=== PATIENT | female | born 1935 | race Two or more races ===

== ENCOUNTER 2017-01-11 21:59 | Inpatient (IN) | payer MEDICARE, OTHER ==
[~2017-01-11] VITALS: Ht 149.9 cm; Wt 81.6 kg
[2017-01-11 22:03] VITALS: BP 102/69
[2017-01-11] MEDS ORDERED: LOSARTAN POTASS25 MG ORAL (22:20)
[2017-01-11] MEDS ORDERED: LASIX20 M1 ORAL (22:20)
[2017-01-11] MEDS ORDERED: IBUPROFEN600 MG ORAL (22:20)
[2017-01-11] MEDS ORDERED: LEVAQUIN500 MG ORAL (22:20)
[2017-01-11] MEDS ORDERED: METOPROLOL TART25 MG ORAL (22:20)
[2017-01-11] MEDS ORDERED: CYMBALTA60 MG ORAL (22:20)
[2017-01-11] MEDS ORDERED: LYRICA75 M1 ORAL (22:20)
[2017-01-11] MEDS ORDERED: LEVOTHYROXINE125 MCG ORAL (22:20)
[2017-01-11] MEDS ORDERED: AZATHIOPRINE50 MG PO (22:20)
[2017-01-11] MEDS ORDERED: GERI-LANTA LIQ355 ML PO (22:20)
[2017-01-11] MEDS ORDERED: SPIRONOLACTONE25 MG ORAL (22:20)
[2017-01-11] MEDS ORDERED: CELLCEPT500 MG ORAL (22:20)
[2017-01-11] MEDS ORDERED: DUONEB 0.5-3(2.53 ML HHN (22:20)
[2017-01-11] MEDS ORDERED: DIGOXIN125 MCG ORAL (22:20)
[2017-01-11] MEDS ORDERED: PRILOSEC OTC20 MG ORAL (22:23)
[2017-01-11] MEDS ORDERED: PROMETHAZINE-D118 ML ORAL (22:23)
[2017-01-11] MEDS ORDERED: TADALAFIL5 MG PO (22:23)
[2017-01-11] MEDS ORDERED: PREDNISONE10 MG ORAL (22:23)
[2017-01-11 22:36] LABS: ABG PCO2 48.5 mmHg (35.0-45.0)
[2017-01-11 22:37] LABS: ABG ALLEN TEST POSITIVE; ABG BASE EXCESS 7.2
[2017-01-11] MEDS ORDERED: Nitroglycerin Subl 0.4mg tab (Bottle Of 25) SL PRN (22:45)
[2017-01-11] MEDS ORDERED: Promethazine/Codeine 5ml UD ORAL PRN (22:45)
[2017-01-11] MEDS ORDERED: LORazepam Inj 2mg/ml 1ml IV PRN (22:45)
[2017-01-11] MEDS ORDERED: Ketorolac 30mg Inj IV PRN (22:45)
[2017-01-11] MEDS ORDERED: Morphine Sulfate 2mg/ml Inj IVP PRN (22:45)
[2017-01-11] MEDS ORDERED: Solu-MEDROL 125mg Inj IVP ONE (22:45)
[2017-01-11] MEDS ORDERED: DuoNeb 0.5-3(2.5)mg/3ml neb HHN PRN (22:45)
--- NOTE | 2017-01-11 22:58 | Emergency Room Report ---
History of Present Illness General Chief Complaint: Abnormal Labs Source: Patient, Medical Record Present Illness HPI [id number] From [facility] with PaO2 31 from 521pm today Patient with known pulm fibrosis, severe, pulm HTN On O2 2L chronically Endorses cough Denies fever/chills, chest pain, abd pain, urinary complaints HPI from last admissions also states known hypoxia and known hypercarbia Allergies: Coded Allergies: No Known Allergies (Unverified , 01/11/17) Patient History Past Medical History: other - HTN, DM, pulm fibrosis, HTN Past Surgical History: none Pertinent Family History: none Social History: Denies: alcohol use, drug use, smoking Now: No Immunizations: UTD Reviewed Nursing Documentation: PMH: Agreed, PSxH: Agreed Nursing Documentation-PMH Hx Hypertension: Yes - Osteoarthritis, hypothyroid Hx COPD: Yes - RF Hx Diabetes: Yes Hx Gastrointestinal Problems: Yes - GERD History Of Psychiatric Problem: Yes - Depression Review of Systems All Other Systems: negative except mentioned in HPI Physical Exam Vital Signs Date Time Temp Pulse Resp B/P Pulse Ox O2 Delivery O2 Flow Rate FiO2 01/11/17 21:56 98.1 102 14 102/69 97 Nasal Cannula 4.0 Sp02 EP Interpretation: reviewed, normal General Appearance: normal inspection, well appearing, no apparent distress, alert, GCS 15, non-toxic, other - Elderly female, sitting upright in stretcher, smiling, interacting Head: normocephalic, atraumatic Eyes: bilateral eye EOMI, bilateral eye PERRL ENT: normal ENT inspection, hearing grossly normal, normal voice Neck: normal inspection, full range of motion, supple, no bony tend Respiratory: normal inspection, no respiratory distress, no retraction, no accessory muscle use, no wheezing, decreased breath sounds, crackles Cardiovascular #1: regular rate, rhythm, no edema Gastrointestinal: normal inspection, normal bowel sounds, non tender, soft, no guarding, no hernia Genitourinary: no CVA tenderness Musculoskeletal: normal inspection, back normal, normal range of motion, Chin' s Sign negative Neurologic: normal inspection, alert, oriented x3, responsive, behavioral health professional III-XII nml as tested, motor strength/tone normal, speech normal Psychiatric: normal inspection, judgement/insight normal, mood/affect normal Skin: normal inspection, normal color, no rash Medical Decision Making Diagnostic Impression: Primary Impression: Abnormal laboratory test result Additional Impression: Pulmonary fibrosis ER Course Sent for low PaO2 - PaO2 is 76 here. Not acidotic - CXR shows chronic respiratory acidosis - On 2L, O2 sat below 90%. - Gave empiric steroids, Abx - Blood Cx pending - TYRONE vs CKD on labs - No other acute metabolic abnormality Endorsed to Dr Bourne for tele admit at 1145pm EKG Diagnostic Results Rate: normal Rhythm: NSR ST Segments: no acute changes ASA given to the pt in ED: No Rhythm Strip Diag. Results EP Interpretation: yes Rate: 75 Rhythm: NSR, no PVC's, no ectopy Chest X-Ray Diagnostic Results Chest X-Ray Diagnostic Results : Chest X-Ray Ordered: Yes # of Views/Limited/Complete: 1 View Indication: Shortness of Breath EP Interpretation: Yes Interpretation: no pneumothorax, other - Chronic bilateral fibrosis. ?Left lower lung consolidation Interpreting ER Provider: Electronically signed by Dr Guerra Last Vital Signs Date Time Temp Pulse Resp B/P Pulse Ox O2 Delivery O2 Flow Rate FiO2 01/11/17 21:56 98.1 102 14 102/69 97 Nasal Cannula 4.0 Status: improved Disposition: ADMITTED INPATIENT Condition: Serious MARIA FERNANDA GUERRA M.D. Jan 11, 2017 22:58
[2017-01-11 23:00] LABS: MEAN CORPUSCULAR HGB CONC 32.4 G/DL (32.0-36.0); MEAN CORPUSCULAR VOLUME 99 FL (80-99); MEAN PLATELET VOLUME 7.6 FL (6.5-10.1); PLATELET COUNT 220 K/UL (150-450); RED BLOOD COUNT 2.62 M/UL (4.20-5.40); RED CELL DISTRIBUTION WIDTH 13.4 % (11.6-14.8); WHITE BLOOD COUNT 5.8 K/UL (4.8-10.8)
[2017-01-11 23:02] LABS: BASOPHILS % (AUTO) 0.2 % (0.0-2.0); EOSINOPHILS % (AUTO) 0.7 % (0.0-3.0); LYMPHOCYTES % (AUTO) 5.3 % (20.0-45.0); NEUTROPHILS % (AUTO) 89.8 % (45.0-75.0)
[2017-01-11 23:07] LABS: TROPONIN I < 0.30 ng/mL (<=0.30)
[2017-01-11 23:10] LABS: ALANINE AMINOTRANSFERASE 5 U/L (3-33); ALBUMIN/GLOBULIN RATIO 0.8 (1.0-2.7); ANION GAP 9 (5-15); ASPARTATE AMINO TRANSFERASE 5 U/L (5-40); CARBON DIOXIDE 34 mEQ/L (20-30); CHLORIDE 96 mEQ/L (98-107); CREATININE 1.1 mg/dL (0.5-0.9); HEMOLYSIS 0; POTASSIUM 4.3 mEQ/L (3.4-4.9); SODIUM 139 mEQ/L (135-145); TOTAL PROTEIN 7.1 g/dL (6.6-8.7)
[2017-01-11] MEDS ORDERED: Piperacillin/Tazobactam 3.375 GM in NS 110 ML IVPB ONE (23:15)
[2017-01-11] MEDS ORDERED: Vancomycin 1 GM in NS 275 ML IVPB ONE (23:15)
[2017-01-11 23:21] LABS: CKMB < 1.5 ng/mL (< 3.8)
[2017-01-11] MEDS ORDERED: Vancomycin 1gm inj IVPB ONE (23:53)
[2017-01-11] MEDS ORDERED: Zosyn 3.375gm inj ONE (23:54)
[2017-01-12] VITALS (8 sets, daily range): BP systolic 116–154; BP diastolic 47–78
[2017-01-12] MEDS ORDERED: Zosyn 3.375gm inj ONE (05:08)
[2017-01-12] MEDS: Zosyn 3.375gm q8h **Extended infusion IVPB SCH ×6 (05:33→22:25)
[2017-01-12] MEDS: Solu-MEDROL 125mg Inj IV SCH ×4 (05:35→18:02)
[2017-01-12] MEDS: Levothyroxine 125mcg tab ORAL SCH (05:36)
[2017-01-12] MEDS ORDERED: Piperacillin/Tazobactam 2.25 GM in D5W 55 ML IV SCH (06:00)
[2017-01-12] MEDS: Lyrica 50mg cap ORAL SCH ×2 (10:47→18:03)
[2017-01-12] MEDS: azaTHIOprine 50 MG TAB ORAL SCH (10:47)
[2017-01-12] MEDS: Digoxin 0.125mg tab ORAL SCH (10:47)
[2017-01-12] MEDS: DULoxetine 30mg cap ORAL SCH (10:47)
[2017-01-12] MEDS: Heparin 5000 units/ml inj SUBQ SCH ×2 (10:52→20:13)
[2017-01-12] MEDS: Theophylline ER 100mg ORAL SCH ×2 (10:52→20:13)
--- NOTE | 2017-01-12 11:07 | Diagnostic Imaging Report ---
Indication: Dyspnea Comparison: None A single view chest radiograph was obtained. Findings: Fairly extensive interstitial opacities are present throughout the lungs bilaterally. The heart is enlarged. There is a hiatal hernia. Pulmonary vascularity does appear prominent. The bones are osteopenic. Impression: Interstitial disease likely due to pulmonary edema. Please correlate clinically. Hiatal hernia Osteoporosis
--- NOTE | 2017-01-12 12:12 | Consultation ---
History of Present Illness General Date patient seen: Jan 12, 2017 Chief Complaint: Abnormal Labs Referring physician: Dr. Bourne Reason for Consultation: dyspnea Present Illness HPI 81 year old female with hx of pulmonary fibrosis, severe, pulmonary HTN, mixed connective disease, on O2 2L chronically brought in from residential with CC of desaturation and increasing shortness of breath, cough. Denies fever /chills, chest pain, abd pain, urinary complaints. Pt looks chronically ill. Slightly short of breath with episodes of cough. Allergies: Coded Allergies: No Known Allergies (Unverified , 01/11/17) Medication History Scheduled Azathioprine* (Imuran*), 50 MG PO DAILY, (Reported) Digoxin* (Digoxin*), 125 MCG ORAL DAILY, (Reported) Duloxetine Hcl* (Cymbalta*), 60 MG ORAL DAILY, (Reported) Furosemide* (Lasix*), 20 MG ORAL TWICE A DAY, (Reported) Ibuprofen* (Motrin*), 600 MG ORAL TWICE A DAY, (Reported) Levofloxacin* (Levaquin*), 500 MG ORAL DAILY, (Reported) Levothyroxine Sodium* (Levothyroxine Sodium*), 125 MCG ORAL DAILY, (Reported) Losartan Potassium* (Losartan Potassium*), 25 MG ORAL DAILY, (Reported) Mag Hydrox/Al Hydrox/Simeth (Heather-Lanta Liquid), 30 ML PO Q6HR, (Reported) Metoprolol Tartrate* (Metoprolol Tartrate*), 25 MG ORAL EVERY 12 HOURS, ( Reported) Mycophenolate Mofetil (Cellcept), 1,000 MG ORAL BEDTIME, (Reported) Omeprazole Magnesium (Prilosec Otc), 20 MG ORAL DAILY, (Reported) Prednisone* (Prednisone*), 10 MG ORAL DAILY, (Reported) Pregabalin* (Lyrica*), 100 MG ORAL TWICE A DAY, (Reported) Spironolactone* (Aldactone*), 25 MG ORAL DAILY, (Reported) Tadalafil (Tadalafil), 5 MG PO TWICE A DAY, (Reported) Scheduled PRN D-Methorphan Hb/Prometh Hcl* (Promethazine-Dm Syrup*), 5 ML ORAL Q4H PRN for For Cough, (Reported) Ipratropium/Albuterol Sulfate (DuoNeb 0.5-3(2.5)mg/3ml), 3 ML HHN Q4HR PRN for Shortness of Breath, (Reported) Patient History Healthcare decision maker Resuscitation status Full Code Advanced Directive on File Past Medical/Surgical History Past Medical/Surgical History: (1) Mixed connective tissue disease (2) Pulmonary fibrosis Review of Systems All Other Systems: negative except mentioned in HPI Physical Exam General Appearance: WD/WN, obese Lines, tubes and drains: peripheral HEENT: normocephalic, atraumatic Neck: non-tender, normal alignment Respiratory/Chest: rhonchi - left, rhonchi - right Breasts: no masses Cardiovascular/Chest: normal peripheral pulses, normal rate, regular rhythm Abdomen: normal bowel sounds, non tender Extremities: normal range of motion Skin Exam: normal pigmentation Neurologic: auto 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 grossly normal Last 24 Hour Vital Signs Date Time Temp Pulse Resp B/P Pulse Ox O2 Delivery O2 Flow Rate FiO2 01/12/17 10:47 101 01/12/17 08:32 82 22 Simple Mask 5.0 01/12/17 08:00 98.2 101 20 154/78 99 Simple Mask 5.0 01/12/17 04:00 88 01/12/17 04:00 97.0 84 20 117/66 98 Nasal Cannula 4.0 01/12/17 02:30 98.4 95 20 132/68 99 Nasal Cannula 4.0 01/12/17 02:30 100 01/12/17 02:23 98.1 96 22 123/58 98 Nasal Cannula 4.0 01/12/17 02:20 98.1 96 22 123/58 98 Nasal Cannula 4.0 01/12/17 00:05 98.1 100 19 116/53 97 Nasal Cannula 4.0 01/11/17 22:03 98.1 14 102/69 97 Nasal Cannula 4.0 01/11/17 21:56 98.1 102 14 102/69 97 Nasal Cannula 4.0 Intake and Output 01/11/17 01/12/17 19:00 07:00 Intake Total 0 ml Balance 0 ml Intake Oral 0 ml Laboratory Tests Test 01/11/17 22:10 01/11/17 22:17 White Blood Count 5.8 K/UL (4.8-10.8) Red Blood Count 2.62 M/UL (4.20-5.40) L Hemoglobin 8.4 G/DL (12.0-16.0) L Hematocrit 25.9 % (37.0-47.0) L Mean Corpuscular Volume 99 FL (80-99) Mean Corpuscular Hemoglobin 32.0 PG (27.0-31.0) H Mean Corpuscular Hemoglobin Concent 32.4 G/DL (32.0-36.0) Red Cell Distribution Width 13.4 % (11.6-14.8) Platelet Count 220 K/UL (150-450) Mean Platelet Volume 7.6 FL (6.5-10.1) Neutrophils (%) (Auto) 89.8 % (45.0-75.0) H Lymphocytes (%) (Auto) 5.3 % (20.0-45.0) L Monocytes (%) (Auto) 4.0 % (1.0-10.0) Eosinophils (%) (Auto) 0.7 % (0.0-3.0) Basophils (%) (Auto) 0.2 % (0.0-2.0) Sodium Level 139 mEQ/L (135-145) Potassium Level 4.3 mEQ/L (3.4-4.9) Chloride Level 96 mEQ/L (98-107) L Carbon Dioxide Level 34 mEQ/L (20-30) H Anion Gap 9 (5-15) Blood Urea Nitrogen 15 mg/dL (7-23) Creatinine 1.1 mg/dL (0.5-0.9) H Estimat Glomerular Filtration Rate mL/min (>60) Glucose Level 128 mg/dL (74-106) H Calcium Level 9.0 mg/dL (8.6-10.2) Total Bilirubin < 0.2 mg/dL (0.0-1.2) Aspartate Amino Transf (AST/SGOT) 5 U/L (5-40) Alanine Aminotransferase (ALT/SGPT) 5 U/L (3-33) Alkaline Phosphatase 66 U/L (35-104) Total Creatine Kinase 13 U/L (26-140) L Creatine Kinase MB < 1.5 ng/mL (< 3.8) Creatine Kinase MB Relative Index Troponin I < 0.30 ng/mL (<=0.30) Pro-B-Type Natriuretic Peptide 567 pg/mL (0-450) H Total Protein 7.1 g/dL (6.6-8.7) Albumin 3.2 g/dL (3.5-5.2) L Globulin 3.9 g/dL Albumin/Globulin Ratio 0.8 (1.0-2.7) L Arterial Blood pH 7.440 (7.350-7.450) Arterial Blood Partial Pressure CO2 48.5 mmHg (35.0-45.0) H Arterial Blood Partial Pressure O2 76.3 mmHg (75.0-100.0) Arterial Blood HCO3 32.2 mmol/L (22.0-26.0) H Arterial Blood Oxygen Saturation 94.8 % (92.0-98.0) Arterial Blood Base Excess 7.2 Kunal Test Positive Height (Feet): 4 Height (Inches): 11.00 Weight (Pounds): 180 Medications Current Medications Medications (Trade) Dose Ordered Sig/Taryn Route PRN Reason Start Time Stop Time Status Last Admin Dose Admin Albuterol/ Ipratropium (DuoNeb 0.5-3(2.5)mg/3ml) 3 ml Q4H PRN HHN dyspnea 01/11/17 22:45 01/16/17 22:44 Azathioprine (Imuran) 50 mg DAILY ORAL 01/12/17 09:00 02/11/17 08:59 01/12/17 10:47 Dextrose STAT PRN IV Hypoglycemia 01/11/17 22:45 02/10/17 22:44 Digoxin (Lanoxin) 0.125 mg DAILY ORAL 01/12/17 09:00 02/11/17 08:59 01/12/17 10:47 Duloxetine HCl (Cymbalta) 60 mg DAILY ORAL 01/12/17 09:00 02/11/17 08:59 01/12/17 10:47 Heparin Sodium (Porcine) (Heparin 5000 units/ml) 5,000 units EVERY 12 HOURS SUBQ 01/12/17 09:00 02/11/17 08:59 01/12/17 10:52 Ketorolac Tromethamine (Toradol 30mg) 15 mg Q6H PRN IV moderate pain 4-6 01/11/17 22:45 01/16/17 22:44 Levothyroxine Sodium (Synthroid) 125 mcg DAILY@0630 ORAL 01/12/17 06:30 02/11/17 06:29 01/12/17 05:36 Lorazepam (Ativan 2mg/ml 1ml) 0.5 mg Q4H PRN IV For Anxiety 01/11/17 22:45 01/18/17 22:44 Methylprednisolone Sodium Succinate (Solu-MEDROL) 60 mg EVERY 6 HOURS IV 01/12/17 06:00 02/11/17 05:59 01/12/17 05:35 Morphine Sulfate (Morphine Sulfate) 2 mg Q4H PRN IVP severe pain 7-10 01/11/17 22:45 01/18/17 22:44 Nitroglycerin (Ntg) 0.4 mg Q5M X 3 DOSES PRN SL Prn Chest Pain 01/11/17 22:45 02/10/17 22:44 Ondansetron HCl (Zofran) 4 mg Q6H PRN IVP Nausea & Vomiting 01/11/17 22:45 02/10/17 22:44 Piperacillin Sod/ Tazobactam Sod/ Dextrose (Zosyn/D5W) 110 ml @ 27.5 mls/hr EVERY 8 HOURS IVPB 01/12/17 06:00 01/17/17 05:59 01/12/17 05:33 Pregabalin (Lyrica) 100 mg TWICE A DAY ORAL 01/12/17 09:00 02/11/17 08:59 01/12/17 10:47 Promethazine HCl/ Codeine (Phenergan with Codeine) 5 ml Q6H PRN ORAL cough 01/11/17 22:45 02/10/17 22:44 Temazepam (Restoril) 15 mg HSPRN PRN ORAL Insomnia 01/11/17 22:45 01/18/17 22:44 Theophylline (John-Dur) 100 mg EVERY 12 HOURS ORAL 01/12/17 09:00 02/11/17 08:59 01/12/17 10:52 Assessment/Plan Problem List: (1) Respiratory failure, acute ICD Codes: J96.00 - Acute respiratory failure, unspecified whether with hypoxia or hypercapnia SNOMED: 16132770 (2) Pulmonary fibrosis ICD Codes: J84.10 - Pulmonary fibrosis, unspecified SNOMED: 77293083 (3) Abnormal laboratory test result ICD Codes: R89.9 - Unspecified abnormal finding in specimens from other organs , systems and tissues SNOMED: 039531935 (4) Mixed connective tissue disease ICD Codes: M35.1 - Other overlap syndromes SNOMED: 187239146 Assessment/Plan check sputum respiratory treatment IV antibiotics and steroids echo to asses pulmonary fibrosis dvt prophylaxis streamline cardiac meds. MARIZA CHANEL Jan 12, 2017 12:12
--- NOTE | 2017-01-12 12:41 | History & Physical ---
History and Physical History & Physicial Ten Bourne MD Jan 12, 2017 12:41
--- NOTE | 2017-01-12 23:15 | History and Physical Report ---
DATE OF ADMISSION: 01/11/2017 CHIEF COMPLAINT: Transfer from alf due to severe shortness of breath. HISTORY OF PRESENT ILLNESS: This is a 81-year-old [place] female with a past medical history significant for pulmonary fibrosis with history of pulmonary hypertension, history of mixed connective tissue disorder as well as hypothyroidism and hypertension who was presented initially to [facility] on 12/22/2016 complaining about multiple falls and shortly after initial evaluation the patient was admitted to the hospital with severe pulmonary fibrosis and moderate pulmonary hypertension with a multiple falls. After her status improved was discharged to the rehabilitation to [facility] and where she was getting her care, was noted to have shortness of breath, weakness, and whitish sputum. No fall. The patient was noted to have respiratory rate of 30 and even though she is chronically on oxygen two liters but was she was not responding and she became desaturated, increased shortness of breath. No fever or chills. No chest pain and shortly after initial evaluation in the emergency the patient was admitted to the hospital with acute respiratory failure and chronic respiratory failure with hypoxemic respiratory failure. PAST MEDICAL HISTORY AND PAST SURGICAL HISTORY: As above, history of mixed connective tissue disorder, history of pulmonary fibrosis, and hypothyroidism. The patient had a history of GERD, major depression, history of chronic respiratory failure on home oxygen with hypoxemic hypercapnic respiratory failure, pulmonary fibrosis, secondary pulmonary hypertension, osteoarthritis, mild obesity, right knee surgery, and total knee replacement. MEDICATIONS: At the nursing facility significant for the Aldactone 25 mg daily, , Cymbalta 60 mg daily, digoxin 0.125 mg daily, DuoNeb nebulizer, and Lasix 20 mg daily. The patient on Maalox 30 mL every six hours p.r.n. for acid reflux, ibuprofen 600 mg twice daily p.r.n. for pain. The patient completed a course of Levaquin therapy for 10 days, levothyroxine 125 mcg daily, losartan potassium 25 mg twice daily, Lyrica 100 mg twice daily, metoprolol 25 mg b.i.d., mycophenolate 1000 mg at night and 1500 mg p.o. daily, omeprazole extended release one capsule daily, prednisone 10 mg daily, and promethazine DM q.4 h. p.r.n. The patient on tadalafil 20 milligrams one capsule twice daily. ALLERGIES: No known drug allergies. SOCIAL HISTORY: Denies any smoking, alcohol, or drugs. FAMILY HISTORY: Noncontributory. REVIEW OF SYSTEMS: Mostly as above. Denies any dysuria or frequency. Complained about whitish productive cough. Denies any hemoptysis or hematochezia. Denies any bright red blood per rectum. Denies any suicidal or homicidal ideation. The patient denies any loss of consciousness. PHYSICAL EXAMINATION: GENERAL: The patient is awake and responsive, no acute distress. VITAL SIGNS: On admission, temperature 98.1 degrees, pulse of 102, respiration 14, and blood pressure 102/69. HEENT: Pupils are equal and reactive to light. Extraocular movements are intact. NECK: Supple. No JVD. LUNGS: Clear. No wheezes or rales. The patient has crackles on the bases of both side. HEART: S1 and S2. Regular rhythm. No gallops. ABDOMEN: Soft, nondistended, and nontender. Mildly obese. EXTREMITIES: No cyanosis, clubbing, or edema. NEUROLOGIC: Cranial nerves II through XII grossly intact. Motor is 5/5 in all extremities. LABORATORY AND DIAGNOSTIC DATA: Laboratories on admission is significant for WBC of 5.8, hemoglobin 8.4, hematocrit 25, and platelet is 220,000. Sodium 139, potassium 4.3, chloride 96, bicarbonate 34, BUN 15, creatinine 1.1, and glucose is 128. Calcium is 9.0. Troponin less than 0.30. ProBNP of 567. Total protein is 7.1. Albumin is 2.2. ABG, pH of 7.44, pCO2 of 48, pO2 of 76, and saturations 94%. The patient's chest x-ray confirmed has interstitial disease likely due to the pulmonary edema versus pulmonary fibrosis, hiatal hernia, and osteoporosis ASSESSMENT: 1. Acute respiratory failure and chronic respiratory distress with hypercapnic and hypoxemic respiratory failure. 2. Hypertension. 3. Pulmonary fibrosis. 4. Pulmonary hypertension. 5. Hypothyroidism. 6. Mixed connective tissue disorder. PLAN: Admit the patient to telemetry. We will follow up with Dr. Torres, Pulmonary Critical Care, nebulizer treatment, broad-spectrum antibiotics with Zosyn, and resume alf medications. Discussed with the [id number] at the bedside. Solu-Medrol IV and DVT prophylaxis. Heparin subcutaneous. Code status is Full Code. The patient was noted to have POLST signed on 01/04/2017, confirmed that a Full Code at this time. Ten Bourne M.D. DR: MINA JOB#: [id number] CC:
[2017-01-13] VITALS: BP 116/82
[2017-01-13 04:00] VITALS: BP 133/71
[2017-01-13] MEDS: Zosyn 3.375gm q8h **Extended infusion IVPB SCH ×4 (06:03→16:52)
[2017-01-13] MEDS: Solu-MEDROL 125mg Inj IV SCH ×5 (06:04→23:46)
[2017-01-13] MEDS: Levothyroxine 125mcg tab ORAL SCH (06:04)
[2017-01-13 07:49] LABS: MEAN CORPUSCULAR HEMOGLOBIN 30.1 PG (27.0-31.0); MEAN CORPUSCULAR HGB CONC 30.1 G/DL (32.0-36.0); MEAN CORPUSCULAR VOLUME 100 FL (80-99); MEAN PLATELET VOLUME 7.1 FL (6.5-10.1); PLATELET COUNT 260 K/UL (150-450); RED CELL DISTRIBUTION WIDTH 13.9 % (11.6-14.8); WHITE BLOOD COUNT 4.9 K/UL (4.8-10.8)
[2017-01-13] MEDS: NovoLOG Insulin Flexpen SUBQ SCH ×4 (08:06→21:08)
[2017-01-13 08:07] VITALS: BP 149/79
[2017-01-13] MEDS: Heparin 5000 units/ml inj SUBQ SCH ×2 (08:19→21:09)
[2017-01-13] MEDS: azaTHIOprine 50 MG TAB ORAL SCH (08:19)
[2017-01-13] MEDS: Digoxin 0.125mg tab ORAL SCH (08:19)
[2017-01-13] MEDS: Theophylline ER 100mg ORAL SCH ×2 (08:20→21:09)
[2017-01-13] MEDS: DULoxetine 30mg cap ORAL SCH (08:21)
[2017-01-13] MEDS: Lyrica 50mg cap ORAL SCH ×2 (08:21→17:00)
[2017-01-13 09:49] LABS: ERYTHROCYTE SEDIMENTATION RATE 130 MM/HR (0-30)
[2017-01-13] MEDS ORDERED: Tubing IV Secondary IV ONE (10:49)
[2017-01-13 11:20] LABS: BAND NEUTROPHILS % (MANUAL) 2 % (0-8); BASOPHILS % (MANUAL) 0 % (0-2); EOSINOPHILS % (MANUAL) 0 % (0-3); LYMPHOCYTES % (MANUAL) 5 % (20-45); NEUTROPHILS % (MANUAL) 93 % (45-75); PLATELET ESTIMATE ADEQUATE; PLATELET MORPHOLOGY NORMAL; TOTAL CELLS COUNTED 100
--- NOTE | 2017-01-13 11:33 | Pulmonology Progress Note ---
Assessment/Plan Problems: (1) Respiratory failure, acute (2) Pulmonary fibrosis (3) Abnormal laboratory test result (4) Mixed connective tissue disease Assessment/Plan prbc one unit today ESR is 130 Rheumatology consult pending respiratory treatment titrate fio2 chest pt check cultures. Subjective Interval Events: less short of breath Allergies: Coded Allergies: No Known Allergies (Unverified , 01/11/17) Objective Last 24 Hour Vital Signs Date Time Temp Pulse Resp B/P Pulse Ox O2 Delivery O2 Flow Rate FiO2 01/13/17 09:10 Nasal Cannula 4.0 01/13/17 09:09 91 Nasal Cannula 4.0 01/13/17 09:08 118 21 Nasal Cannula 4.0 01/13/17 08:19 102 01/13/17 08:07 97.5 111 20 149/79 93 Nasal Cannula 3.0 01/13/17 08:02 116 01/13/17 04:00 91 01/13/17 04:00 98.2 85 20 133/71 95 Nasal Cannula 3.0 32 01/13/17 00:00 95 01/13/17 00:00 97.7 86 18 116/82 97 Nasal Cannula 3.0 32 01/12/17 20:00 105 01/12/17 20:00 98.1 86 20 128/66 94 Nasal Cannula 3.0 32 01/12/17 19:45 Nasal Cannula 3.0 32 01/12/17 19:45 95 Nasal Cannula 3.0 32 01/12/17 19:45 109 20 Nasal Cannula 3.0 32 01/12/17 16:00 98.4 104 18 125/50 93 Nasal Cannula 3.0 01/12/17 16:00 100 01/12/17 13:21 108 20 Nasal Cannula 3.0 32 01/12/17 12:00 97.9 93 19 120/47 97 Simple Mask 5.0 01/12/17 12:00 99 Intake and Output 01/12/17 01/13/17 19:00 07:00 Intake Total 987.5 ml 328.54 ml Balance 987.5 ml 328.54 ml Intake Oral 960 ml 120 ml IV Total 27.5 ml 208.54 ml # Voids 5 2 General Appearance: WD/WN, no acute distress HEENT: normocephalic, atraumatic Respiratory/Chest: chest wall non-tender, decreased breath sounds, crackles/ rales Breasts: no masses Cardiovascular: normal peripheral pulses, normal rate Abdomen: normal bowel sounds, soft, non tender Genitourinary: normal external genitalia Extremities: no cyanosis Skin: no rash Neurologic/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: 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 normal, no motor/sensory deficits Lymphatic: no neck adenopathy Musculoskeletal: normal muscle bulk Microbiology Date/Time Source Procedure Growth Status 01/11/17 23:30 Blood Blood Culture - Preliminary NO GROWTH AFTER 24 HOURS Resulted 01/11/17 23:15 Blood Blood Culture - Preliminary NO GROWTH AFTER 24 HOURS Resulted Laboratory Tests 01/13/17 06:30: White Blood Count 4.9, Red Blood Count 2.60L, Hemoglobin 7.8L, Hematocrit 26.0L , Mean Corpuscular Volume 100H, Mean Corpuscular Hemoglobin 30.1, Mean Corpuscular Hemoglobin Concent 30.1L, Red Cell Distribution Width 13.9, Platelet Count 260, Mean Platelet Volume 7.1, Neutrophils (%) (Auto) , Lymphocytes (%) (Auto) , Monocytes (%) (Auto) , Eosinophils (%) (Auto) , Basophils (%) (Auto) , Differential Total Cells Counted 100, Neutrophils % ( Manual) 93H, Lymphocytes % (Manual) 5L, Monocytes % (Manual) 0L, Eosinophils % ( Manual) 0, Basophils % (Manual) 0, Band Neutrophils 2, Platelet Estimate Adequate, Platelet Morphology Normal, Erythrocyte Sedimentation Rate 130H, Reticulocyte Count [Pending], Prothrombin Time 10.0, Prothromb Time International Ratio 1.0, Activated Partial Thromboplast Time 27, Hemoglobin A1c 5.5, Iron Level 130, Total Iron Binding Capacity 246L, Percent Iron Saturation 53H, Unsaturated Iron Binding 116, Lactate Dehydrogenase 128L, Carcinoembryonic Antigen 3.2H, Vitamin B12 Level 474, Folate [Pending] Current Medications Medications (Trade) Dose Ordered Sig/Taryn Route PRN Reason Start Time Stop Time Status Last Admin Dose Admin Albuterol/ Ipratropium (DuoNeb 0.5-3(2.5)mg/3ml) 3 ml Q4H PRN HHN dyspnea 01/11/17 22:45 01/16/17 22:44 Azathioprine (Imuran) 50 mg DAILY ORAL 01/12/17 09:00 9/10/17 08:59 01/13/17 08:19 Dextrose (Dextrose 50%) STAT PRN IV Hypoglycemia 01/12/17 22:15 02/11/17 22:14 Digoxin (Lanoxin) 0.125 mg DAILY ORAL 01/12/17 09:00 02/11/17 08:59 01/13/17 08:19 Duloxetine HCl (Cymbalta) 60 mg DAILY ORAL 01/12/17 09:00 02/11/17 08:59 01/13/17 08:21 Heparin Sodium (Porcine) (Heparin 5000 units/ml) 5,000 units EVERY 12 HOURS SUBQ 01/12/17 09:00 02/11/17 08:59 01/13/17 08:19 Insulin Aspart (NovoLOG) BEFORE MEALS AND HS SUBQ 01/13/17 06:30 02/12/17 06:29 01/13/17 08:06 Levothyroxine Sodium (Synthroid) 125 mcg DAILY@0630 ORAL 01/12/17 06:30 02/11/17 06:29 01/13/17 06:04 Lorazepam (Ativan 2mg/ml 1ml) 0.5 mg Q4H PRN IV For Anxiety 01/11/17 22:45 01/18/17 22:44 Methylprednisolone Sodium Succinate (Solu-MEDROL) 60 mg EVERY 6 HOURS IV 01/12/17 06:00 02/11/17 05:59 01/13/17 06:04 Morphine Sulfate (Morphine Sulfate) 2 mg Q4H PRN IVP severe pain 7-01/11/17 22:45 01/18/17 22:44 Nitroglycerin (Ntg) 0.4 mg Q5M X 3 DOSES PRN SL Prn Chest Pain 01/11/17 22:45 02/10/17 22:44 Ondansetron HCl (Zofran) 4 mg Q6H PRN IVP Nausea & Vomiting 01/11/17 22:45 02/10/17 22:44 Pantoprazole (Protonix) 40 mg DAILY ORAL 01/13/17 11:30 02/12/17 11:29 Piperacillin Sod/ Tazobactam Sod/ Dextrose (Zosyn/D5W) 110 ml @ 27.5 mls/hr EVERY 8 HOURS IVPB 01/12/17 06:00 01/17/17 05:59 01/13/17 06:03 Pregabalin (Lyrica) 100 mg TWICE A DAY ORAL 01/12/17 09:00 02/11/17 08:59 01/13/17 08:21 Promethazine HCl/ Codeine (Phenergan with Codeine) 5 ml Q6H PRN ORAL cough 01/11/17 22:45 02/10/17 22:44 Temazepam (Restoril) 15 mg HSPRN PRN ORAL Insomnia 01/11/17 22:45 01/18/17 22:44 Theophylline 100 mg 100 mg EVERY 12 HOURS ORAL 01/12/17 09:00 02/11/17 08:59 01/13/17 08:20 MARIZA CHANEL Jan 13, 2017 11:33
[2017-01-13 11:36] VITALS: BP 125/67
[2017-01-13 11:59] LABS: PATH BLOOD SMEAR/OMC SENT TO PATHOLOGIST
[2017-01-13 15:46] VITALS: BP 128/70
--- NOTE | 2017-01-13 16:54 | Internal Med Progress Note ---
Subjective Date of Service: Jan 13, 2017 Physician Name Roberta Butler Attending Physician Ten Bourne MD Current Medications Medications (Trade) Dose Ordered Sig/Taryn Route PRN Reason Start Time Stop Time Status Last Admin Dose Admin Albuterol/ Ipratropium (DuoNeb 0.5-3(2.5)mg/3ml) 3 ml Q4H PRN HHN dyspnea 01/11/17 22:45 01/16/17 22:44 Azathioprine (Imuran) 50 mg DAILY ORAL 01/12/17 09:00 02/11/17 08:59 01/13/17 08:19 Dextrose (Dextrose 50%) STAT PRN IV Hypoglycemia 01/12/17 22:15 02/11/17 22:14 Digoxin (Lanoxin) 0.125 mg DAILY ORAL 01/12/17 09:00 02/11/17 08:59 01/13/17 08:19 Duloxetine HCl (Cymbalta) 60 mg DAILY ORAL 01/12/17 09:00 02/11/17 08:59 01/13/17 08:21 Heparin Sodium (Porcine) (Heparin 5000 units/ml) 5,000 units EVERY 12 HOURS SUBQ 01/12/17 09:00 02/11/17 08:59 01/13/17 08:19 Insulin Aspart (NovoLOG) BEFORE MEALS AND HS SUBQ 01/13/17 06:30 02/12/17 06:29 01/13/17 11:44 Levothyroxine Sodium (Synthroid) 125 mcg DAILY@0630 ORAL 01/12/17 06:30 02/11/17 06:29 01/13/17 06:04 Lorazepam (Ativan 2mg/ml 1ml) 0.5 mg Q4H PRN IV For Anxiety 01/11/17 22:45 01/18/17 22:44 Methylprednisolone Sodium Succinate (Solu-MEDROL) 60 mg EVERY 6 HOURS IV 01/12/17 06:00 02/11/17 05:59 01/13/17 11:43 Morphine Sulfate (Morphine Sulfate) 2 mg Q4H PRN IVP severe pain 7-10 01/11/17 22:45 01/18/17 22:44 Nitroglycerin (Ntg) 0.4 mg Q5M X 3 DOSES PRN SL Prn Chest Pain 01/11/17 22:45 02/10/17 22:44 Ondansetron HCl (Zofran) 4 mg Q6H PRN IVP Nausea & Vomiting 01/11/17 22:45 02/10/17 22:44 Pantoprazole (Protonix) 40 mg DAILY ORAL 01/13/17 11:30 02/12/17 11:29 01/13/17 11:43 Piperacillin Sod/ Tazobactam Sod/ Dextrose (Zosyn/D5W) 110 ml @ 27.5 mls/hr EVERY 8 HOURS IVPB 01/12/17 06:00 01/17/17 05:59 01/13/17 06:03 Pregabalin (Lyrica) 100 mg TWICE A DAY ORAL 01/12/17 09:00 02/11/17 08:59 01/13/17 08:21 Promethazine HCl/ Codeine (Phenergan with Codeine) 5 ml Q6H PRN ORAL cough 01/11/17 22:45 02/10/17 22:44 Temazepam (Restoril) 15 mg HSPRN PRN ORAL Insomnia 01/11/17 22:45 01/18/17 22:44 Theophylline 100 mg 100 mg EVERY 12 HOURS ORAL 01/12/17 09:00 02/11/17 08:59 01/13/17 08:20 Allergies: Coded Allergies: No Known Allergies (Unverified , 01/11/17) ROS Limited/Unobtainable: No Constitutional: Reports: no symptoms HEENT: Reports: no symptoms Cardiovascular: Reports: no symptoms Respiratory: Reports: shortness of breath Gastrointestinal/Abdominal: Reports: no symptoms Genitourinary: Reports: no symptoms Neurologic/Psychiatric: Reports: no symptoms Subjective 81YO F admitted with shortness of breath and respiratory failure. Tolerating nasal canula. Cover for Int Kg-Dr Bourne. Objective Last Vital Signs Date Time Temp Pulse Resp B/P Pulse Ox O2 Delivery O2 Flow Rate FiO2 01/13/17 15:46 98.2 94 18 128/70 99 Nasal Cannula 4.0 01/13/17 04:00 32 Laboratory Tests Test 01/13/17 06:30 White Blood Count 4.9 K/UL (4.8-10.8) Red Blood Count 2.60 M/UL (4.20-5.40) L Hemoglobin 7.8 G/DL (12.0-16.0) L Hematocrit 26.0 % (37.0-47.0) L Mean Corpuscular Volume 100 FL (80-99) H Mean Corpuscular Hemoglobin 30.1 PG (27.0-31.0) Mean Corpuscular Hemoglobin Concent 30.1 G/DL (32.0-36.0) L Red Cell Distribution Width 13.9 % (11.6-14.8) Platelet Count 260 K/UL (150-450) Mean Platelet Volume 7.1 FL (6.5-10.1) Neutrophils (%) (Auto) % (45.0-75.0) Lymphocytes (%) (Auto) % (20.0-45.0) Monocytes (%) (Auto) % (1.0-10.0) Eosinophils (%) (Auto) % (0.0-3.0) Basophils (%) (Auto) % (0.0-2.0) Differential Total Cells Counted 100 Neutrophils % (Manual) 93 % (45-75) H Lymphocytes % (Manual) 5 % (20-45) L Monocytes % (Manual) 0 % (1-10) L Eosinophils % (Manual) 0 % (0-3) Basophils % (Manual) 0 % (0-2) Band Neutrophils 2 % (0-8) Platelet Estimate Adequate Platelet Morphology Normal Erythrocyte Sedimentation Rate 130 MM/HR (0-30) H Reticulocyte Count 1.0 % (0.0-2.0) Prothrombin Time 10.0 SEC (9.30-11.50) Prothromb Time International Ratio 1.0 (0.9-1.1) Activated Partial Thromboplast Time 27 SEC (23-33) Hemoglobin A1c 5.5 % (< 6.0) Iron Level 130 ug/dL (37-145) Total Iron Binding Capacity 246 ug/dL (250-400) L Percent Iron Saturation 53 % (15-50) H Unsaturated Iron Binding 116 ug/dL (112-346) Lactate Dehydrogenase 128 U/L (135-230) L Carcinoembryonic Antigen 3.2 ng/mL H Vitamin B12 Level 474 pg/mL (211-946) Folate Pending Microbiology Date/Time Source Procedure Growth Status 01/11/17 23:30 Blood Blood Culture - Preliminary NO GROWTH AFTER 24 HOURS Resulted 8/10/17 23:15 Blood Blood Culture - Preliminary NO GROWTH AFTER 24 HOURS Resulted 01/12/17 17:00 Sputum Gram Stain - Final Resulted 01/12/17 17:00 Sputum Sputum Culture Pending Resulted Intake and Output 01/12/17 01/13/17 19:00 07:00 Intake Total 987.5 ml 328.54 ml Balance 987.5 ml 328.54 ml Intake Oral 960 ml 120 ml IV Total 27.5 ml 208.54 ml # Voids 5 2 Objective General: alert, cooperative, no distress, appears stated age Head: normocephalic, without obvious abnormality, atraumatic Eyes: conjunctivae/corneas clear. PERRL, EOM's intact Throat: lips, mucosa, and tongue normal. MMM Neck: supple, symmetrical, trachea midline, and no JVD Lungs: Expiratory wheezing; otherwise, clear to auscultation bilaterally Heart: regular rate and rhythm, S1, S2 normal, no murmur, click, rub or gallop Abdomen: soft, non-tender, non-distended, bowel sounds normal; no masses or organomegaly Extremities: extremities normal, atraumatic, no cyanosis or edema Pulses: 2+ and symmetric Skin: skin color, texture, turgor normal; no rashes or lesions Neurologic: grossly normal, no focal deficits Assessment/Plan Problem List: (1) GERD (gastroesophageal reflux disease) Assessment & Plan: Continue protonix (2) Major depression (3) Pulmonary fibrosis (4) Mixed connective tissue disease (5) Respiratory failure, acute Assessment & Plan: See pulmonary note. Cont IV solumedrol and zosyn. (6) Hypothyroidism Assessment & Plan: Continue synthroid Status: not improved ROBERTA BUTLER Jan 13, 2017 16:54
[2017-01-13 20:00] VITALS: BP 129/67
[2017-01-14] VITALS: BP 125/79
[2017-01-14] MEDS ORDERED: Zosyn 3.375gm q8h **Extended infusion IVPB SCH ×2
[2017-01-14 04:00] VITALS: BP 138/71
[2017-01-14] MEDS ORDERED: Nitroglycerin Subl 0.4mg tab (Bottle Of 25) SL PRN (05:45)
[2017-01-14] MEDS: Levothyroxine 125mcg tab ORAL SCH (06:30)
[2017-01-14] MEDS: Solu-MEDROL 125mg Inj IV SCH ×4 (06:30→23:54)
[2017-01-14] MEDS: NovoLOG Insulin Flexpen SUBQ SCH ×4 (06:34→21:00)
[2017-01-14] MEDS ORDERED: DuoNeb 0.5-3(2.5)mg/3ml neb HHN PRN (06:45)
[2017-01-14] MEDS ORDERED: Morphine Sulfate 2mg/ml Inj IVP PRN (06:45)
[2017-01-14] MEDS ORDERED: LORazepam Inj 2mg/ml 1ml IV PRN (06:45)
--- NOTE | 2017-01-14 07:17 | Progress Note ---
DATE: 01/13/2017 SUBJECTIVE: The patient is now moderately short of breath at rest with tachycardia. PHYSICAL EXAMINATION: VITAL SIGNS: Blood pressure 129/67, pulse is 121, respirations were 22, and temperature 97.9 degrees. HEENT: Eyes were normal. ENT, mucous membranes were moist and intact. NECK: Supple with jugular venous distention at 6 cm above supraclavicular fossa at 75 degrees. LUNGS: Clear without rhonchi, rales, or wheezing. HEART: Regular. Tachycardia at rest with increase in P2 and pulmonary focus. ABDOMEN: Soft, obese, and nontender with normal bowel sounds. EXTREMITIES: Warm without cyanosis, clubbing, or edema. LABORATORY DATA: Hemoglobin is 7.8, hematocrit 26.0 with MCV of 100, WBC of 4.9, and platelets are 260,000. ESR is 130. Reticulocyte count is 1. Her iron is 130 with iron binding capacity 246 and iron saturation is 53. LDH is 128. CEA is 3.2. Vitamin B12 is 474. However, the inflammatory marker ANTWON, rheumatoid factor, CRP, and EARL are not available. IMPRESSION: 1. The patient has pulmonary hypertension type I that includes hypertension secondary to connective tissue disease that includes rheumatoid arthritis, lupus erythematosus, scleroderma, mixed connective tissue disease, poliomyelitis, and dermatomyositis. 2. The patient has functional incapacity stage V. She is bedridden and unable to do activities of daily living. classification for functional capacity and pulmonary hypertension associated with pulmonary fibrosis. PLAN: 1. Currently, the patient is on Imuran 50 mg daily. This will not be sufficient to control her pulmonary hypertension at the present time. 2. We are still waiting for the 2D echo to see whether the patient's pulmonary hypertension is high or moderate prior to deciding which medication should be provided for the patient for pulmonary fibrosis and pulmonary hypertension. Surprisingly, I do not see report on consultation I dictated yesterday in regards to this patient. Repeat laboratory tests will be done in the a.m. Terrell Mercer M.D. DR: GLENIS JOB#: [id number] CC:
[2017-01-14 07:49] VITALS: BP 137/64
[2017-01-14 08:13] LABS: MEAN CORPUSCULAR HEMOGLOBIN 30.4 PG (27.0-31.0); MEAN CORPUSCULAR HGB CONC 30.9 G/DL (32.0-36.0); MEAN CORPUSCULAR VOLUME 99 FL (80-99); MEAN PLATELET VOLUME 6.7 FL (6.5-10.1); PLATELET COUNT 255 K/UL (150-450); RED BLOOD COUNT 3.27 M/UL (4.20-5.40); RED CELL DISTRIBUTION WIDTH 13.8 % (11.6-14.8); WHITE BLOOD COUNT 5.1 K/UL (4.8-10.8)
[2017-01-14] MEDS: Piperacillin/Tazobactam 3.375 GM in D5W 110 ML IVPB SCH ×3 (08:19→23:54)
[2017-01-14] MEDS: Theophylline ER 100mg ORAL SCH ×2 (08:20→20:58)
[2017-01-14] MEDS: Lyrica 50mg cap ORAL SCH ×2 (08:20→20:58)
[2017-01-14] MEDS: Digoxin 0.125mg tab ORAL SCH (08:20)
[2017-01-14] MEDS: DULoxetine 30mg cap ORAL SCH (08:21)
[2017-01-14] MEDS: Heparin 5000 units/ml inj SUBQ SCH ×2 (08:26→20:59)
[2017-01-14] MEDS: azaTHIOprine 50 MG TAB ORAL SCH (08:33)
[2017-01-14 08:55] LABS: ALANINE AMINOTRANSFERASE < 5 U/L (3-33); ALBUMIN/GLOBULIN RATIO 1.1 (1.0-2.7); ANION GAP 9 (5-15); ASPARTATE AMINO TRANSFERASE 7 U/L (5-40); CALCIUM 8.7 mg/dL (8.6-10.2); CARBON DIOXIDE 33 mEQ/L (20-30); CHLORIDE 100 mEQ/L (98-107); CREATININE 0.7 mg/dL (0.5-0.9); HEMOLYSIS 8; POTASSIUM 4.4 mEQ/L (3.4-4.9); SODIUM 142 mEQ/L (135-145); TOTAL PROTEIN 6.1 g/dL (6.6-8.7)
[2017-01-14 09:30] LABS: BAND NEUTROPHILS % (MANUAL) 0 % (0-8); BASOPHILS % (MANUAL) 0 % (0-2); EOSINOPHILS % (MANUAL) 0 % (0-3); HYPOCHROMASIA 1+; LYMPHOCYTES % (MANUAL) 4 % (20-45); NEUTROPHILS % (MANUAL) 93 % (45-75); PLATELET ESTIMATE ADEQUATE; PLATELET MORPHOLOGY NORMAL; TOTAL CELLS COUNTED 100
[2017-01-14 09:31] LABS: MACROCYTES 1+
[2017-01-14] MEDS ORDERED: Promethazine/Codeine 5ml UD ORAL PRN (10:45)
[2017-01-14 12:15] VITALS: BP 152/74
--- NOTE | 2017-01-14 13:32 | Pulmonology Progress Note ---
Assessment/Plan Problems: (1) Respiratory failure, acute (2) Pulmonary fibrosis (3) Abnormal laboratory test result (4) Mixed connective tissue disease Assessment/Plan Rheumat consult appreciated awaiting echo reprt prbc one unit today ESR is 130 Rheumatology consult pending respiratory treatment titrate fio2 chest pt check cultures. Subjective ROS Limited/Unobtainable: No Interval Events: no new complains Allergies: Coded Allergies: No Known Allergies (Unverified , 01/11/17) Objective Last 24 Hour Vital Signs Date Time Temp Pulse Resp B/P Pulse Ox O2 Delivery O2 Flow Rate FiO2 01/14/17 12:15 97.5 106 20 152/74 90 Nasal Cannula 2.0 01/14/17 08:20 99 01/14/17 07:49 97.5 99 18 137/64 93 Nasal Cannula 01/14/17 04:00 98.1 84 22 138/71 94 Nasal Cannula 3.0 01/14/17 00:00 97.5 90 23 125/79 98 Room Air 01/13/17 20:00 97.9 89 21 129/67 90 Room Air 01/13/17 19:18 Nasal Cannula 4.0 01/13/17 19:18 91 Nasal Cannula 2.0 28 01/13/17 19:18 84 20 Nasal Cannula 2.0 28 01/13/17 15:55 98 01/13/17 15:46 98.2 94 18 128/70 99 Nasal Cannula 4.0 Intake and Output 01/13/17 01/14/17 19:00 07:00 Intake Total 1078.7 ml 383.8 ml Balance 1078.7 ml 383.8 ml Intake Oral 660 ml 250 ml IV Total 168.7 ml 133.8 ml Blood Product 250 ml # Voids 3 3 General Appearance: WD/WN HEENT: normocephalic, atraumatic Respiratory/Chest: chest wall non-tender, lungs clear Breasts: no masses Cardiovascular: normal peripheral pulses Abdomen: normal bowel sounds, soft, non tender, no scars Extremities: no cyanosis Skin: no rash Microbiology Date/Time Source Procedure Growth Status 01/11/17 23:30 Blood Blood Culture - Preliminary NO GROWTH AFTER 48 HOURS Resulted 01/11/17 23:15 Blood Blood Culture - Preliminary NO GROWTH AFTER 48 HOURS Resulted 01/12/17 17:00 Sputum Gram Stain - Final Resulted 01/12/17 17:00 Sputum Sputum Culture Pending Resulted Laboratory Tests 01/14/17 08:15: White Blood Count 5.1, Red Blood Count 3.27L, Hemoglobin 9.9L, Hematocrit 32.2L , Mean Corpuscular Volume 99, Mean Corpuscular Hemoglobin 30.4, Mean Corpuscular Hemoglobin Concent 30.9L, Red Cell Distribution Width 13.8, Platelet Count 255, Mean Platelet Volume 6.7, Neutrophils (%) (Auto) , Lymphocytes (%) (Auto) , Monocytes (%) (Auto) , Eosinophils (%) (Auto) , Basophils (%) (Auto) , Differential Total Cells Counted 100, Neutrophils % ( Manual) 93H, Lymphocytes % (Manual) 4L, Monocytes % (Manual) 3, Eosinophils % ( Manual) 0, Basophils % (Manual) 0, Band Neutrophils 0, Platelet Estimate Adequate, Platelet Morphology Normal, Hypochromasia 1+, Macrocytosis 1+, Sodium Level 142, Potassium Level 4.4, Chloride Level 100, Carbon Dioxide Level 33H, Anion Gap 9, Blood Urea Nitrogen 23, Creatinine 0.7, Estimat Glomerular Filtration Rate , Glucose Level 205H, Calcium Level 8.7, Total Bilirubin 0.4, Aspartate Amino Transf (AST/SGOT) 7, Alanine Aminotransferase (ALT/SGPT) < 5, Alkaline Phosphatase 56, Pro-B-Type Natriuretic Peptide 346, Total Protein 6.1L , Albumin 3.3L, Globulin 2.8, Albumin/Globulin Ratio 1.1, Digoxin Level [Pending ] Current Medications Medications (Trade) Dose Ordered Sig/Taryn Route PRN Reason Start Time Stop Time Status Last Admin Dose Admin Albuterol/ Ipratropium (DuoNeb 0.5-3(2.5)mg/3ml) 3 ml Q4H PRN HHN dyspnea 01/14/17 06:45 01/19/17 06:44 Azathioprine (Imuran) 50 mg DAILY ORAL 01/14/17 09:00 02/13/17 08:59 01/14/17 08:33 Dextrose (Dextrose 50%) STAT PRN IV Hypoglycemia 01/14/17 22:15 02/13/17 22:14 Digoxin (Lanoxin) 0.125 mg DAILY ORAL 01/14/17 09:00 02/13/17 08:59 01/14/17 08:20 Duloxetine HCl (Cymbalta) 60 mg DAILY ORAL 01/14/17 09:00 02/13/17 08:59 01/14/17 08:21 Heparin Sodium (Porcine) (Heparin 5000 units/ml) 5,000 units EVERY 12 HOURS SUBQ 01/14/17 09:00 02/13/17 08:59 01/14/17 08:26 Insulin Aspart (NovoLOG) BEFORE MEALS AND HS SUBQ 01/14/17 06:30 02/13/17 06:29 01/14/17 11:30 Levothyroxine Sodium (Synthroid) 125 mcg DAILY@0630 ORAL 01/14/17 06:30 02/13/17 06:29 01/14/17 06:30 Lorazepam (Ativan 2mg/ml 1ml) 0.5 mg Q4H PRN IV For Anxiety 01/14/17 06:45 01/21/17 06:44 Methylprednisolone Sodium Succinate (Solu-MEDROL) 60 mg EVERY 6 HOURS IV 01/14/17 06:00 02/13/17 05:59 01/14/17 12:01 Morphine Sulfate (Morphine Sulfate) 2 mg Q4H PRN IVP severe pain 7-10 01/14/17 06:45 01/21/17 06:44 Nitroglycerin (Ntg) 0.4 mg Q5M X 3 DOSES PRN SL Prn Chest Pain 01/14/17 05:45 02/13/17 05:44 Ondansetron HCl (Zofran) 4 mg Q6H PRN IVP Nausea & Vomiting 01/14/17 10:45 02/13/17 10:44 Pantoprazole (Protonix) 40 mg DAILY ORAL 01/14/17 09:00 02/13/17 08:59 01/14/17 08:21 Piperacillin Sod/ Tazobactam Sod/ Dextrose (Zosyn/D5W) 110 ml @ 27.5 mls/hr Q8H IVPB 01/14/17 08:00 01/21/17 07:59 01/14/17 08:19 Pregabalin (Lyrica) 100 mg BID@0900,2100 ORAL 01/14/17 09:00 02/13/17 08:59 01/14/17 08:20 Promethazine HCl/ Codeine (Phenergan with Codeine) 5 ml Q6H PRN ORAL cough 01/14/17 10:45 02/13/17 10:44 Temazepam (Restoril) 15 mg HSPRN PRN ORAL Insomnia 01/14/17 22:45 01/21/17 22:44 Theophylline (John-Dur) 100 mg EVERY 12 HOURS ORAL 01/14/17 09:00 02/13/17 08:59 01/14/17 08:20 MARIZA CHANEL Jan 14, 2017 13:32
[2017-01-14 16:00] VITALS: BP 148/73
--- NOTE | 2017-01-14 16:31 | Internal Med Progress Note ---
Subjective Date of Service: Jan 14, 2017 Physician Name Roberta Butler Attending Physician Ten Bourne MD Current Medications Medications (Trade) Dose Ordered Sig/Taryn Route PRN Reason Start Time Stop Time Status Last Admin Dose Admin Albuterol/ Ipratropium (DuoNeb 0.5-3(2.5)mg/3ml) 3 ml Q4H PRN HHN dyspnea 01/14/17 06:45 01/19/17 06:44 Azathioprine (Imuran) 50 mg DAILY ORAL 01/14/17 09:00 02/13/17 08:59 01/14/17 08:33 Dextrose (Dextrose 50%) STAT PRN IV Hypoglycemia 01/14/17 22:15 02/13/17 22:14 Digoxin (Lanoxin) 0.125 mg DAILY ORAL 01/14/17 09:00 02/13/17 08:59 01/14/17 08:20 Duloxetine HCl (Cymbalta) 60 mg DAILY ORAL 01/14/17 09:00 02/13/17 08:59 01/14/17 08:21 Heparin Sodium (Porcine) (Heparin 5000 units/ml) 5,000 units EVERY 12 HOURS SUBQ 01/14/17 09:00 02/13/17 08:59 01/14/17 08:26 Insulin Aspart (NovoLOG) BEFORE MEALS AND HS SUBQ 01/14/17 06:30 02/13/17 06:29 01/14/17 16:26 Levothyroxine Sodium (Synthroid) 125 mcg DAILY@0630 ORAL 01/14/17 06:30 02/13/17 06:29 01/14/17 06:30 Lorazepam (Ativan 2mg/ml 1ml) 0.5 mg Q4H PRN IV For Anxiety 01/14/17 06:45 01/21/17 06:44 Methylprednisolone Sodium Succinate (Solu-MEDROL) 60 mg EVERY 6 HOURS IV 01/14/17 06:00 02/13/17 05:59 01/14/17 12:01 Morphine Sulfate (Morphine Sulfate) 2 mg Q4H PRN IVP severe pain 7-10 01/14/17 06:45 01/21/17 06:44 Nitroglycerin (Ntg) 0.4 mg Q5M X 3 DOSES PRN SL Prn Chest Pain 01/14/17 05:45 02/13/17 05:44 Ondansetron HCl (Zofran) 4 mg Q6H PRN IVP Nausea & Vomiting 01/14/17 10:45 02/13/17 10:44 Pantoprazole (Protonix) 40 mg DAILY ORAL 01/14/17 09:00 02/13/17 08:59 01/14/17 08:21 Piperacillin Sod/ Tazobactam Sod/ Dextrose (Zosyn/D5W) 110 ml @ 27.5 mls/hr Q8H IVPB 01/14/17 08:00 01/21/17 07:59 01/14/17 15:51 Pregabalin (Lyrica) 100 mg BID@0900,2100 ORAL 01/14/17 09:00 02/13/17 08:59 01/14/17 08:20 Promethazine HCl/ Codeine (Phenergan with Codeine) 5 ml Q6H PRN ORAL cough 01/14/17 10:45 02/13/17 10:44 Temazepam (Restoril) 15 mg HSPRN PRN ORAL Insomnia 01/14/17 22:45 01/21/17 22:44 Theophylline (John-Dur) 100 mg EVERY 12 HOURS ORAL 01/14/17 09:00 02/13/17 08:59 01/14/17 08:20 Allergies: Coded Allergies: No Known Allergies (Unverified , 01/11/17) ROS Limited/Unobtainable: No Constitutional: Reports: no symptoms HEENT: Reports: no symptoms Cardiovascular: Reports: no symptoms Respiratory: Reports: shortness of breath Gastrointestinal/Abdominal: Reports: no symptoms Genitourinary: Reports: no symptoms Neurologic/Psychiatric: Reports: no symptoms Subjective 81YO F admitted with shortness of breath and respiratory failure. Tolerating nasal canula. Cover for Int Kg-Dr Bourne. Objective Last Vital Signs Date Time Temp Pulse Resp B/P Pulse Ox O2 Delivery O2 Flow Rate FiO2 01/14/17 16:00 98.1 87 18 148/73 95 Nasal Cannula 2.0 01/13/17 19:18 28 Laboratory Tests Test 01/14/17 08:15 White Blood Count 5.1 K/UL (4.8-10.8) Red Blood Count 3.27 M/UL (4.20-5.40) L Hemoglobin 9.9 G/DL (12.0-16.0) L Hematocrit 32.2 % (37.0-47.0) L Mean Corpuscular Volume 99 FL (80-99) Mean Corpuscular Hemoglobin 30.4 PG (27.0-31.0) Mean Corpuscular Hemoglobin Concent 30.9 G/DL (32.0-36.0) L Red Cell Distribution Width 13.8 % (11.6-14.8) Platelet Count 255 K/UL (150-450) Mean Platelet Volume 6.7 FL (6.5-10.1) Neutrophils (%) (Auto) % (45.0-75.0) Lymphocytes (%) (Auto) % (20.0-45.0) Monocytes (%) (Auto) % (1.0-10.0) Eosinophils (%) (Auto) % (0.0-3.0) Basophils (%) (Auto) % (0.0-2.0) Differential Total Cells Counted 100 Neutrophils % (Manual) 93 % (45-75) H Lymphocytes % (Manual) 4 % (20-45) L Monocytes % (Manual) 3 % (1-10) Eosinophils % (Manual) 0 % (0-3) Basophils % (Manual) 0 % (0-2) Band Neutrophils 0 % (0-8) Platelet Estimate Adequate Platelet Morphology Normal Hypochromasia 1+ Macrocytosis 1+ Sodium Level 142 mEQ/L (135-145) Potassium Level 4.4 mEQ/L (3.4-4.9) Chloride Level 100 mEQ/L (98-107) Carbon Dioxide Level 33 mEQ/L (20-30) H Anion Gap 9 (5-15) Blood Urea Nitrogen 23 mg/dL (7-23) Creatinine 0.7 mg/dL (0.5-0.9) Estimat Glomerular Filtration Rate mL/min (>60) Glucose Level 205 mg/dL (74-106) H Calcium Level 8.7 mg/dL (8.6-10.2) Total Bilirubin 0.4 mg/dL (0.0-1.2) Aspartate Amino Transf (AST/SGOT) 7 U/L (5-40) Alanine Aminotransferase (ALT/SGPT) < 5 U/L (3-33) Alkaline Phosphatase 56 U/L (35-104) Pro-B-Type Natriuretic Peptide 346 pg/mL (0-450) Total Protein 6.1 g/dL (6.6-8.7) L Albumin 3.3 g/dL (3.5-5.2) L Globulin 2.8 g/dL Albumin/Globulin Ratio 1.1 (1.0-2.7) Digoxin Level Pending Microbiology Date/Time Source Procedure Growth Status 01/11/17 23:30 Blood Blood Culture - Preliminary NO GROWTH AFTER 48 HOURS Resulted 01/11/17 23:15 Blood Blood Culture - Preliminary NO GROWTH AFTER 48 HOURS Resulted 01/12/17 17:00 Sputum Gram Stain - Final Resulted 01/12/17 17:00 Sputum Sputum Culture Pending Resulted Intake and Output 01/13/17 01/14/17 19:00 07:00 Intake Total 1078.7 ml 383.8 ml Balance 1078.7 ml 383.8 ml Intake Oral 660 ml 250 ml IV Total 168.7 ml 133.8 ml Blood Product 250 ml # Voids 3 3 Objective General: alert, cooperative, no distress, appears stated age Head: normocephalic, without obvious abnormality, atraumatic Eyes: conjunctivae/corneas clear. PERRL, EOM's intact Throat: lips, mucosa, and tongue normal. MMM Neck: supple, symmetrical, trachea midline, and no JVD Lungs: Expiratory wheezing; otherwise, clear to auscultation bilaterally Heart: regular rate and rhythm, S1, S2 normal, no murmur, click, rub or gallop Abdomen: soft, non-tender, non-distended, bowel sounds normal; no masses or organomegaly Extremities: extremities normal, atraumatic, no cyanosis or edema Pulses: 2+ and symmetric Skin: skin color, texture, turgor normal; no rashes or lesions Neurologic: grossly normal, no focal deficits Assessment/Plan Problem List: (1) GERD (gastroesophageal reflux disease) Assessment & Plan: Continue protonix (2) Major depression (3) Pulmonary fibrosis (4) Mixed connective tissue disease (5) Respiratory failure, acute Assessment & Plan: See pulmonary note. Cont IV solumedrol and zosyn. (6) Hypothyroidism Assessment & Plan: Continue synthroid Status: not improved ROBERTA BUTLER Jan 14, 2017 16:31
--- NOTE | 2017-01-14 17:24 | Cardiology Report ---
APPROVED REPORT EXAM: Two-dimensional and M-mode echocardiogram with Doppler and color Doppler. INDICATION LV function M-Mode DIMENSIONS IVSd1.1 (0.7-1.1cm)Left Atrium (MM)4.5 (1.6-4.0cm) LVDd4.5 (3.5-5.6cm)Aortic Root3.5 (2.0-3.7cm) PWd1.4 (0.7-1.1cm)Aortic Cusp Exc.1.9 (1.5-2.0cm) LVDs3.1 (2.5-4.0cm) PWs1.7 cm Other Information Technically limited study due to apical views. Normal left ventricular chamber size, systolic function and wall motion to extent visualized. Left ventricular ejection fraction estimated to be 60 %. Mild left ventricular hypertrophy by 2-D. Anterior Echo-free space, may be due to pericardial fat or effusion. Moderate left atrial enlargement. Mild right atrial enlargement. Right ventricular chamber size is within normal limits. Focal aortic valve sclerosis with adequate cusp excursion. Thickened mitral valve leaflets with normal excursion. Mitral annulus and aortic root calcification. Normal pulmonic valve structure. Normal tricuspid valve structure. IVC at normal size with physiologic collapse. A color flow and spectral Doppler study was performed and revealed: Moderate aortic regurgitation. Mild mitral regurgitation. Mitral diastolic velocities suggest reduced left ventricular relaxation c/w mild LV diastolic dysfunction (Grade I). Mild tricuspid regurgitation. Tricuspid systolic velocities suggests peak right ventricular systolic pressure of 41 mmHg, consistent with mild pulmonary hypertension.
[2017-01-14] MEDS ORDERED: Tubing Blood Filter IV ONE (19:29)
[2017-01-14 20:00] VITALS: BP 151/91
[2017-01-15] VITALS: BP 141/78
[2017-01-15 04:00] VITALS: BP 146/93
--- NOTE | 2017-01-15 05:30 | Progress Note ---
DATE: 01/14/2017 SUBJECTIVE: The patient room and she is now sitting in the chair and she looks essentially better than yesterday. She is not short of breath at rest and her tachycardia at rest resolved. PHYSICAL EXAMINATION: VITAL SIGNS: Her blood pressure is 148/73, pulse is 87, respirations were 18, and temperature of 98.1. HEENT: Eyes were normal. ENT, mucous membranes were moist and intact. NECK: Supple with no JVD without lymph nodes. LUNGS: Clear. HEART: Normal sounds with regular heart beats. There is minimal increase in P2 and pulmonary focus, but is not intermittent today. ABDOMEN: Soft, obese, and nontender with normal bowel sounds. EXTREMITIES: Warm without cyanosis, clubbing, or edema. Extremities were cold. LABORATORY DATA: Hemoglobin is 9.9, hematocrit 32.2 with MCV of 99, WBC of 5.1, and platelets 255,000. Her BUN and creatinine is 23 and 0.7 respectively. Her sodium is 142, potassium 4.4, chloride 100, and CO2 was 33. Calcium is 8.7. SGOT and SGPT are normal. Her proBNP is 346. Her albumin is 3.3 and total protein is 6.1. Blood cultures now available, which are negative. A detailed 2D echo report is included in the chart, and the most significant finding is the patient basically had a normal structural heart with minimal valvular . Peak right ventricular systolic pressure is 41 consistent with [id number] pulmonary hypertension. IMPRESSION: The patient had bilateral interstitial secondary to pulmonary edema. Clinically, the patient does not appear to be in pulmonary edema. The patient has [id number] pulmonary hypertension, to conservative treatment. She does not qualify to prostaglandin or endothelium 1 inhibitor. Today the patient is unable to speak long sentences. She is comfortable and able to sit in the chair, which she could not sit comfortably yesterday. We will laboratory test in regard to inflammatory marker. Terrell Mercer M.D. DR: MARIMAR JOB#: [id number] CC:
[2017-01-15] MEDS: Solu-MEDROL 125mg Inj IV SCH ×3 (05:57→20:49)
[2017-01-15] MEDS: NovoLOG Insulin Flexpen SUBQ SCH ×4 (05:58→20:53)
[2017-01-15] MEDS: Levothyroxine 125mcg tab ORAL SCH (05:59)
[2017-01-15 07:09] LABS: MEAN CORPUSCULAR HEMOGLOBIN 31.1 PG (27.0-31.0); MEAN CORPUSCULAR HGB CONC 31.8 G/DL (32.0-36.0); MEAN CORPUSCULAR VOLUME 98 FL (80-99); MEAN PLATELET VOLUME 7.3 FL (6.5-10.1); PLATELET COUNT 242 K/UL (150-450); RED BLOOD COUNT 3.27 M/UL (4.20-5.40); RED CELL DISTRIBUTION WIDTH 13.6 % (11.6-14.8); WHITE BLOOD COUNT 3.8 K/UL (4.8-10.8)
[2017-01-15 07:18] LABS: ANION GAP 2 (5-15); CALCIUM 8.8 mg/dL (8.6-10.2); CARBON DIOXIDE 39 mEQ/L (20-30); CHLORIDE 99 mEQ/L (98-107); CREATININE 0.6 mg/dL (0.5-0.9); HEMOLYSIS 2; POTASSIUM 4.6 mEQ/L (3.4-4.9); SODIUM 140 mEQ/L (135-145)
[2017-01-15 08:00] VITALS: BP 157/83
[2017-01-15] MEDS: Piperacillin/Tazobactam 3.375 GM in D5W 110 ML IVPB SCH (08:09)
[2017-01-15] MEDS: Theophylline ER 100mg ORAL SCH ×2 (08:10→20:49)
[2017-01-15] MEDS: DULoxetine 30mg cap ORAL SCH (08:10)
[2017-01-15] MEDS: Lyrica 50mg cap ORAL SCH ×2 (08:11→20:49)
[2017-01-15] MEDS: Digoxin 0.125mg tab ORAL SCH (08:13)
[2017-01-15] MEDS: azaTHIOprine 50 MG TAB ORAL SCH (08:13)
[2017-01-15] MEDS: Heparin 5000 units/ml inj SUBQ SCH ×2 (08:13→20:53)
--- NOTE | 2017-01-15 08:31 | Cardiology Report ---
APPROVED REPORT EKG Measurement Heart [id number] Sinus tachycardia Minimal voltage criteria for LVH, may be normal variant Borderline ECG
[2017-01-15 09:33] LABS: BAND NEUTROPHILS % (MANUAL) 1 % (0-8); LYMPHOCYTES % (MANUAL) 5 % (20-45); NEUTROPHILS % (MANUAL) 93 % (45-75); TOTAL CELLS COUNTED 100
[2017-01-15 09:34] LABS: BASOPHILS % (MANUAL) 0 % (0-2); EOSINOPHILS % (MANUAL) 0 % (0-3); HYPOCHROMASIA 1+; PLATELET ESTIMATE ADEQUATE; PLATELET MORPHOLOGY NORMAL
--- NOTE | 2017-01-15 11:15 | Consultation ---
DATE OF ADMISSION: 01/11/2017 REASON FOR CONSULTATION: I was asked by Dr. 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 History Of Present Illness: The patient is a poor historian in spite that she is alert, oriented, and able to respond to many questions, but she is unable to give any detailed information regarding the history of a connective tissue disease or pulmonary disease. She initially presented and stated that she never had any surgery and she does not have any disease. Later on, she revealed that she had right total hip replacement in 2011. She stated that pulmonary problem started only few weeks ago and she was able to ambulate until few weeks ago, but later on, it appeared that the pulmonary problem was more than 10 to 12 years and she remained in class 1 functional as well as classification with pulmonary hypertension and pulmonary fibrosis. Medically, she declined to have any medical problem, however, then 02:08 medication contradict the patient history. ALLERGIES: No known drug allergies. Medications: She is on Imuran 50 mg daily, digoxin 0.125 mg daily, duloxetine 60 mg daily and I assume for fibromyalgia, pregabalin 100 mg b.i.d. and I assume for fibromyalgia, heparin 5000 units subcutaneously q.12 h., theophylline 100 mg q.12 h., and levothyroxine 125 mcg daily. She is on Solu-Medrol 60 mg q.6 h., and piperacillin-tazobactam 2.25 g IV piggyback q.6 h. as well. She is on vancomycin 1 g that she received once. She has 03:25 albuterol sulfate and ipratropium bromide inhalation therapy every four hours and she is on ketorolac 50 mg intravenous q.6 h. FAMILY HISTORY: Both parents in their 60s, none of them had any pulmonary or connective tissue disease. She has no brother and no sister. She has three sons, all in good health. SOCIAL HISTORY: She is a . She was born in [facility]. She has been in [place] for more than 20 years. HABITS: The patient did not smoke, drink, or use illicit drugs. Review Of Systems: Cardiovascular: The patient denied any chest pain or shortness of breath. She ____04:17 or pulmonary condition. She has no palpitation and no dizziness. Pulmonary: The patient denied any cough. She has rare wheezing, but she does have shortness of breath on exertion and at rest and required O2 by nasal cannula nearly on a constant basis. Her appetite is moderate. Her weight is stable. She has no dysphagia or dyspepsia. No bowel movement disorder. Genitourinary: The patient denied any dysuria or frequency. She does have stress incontinence, but not urge incontinence. Nocturia is 2 to 3. Joints: The patient denied any swelling. She does have morning stiffness from 20 to 40 minutes. She has no cold sensitivity, photosensitivity, dry eyes, dry mouth, or alopecia. 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 She now has poor sleep and wakes up tired. PHYSICAL EXAMINATION: VITAL SIGNS: Her blood pressure is 120/47, her pulse is 93, respirations 19, and temperature 97.6 degrees. HEENT: Eyes were normal. Pupils were round, equal, and reactive to light. Sclerae were white. Conjunctiva was pink. Extraocular movements were normal. Temporal arteries were palpable bilaterally. There was no bilateral temporal wasting. Visual long to confrontation were normal and neglect sign was negative. ENT, mucous membranes were not dehydrated. Auditory canals were clear and tympanic membranes could not be visualized. Nasal cavity was not congested. Nasal septum was intact. There was no mucosal 06:16 consideration in the nasal cavity. Soft palate and uvula was midline. Pharynx was clear from exudate or tonsillar hypertrophy. Tongue was moist, midline, and normally papillated. NECK: Supple. There was no goiter. No mass. No lymphadenopathy. There was no JVD. No bruits. Carotid upstroke was 1+. LUNGS: Clear with only [id number] decrease of breath sounds. There was no dullness on percussion. Breath sounds could be heard in upper and lower lobes bilaterally. Heart: PMI was at fifth left intercostal space in midclavicular line. There was normal S1 and normal S2. The PMI was difficult to locate. There was no S3, S4, or pericardial rub. There was intermittent increase in 07:16 pulmonary bubbles 07:19 lung auscultation. ABDOMEN: Soft, obese, and nontender without organomegaly. There was no mass palpable. Normal bowel sounds without bruits. There was no guarding. No rebound tenderness. No ascites. No hernia. No CVA tenderness. Liver span was 8 cm, smooth, and nontender. EXTREMITIES: No cyanosis, no clubbing, and no edema. Extremities were warm. There was a surgical scar of total knee replacement in the right knee. NEUROLOGIC: Reflexes in biceps, triceps, and brachioradialis were present. Patellar retinaculum was present on the left only. Plantar were in flexion. Cranial nerves from II through XII were symmetric and equal. Cerebellar function, there was no tremor. No nystagmus. No extrapyramidal rigidity. Sensory exam to pinprick and cotton touch are grossly normal. Motor strength was 5/5 against resistance in upper and lower extremities in proximal and distal muscles and corresponds to age. Joint Examination: Passive range of motion of shoulder, elbow, and wrist was moderately elevated 08:37 bilaterally symmetric with no deviation of all metacarpophalangeal joints. A swan neck deformity in two digits. Passive range of motion of hips with abduction 45 and internal rotation to 20. Passive range of motion of the knee revealed loss of hyperextension in the right knee and moderate loss in the left knee. The synovial was thickened in all metacarpophalangeal joints of left knee and both ankles. Laboratory Data: Arterial blood gases 09:25 pH was 7.44, pCO2 was 45, pO2 was 76, bicarbonate was 32.2, and O2 saturation was 94.2 on room air. Hemoglobin is 8.4, hematocrit 25.9 with MCV of 99, WBC of 5.6, and platelets is 220,000. Her BUN and creatinine is 15 and 1.5 respectively. Her sodium is 139, potassium 4.3, chloride 96, and CO2 was 34. Liver function tests were normal. Troponin was undetected. Albumin was 3.2. Total protein was 7.1. Her chest x-ray showed extensive 10:35 opacity bilaterally, and cardiomegaly with hiatal hernia. Pulmonary vascularity appears prominent. However, the impression of the patient was interstitial lung disease with secondary pulmonary edema and 11:06 connective tissue disease. Impression: The patient presently had clinically rheumatoid arthritis, which is now 11:18. The synovium was not warm or tender. Diffuse articular pain was diagnosed with fibromyalgia for which she is getting duloxetine and pregabalin with moderate efficacy. The pulmonary hypertension efficacies need to be assessed by 2D echo. The presence of connective tissue disease should be confirmed by ESR, CRP, and ANTWON. the patient has pulmonary hypertension +1 in the which connective tissue disease are one of the main contributors such as scleroderma, rheumatoid arthritis, lupus erythematosus, mixed connective tissue disease. Based on the connective tissue disease, the patient 12:22 autoimmune marker . RECOMMENDATIONS: 1. For management of pulmonary hypertension, 12:48 will be given. There are several medications that can be given to the patient if pulmonary hypertension is of a severe kind. 2. The patient is currently on beta-lacy, which I suggest to remove as it is prone to be 13:21 pulmonary functioning . Thank you Dr. Torres to ask me to participate in the care of this patient. Terrell Mercer M.D. DR: GLENIS JOB#: [id number] CC:
[2017-01-15 12:00] VITALS: BP 135/70
[2017-01-15 12:27] LABS: OTHERS PATHOLOGIST COMMENT
--- NOTE | 2017-01-15 15:19 | Pulmonology Progress Note ---
Assessment/Plan Problems: (1) Respiratory failure, acute (2) Pulmonary fibrosis (3) Abnormal laboratory test result (4) Mixed connective tissue disease Assessment/Plan Rheumat consult appreciated echo report reviewed, pt has only mild pulmonary hypertension prbc one unit a few days ago ESR is 130 respiratory treatment titrate fio2 chest pt check cultures. pt/ot dc planning in progress Subjective ROS Limited/Unobtainable: No Constitutional: Reports: no symptoms HEENT: Repors: no symptoms Respiratory: Reports: no symptoms Allergies: Coded Allergies: No Known Allergies (Unverified , 01/11/17) Objective Last 24 Hour Vital Signs Date Time Temp Pulse Resp B/P Pulse Ox O2 Delivery O2 Flow Rate FiO2 01/15/17 12:00 97.5 92 20 135/70 97 Nasal Cannula 3.0 01/15/17 11:25 18 18 100 Nasal Cannula 4.0 36 01/15/17 11:20 86 20 94 Nasal Cannula 4.0 36 01/15/17 08:36 Nasal Cannula 4.0 36 01/15/17 08:36 95 Nasal Cannula 4.0 36 01/15/17 08:35 95 20 Nasal Cannula 4.0 36 01/15/17 08:13 78 01/15/17 08:00 97.9 81 18 157/83 91 Nasal Cannula 2.0 01/15/17 04:00 97.6 78 18 146/93 97 Nasal Cannula 2.0 01/15/17 00:00 97.5 74 19 141/78 94 Nasal Cannula 2.0 01/14/17 20:00 97.3 75 18 151/91 92 Nasal Cannula 2.0 01/14/17 19:38 95 Nasal Cannula 2.0 01/14/17 19:38 94 20 Nasal Cannula 2.0 01/14/17 19:38 Nasal Cannula 4.0 01/14/17 16:00 98.1 87 18 148/73 95 Nasal Cannula 2.0 Intake and Output 01/14/17 01/15/17 19:00 07:00 Intake Total 1005.0 ml 585.0 ml Balance 1005.0 ml 585.0 ml Intake Oral 840 ml 475 ml IV Total 165.0 ml 110.0 ml # Voids 2 3 # Bowel Movements 1 General Appearance: WD/WN HEENT: normocephalic, atraumatic Respiratory/Chest: chest wall non-tender, lungs clear Breasts: no masses Cardiovascular: normal peripheral pulses Abdomen: normal bowel sounds, soft, non tender Genitourinary: normal external genitalia Extremities: no cyanosis Skin: no lesions, no ulcers 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 Microbiology Date/Time Source Procedure Growth Status 01/12/17 17:00 Sputum Gram Stain - Final Complete 01/12/17 17:00 Sputum Culture - Final Tish Albicans Usual Upper Respiratory Kelsy Complete Laboratory Tests 01/15/17 04:45: White Blood Count 3.8L, Red Blood Count 3.27L, Hemoglobin 10.2L, Hematocrit 31.9L, Mean Corpuscular Volume 98, Mean Corpuscular Hemoglobin 31.1H, Mean Corpuscular Hemoglobin Concent 31.8L, Red Cell Distribution Width 13.6, Platelet Count 242, Mean Platelet Volume 7.3, Neutrophils (%) (Auto) , Lymphocytes (%) (Auto) , Monocytes (%) (Auto) , Eosinophils (%) (Auto) , Basophils (%) (Auto) , Differential Total Cells Counted 100, Neutrophils % ( Manual) 93H, Lymphocytes % (Manual) 5L, Monocytes % (Manual) 1, Eosinophils % ( Manual) 0, Basophils % (Manual) 0, Band Neutrophils 1, Platelet Estimate Adequate, Platelet Morphology Normal, Hypochromasia 1+, Sodium Level 140, Potassium Level 4.6, Chloride Level 99, Carbon Dioxide Level 39H, Anion Gap 2L, Blood Urea Nitrogen 22, Creatinine 0.6, Estimat Glomerular Filtration Rate , Glucose Level 153H, Calcium Level 8.8 Current Medications Medications (Trade) Dose Ordered Sig/Taryn Route PRN Reason Start Time Stop Time Status Last Admin Dose Admin Albuterol/ Ipratropium (DuoNeb 0.5-3(2.5)mg/3ml) 3 ml Q4H PRN HHN dyspnea 01/14/17 06:45 01/19/17 06:44 01/15/17 11:28 Azathioprine (Imuran) 50 mg DAILY ORAL 01/14/17 09:00 02/13/17 08:59 01/15/17 08:13 Dextrose (Dextrose 50%) STAT PRN IV Hypoglycemia 01/14/17 22:15 02/13/17 22:14 Digoxin (Lanoxin) 0.125 mg DAILY ORAL 01/14/17 09:00 02/13/17 08:59 01/15/17 08:13 Duloxetine HCl (Cymbalta) 60 mg DAILY ORAL 01/14/17 09:00 02/13/17 08:59 01/15/17 08:10 Heparin Sodium (Porcine) (Heparin 5000 units/ml) 5,000 units EVERY 12 HOURS SUBQ 01/14/17 09:00 02/13/17 08:59 01/15/17 08:13 Insulin Aspart (NovoLOG) BEFORE MEALS AND HS SUBQ 01/14/17 06:30 02/13/17 06:29 01/15/17 12:32 Levothyroxine Sodium (Synthroid) 125 mcg DAILY@0630 ORAL 01/14/17 06:30 02/13/17 06:29 01/15/17 05:59 Lorazepam (Ativan 2mg/ml 1ml) 0.5 mg Q4H PRN IV For Anxiety 01/14/17 06:45 01/21/17 06:44 Methylprednisolone Sodium Succinate (Solu-MEDROL) 60 mg EVERY 6 HOURS IV 01/14/17 06:00 02/13/17 05:59 01/15/17 12:35 Morphine Sulfate (Morphine Sulfate) 2 mg Q4H PRN IVP severe pain 7-10 01/14/17 06:45 01/21/17 06:44 Nitroglycerin (Ntg) 0.4 mg Q5M X 3 DOSES PRN SL Prn Chest Pain 01/14/17 05:45 02/13/17 05:44 Ondansetron HCl (Zofran) 4 mg Q6H PRN IVP Nausea & Vomiting 01/14/17 10:45 02/13/17 10:44 Pantoprazole (Protonix) 40 mg DAILY ORAL 01/14/17 09:00 02/13/17 08:59 01/15/17 08:13 Pregabalin (Lyrica) 100 mg BID@0900,2100 ORAL 01/14/17 09:00 02/13/17 08:59 01/15/17 08:11 Promethazine HCl/ Codeine (Phenergan with Codeine) 5 ml Q6H PRN ORAL cough 01/14/17 10:45 02/13/17 10:44 Temazepam (Restoril) 15 mg HSPRN PRN ORAL Insomnia 01/14/17 22:45 01/21/17 22:44 Theophylline (John-Dur) 100 mg EVERY 12 HOURS ORAL 01/14/17 09:00 02/13/17 08:59 01/15/17 08:10 MARIZA CHANEL Jan 15, 2017 15:19
[2017-01-15 16:00] VITALS: BP 151/78
--- NOTE | 2017-01-15 19:10 | Internal Med Progress Note ---
Subjective Date of Service: Jan 15, 2017 Physician Name Roberta Butler Attending Physician Ten Bourne MD Current Medications Medications (Trade) Dose Ordered Sig/Taryn Route PRN Reason Start Time Stop Time Status Last Admin Dose Admin Albuterol/ Ipratropium (DuoNeb 0.5-3(2.5)mg/3ml) 3 ml Q4H PRN HHN dyspnea 01/14/17 06:45 01/19/17 06:44 01/15/17 11:28 Azathioprine (Imuran) 50 mg DAILY ORAL 01/14/17 09:00 02/13/17 08:59 01/15/17 08:13 Dextrose (Dextrose 50%) STAT PRN IV Hypoglycemia 01/14/17 22:15 02/13/17 22:14 Digoxin (Lanoxin) 0.125 mg DAILY ORAL 01/14/17 09:00 02/13/17 08:59 01/15/17 08:13 Duloxetine HCl (Cymbalta) 60 mg DAILY ORAL 01/14/17 09:00 02/13/17 08:59 01/15/17 08:10 Heparin Sodium (Porcine) (Heparin 5000 units/ml) 5,000 units EVERY 12 HOURS SUBQ 01/14/17 09:00 02/13/17 08:59 01/15/17 08:13 Insulin Aspart (NovoLOG) BEFORE MEALS AND HS SUBQ 01/14/17 06:30 02/13/17 06:29 01/15/17 16:48 Levothyroxine Sodium (Synthroid) 125 mcg DAILY@0630 ORAL 01/14/17 06:30 02/13/17 06:29 01/15/17 05:59 Lorazepam (Ativan 2mg/ml 1ml) 0.5 mg Q4H PRN IV For Anxiety 01/14/17 06:45 01/21/17 06:44 Methylprednisolone Sodium Succinate (Solu-MEDROL) 60 mg EVERY 12 HOURS IV 01/15/17 21:00 02/14/17 20:59 Morphine Sulfate (Morphine Sulfate) 2 mg Q4H PRN IVP severe pain 7-10 01/14/17 06:45 01/21/17 06:44 Nitroglycerin (Ntg) 0.4 mg Q5M X 3 DOSES PRN SL Prn Chest Pain 01/14/17 05:45 02/13/17 05:44 Ondansetron HCl (Zofran) 4 mg Q6H PRN IVP Nausea & Vomiting 01/14/17 10:45 02/13/17 10:44 Pantoprazole (Protonix) 40 mg DAILY ORAL 01/14/17 09:00 02/13/17 08:59 01/15/17 08:13 Pregabalin (Lyrica) 100 mg BID@0900,2100 ORAL 01/14/17 09:00 02/13/17 08:59 01/15/17 08:11 Promethazine HCl/ Codeine (Phenergan with Codeine) 5 ml Q6H PRN ORAL cough 01/14/17 10:45 02/13/17 10:44 Temazepam (Restoril) 15 mg HSPRN PRN ORAL Insomnia 01/14/17 22:45 01/21/17 22:44 Theophylline (John-Dur) 100 mg EVERY 12 HOURS ORAL 01/14/17 09:00 02/13/17 08:59 01/15/17 08:10 Allergies: Coded Allergies: No Known Allergies (Unverified , 01/11/17) ROS Limited/Unobtainable: No Constitutional: Reports: no symptoms HEENT: Reports: no symptoms Cardiovascular: Reports: no symptoms Respiratory: Reports: shortness of breath Gastrointestinal/Abdominal: Reports: no symptoms Genitourinary: Reports: no symptoms Neurologic/Psychiatric: Reports: no symptoms Subjective 81YO F admitted with shortness of breath and respiratory failure. Tolerating nasal canula. Cover for Int Arnold Bourne. Objective Last Vital Signs Date Time Temp Pulse Resp B/P Pulse Ox O2 Delivery O2 Flow Rate FiO2 01/15/17 16:00 96.8 73 18 151/78 96 Nasal Cannula 2.0 01/15/17 11:25 36 Laboratory Tests Test 01/15/17 04:45 White Blood Count 3.8 K/UL (4.8-10.8) L Red Blood Count 3.27 M/UL (4.20-5.40) L Hemoglobin 10.2 G/DL (12.0-16.0) L Hematocrit 31.9 % (37.0-47.0) L Mean Corpuscular Volume 98 FL (80-99) Mean Corpuscular Hemoglobin 31.1 PG (27.0-31.0) H Mean Corpuscular Hemoglobin Concent 31.8 G/DL (32.0-36.0) L Red Cell Distribution Width 13.6 % (11.6-14.8) Platelet Count 242 K/UL (150-450) Mean Platelet Volume 7.3 FL (6.5-10.1) Neutrophils (%) (Auto) % (45.0-75.0) Lymphocytes (%) (Auto) % (20.0-45.0) Monocytes (%) (Auto) % (1.0-10.0) Eosinophils (%) (Auto) % (0.0-3.0) Basophils (%) (Auto) % (0.0-2.0) Differential Total Cells Counted 100 Neutrophils % (Manual) 93 % (45-75) H Lymphocytes % (Manual) 5 % (20-45) L Monocytes % (Manual) 1 % (1-10) Eosinophils % (Manual) 0 % (0-3) Basophils % (Manual) 0 % (0-2) Band Neutrophils 1 % (0-8) Platelet Estimate Adequate Platelet Morphology Normal Hypochromasia 1+ Sodium Level 140 mEQ/L (135-145) Potassium Level 4.6 mEQ/L (3.4-4.9) Chloride Level 99 mEQ/L (98-107) Carbon Dioxide Level 39 mEQ/L (20-30) H Anion Gap 2 (5-15) L Blood Urea Nitrogen 22 mg/dL (7-23) Creatinine 0.6 mg/dL (0.5-0.9) Estimat Glomerular Filtration Rate mL/min (>60) Glucose Level 153 mg/dL (74-106) H Calcium Level 8.8 mg/dL (8.6-10.2) Intake and Output 01/14/17 01/15/17 19:00 07:00 Intake Total 1005.0 ml 585.0 ml Balance 1005.0 ml 585.0 ml Intake Oral 840 ml 475 ml IV Total 165.0 ml 110.0 ml # Voids 2 3 # Bowel Movements 1 Objective General: alert, cooperative, no distress, appears stated age Head: normocephalic, without obvious abnormality, atraumatic Eyes: conjunctivae/corneas clear. PERRL, EOM's intact Throat: lips, mucosa, and tongue normal. MMM Neck: supple, symmetrical, trachea midline, and no JVD Lungs: Expiratory wheezing; otherwise, clear to auscultation bilaterally Heart: regular rate and rhythm, S1, S2 normal, no murmur, click, rub or gallop Abdomen: soft, non-tender, non-distended, bowel sounds normal; no masses or organomegaly Extremities: extremities normal, atraumatic, no cyanosis or edema Pulses: 2+ and symmetric Skin: skin color, texture, turgor normal; no rashes or lesions Neurologic: grossly normal, no focal deficits Assessment/Plan Problem List: (1) GERD (gastroesophageal reflux disease) Assessment & Plan: Continue protonix (2) Major depression (3) Pulmonary fibrosis (4) Mixed connective tissue disease (5) Respiratory failure, acute Assessment & Plan: See pulmonary note. Cont IV solumedrol and zosyn. (6) Hypothyroidism Assessment & Plan: Continue synthroid Status: stable Assessment/Plan Discharge planning ROBERTA BUTLER Jan 15, 2017 19:10
[2017-01-15 20:00] VITALS: BP 127/64
[2017-01-16] VITALS: BP 150/73
[2017-01-16 04:00] VITALS: BP 149/80
[2017-01-16] MEDS: Levothyroxine 125mcg tab ORAL SCH (06:13)
[2017-01-16] MEDS: NovoLOG Insulin Flexpen SUBQ SCH ×2 (06:15→11:24)
[2017-01-16 06:17] LABS: MEAN CORPUSCULAR HEMOGLOBIN 31.6 PG (27.0-31.0); MEAN CORPUSCULAR HGB CONC 32.3 G/DL (32.0-36.0); MEAN CORPUSCULAR VOLUME 98 FL (80-99); MEAN PLATELET VOLUME 6.7 FL (6.5-10.1); PLATELET COUNT 247 K/UL (150-450); RED BLOOD COUNT 3.28 M/UL (4.20-5.40); RED CELL DISTRIBUTION WIDTH 13.5 % (11.6-14.8); WHITE BLOOD COUNT 3.9 K/UL (4.8-10.8)
[2017-01-16 06:31] LABS: ALANINE AMINOTRANSFERASE 5 U/L (3-33); ALBUMIN/GLOBULIN RATIO 0.9 (1.0-2.7); ANION GAP 4 (5-15); ASPARTATE AMINO TRANSFERASE 7 U/L (5-40); CARBON DIOXIDE 37 mEQ/L (20-30); CHLORIDE 99 mEQ/L (98-107); CREATININE 0.5 mg/dL (0.5-0.9); HEMOLYSIS 4; POTASSIUM 4.9 mEQ/L (3.4-4.9); SODIUM 140 mEQ/L (135-145); TOTAL PROTEIN 6.3 g/dL (6.6-8.7)
--- NOTE | 2017-01-16 07:30 | Progress Note ---
DATE: 01/15/2017 SUBJECTIVE: The patient is awake, alert, afebrile, and hemodynamically stable. PHYSICAL EXAMINATION: VITAL SIGNS: Blood pressure 127/64, pulse was 80, respirations were 20, and temperature 97.3 degrees. HEENT: Eyes were normal. ENT, mucous membranes were moist and intact. NECK: Supple with no JVD and without lymph nodes. The patient's JVD visibly reduced as compared to yesterday. LUNGS: Clear with diffuse decreased breath sounds in both bases. HEART: Normal sounds with regular beats. There is no S3, S4, or pericardial rub. Her increase in P2 cannot be clearly heard today. ABDOMEN: Soft, obese, and nontender with normal bowel sounds. EXTREMITIES: Warm without cyanosis, clubbing, or edema. LABORATORY AND DIAGNOSTIC DATA: Hemoglobin is 10.2, hematocrit 31.9 with MCV of 98, WBC of 3.8, and platelet is 242,000. Her BUN and creatinine is 22 and 0.6 respectively. Sodium is 140, potassium 4.3, chloride 99, and CO2 is 39. Glucose is 153. Calcium is 8.8. No imaging studies available at the time of this dictation. Sputum culture grew Tish albicans. IMPRESSION: The patient has pulmonary fibrosis and moderate pulmonary hypertension at the level of 40. She has been on Solu-Medrol 60 mg intravenous push q.12 hours and that has been switched. She has been on prednisone 60 mg intravenous push every six hours and was changed today to 60 q.12 hours, however, steroid treatment generates more improved oxygenation. The patient's hemoglobin and hematocrit have improved from 7.8 to 10.2. clinical change in the patient's shortness of breath. The patient's immunosuppression currently is Imuran 50 mg daily. She does not have swollen synovitis. The patient seemed to be comfortable on this medication, however, has had testifying the immunosuppression done with the Imuran is insufficient. We will switch to methotrexate. She pulmonary fibrosis. The patient should benefit from Plaquenil 200 mg p.o. b.i.d. If no improvement with Plaquenil, the sed rate and CRP will be obtained. Leflunomide 20 mg daily can be added without increasing pulmonary risk. At the present time, the patient clinically is improved. There has been a rise in the hemoglobin and hematocrit . The patient should be to prednisone orally. Repeat laboratory tests will be done in the morning. Terrell Mercer M.D. DR: GLENIS JOB#: [id number] CC:
[2017-01-16 08:00] VITALS: BP 131/73
[2017-01-16] MEDS: Lyrica 50mg cap ORAL SCH (09:06)
[2017-01-16] MEDS: Heparin 5000 units/ml inj SUBQ SCH (09:06)
[2017-01-16] MEDS: Theophylline ER 100mg ORAL SCH (09:07)
[2017-01-16] MEDS: Digoxin 0.125mg tab ORAL SCH (09:07)
[2017-01-16] MEDS: DULoxetine 30mg cap ORAL SCH (09:07)
[2017-01-16] MEDS: azaTHIOprine 50 MG TAB ORAL SCH (09:15)
[2017-01-16] MEDS: Solu-MEDROL 125mg Inj IV SCH (10:14)
[2017-01-16 12:00] VITALS: BP 136/86
[2017-01-16] MEDS ORDERED: THEOPHYLLINE A100 MG ORAL (12:16)
[2017-01-16] MEDS ORDERED: PREDNISONE20 MG ORAL (13:36)
--- NOTE | 2017-01-16 15:53 | Diagnostic Imaging Report ---
Indication: DYSPNEA Technique: One view of the chest Comparison: 01/11/2017 Findings: Bilateral interstitial and alveolar disease, of greater right, persists but appears somewhat improved. And hernia is again demonstrated. Heart size is borderline enlarged. Impression: Improved but persistent bilateral diffuse interstitial and alveolar disease, over 5 days
--- NOTE | 2017-01-16 16:26 | Pulmonology Progress Note ---
Assessment/Plan Problems: (1) Respiratory failure, acute (2) Pulmonary fibrosis (3) Abnormal laboratory test result (4) Mixed connective tissue disease Assessment/Plan Rheuma f/u appreciated echo report reviewed, pt has only mild pulmonary hypertensio respiratory treatment titrate fio2 chest pt pt/ot dc planning to SNIF with close f/u by primary Subjective ROS Limited/Unobtainable: No Constitutional: Reports: no symptoms HEENT: Repors: no symptoms Respiratory: Reports: no symptoms Allergies: Coded Allergies: No Known Allergies (Unverified , 01/11/17) Objective Last 24 Hour Vital Signs Date Time Temp Pulse Resp B/P Pulse Ox O2 Delivery O2 Flow Rate FiO2 01/16/17 12:00 98.2 109 18 136/86 93 Nasal Cannula 2.0 01/16/17 09:07 108 01/16/17 08:00 97.5 108 18 131/73 96 Nasal Cannula 2.0 01/16/17 07:36 Nasal Cannula 4.0 01/16/17 07:36 96 Nasal Cannula 4.0 01/16/17 07:36 108 20 Nasal Cannula 4.0 01/16/17 04:00 97.5 56 20 149/80 95 Nasal Cannula 2.0 01/16/17 00:00 97.3 68 20 150/73 95 Nasal Cannula 2.0 01/15/17 20:00 97.3 80 20 127/64 99 Room Air 01/15/17 19:55 Nasal Cannula 4.0 36 01/15/17 19:55 94 Nasal Cannula 4.0 36 01/15/17 19:55 98 20 Nasal Cannula 4.0 36 Intake and Output 01/15/17 01/16/17 19:00 07:00 Intake Total 830.0 ml 120 ml Balance 830.0 ml 120 ml Intake Oral 720 ml 120 ml IV Total 110.0 ml # Voids 2 1 # Bowel Movements 1 General Appearance: WD/WN HEENT: normocephalic, atraumatic Respiratory/Chest: chest wall non-tender, crackles/rales Cardiovascular: normal peripheral pulses, normal rate Abdomen: normal bowel sounds, soft, non tender Genitourinary: normal external genitalia Extremities: no cyanosis 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, no motor/sensory deficits, normal mood/affect Laboratory Tests 8/15/17 05:05: White Blood Count 3.9L, Red Blood Count 3.28L, Hemoglobin 10.4L, Hematocrit 32.1L, Mean Corpuscular Volume 98, Mean Corpuscular Hemoglobin 31.6H, Mean Corpuscular Hemoglobin Concent 32.3, Red Cell Distribution Width 13.5, Platelet Count 247, Mean Platelet Volume 6.7, Neutrophils (%) (Auto) , Lymphocytes (%) ( Auto) , Monocytes (%) (Auto) , Eosinophils (%) (Auto) , Basophils (%) (Auto) , Sodium Level 140, Potassium Level 4.9, Chloride Level 99, Carbon Dioxide Level 37H, Anion Gap 4L, Blood Urea Nitrogen 21, Creatinine 0.5, Estimat Glomerular Filtration Rate , Glucose Level 134H, Calcium Level 9.0, Total Bilirubin 0.3, Aspartate Amino Transf (AST/SGOT) 7, Alanine Aminotransferase (ALT/SGPT) 5, Alkaline Phosphatase 53, Pro-B-Type Natriuretic Peptide 373, Total Protein 6.3L , Albumin 3.0L, Globulin 3.3, Albumin/Globulin Ratio 0.9L MARIZA CHANEL Jan 16, 2017 16:26
--- NOTE | 2017-01-18 13:28 | Discharge Summary ---
Discharge Summary Hospital Course Date of Admission Jan 11, 2017 at 23:01 Date of Discharge Jan 16, 2017 at 15:29 Admitting Diagnosis hypoxia HPI Arianna Kwan is a 81 year old female who was admitted on Jan 11, 2017 at 23: 01 for Hypoxia Hospital Course [id number] Discharge Discharge Disposition Patient was discharged to SNF/Subacute Facility(03) Discharge Diagnoses: Felisa Gamino NP Jan 18, 2017 13:28
--- NOTE | 2017-01-19 05:16 | Discharge Summary 2 SIG ---
DATE OF ADMISSION: 01/11/2017 DATE OF DISCHARGE: 01/16/2017 ATTENDING PHYSICIAN: Ten Bourne M.D. CONSULTANTS: 1. Dontae Torres M.D. 2. Terrell Mercer M.D. BRIEF HOSPITAL COURSE: The patient is a 81-year-old female with medical history significant for pulmonary fibrosis with history of pulmonary hypertension, history of mixed connective tissue disorder, as well as hypothyroidism, and hypertension. She initially presented to [facility] on 12/22/2016 complaining of multiple falls and shortly after initial evaluation, the patient was admitted to the hospital with severe pulmonary fibrosis and moderate pulmonary hypertension. After her status improved, she was discharged to the rehabilitation to [facility] where she was getting her care. However [facility], was noted to have shortness of breath and weakness with whitish sputum. She had tachypnea and hypoxemia. The patient is chronically on two liters of O2 and O2 saturation was low. She was then taken to [facility] ED and on evaluation, showed pO2 of 76 and O2 saturation has been below 90%. Chest x-ray done showed interstitial disease. She was then admitted to telemetry for acute on chronic respiratory failure with hypercapnia and hypoxemia. She was given nebulizer treatment and was started on IV antibiotic Zosyn and IV Solu-Medrol. She was given DVT prophylaxis consisting of heparin subcutaneous injections. She had an episode of decreased hemoglobin and underwent one unit packed RBC blood transfusion. ESR was elevated to 130. Rheumatology consult done. The patient had rheumatoid arthritis. Synovium was not warm or tender. IV steroids were tapered to p.o. The patient immunosuppression with Imuran was insufficient and was switched to methotrexate. a POLST status. The patient is Full Code. She had an echocardiogram done that showed ejection fraction of 60% and right ventricular pressure of 41. Repeat chest x-ray showed improvement, but persistent bilateral diffuse interstitial and alveolar disease. She underwent physical therapy and occupational therapy and was eventually discharged to [facility]. FINAL DIAGNOSES: 1. Acute respiratory failure on chronic respiratory distress with hypercapnia and hypoxemia, present on admission. 2. Hypertension. 3. Pulmonary fibrosis. 4. Pulmonary hypertension. 5. Hypothyroidism. 6. Mixed connective tissue disease. 7. Gastroesophageal reflux disease. DISPOSITION: The patient was discharged to [facility]. DISCHARGE MEDICATIONS: Refer to med list. Dontae Torres M.D. I have been assigned to dictate discharge summary on this account and I was not involved in the patient's management. Felisa Gamino N.P. DR: TROY JOB#: [id number] CC:
== END 2017-01-16 15:29 | DRG 189 ==
LOC: EDBD 21:59 → EMR 22:15 → 2E 23:01 → EDBEDREQ 23:32 → 4W 01-14 05:45
PROC: 30233N1 Transfusion of Nonautologous Red Blood Cells into Peripheral Vein, Percutaneous Approach (ICD-10-PCS; principal; 2017-01-13)
DX: J96.22 Acute and chronic respiratory failure with hypercapnia (principal); I27.2 Other secondary pulmonary hypertension; J84.10 Pulmonary fibrosis, unspecified; M35.1 Other overlap syndromes; J96.21 Acute and chronic respiratory failure with hypoxia; M06.9 Rheumatoid arthritis, unspecified; I10 Essential (primary) hypertension; E03.9 Hypothyroidism, unspecified; Z96.641 Presence of right artificial hip joint; K21.9 Gastro-esophageal reflux disease without esophagitis; Z91.81 History of falling
CPT/HCPCS: 36415; 36600; 71010; 80048; 80053; 80162; 82378; 82550; 82553; 82607; 82746; 82803; 82962; 83036; 83540; 83550; 83615; 83880; 84484; 85007; 85025; 85044; 85060; 85610; 85651; 85730; 86850; 86900; 86901; 86920; 87040; 87070; 87205; 93005; 93306; 94640; 94664; 94760; J1815; J7620

== ENCOUNTER 2017-06-30 22:54 | Inpatient (IN) | payer MEDICARE, OTHER ==
[~2017-06-30] VITALS: Ht 160 cm; Wt 83.5 kg
[~2017-06-30 22:54] MED LIST: AZATHIOPRINE50 MG PO; CELLCEPT500 MG ORAL; CYMBALTA60 MG ORAL; DIGOXIN125 MCG ORAL; DUONEB 0.5-3(2.53 ML HHN; GERI-LANTA LIQ355 ML PO; IBUPROFEN600 MG ORAL; LASIX20 M1 ORAL; LEVAQUIN500 MG ORAL; LEVOTHYROXINE125 MCG ORAL; LOSARTAN POTASS25 MG ORAL; LYRICA75 M1 ORAL; METOPROLOL TART25 MG ORAL; PREDNISONE10 MG ORAL; PREDNISONE20 MG ORAL; PRILOSEC OTC20 MG ORAL; PROMETHAZINE-D118 ML ORAL; SPIRONOLACTONE25 MG ORAL; TADALAFIL5 MG PO; THEOPHYLLINE A100 MG ORAL
[2017-06-30 23:20] LABS: BASOPHILS % (AUTO) 1.1 % (0.0-2.0); EOSINOPHILS % (AUTO) 0.8 % (0.0-3.0); HEMATOCRIT 33.1 % (37.0-47.0); HEMOGLOBIN 9.8 G/DL (12.0-16.0); LYMPHOCYTES % (AUTO) 5.6 % (20.0-45.0); MEAN CORPUSCULAR VOLUME 101 FL (80-99); MONOCYTES % (AUTO) 12.4 % (1.0-10.0); NEUTROPHILS % (AUTO) 80.2 % (45.0-75.0); PLATELET COUNT 188 K/UL (150-450); RED BLOOD COUNT 3.27 M/UL (4.20-5.40); RED CELL DISTRIBUTION WIDTH 14.9 % (11.6-14.8); WHITE BLOOD COUNT 6.4 K/UL (4.8-10.8)
[2017-06-30 23:25] VITALS: BP 140/64
--- NOTE | 2017-06-30 23:31 | Emergency Room Report ---
History of Present Illness General Chief Complaint: Dyspnea/Respdistress Source: Patient, Medical Record Present Illness HPI 82 year old female with hx of pulmonary fibrosis, severe, pulm HTN, mixed connective disease, on O2 2L chronically brought in from senior care with CC SOB. Denies fever/chills, chest pain, abd pain, urinary complaints. Pt looks chronically ill. Slightly short of breath with episodes of cough. Allergies: Coded Allergies: No Known Allergies (Unverified , 01/11/17) Patient History Past Medical History: see triage record, old chart reviewed, COPD Past Surgical History: none Pertinent Family History: none Social History: Denies: smoking, alcohol use, drug use Last Menstrual Period: NA Now: No Immunizations: UTD Reviewed Nursing Documentation: PMH: Agreed, PSxH: Agreed Nursing Documentation-PMH Hx Cancer: No Hx Gastrointestinal Problems: Yes - GERD Hx Neurological Problems: No Review of Systems All Other Systems: negative except mentioned in HPI Physical Exam Vital Signs Date Time Temp Pulse Resp B/P (MAP) Pulse Ox O2 Delivery O2 Flow Rate FiO2 06/30/17 22:46 97.9 110 28 133/68 99 Non-Rebreather 15.0 Sp02 EP Interpretation: reviewed, abnormal General Appearance: normal inspection, well appearing, alert, GCS 15, non-toxic , mild distress, obese Head: normocephalic, atraumatic Eyes: bilateral eye PERRL, bilateral eye EOMI ENT: normal ENT inspection, hearing grossly normal, normal pharynx, no angioedema, normal voice, TMs + canals normal, uvula midline, moist mucus membranes Neck: normal inspection, full range of motion, supple, thyroid normal, no meningismus, no bony tend Respiratory: normal inspection, no rhonchi, no respiratory distress, no retraction, no accessory muscle use, decreased breath sounds, speaking full sentences, wheezing Cardiovascular #1: regular rate, rhythm, no edema, no JVD, normal capillary refill Gastrointestinal: normal inspection, normal bowel sounds, non tender, soft, no mass, no peritonitis, non-distended, no guarding, no hernia, no pulsatile mass Genitourinary: no CVA tenderness Musculoskeletal: normal inspection, back normal, normal range of motion, no calf tenderness, pelvis stable, Chin's Sign negative Neurologic: normal inspection, alert, oriented x3, responsive, furniture installer III-XII nml as tested, motor strength/tone normal, cerebellar normal, normal gait, speech normal Psychiatric: normal inspection, judgement/insight normal, mood/affect normal, no suicidal/homicidal ideation, no delusions Skin: normal inspection, normal color, no rash Lymphatic: normal inspection, no adenopathy Procedures Critical Care Time Critical Care Time CC time 45 minutes Critical care time endorsed for this patient for COPD exacerbation, acute respiratory failure with hypercapnea Critical care time includes review of laboratory tests, imaging, review of EMR, review of paperwork from SNF (if available), discussion with patient and family (if available), review of code status/POLS (if available). Critical care time also likely includes assessment of fluid status, stabilization of vital signs, selection and dosing of appropriate antibiotics, selection and dosing of Aspirin/Plavix/Heparin/Lovenox, discussion with PMD/ attending hospitalist/metal turner, re-eval on BIPAP, interpretation of serial ABGs Critical care time does not include any procedures which are documented elsewhere in this EMR. Intubation Intubation : Consent: Emergent Intubation Method: orotracheal Tube Size (cm): 7.5 Medications: Etomidate, Rocuronium Breath Sounds after Intubation: equal Intubation Complications: no complications Post Intubation Xray: Yes Attempts: One Patient Tolerated: Well Complications: None Progress Patient had significant amount of white phlegm in posterior oropharyx and oozing from vocal cords Medical Decision Making Diagnostic Impression: Primary Impression: Dyspnea Qualified Codes: R06.00 - Dyspnea, unspecified Additional Impressions: Mixed connective tissue disease Pulmonary fibrosis Pulmonary hypertension COPD exacerbation Respiratory failure, acute Qualified Codes: J96.02 - Acute respiratory failure with hypercapnia ER Course H&H stable, no leukocytosis Bilateral fibrosis, right worse than left Elevated CO2, hypercapnia Placed on BiPAP without improvement and worsening hypercapnia Required intubation after failed BIPAP Afebrile, no leuks - However diagnosis of pneumonia is uncertain given bilateral chronic essential disease. Cultures pending, was given empiric dose of antibiotics for possible underlying pneumonia. Endorsed to Dr. Bourne for SUSIE at 12:30 AM EKG Diagnostic Results Rate: tachycardiac Rhythm: NSR ST Segments: no acute changes ASA given to the pt in ED: No Rhythm Strip Diag. Results EP Interpretation: yes Rate: 107 Rhythm: NSR, no PVC's, no ectopy Chest X-Ray Diagnostic Results Chest X-Ray Diagnostic Results : Chest X-Ray Ordered: Yes # of Views/Limited/Complete: 1 View Indication: Shortness of Breath EP Interpretation: Yes Interpretation: no pneumothorax, other - bilateral diffuse interstitial disease Electronically Signed by: Dr Maria Fernanda Guerra MD Last Vital Signs Date Time Temp Pulse Resp B/P (MAP) Pulse Ox O2 Delivery O2 Flow Rate FiO2 06/30/17 23:25 110 28 Nasal Cannula 3.0 06/30/17 23:25 97.9 140/64 90 Status: improved Disposition: ADMITTED INPATIENT Condition: Critical MARIA FERNANDA GUERRA M.D. Jun 30, 2017 23:31
[2017-06-30 23:47] LABS: BLOOD UREA NITROGEN 16 mg/dL (7-18); CALCIUM 9.1 MG/DL (8.5-10.1); CHLORIDE 101 MMOL/L (98-107); CREATININE 0.6 MG/DL (0.55-1.30); POTASSIUM 4.4 MMOL/L (3.5-5.1)
[2017-07-01] VITALS (24 sets, daily range): BP systolic 108–140; BP diastolic 52–88
[2017-07-01] MEDS ORDERED: Solu-MEDROL 125mg Inj IVP ONE
[2017-07-01 00:02] LABS: ALANINE AMINOTRANSFERASE 6 U/L (12-78); ALBUMIN 2.6 G/DL (3.4-5.0); ALBUMIN/GLOBULIN RATIO 0.5 (1.0-2.7); ALKALINE PHOSPHATASE 56 U/L (46-116); ASPARTATE AMINO TRANSFERASE 8 U/L (15-37); BILIRUBIN,TOTAL 0.2 MG/DL (0.2-1.0); CKMB 1.5 NG/ML (0.0-3.6); CREATINE KINASE 21 U/L (26-308)
[2017-07-01] MEDS: Albuterol ud Inhalation HHN SCH ×3 (00:27→00:41)
[2017-07-01] MEDS: Ipratropium 0.02% Inh Soln 2.5ml UD HHN SCH ×3 (00:27→00:41)
[2017-07-01 01:12] LABS: CARBON DIOXIDE 38 MMOL/L (21-32)
[2017-07-01 01:13] LABS: ANION GAP 1 mmol/L (5-15)
[2017-07-01 01:15] LABS: SODIUM 140 MMOL/L (136-145)
[2017-07-01] MEDS ORDERED: Midazolam 2mg/2ml Inj ONE (03:06)
[2017-07-01] MEDS ORDERED: fentaNYL 100 mcg/2 mL IV ONE ×2 (03:06→03:15)
[2017-07-01] MEDS ORDERED: Midazolam 2mg/2ml Inj IVP ONE (03:15)
[2017-07-01] MEDS ORDERED: Lidocaine 1% Plain 30 ml INJ ONE (03:23)
--- NOTE | 2017-07-01 03:47 | Emergency Room Report ---
History of Present Illness General Chief Complaint: Dyspnea/Respdistress Source: Patient, Medical Record Present Illness Allergies: Coded Allergies: No Known Allergies (Unverified , 01/11/17) Patient History Last Menstrual Period: NA Now: No Nursing Documentation-PMH Hx Cancer: No Hx Gastrointestinal Problems: Yes - GERD Hx Neurological Problems: No Physical Exam Vital Signs Date Time Temp Pulse Resp B/P (MAP) Pulse Ox O2 Delivery O2 Flow Rate FiO2 06/30/17 22:46 97.9 110 28 133/68 99 Non-Rebreather 15.0 07/01/17 00:10 50 Procedures Central Line Central Line : Consent: Emergent Central Line Lumen: triple Maximal Sterile Barrier Tech: yes cap, yes mask, yes sterile gown, yes sterile gloves, yes large sterile sheet, yes hand hygiene, yes chlorhexidine prep No Max Barrier Tech Because: emergency insertion Central Line Postion: femoral (L) Anesthesia: Lidocaine Complications: none Central Line Post Position: sutured, good blood return Attempts: One Patient Tolerated: Well Complications: None Medical Decision Making Diagnostic Impression: Primary Impression: Dyspnea Qualified Codes: R06.00 - Dyspnea, unspecified Additional Impressions: Mixed connective tissue disease Pulmonary fibrosis Pulmonary hypertension COPD exacerbation Respiratory failure, acute Qualified Codes: J96.02 - Acute respiratory failure with hypercapnia ER Course Patient required central line as was hypotensive despite fluid and requiring propofol for sedation Last Vital Signs Date Time Temp Pulse Resp B/P (MAP) Pulse Ox O2 Delivery O2 Flow Rate FiO2 07/01/17 02:30 94 30 50 07/01/17 00:35 100 Facial 06/30/17 23:25 3.0 06/30/17 23:25 97.9 140/64 Disposition: ADMITTED INPATIENT Condition: Critical Referrals: NON PHYSICIAN (PCP) MARIA FERNANDA GUERRA M.D. Jul 01, 2017 03:47
[2017-07-01] MEDS ORDERED: Propofol 200mg/20ml IV ONE (04:30)
[2017-07-01] MEDS ORDERED: Lidocaine 4% Top Soln 50ml TOPIC ONE (05:45)
[2017-07-01 05:46] LABS: HEMATOCRIT 26.4 % (37.0-47.0); HEMOGLOBIN 8.2 G/DL (12.0-16.0); MEAN CORPUSCULAR VOLUME 102 FL (80-99); PLATELET COUNT 134 K/UL (150-450); RED CELL DISTRIBUTION WIDTH 14.5 % (11.6-14.8); WHITE BLOOD COUNT 3.9 K/UL (4.8-10.8)
[2017-07-01] MEDS ORDERED: ACETAMINOPHEN325 M1 ORAL (05:53)
[2017-07-01] MEDS ORDERED: TUMS200 M1 PO (05:53)
[2017-07-01] MEDS ORDERED: NITROGLYCERIN0.4 MG SL (05:53)
[2017-07-01] MEDS ORDERED: XANAX0.25 MG ORAL (05:53)
[2017-07-01 05:59] LABS: ANION GAP 5 mmol/L (5-15); BLOOD UREA NITROGEN 15 mg/dL (7-18); CALCIUM 8.2 MG/DL (8.5-10.1); CARBON DIOXIDE 31 MMOL/L (21-32); CHLORIDE 103 MMOL/L (98-107); CREATININE 0.6 MG/DL (0.55-1.30); SODIUM 139 MMOL/L (136-145)
[2017-07-01 06:05] LABS: ALANINE AMINOTRANSFERASE 8 U/L (12-78); ALBUMIN/GLOBULIN RATIO 0.5 (1.0-2.7); ALKALINE PHOSPHATASE 47 U/L (46-116); ASPARTATE AMINO TRANSFERASE 11 U/L (15-37); BILIRUBIN,TOTAL 0.5 MG/DL (0.2-1.0); CHOLESTEROL 105 MG/DL (< 200); HDL CHOLESTEROL 65 MG/DL (40-60); TRIGLYCERIDES 62 MG/DL (30-150)
[2017-07-01] MEDS ORDERED: Albuterol/Ipratropium 3ml neb HHN PRN (06:15)
[2017-07-01] MEDS ORDERED: Miralax 17gm pkt ORAL PRN (06:15)
--- NOTE | 2017-07-01 08:02 | Pulmonolgy Critical Care Note ---
Critical Care - Asmt/Plan Problems: (1) Hypercapnia (2) Pulmonary hypertension (3) Pulmonary fibrosis (4) Hypothyroidism (5) Respiratory failure, acute Respiratory: monitor respiratory rate Cardiac: continue to monitor HR/BP Renal: F/U I&O, keep IV fluid Infectious Disease: check cultures Gastrointestinal: hold feedings Endocrine: monitor blood sugar Hematologic: transfuse if hgb<8.5 Neurologic: keep patient comfortable Affect: PRN ativan Prophylaxis: Heparin Notes Reviewed: other - ER note, paramedics Discussed with: nurses, consultants Critical Care - Objective Last 24 Hour Vital Signs Date Time Temp Pulse Resp B/P (MAP) Pulse Ox O2 Delivery O2 Flow Rate FiO2 07/01/17 07:43 90 23 117/56 96 Mechanical Ventilator 30 07/01/17 07:35 30 07/01/17 07:16 97.8 88 20 121/55 100 Mechanical Ventilator 50 07/01/17 07:11 84 16 40 07/01/17 05:36 3.0 50 07/01/17 05:34 96.6 73 20 122/56 100 3.0 50 07/01/17 05:08 99 31 50 07/01/17 04:53 30 07/01/17 04:52 30 07/01/17 04:46 3.0 50 07/01/17 04:30 30 07/01/17 04:30 97.9 85 30 125/75 100 Mechanical Ventilator 50 07/01/17 04:15 28 07/01/17 04:15 97.9 80 28 100 Mechanical Ventilator 50 07/01/17 04:00 30 07/01/17 04:00 97.9 80 30 124/58 100 Mechanical Ventilator 50 07/01/17 03:45 97.9 71 30 134/88 100 Mechanical Ventilator 50 07/01/17 03:45 30 07/01/17 03:30 97.9 73 24 119/55 100 Mechanical Ventilator 50 07/01/17 02:30 97.9 94 30 122/56 100 3.0 50 07/01/17 02:30 94 30 50 07/01/17 01:00 97.9 101 28 139/63 98 3.0 50 07/01/17 00:35 104 27 100 Facial 50 07/01/17 00:33 102 27 100 Bi-pap 50 07/01/17 00:33 102 27 99 Bi-pap 50 07/01/17 00:10 97 31 98 Bi-pap 50 07/01/17 00:10 100 32 100 Bi-pap 50 06/30/17 23:25 110 28 Nasal Cannula 3.0 06/30/17 23:25 97.9 107 31 140/64 90 Nasal Cannula 3.0 06/30/17 22:46 97.9 110 28 133/68 99 Non-Rebreather 15.0 Status: sedated Condition: critical HEENT: atraumatic Lungs: clear Heart: HR/BP stable, regular Abdomen: active bowel sounds Extremities: no C/C/E Micro: Microbiology Date/Time Source Procedure Growth Status 07/01/17 02:28 Nasal Nares Influenza Types A,B Antigen (BEBE) - Final Complete Critical Care - Subjective ICU Day: 1 Intubation Day: 1 Interval Events: 82 year old female with hx of pulmonary fibrosis, severe pulm HTN, mixed connective disease, on O2 2L [facility] in [facility] with CC of SOB. Pt looked chronically ill. Pt was in respiratory failure in ER and got intubated and transferred to ICU. Condition: critical EKG Rhythm: Sinus Rhythm FI02: 30 Vent Support Breath Rate: 16 Vent Support Mode: AC Vent Tidal Volume: 500 Sputum Amount: Moderate PEEP: 5.0 PIP: 33 Drips: propfol I&O: Intake and Output 06/30/17 07/01/17 19:00 07:00 Intake Total 0 ml Balance 0 ml Intake Oral 0 ml ET-Tube: 7.5 ET Position: 24 Labs: Laboratory Tests Test 06/30/17 22:50 06/30/17 23:22 07/01/17 01:19 07/01/17 04:27 White Blood Count 6.4 K/UL (4.8-10.8) Red Blood Count 3.27 M/UL (4.20-5.40) L Hemoglobin 9.8 G/DL (12.0-16.0) L Hematocrit 33.1 % (37.0-47.0) L Mean Corpuscular Volume 101 FL (80-99) H Mean Corpuscular Hemoglobin 30.2 PG (27.0-31.0) Mean Corpuscular Hemoglobin Concent 29.8 G/DL (32.0-36.0) L Red Cell Distribution Width 14.9 % (11.6-14.8) H Platelet Count 188 K/UL (150-450) Mean Platelet Volume 6.8 FL (6.5-10.1) Neutrophils (%) (Auto) 80.2 % (45.0-75.0) H Lymphocytes (%) (Auto) 5.6 % (20.0-45.0) L Monocytes (%) (Auto) 12.4 % (1.0-10.0) H Eosinophils (%) (Auto) 0.8 % (0.0-3.0) Basophils (%) (Auto) 1.1 % (0.0-2.0) Sodium Level 140 MMOL/L (136-145) Potassium Level 4.4 MMOL/L (3.5-5.1) Chloride Level 101 MMOL/L (98-107) Carbon Dioxide Level 38 MMOL/L (21-32) H Anion Gap 1 mmol/L (5-15) L Blood Urea Nitrogen 16 mg/dL (7-18) Creatinine 0.6 MG/DL (0.55-1.30) Estimat Glomerular Filtration Rate mL/min (>60) Glucose Level 117 MG/DL (74-106) H Calcium Level 9.1 MG/DL (8.5-10.1) Total Bilirubin 0.2 MG/DL (0.2-1.0) Aspartate Amino Transf (AST/SGOT) 8 U/L (15-37) L Alanine Aminotransferase (ALT/SGPT) 6 U/L (12-78) L Alkaline Phosphatase 56 U/L (46-116) Total Creatine Kinase 21 U/L (26-308) L Creatine Kinase MB 1.5 NG/ML (0.0-3.6) Creatine Kinase MB Relative Index 7.1 Troponin I 0.000 ng/mL (0.000-0.056) Total Protein 7.4 G/DL (6.4-8.2) Albumin 2.6 G/DL (3.4-5.0) L Globulin 4.8 g/dL Albumin/Globulin Ratio 0.5 (1.0-2.7) L Arterial Blood pH 7.263 (7.350-7.450) 7.232 (7.350-7.450) 7.616 (7.350-7.450) Arterial Blood Partial Pressure CO2 89.7 mmHg (35.0-45.0) *H 95.2 mmHg (35.0-45.0) *H 32.9 mmHg (35.0-45.0) L Arterial Blood Partial Pressure O2 48.7 mmHg (75.0-100.0) 160.7 mmHg (75.0-100.0) H 168.5 mmHg (75.0-100.0) H Arterial Blood HCO3 39.6 mmol/L (22.0-26.0) H 39.2 mmol/L (22.0-26.0) H 32.8 mmol/L (22.0-26.0) H Arterial Blood Oxygen Saturation 80.3 % (92.0-98.0) L 98.7 % (92.0-98.0) H 99.2 % (92.0-98.0) H Arterial Blood Base Excess 9.9 9 10.9 Kunal Test Positive Positive Positive Test 07/01/17 05:25 07/01/17 07:20 White Blood Count 3.9 K/UL (4.8-10.8) L Red Blood Count 2.60 M/UL (4.20-5.40) L Hemoglobin 8.2 G/DL (12.0-16.0) L Hematocrit 26.4 % (37.0-47.0) L Mean Corpuscular Volume 102 FL (80-99) H Mean Corpuscular Hemoglobin 31.6 PG (27.0-31.0) H Mean Corpuscular Hemoglobin Concent 31.0 G/DL (32.0-36.0) L Red Cell Distribution Width 14.5 % (11.6-14.8) Platelet Count 134 K/UL (150-450) L Mean Platelet Volume 7.3 FL (6.5-10.1) Neutrophils (%) (Auto) % (45.0-75.0) Lymphocytes (%) (Auto) % (20.0-45.0) Monocytes (%) (Auto) % (1.0-10.0) Eosinophils (%) (Auto) % (0.0-3.0) Basophils (%) (Auto) % (0.0-2.0) Neutrophils % (Manual) Pending Lymphocytes % (Manual) Pending Platelet Estimate Pending Platelet Morphology Pending Sodium Level 139 MMOL/L (136-145) Potassium Level 4.0 MMOL/L (3.5-5.1) Chloride Level 103 MMOL/L (98-107) Carbon Dioxide Level 31 MMOL/L (21-32) Anion Gap 5 mmol/L (5-15) Blood Urea Nitrogen 15 mg/dL (7-18) Creatinine 0.6 MG/DL (0.55-1.30) Estimat Glomerular Filtration Rate mL/min (>60) Glucose Level 176 MG/DL (74-106) H Calcium Level 8.2 MG/DL (8.5-10.1) L Magnesium Level 1.3 MG/DL (1.8-2.4) L Total Bilirubin 0.5 MG/DL (0.2-1.0) Aspartate Amino Transf (AST/SGOT) 11 U/L (15-37) L Alanine Aminotransferase (ALT/SGPT) 8 U/L (12-78) L Alkaline Phosphatase 47 U/L (46-116) Total Protein 6.0 G/DL (6.4-8.2) L Albumin 2.0 G/DL (3.4-5.0) L Globulin 4.0 g/dL Albumin/Globulin Ratio 0.5 (1.0-2.7) L Triglycerides Level 62 MG/DL (30-150) Cholesterol Level 105 MG/DL (< 200) LDL Cholesterol 23 mg/dL (<100) HDL Cholesterol 65 MG/DL (40-60) H Cholesterol/HDL Ratio 1.6 (3.3-4.4) L Arterial Blood pH 7.420 (7.350-7.450) Arterial Blood Partial Pressure CO2 50.6 mmHg (35.0-45.0) H Arterial Blood Partial Pressure O2 124.3 mmHg (75.0-100.0) H Arterial Blood HCO3 32.6 mmol/L (22.0-26.0) H Arterial Blood Oxygen Saturation 98.4 % (92.0-98.0) H Arterial Blood Base Excess 7.3 Kunal Test Positive MARIZA CHANEL Jul 01, 2017 08:02
[2017-07-01] MEDS ORDERED: Pantoprazole Inj IV SCH (09:00)
[2017-07-01] MEDS ORDERED: Amikacin 800 MG in NS 110 ML IV SCH (09:00)
[2017-07-01] MEDS: DULoxetine 30mg cap ORAL SCH (09:00)
[2017-07-01] MEDS: Theophylline ER 100mg ORAL SCH ×2 (09:20→20:52)
[2017-07-01] MEDS: Losartan 25mg tab ORAL SCH (09:20)
[2017-07-01] MEDS: Digoxin 0.125mg tab ORAL SCH (09:20)
[2017-07-01] MEDS: Heparin 5000 units/ml inj SUBQ SCH ×2 (09:22→20:53)
[2017-07-01] MEDS: LORazepam Inj 2mg/ml 1ml IV PRN (09:27)
--- NOTE | 2017-07-01 09:34 | Consultation ---
Consult Note Consult Note asked to eval for low urine out put HPI 82 year old female with hx of pulmonary fibrosis, severe, pulm HTN, mixed connective disease, on O2 2L chronically brought in from skilled nursing with CC SOB. Denies fever/chills, chest pain, abd pain, urinary complaints. Pt looks chronically ill. Slightly short of breath with episodes of cough. Hx Cancer: No Hx Gastrointestinal Problems: Yes - GERD Hx Neurological Problems: No seen in ICU intubated Examined Data reviewed discussed with criminology teacher/Plan Dyspnea, acute respiratory failure , requiring intubation and mechanichal vent Mixed connective tissue disease Anemia likely due to chronic disease HypoAlbuminemia Pulmonary fibrosis Pulmonary hypertension COPD exacerbation Respiratory failure, acute Plan: Monitor renal parameters and urine out put Keep BP in check Optimize pulmonary status UA Mag supplement stress dose of steroids as patient was on prednison per orders DARRYL ISSA Jul 01, 2017 09:34
--- NOTE | 2017-07-01 10:08 | Diagnostic Imaging Report ---
Indication: Dyspnea Technique: XRAY Chest 1v Comparison: 01/16/2017 Findings: Heart borders are obscured but likely stable. There is little Calix persistent bilateral interstitial disease. There is new bilateral airspace disease. No definite pneumothorax. No acute osseous abnormality appreciated. Impression: Significant bilateral interstitial and airspace disease. Airspace disease is increased compared to the prior exam. Underlying pulmonary fibrosis likely.
--- NOTE | 2017-07-01 10:16 | Diagnostic Imaging Report ---
Indication: ET tube placement Technique: XRAY Chest 1v Comparison: 06/30/1717, 23:11 Findings/Impression: Interval endotracheal intubation. ET tube tip at the level of the carlos. Interval placement of NG tube, which courses below level of the diaphragms, tip in the stomach. Additional findings unchanged.
--- NOTE | 2017-07-01 10:18 | Diagnostic Imaging Report ---
Indication: ET tube placement Technique: XRAY Chest 1v Comparison: 07/01/2017, 02:28 Findings/Impression: Interval slight retraction of the ET tube, tip now just above the level of the carlos, which is somewhat splayed. Tip is oriented towards the right mainstem bronchus. Slight retraction may be needed for more optimal positioning. Additional findings unchanged.
--- NOTE | 2017-07-01 10:34 | Diagnostic Imaging Report ---
Indication: Respiratory failure Technique: XRAY Chest 1v Comparison: 06/23/2017, 02:41 Findings: ET tube has been retracted slightly. Tip just above the level of the carlos. Retraction by approximately 1 cm recommended for more optimal positioning. No significant interval change in extensive interstitial and bilateral airspace disease. No definite pneumothorax. NG tube unchanged. Impression: ET tube tip at the level the carlos. Slight retraction recommended. This is discussed with the treating ICU nurse via telephone conversation 10:15 AM on 07/01/2017. Additional findings unchanged.
[2017-07-01] MEDS ORDERED: Ertapenem 1 GM in NS 55 ML IV SCH (11:00)
--- NOTE | 2017-07-01 12:08 | Diagnostic Imaging Report ---
Indication: Respiratory failure Technique: XRAY Chest 1v Comparison: 07/01/2017, 02:58 Findings: ET tube is been retracted. Tip now more appropriately positioned above the level of the carlos. NG tube is been retracted slightly and the tip projects over the left hemidiaphragm. Repositioning/advancement recommended. Extensive interstitial and patchy bilateral airspace disease unchanged. Impression: ET tube more properly positioned with tip above the carlos. NG tube has been retracted. Advancement/repositioning recommended. This was discussed with the treating ICU nurse via telephone conversation 12:02AM on 07/01/2017. Additional findings unchanged.
[2017-07-01] MEDS: Hydrocortisone 100mg Inj IV SCH ×2 (13:50→21:39)
[2017-07-01] MEDS: Vancomycin 1250mg/D5W 250ml IVPB SCH (15:28)
[2017-07-01 15:41] LABS: APPEARANCE,URINE SLIGHTLY CLOUDY; BILIRUBIN, URINE NEGATIVE (NEGATIVE); GLUCOSE, URINE (UA) NEGATIVE (NEGATIVE); KETONES,URINE NEGATIVE (NEGATIVE); LEUKOCYTE ESTERASE ,URINE NEGATIVE (NEGATIVE); NITRITE,URINE NEGATIVE (NEGATIVE); PH,URINE 6 (4.5-8.0); PROTEIN,URINE 2+ (NEGATIVE); UROBILINOGEN,URINE 4 MG/DL (0.0-1.0)
[2017-07-01 15:49] LABS: COLOR,URINE YELLOW
--- NOTE | 2017-07-01 16:13 | History & Physical ---
History and Physical History & Physicial Dictated for Int Med-Dr Bourne no. [id number]. ROBERTA BUTLER Jul 01, 2017 16:13
[2017-07-01] MEDS ORDERED: Tubing IV Secondary IV ONE (16:20)
[2017-07-01] MEDS ORDERED: NS 500ML ONE (16:20)
[2017-07-01] MEDS ORDERED: Etomidate 40mg/20ml Inj IV ONE (16:24)
[2017-07-01] MEDS ORDERED: Zemuron 50mg/5ml Inj IV ONE (16:24)
[2017-07-01] MEDS: Dyna-Hex 2% Top Sol 2oz TOPIC SCH (19:52)
[2017-07-01] MEDS: Pantoprazole Inj IV SCH (20:52)
--- NOTE | 2017-07-01 21:47 | History and Physical Report ---
DATE OF ADMISSION: 06/30/2017 CHIEF COMPLAINT: The patient is an 82-year-old female presents with a chief complaint of respiratory failure. HISTORY OF PRESENT ILLNESS: The patient has a history of pulmonary fibrosis and pulmonary hypertension. The patient has a history of mixed connective tissue disorder. The patient was last admitted to [facility] in 01/2017. Please see History and Physical and discharge summary dictated at that time. The patient is a resident of [facility]. The patient is chronic oxygen-dependent. According to staff at [facility], the patient became short of breath yesterday, 06/30/2017. The patient was transferred to [facility] for evaluation. The patient was initially placed on BiPAP. The patient is currently intubated in the intensive care unit. The patient is admitted for respiratory failure and hypercapnia. PAST MEDICAL HISTORY: Significant for 1. Pulmonary hypertension. 2. Pulmonary fibrosis. 3. Chronic oxygen dependence. 4. Hypothyroidism. 5. Hypertension. 6. Mixed connective tissue disorder. PAST SURGICAL HISTORY: Significant for 1. Right knee surgery. 2. Total knee replacement. CURRENT MEDICATIONS: 1. Azathioprine 50 mg p.o. daily. 2. Digoxin 0.125 mg p.o. daily. 3. Cymbalta 60 mg p.o. daily. 4. DuoNeb p.r.n. 5. Levoxyl 0.125 mg p.o. daily. 6. Mycophenolate 1000 mg p.o. at bedtime. 7. Prednisone 20 mg p.o. daily. 8. Tadalafil 20 mg p.o. twice daily. 9. Tylenol 650 mg p.o. q.4 h. p.r.n. 10. Xanax 0.25 mg p.o. q.8 h. p.r.n. ALLERGIES: No known drug allergies. SOCIAL HISTORY: The patient is a resident of [facility]. The patient denies tobacco or alcohol use. REVIEW OF SYSTEMS: Unable to assess secondary to the patient's mental status. PHYSICAL EXAMINATION: GENERAL: The patient is well developed and well nourished female, who is intubated and sedated. VITAL SIGNS: Temperature 98.4 degrees, respirations 20, pulse 89, and blood pressure 139/73. HEENT: Eyes, pupils equal and responsive to light and accommodation. Extraocular movements are intact. NECK: Supple. No lymphadenopathy. CHEST: Few diffuse wheezes bilaterally with few rales at bilateral bases, otherwise clear to auscultation. CARDIOVASCULAR: Regular rhythm and rate. S1 and S2 normal without murmurs, rubs, or gallops. ABDOMEN: Soft, nontender, and nondistended. Positive bowel sounds. No evidence of hepatosplenomegaly. Currently, no rebound or guarding noted. EXTREMITIES: Negative for clubbing, cyanosis, or edema. NEUROLOGICAL: Unable to assess secondary to the patient's mental status. LABORATORY AND DIAGNOSTIC DATA: WBC 6.4, hemoglobin 9.8, hematocrit 33.1 and platelets 188,000. Sodium 140, potassium 4.4, chloride 101, CO2 28, BUN 16, creatinine 0.6 and glucose 117. ABGs; pH 7.363, pCO2 89.7, pO2 48.7, oxygen saturation 88.3 and bicarbonate 39.6. ASSESSMENT: This is a 82-year-old female 1. Respiratory failure. 2. Hypercapnia. 3. Pulmonary hypertension. 4. Pulmonary fibrosis. 5. Hypertension. 6. Hypothyroidism. 7. Mixed connective tissue disorder. TREATMENT: 1. Respiratory failure/hypercapnia/pulmonary hypertension/pulmonary fibrosis. A Pulmonary consultation will be obtained with Dr. Dontae Torres. The patient is currently intubated in the intensive care unit. We will follow recommendations of Dr. Torres. 2. Hypertension. The patient is currently hypotensive. We will hold antihypertensive medication. 3. Hypothyroidism. Continue Levoxyl as above. Rian Stephen M.D. DR: REYES JOB#: [id number] CC:
[2017-07-01] MEDS ORDERED: Vancomycin 1 GM in D5W 275 ML IV SCH (23:45)
[2017-07-02] VITALS (23 sets, daily range): BP systolic 101–134; BP diastolic 49–94
[2017-07-02 04:26] LABS: HEMATOCRIT 26.5 % (37.0-47.0); HEMOGLOBIN 8.4 G/DL (12.0-16.0); MEAN CORPUSCULAR VOLUME 99 FL (80-99); PLATELET COUNT 184 K/UL (150-450); RED BLOOD COUNT 2.68 M/UL (4.20-5.40); RED CELL DISTRIBUTION WIDTH 14.8 % (11.6-14.8); WHITE BLOOD COUNT 7.1 K/UL (4.8-10.8)
[2017-07-02 04:44] LABS: ALANINE AMINOTRANSFERASE 9 U/L (12-78); ALBUMIN 1.9 G/DL (3.4-5.0); ALBUMIN/GLOBULIN RATIO 0.5 (1.0-2.7); ALKALINE PHOSPHATASE 47 U/L (46-116); ANION GAP 5 mmol/L (5-15); ASPARTATE AMINO TRANSFERASE 8 U/L (15-37); BILIRUBIN,TOTAL 0.3 MG/DL (0.2-1.0); BLOOD UREA NITROGEN 16 mg/dL (7-18); CALCIUM 8.4 MG/DL (8.5-10.1); CARBON DIOXIDE 33 MMOL/L (21-32); CHLORIDE 105 MMOL/L (98-107); CREATININE 0.6 MG/DL (0.55-1.30); POTASSIUM 3.8 MMOL/L (3.5-5.1); SODIUM 143 MMOL/L (136-145)
[2017-07-02] MEDS: LORazepam Inj 2mg/ml 1ml IV PRN ×4 (04:50→20:02)
[2017-07-02 04:55] LABS: % IRON SATURATION 30 % (15-50); IRON 54 ug/dL (50-175); TOTAL IRON BINDING CAPACITY 181 ug/dL (250-450)
[2017-07-02 05:00] LABS: CREATINE KINASE 15 U/L (26-308); GAMMA GLUTAMYL TRANSPEPTIDASE < 3 U/L (5-85); PHOSPHORUS 3.4 MG/DL (2.5-4.9)
[2017-07-02] MEDS: Hydrocortisone 100mg Inj IV SCH ×3 (05:36→21:59)
[2017-07-02] MEDS: Digoxin 0.125mg tab ORAL SCH (08:23)
[2017-07-02] MEDS: DULoxetine 30mg cap ORAL SCH (08:23)
[2017-07-02] MEDS: Losartan 25mg tab ORAL SCH (08:24)
[2017-07-02] MEDS: Theophylline ER 100mg ORAL SCH ×2 (08:24→21:07)
[2017-07-02] MEDS: Pantoprazole Inj IV SCH ×2 (08:24→21:07)
[2017-07-02] MEDS: Heparin 5000 units/ml inj SUBQ SCH ×2 (08:26→21:08)
--- NOTE | 2017-07-02 10:31 | Pulmonolgy Critical Care Note ---
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 transfusion - Objective Last 24 Hour Vital Signs Date Time Temp Pulse Resp B/P (MAP) Pulse Ox O2 Delivery O2 Flow Rate FiO2 07/02/17 10:00 95 21 101/53 94 Mechanical Ventilator 30 07/02/17 09:01 86 24 30 07/02/17 08:24 116/81 07/02/17 08:23 78 07/02/17 08:00 90 22 116/81 94 Mechanical Ventilator 30 07/02/17 08:00 30 07/02/17 07:01 84 21 30 07/02/17 06:15 115/70 07/02/17 06:00 78 20 109/50 95 Mechanical Ventilator 30 07/02/17 05:20 89 19 40 07/02/17 05:00 94 20 118/49 95 Mechanical Ventilator 30 07/02/17 04:00 98.6 90 21 119/60 98 Mechanical Ventilator 30 07/02/17 04:00 30 07/02/17 04:00 82 07/02/17 03:00 75 21 120/51 100 Mechanical Ventilator 30 07/02/17 02:33 79 24 100 07/02/17 02:00 79 20 132/57 99 Mechanical Ventilator 30 07/02/17 01:24 74 22 30 07/02/17 01:00 82 21 133/68 97 Mechanical Ventilator 30 07/02/17 00:00 98.4 88 21 118/60 97 Mechanical Ventilator 30 07/02/17 00:00 82 07/02/17 00:00 30 07/01/17 23:26 88 16 100 07/01/17 23:00 90 21 116/59 97 Mechanical Ventilator 30 07/01/17 22:00 90 22 132/75 97 Mechanical Ventilator 30 07/01/17 21:07 97 22 100 07/01/17 21:00 95 23 110/54 97 Mechanical Ventilator 30 07/01/17 20:00 95 07/01/17 20:00 30 07/01/17 20:00 99.3 95 23 110/54 97 Mechanical Ventilator 30 07/01/17 19:06 100 19 100 07/01/17 19:00 95 18 108/52 96 Mechanical Ventilator 30 07/01/17 18:00 95 18 133/61 96 Mechanical Ventilator 30 07/01/17 17:00 82 18 111/53 97 Mechanical Ventilator 30 07/01/17 16:58 90 19 30 07/01/17 16:00 95 07/01/17 16:00 98.6 95 20 111/53 96 Mechanical Ventilator 30 07/01/17 16:00 30 07/01/17 15:00 17 20 139/74 97 Mechanical Ventilator 30 07/01/17 14:33 87 19 30 07/01/17 14:00 85 20 130/69 97 Mechanical Ventilator 30 07/01/17 13:00 94 20 121/67 97 Mechanical Ventilator 30 07/01/17 12:32 86 20 30 07/01/17 12:00 98.4 89 20 139/73 98 Mechanical Ventilator 30 07/01/17 12:00 30 07/01/17 11:00 89 20 134/73 98 Mechanical Ventilator 30 07/01/17 10:32 90 22 30 Status: awake Condition: critical HEENT: atraumatic Lungs: clear Heart: HR/BP unstable Abdomen: soft, active bowel sounds Extremities: no C/C/E Decubiti: location Micro: Microbiology Date/Time Source Procedure Growth Status 06/30/17 23:00 Blood Blood Culture - Preliminary NO GROWTH AFTER 24 HOURS Resulted 06/30/17 22:50 Blood Blood Culture - Preliminary NO GROWTH AFTER 24 HOURS Resulted 07/01/17 03:10 Sputum Induced Gram Stain Pending Resulted 07/01/17 03:10 Sputum Induced Sputum Culture - Preliminary NORMAL UPPER RESPIRATORY TANIA AT 24 ... Resulted 07/01/17 02:28 Nasal Nares Influenza Types A,B Antigen (BEBE) - Final Complete Critical Care - Subjective ROS Limited/Unobtainable: Yes ICU Day: 2 Intubation Day: 2 Condition: critical EKG Rhythm: Sinus Rhythm FI02: 30 Vent Support Breath Rate: 16 Vent Support Mode: AC Vent Tidal Volume: 500 Sputum Amount: Moderate PEEP: 5.0 PIP: 42 Fluids: NS 75 cc/hour I&O: Intake and Output 07/01/17 07/02/17 19:00 07:00 Intake Total 1114.867 ml 825 ml Output Total 1100 ml 680 ml Balance 14.867 ml 145 ml Intake Oral 0 ml IV Total 1114.867 ml 825 ml Output Urine Total 1100 ml 680 ml # Voids 1 # Bowel Movements 3 CXR: extensive infiltrate ET-Tube: 7.5 ET Position: 22 Labs: Laboratory Tests Test 07/01/17 14:15 07/01/17 21:00 07/02/17 04:05 07/02/17 07:00 Urine Color Yellow Urine Appearance Slightly cloudy Urine pH 6 (4.5-8.0) Urine Specific [place] 1.015 (1.005-1.035) Urine Protein 2+ (NEGATIVE) H Urine Glucose (UA) Negative (NEGATIVE) Urine Ketones Negative (NEGATIVE) Urine Occult Blood 3+ (NEGATIVE) H Urine Nitrite Negative (NEGATIVE) Urine Bilirubin Negative (NEGATIVE) Urine Urobilinogen 4 MG/DL (0.0-1.0) H Urine Leukocyte Esterase Negative (NEGATIVE) Urine RBC 10-15 /HPF (0 - 2) H Urine WBC 0-2 /HPF (0 - 2) Urine Squamous Epithelial Cells Few /LPF (NONE/OCC) Urine Bacteria Few /HPF (NONE) Random Amikacin Level 4.8 MG/L White Blood Count 7.1 K/UL (4.8-10.8) # Red Blood Count 2.68 M/UL (4.20-5.40) L Hemoglobin 8.4 G/DL (12.0-16.0) L Hematocrit 26.5 % (37.0-47.0) L Mean Corpuscular Volume 99 FL (80-99) Mean Corpuscular Hemoglobin 31.2 PG (27.0-31.0) H Mean Corpuscular Hemoglobin Concent 31.5 G/DL (32.0-36.0) L Red Cell Distribution Width 14.8 % (11.6-14.8) Platelet Count 184 K/UL (150-450) Mean Platelet Volume 6.7 FL (6.5-10.1) Neutrophils (%) (Auto) % (45.0-75.0) Lymphocytes (%) (Auto) % (20.0-45.0) Monocytes (%) (Auto) % (1.0-10.0) Eosinophils (%) (Auto) % (0.0-3.0) Basophils (%) (Auto) % (0.0-2.0) Differential Total Cells Counted 100 Neutrophils % (Manual) 78 % (45-75) H Lymphocytes % (Manual) 13 % (20-45) L Monocytes % (Manual) 9 % (1-10) Eosinophils % (Manual) 0 % (0-3) Basophils % (Manual) 0 % (0-2) Band Neutrophils 0 % (0-8) Platelet Estimate Adequate Platelet Morphology Normal Hypochromasia 2+ Anisocytosis 1+ Sodium Level 143 MMOL/L (136-145) Potassium Level 3.8 MMOL/L (3.5-5.1) Chloride Level 105 MMOL/L (98-107) Carbon Dioxide Level 33 MMOL/L (21-32) H Anion Gap 5 mmol/L (5-15) Blood Urea Nitrogen 16 mg/dL (7-18) Creatinine 0.6 MG/DL (0.55-1.30) Estimat Glomerular Filtration Rate mL/min (>60) Glucose Level 124 MG/DL (74-106) H Hemoglobin A1c 6.1 % (4.3-6.0) H Uric Acid 2.2 MG/DL (2.6-7.2) L Calcium Level 8.4 MG/DL (8.5-10.1) L Phosphorus Level 3.4 MG/DL (2.5-4.9) Magnesium Level 2.0 MG/DL (1.8-2.4) Iron Level 54 ug/dL (50-175) Total Iron Binding Capacity 181 ug/dL (250-450) L Percent Iron Saturation 30 % (15-50) Unsaturated Iron Binding 127 ug/dL (112-346) Ferritin 400 NG/ML (8-388) H Total Bilirubin 0.3 MG/DL (0.2-1.0) Gamma Glutamyl Transpeptidase < 3 U/L (5-85) L Aspartate Amino Transf (AST/SGOT) 8 U/L (15-37) L Alanine Aminotransferase (ALT/SGPT) 9 U/L (12-78) L Alkaline Phosphatase 47 U/L (46-116) Total Creatine Kinase 15 U/L (26-308) L Troponin I -0.062 ng/mL (0.000-0.056) Pro-B-Type Natriuretic Peptide 1159 pg/mL (0-125) H Total Protein 6.0 G/DL (6.4-8.2) L Albumin 1.9 G/DL (3.4-5.0) L Globulin 4.1 g/dL Albumin/Globulin Ratio 0.5 (1.0-2.7) L Vitamin B12 Level 861 PG/ML (193-986) Folate 6.6 NG/ML (8.6-58.9) L Thyroid Stimulating Hormone (TSH) 0.453 uiU/mL (0.358-3.740) Digoxin Level 0.4 NG/ML (0.9-2.0) L Urine Random Sodium < 10 MEQ/L (20-110) L MARIZA CHANEL Jul 02, 2017 10:30
--- NOTE | 2017-07-02 11:37 | Diagnostic Imaging Report ---
Indication: Dyspnea Technique: One view of the chest Comparison: 07/01/2017 Findings: Bilateral interstitial and airspace disease, likely fibrotic change persists, unchanged. The heart is borderline enlarged. Stable satisfactory positions position of endotracheal tube. Nasogastric tube has advanced, was previously probably inside a hiatal hernia, tip now projected beyond the imaging volume likely at the gastric antrum Impression: Improved position of nasogastric tube Other stable findings as described
--- NOTE | 2017-07-02 11:43 | Internal Med Progress Note ---
Subjective Date of Service: Jul 02, 2017 Physician Name Roberta Butler Attending Physician Ten Bourne MD Current Medications Medications (Trade) Dose Ordered Sig/Taryn Route PRN Reason Start Time Stop Time Status Last Admin Dose Admin Acetaminophen (Tylenol) 650 mg Q4H PRN ORAL fever 07/01/17 06:15 07/31/17 06:14 Albuterol/ Ipratropium (Albuterol/ Ipratropium) 3 ml Q4H PRN HHN Shortness of Breath 07/01/17 06:15 07/06/17 06:14 Amikacin Sulfate 800 mg/Sodium Chloride 113.2 ml @ 113.2 mls/ hr Q36H IV 07/02/17 20:00 07/09/17 19:59 Chlorhexidine Gluconate (Manuela-Hex 2%) 1 applic DAILY@2000 TOPIC 07/01/17 20:00 07/31/17 19:59 07/01/17 19:52 Dextrose (Dextrose 50%) No Dose PRN IV hypoglycemia 07/02/17 10:45 08/01/17 10:44 Digoxin (Lanoxin) 0.125 mg DAILY ORAL 07/01/17 09:00 07/31/17 08:59 07/02/17 08:23 Duloxetine HCl (Cymbalta) 60 mg DAILY ORAL 07/01/17 09:00 07/31/17 08:59 07/02/17 08:23 Heparin Sodium (Porcine) (Heparin 5000 units/ml) 5,000 units EVERY 12 HOURS SUBQ 07/01/17 09:00 07/31/17 08:59 07/02/17 08:26 Hydrocortisone (Solu-CORTEF) 100 mg EVERY 8 HOURS IV 07/01/17 14:00 07/31/17 13:59 07/02/17 05:36 Insulin Aspart (NovoLOG) BEFORE MEALS AND HS SUBQ 07/02/17 11:30 08/01/17 11:29 Lorazepam (Ativan 2mg/ml 1ml) 2 mg Q2H PRN IV For Anxiety 07/01/17 06:15 07/08/17 06:14 07/02/17 10:20 Losartan Potassium (Cozaar) 25 mg DAILY ORAL 07/01/17 09:00 07/31/17 08:59 07/02/17 08:24 Morphine Sulfate (Morphine Sulfate) 4 mg Q4H PRN IVP Severe Pain (Pain Scale 7-10) 07/01/17 06:15 07/08/17 06:14 Norepinephrine Bitartrate 4 mg/ Dextrose 254 ml @ 0 mls/hr Q24H IV 07/01/17 06:15 07/31/17 06:14 Ondansetron HCl (Zofran) 4 mg Q6H PRN IVP Nausea & Vomiting 07/01/17 06:15 07/31/17 06:14 Pantoprazole (Protonix) 40 mg Q12HR IV 07/01/17 21:00 07/31/17 08:59 07/02/17 08:24 Polyethylene Glycol (Miralax) 17 gm DAILYPRN PRN ORAL Constipation 07/01/17 06:15 07/31/17 06:14 Sodium Chloride 1,000 ml @ 75 mls/hr [id number] IVLG 07/01/17 13:00 07/31/17 12:59 07/02/17 04:43 Theophylline (John-Dur) 100 mg EVERY 12 HOURS ORAL 07/01/17 09:00 07/31/17 08:59 07/02/17 08:24 Vancomycin HCl (Vanco rx to dose) 1 ea DAILY PRN MISC Per Rx protocol 07/01/17 08:00 07/31/17 07:59 Vancomycin HCl/ Dextrose 250 ml @ 166.667 mls/hr Q24H IVPB 07/01/17 15:00 07/06/17 14:59 07/01/17 15:28 Allergies: Coded Allergies: No Known Allergies (Unverified , 01/11/17) ROS Limited/Unobtainable: Yes Subjective 82 YO F admitted with respiratory failure. Intubated and sedated. Cover for Int Kg-Dr Bourne. ICU. Objective Last Vital Signs Date Time Temp Pulse Resp B/P (MAP) Pulse Ox O2 Delivery O2 Flow Rate FiO2 07/02/17 10:00 95 21 101/53 94 Mechanical Ventilator 30 07/02/17 04:00 98.6 07/01/17 05:36 3.0 General Appearance: WD/WN, lethargic EENT: normal ENT inspection Neck: non-tender, normal alignment, supple, normal inspection Cardiovascular: normal peripheral pulses, normal rate, regular rhythm, no gallop/murmur, no JVD Respiratory/Chest: respiratory distress, crackles/rales, rhonchi - bilaterally , expiratory wheezing Abdomen: non tender, soft, no organomegaly, no mass, decreased bowel sounds Edema: trace edema Skin: normal pigmentation, warm/dry Laboratory Tests Test 07/01/17 14:15 07/01/17 21:00 07/02/17 04:05 07/02/17 07:00 Urine Color Yellow Urine Appearance Slightly cloudy Urine pH 6 (4.5-8.0) Urine Specific [place] 1.015 (1.005-1.035) Urine Protein 2+ (NEGATIVE) H Urine Glucose (UA) Negative (NEGATIVE) Urine Ketones Negative (NEGATIVE) Urine Occult Blood 3+ (NEGATIVE) H Urine Nitrite Negative (NEGATIVE) Urine Bilirubin Negative (NEGATIVE) Urine Urobilinogen 4 MG/DL (0.0-1.0) H Urine Leukocyte Esterase Negative (NEGATIVE) Urine RBC 10-15 /HPF (0 - 2) H Urine WBC 0-2 /HPF (0 - 2) Urine Squamous Epithelial Cells Few /LPF (NONE/OCC) Urine Bacteria Few /HPF (NONE) Random Amikacin Level 4.8 MG/L White Blood Count 7.1 K/UL (4.8-10.8) # Red Blood Count 2.68 M/UL (4.20-5.40) L Hemoglobin 8.4 G/DL (12.0-16.0) L Hematocrit 26.5 % (37.0-47.0) L Mean Corpuscular Volume 99 FL (80-99) Mean Corpuscular Hemoglobin 31.2 PG (27.0-31.0) H Mean Corpuscular Hemoglobin Concent 31.5 G/DL (32.0-36.0) L Red Cell Distribution Width 14.8 % (11.6-14.8) Platelet Count 184 K/UL (150-450) Mean Platelet Volume 6.7 FL (6.5-10.1) Neutrophils (%) (Auto) % (45.0-75.0) Lymphocytes (%) (Auto) % (20.0-45.0) Monocytes (%) (Auto) % (1.0-10.0) Eosinophils (%) (Auto) % (0.0-3.0) Basophils (%) (Auto) % (0.0-2.0) Differential Total Cells Counted 100 Neutrophils % (Manual) 78 % (45-75) H Lymphocytes % (Manual) 13 % (20-45) L Monocytes % (Manual) 9 % (1-10) Eosinophils % (Manual) 0 % (0-3) Basophils % (Manual) 0 % (0-2) Band Neutrophils 0 % (0-8) Platelet Estimate Adequate Platelet Morphology Normal Hypochromasia 2+ Anisocytosis 1+ Sodium Level 143 MMOL/L (136-145) Potassium Level 3.8 MMOL/L (3.5-5.1) Chloride Level 105 MMOL/L (98-107) Carbon Dioxide Level 33 MMOL/L (21-32) H Anion Gap 5 mmol/L (5-15) Blood Urea Nitrogen 16 mg/dL (7-18) Creatinine 0.6 MG/DL (0.55-1.30) Estimat Glomerular Filtration Rate mL/min (>60) Glucose Level 124 MG/DL (74-106) H Hemoglobin A1c 6.1 % (4.3-6.0) H Uric Acid 2.2 MG/DL (2.6-7.2) L Calcium Level 8.4 MG/DL (8.5-10.1) L Phosphorus Level 3.4 MG/DL (2.5-4.9) Magnesium Level 2.0 MG/DL (1.8-2.4) Iron Level 54 ug/dL (50-175) Total Iron Binding Capacity 181 ug/dL (250-450) L Percent Iron Saturation 30 % (15-50) Unsaturated Iron Binding 127 ug/dL (112-346) Ferritin 400 NG/ML (8-388) H Total Bilirubin 0.3 MG/DL (0.2-1.0) Gamma Glutamyl Transpeptidase < 3 U/L (5-85) L Aspartate Amino Transf (AST/SGOT) 8 U/L (15-37) L Alanine Aminotransferase (ALT/SGPT) 9 U/L (12-78) L Alkaline Phosphatase 47 U/L (46-116) Total Creatine Kinase 15 U/L (26-308) L Troponin I -0.062 ng/mL (0.000-0.056) Pro-B-Type Natriuretic Peptide 1159 pg/mL (0-125) H Total Protein 6.0 G/DL (6.4-8.2) L Albumin 1.9 G/DL (3.4-5.0) L Globulin 4.1 g/dL Albumin/Globulin Ratio 0.5 (1.0-2.7) L Vitamin B12 Level 861 PG/ML (193-986) Folate 6.6 NG/ML (8.6-58.9) L Thyroid Stimulating Hormone (TSH) 0.453 uiU/mL (0.358-3.740) Digoxin Level 0.4 NG/ML (0.9-2.0) L Urine Random Sodium < 10 MEQ/L (20-110) L Microbiology Date/Time Source Procedure Growth Status 06/30/17 23:00 Blood Blood Culture - Preliminary NO GROWTH AFTER 24 HOURS Resulted 06/30/17 22:50 Blood Blood Culture - Preliminary NO GROWTH AFTER 24 HOURS Resulted 07/01/17 03:10 Sputum Induced Gram Stain Pending Resulted 07/01/17 03:10 Sputum Induced Sputum Culture - Preliminary NORMAL UPPER RESPIRATORY TANIA AT 24 ... Resulted 07/01/17 02:28 Nasal Nares Influenza Types A,B Antigen (BEBE) - Final Complete Intake and Output 07/01/17 07/02/17 19:00 07:00 Intake Total 1114.867 ml 825 ml Output Total 1100 ml 680 ml Balance 14.867 ml 145 ml Intake Oral 0 ml IV Total 1114.867 ml 825 ml Output Urine Total 1100 ml 680 ml # Voids 1 # Bowel Movements 3 Assessment/Plan Problem List: (1) HTN (hypertension) Assessment & Plan: Continue cozaar (2) Respiratory failure, acute Assessment & Plan: Intubated. See pulm note. Cont theophylline, vanco, ertapenem and amikacin. (3) Hypercapnia (4) Pulmonary hypertension (5) Pulmonary fibrosis (6) Hypothyroidism Status: not improved ROBERTA BUTLER Jul 02, 2017 11:43
[2017-07-02] MEDS: NovoLOG Insulin Flexpen SUBQ SCH ×3 (11:55→21:09)
[2017-07-02] MEDS: Vancomycin 1250mg/D5W 250ml IVPB SCH (14:59)
[2017-07-02] MEDS ORDERED: Tubing IV Secondary IV ONE (15:51)
--- NOTE | 2017-07-02 17:36 | Nephrology Progress Note ---
Assessment/Plan Problem List: (1) Respiratory failure, acute (2) Proteinuria (3) Hypoalbuminemia Assessment Dyspnea, acute respiratory failure , requiring intubation and mechanichal vent Mixed connective tissue disease Anemia likely due to chronic disease HypoAlbuminemia Pulmonary fibrosis Pulmonary hypertension COPD exacerbation Respiratory failure, acute Plan Plan: Monitor renal parameters and urine out put Keep BP in check Optimize pulmonary status UA, 24 h urine for protein Mag supplement stress dose of steroids as patient was on prednison per orders Subjective ROS Limited/Unobtainable: Yes Objective Objective Last 24 Hour Vital Signs Date Time Temp Pulse Resp B/P (MAP) Pulse Ox O2 Delivery O2 Flow Rate FiO2 07/02/17 17:00 68 18 30 07/02/17 17:00 65 16 108/60 97 Mechanical Ventilator 30 07/02/17 16:00 30 07/02/17 16:00 99.0 77 16 119/55 95 Mechanical Ventilator 30 07/02/17 16:00 76 07/02/17 15:05 71 20 30 07/02/17 15:00 77 17 119/55 96 Mechanical Ventilator 30 07/02/17 14:00 78 14 118/56 95 Mechanical Ventilator 30 07/02/17 13:29 90 27 30 07/02/17 13:00 79 18 116/57 95 Mechanical Ventilator 30 07/02/17 12:00 30 07/02/17 12:00 79 24 116/57 97 Mechanical Ventilator 30 07/02/17 12:00 67 07/02/17 11:09 99 17 30 07/02/17 11:00 98.8 95 20 122/61 94 Mechanical Ventilator 30 07/02/17 10:00 95 21 101/53 94 Mechanical Ventilator 30 07/02/17 09:01 86 24 30 07/02/17 09:00 85 23 116/55 95 Mechanical Ventilator 30 07/02/17 08:24 116/81 07/02/17 08:23 78 07/02/17 08:00 80 07/02/17 08:00 90 22 116/81 94 Mechanical Ventilator 30 07/02/17 08:00 30 07/02/17 07:01 84 21 30 07/02/17 07:00 98.9 87 19 107/54 94 Mechanical Ventilator 30 07/02/17 06:15 115/70 07/02/17 06:00 78 20 109/50 95 Mechanical Ventilator 30 07/02/17 05:20 89 19 40 07/02/17 05:00 94 20 118/49 95 Mechanical Ventilator 30 07/02/17 04:00 98.6 90 21 119/60 98 Mechanical Ventilator 30 07/02/17 04:00 30 07/02/17 04:00 82 07/02/17 03:00 75 21 120/51 100 Mechanical Ventilator 30 07/02/17 02:33 79 24 100 07/02/17 02:00 79 20 132/57 99 Mechanical Ventilator 30 07/02/17 01:24 74 22 30 07/02/17 01:00 82 21 133/68 97 Mechanical Ventilator 30 07/02/17 00:00 98.4 88 21 118/60 97 Mechanical Ventilator 30 07/02/17 00:00 82 07/02/17 00:00 30 07/01/17 23:26 88 16 100 07/01/17 23:00 90 21 116/59 97 Mechanical Ventilator 30 07/01/17 22:00 90 22 132/75 97 Mechanical Ventilator 30 07/01/17 21:07 97 22 100 07/01/17 21:00 95 23 110/54 97 Mechanical Ventilator 30 07/01/17 20:00 95 07/01/17 20:00 30 07/01/17 20:00 99.3 95 23 110/54 97 Mechanical Ventilator 30 07/01/17 19:06 100 19 100 07/01/17 19:00 95 18 108/52 96 Mechanical Ventilator 30 07/01/17 18:00 95 18 133/61 96 Mechanical Ventilator 30 Intake and Output 07/01/17 07/02/17 19:00 07:00 Intake Total 1114.867 ml 900 ml Output Total 1100 ml 680 ml Balance 14.867 ml 220 ml Intake Oral 0 ml IV Total 1114.867 ml 900 ml Output Urine Total 1100 ml 680 ml # Voids 1 # Bowel Movements 3 Laboratory Tests 07/01/17 21:00: Random Amikacin Level 4.8 07/02/17 04:05: White Blood Count 7.1#, Red Blood Count 2.68L, Hemoglobin 8.4L, Hematocrit 26.5L , Mean Corpuscular Volume 99, Mean Corpuscular Hemoglobin 31.2H, Mean Corpuscular Hemoglobin Concent 31.5L, Red Cell Distribution Width 14.8, Platelet Count 184, Mean Platelet Volume 6.7, Neutrophils (%) (Auto) , Lymphocytes (%) (Auto) , Monocytes (%) (Auto) , Eosinophils (%) (Auto) , Basophils (%) (Auto) , Differential Total Cells Counted 100, Neutrophils % ( Manual) 78H, Lymphocytes % (Manual) 13L, Monocytes % (Manual) 9, Eosinophils % ( Manual) 0, Basophils % (Manual) 0, Band Neutrophils 0, Platelet Estimate Adequate, Platelet Morphology Normal, Hypochromasia 2+, Anisocytosis 1+, Sodium Level 143, Potassium Level 3.8, Chloride Level 105, Carbon Dioxide Level 33H, Anion Gap 5, Blood Urea Nitrogen 16, Creatinine 0.6, Estimat Glomerular Filtration Rate , Glucose Level 124H, Hemoglobin A1c 6.1H, Uric Acid 2.2L, Calcium Level 8.4L, Phosphorus Level 3.4, Magnesium Level 2.0, Iron Level 54, Total Iron Binding Capacity 181L, Percent Iron Saturation 30, Unsaturated Iron Binding 127, Ferritin 400H, Total Bilirubin 0.3, Gamma Glutamyl Transpeptidase < 3L, Aspartate Amino Transf (AST/SGOT) 8L, Alanine Aminotransferase (ALT/SGPT) 9L, Alkaline Phosphatase 47, Total Creatine Kinase 15L, Troponin I -0.062L, Pro- B-Type Natriuretic Peptide 1159H, Total Protein 6.0L, Albumin 1.9L, Globulin 4.1 , Albumin/Globulin Ratio 0.5L, Vitamin B12 Level 861, Folate 6.6L, Thyroid Stimulating Hormone (TSH) 0.453, Digoxin Level 0.4L 07/02/17 07:00: Urine Random Sodium < 10L Height (Feet): 5 Height (Inches): 3.00 Weight (Pounds): 194 General Appearance: no apparent distress EENT: other - on vent Cardiovascular: normal rate Respiratory/Chest: decreased breath sounds Abdomen: soft DARRYL ISSA Jul 02, 2017 17:36
--- NOTE | 2017-07-02 18:27 | Cardiology Report ---
APPROVED REPORT EXAM: Two-dimensional and M-mode echocardiogram with Doppler and color Doppler. INDICATION Left ventricular function M-Mode DIMENSIONS IVSd1.7 (0.7-1.1cm)Left Atrium (MM)4.5 (1.6-4.0cm) LVDd5.0 (3.5-5.6cm)Aortic Root3.0 (2.0-3.7cm) PWd1.2 (0.7-1.1cm)Aortic Cusp Exc.1.7 (1.5-2.0cm) LVDs3.5 (2.5-4.0cm) PWs1.5 cm Normal left ventricular chamber size, systolic function and wall motion. Left ventricular ejection fraction estimated to be 55-60%. Mild left ventricular hypertrophy. No evidence of pericardial or pleural effusion. Mild left atrial enlargement by 2D. Focal aortic valve sclerosis with adequate cusp excursion. Thickened mitral valve leaflets with normal excursion. Mild mitral annulus and aortic root calcification. Pulmonic valve is well visualized. Normal tricuspid valve structure. IVC is normal in size with no physiological collapse with respiration. RA pressure of 10mmHg. A color flow and spectral Doppler study was performed and revealed: Mild aortic regurgitation. Trace mitral regurgitation. Mitral diastolic velocities suggest reduced left ventricular relaxation c/w diastolic dysfunction grade 1. Trace tricuspid regurgitation. Tricuspid systolic velocities suggests peak right ventricular systolic pressure of 35 mmHg Consistent with mild pulmonary hypertension. Pulmonic regurgitation present.
--- NOTE | 2017-07-02 18:59 | Consultation ---
History of Present Illness General Date patient seen: Jul 02, 2017 Time patient seen: 18:38 Chief Complaint: Dyspnea/Respdistress Present Illness HPI 82 y/o F with hx of COPD on home O2 at 2L, pHTN, pulmonary fibrosis, hypothyroidism, GERD, HTN, mixed connective tissue disorder, s/p R TKR, correction resident presents to ED on 06/30 with SOB and cough. Found to have hypercapnea and required Bipap and eventually was intubated and admitted to ICU. Denied f/c, CP, abd pain, urinary symptoms upon admission. Allergies: Coded Allergies: No Known Allergies (Unverified , 01/11/17) Medication History Scheduled Azathioprine* (Imuran*), 50 MG PO DAILY, (Reported) Digoxin* (Digoxin*), 125 MCG ORAL DAILY, (Reported) Duloxetine Hcl* (Cymbalta*), 60 MG ORAL DAILY, (Reported) Furosemide* (Lasix*), 20 MG ORAL TWICE A DAY, (Reported) Ibuprofen* (Motrin*), 600 MG ORAL TWICE A DAY, (Reported) Levofloxacin* (Levaquin*), 500 MG ORAL DAILY, (Reported) Levothyroxine Sodium* (Levothyroxine Sodium*), 125 MCG ORAL DAILY, (Reported) Losartan Potassium* (Losartan Potassium*), 25 MG ORAL DAILY, (Reported) Mag Hydrox/Al Hydrox/Simeth (Heather-Lanta Liquid), 30 ML PO Q6HR, (Reported) Metoprolol Tartrate* (Metoprolol Tartrate*), 25 MG ORAL EVERY 12 HOURS, ( Reported) Mycophenolate Mofetil (Cellcept), 1,000 MG ORAL BEDTIME, (Reported) Omeprazole Magnesium (Prilosec Otc), 20 MG ORAL DAILY, (Reported) Prednisone* (Prednisone*), 10 MG ORAL DAILY, (Reported) Prednisone* (Prednisone*), 20 MG ORAL DAILY, (Reported) Pregabalin* (Lyrica*), 100 MG ORAL TWICE A DAY, (Reported) Spironolactone* (Aldactone*), 25 MG ORAL DAILY, (Reported) Tadalafil (Tadalafil), 5 MG PO TWICE A DAY, (Reported) Theophylline (Theodur*), 100 MG ORAL EVERY 12 HOURS Scheduled PRN Acetaminophen* (Acetaminophen 325MG Tablet*), 325 MG ORAL Q6H PRN for For Pain, (Reported) Alprazolam* (Xanax*), 0.25 MG ORAL THREE TIMES A DAY PRN for For Anxiety, ( Reported) D-Methorphan Hb/Prometh Hcl* (Promethazine-Dm Syrup*), 5 ML ORAL Q4H PRN for For Cough, (Reported) Ipratropium/Albuterol Sulfate (DuoNeb 0.5-3(2.5)mg/3ml), 3 ML HHN Q4HR PRN for Shortness of Breath, (Reported) Nitroglycerin (Nitroglycerin), 0.4 MG SL for For Pain, (Reported) Miscellaneous Medications Calcium Carbonate (Tums), 200 MG PO, (Reported) Patient History Healthcare decision maker Resuscitation status Advanced Directive on File Patient History Narrative PMhx: as above SHx: The patient is a resident of [facility]. The patient denies tobacco or alcohol use. Fhx: non contributory Review of Systems ROS Narrative Unable to obtain Physical Exam Physical Exam Narrative GENERAL: The patient is well developed and well nourished female, who is intubated and sedated. HEENT: Eyes, pupils equal and responsive to light and accommodation. Extraocular movements are intact. NECK: Supple. No lymphadenopathy. CHEST: Few diffuse wheezes bilaterally with few rales at bilateral bases, otherwise clear to auscultation. CARDIOVASCULAR: Regular rhythm and rate. S1 and S2 normal without murmurs, rubs, or gallops. ABDOMEN: Soft, nontender, and nondistended. Positive bowel sounds. No evidence of hepatosplenomegaly. Currently, no rebound or guarding noted. EXTREMITIES: Negative for clubbing, cyanosis, or edema. NEUROLOGICAL: Unable to assess secondary to the patient's mental status. Last 24 Hour Vital Signs Date Time Temp Pulse Resp B/P (MAP) Pulse Ox O2 Delivery O2 Flow Rate FiO2 07/02/17 18:00 77 21 133/94 95 Mechanical Ventilator 07/02/17 17:00 68 18 30 07/02/17 17:00 65 16 108/60 97 Mechanical Ventilator 07/02/17 16:00 30 07/02/17 16:00 99.0 77 16 119/55 95 Mechanical Ventilator 07/02/17 16:00 76 07/02/17 15:05 71 20 30 07/02/17 15:00 77 17 119/55 96 Mechanical Ventilator 30 07/02/17 14:00 78 14 118/56 95 Mechanical Ventilator 30 07/02/17 13:29 90 27 30 07/02/17 13:00 79 18 116/57 95 Mechanical Ventilator 30 07/02/17 12:00 30 07/02/17 12:00 79 24 116/57 97 Mechanical Ventilator 30 07/02/17 12:00 67 07/02/17 11:09 99 17 30 07/02/17 11:00 98.8 95 20 122/61 94 Mechanical Ventilator 30 07/02/17 10:00 95 21 101/53 94 Mechanical Ventilator 30 07/02/17 09:01 86 24 30 07/02/17 09:00 85 23 116/55 95 Mechanical Ventilator 30 07/02/17 08:24 116/81 07/02/17 08:23 78 07/02/17 08:00 80 07/02/17 08:00 90 22 116/81 94 Mechanical Ventilator 30 07/02/17 08:00 30 07/02/17 07:01 84 21 30 07/02/17 07:00 98.9 87 19 107/54 94 Mechanical Ventilator 30 07/02/17 06:15 115/70 07/02/17 06:00 78 20 109/50 95 Mechanical Ventilator 30 07/02/17 05:20 89 19 40 07/02/17 05:00 94 20 118/49 95 Mechanical Ventilator 30 07/02/17 04:00 98.6 90 21 119/60 98 Mechanical Ventilator 30 07/02/17 04:00 30 07/02/17 04:00 82 07/02/17 03:00 75 21 120/51 100 Mechanical Ventilator 30 07/02/17 02:33 79 24 100 07/02/17 02:00 79 20 132/57 99 Mechanical Ventilator 30 07/02/17 01:24 74 22 30 07/02/17 01:00 82 21 133/68 97 Mechanical Ventilator 30 07/02/17 00:00 98.4 88 21 118/60 97 Mechanical Ventilator 30 07/02/17 00:00 82 07/02/17 00:00 30 07/01/17 23:26 88 16 100 07/01/17 23:00 90 21 116/59 97 Mechanical Ventilator 30 07/01/17 22:00 90 22 132/75 97 Mechanical Ventilator 30 07/01/17 21:07 97 22 100 07/01/17 21:00 95 23 110/54 97 Mechanical Ventilator 30 07/01/17 20:00 95 07/01/17 20:00 30 07/01/17 20:00 99.3 95 23 110/54 97 Mechanical Ventilator 30 07/01/17 19:06 100 19 100 07/01/17 19:00 95 18 108/52 96 Mechanical Ventilator 30 Intake and Output 07/01/17 07/02/17 19:00 07:00 Intake Total 1114.867 ml 900 ml Output Total 1100 ml 680 ml Balance 14.867 ml 220 ml Intake Oral 0 ml IV Total 1114.867 ml 900 ml Output Urine Total 1100 ml 680 ml # Voids 1 # Bowel Movements 3 Laboratory Tests Test 07/01/17 21:00 07/02/17 04:05 07/02/17 07:00 Random Amikacin Level 4.8 MG/L White Blood Count 7.1 K/UL (4.8-10.8) # Red Blood Count 2.68 M/UL (4.20-5.40) L Hemoglobin 8.4 G/DL (12.0-16.0) L Hematocrit 26.5 % (37.0-47.0) L Mean Corpuscular Volume 99 FL (80-99) Mean Corpuscular Hemoglobin 31.2 PG (27.0-31.0) H Mean Corpuscular Hemoglobin Concent 31.5 G/DL (32.0-36.0) L Red Cell Distribution Width 14.8 % (11.6-14.8) Platelet Count 184 K/UL (150-450) Mean Platelet Volume 6.7 FL (6.5-10.1) Neutrophils (%) (Auto) % (45.0-75.0) Lymphocytes (%) (Auto) % (20.0-45.0) Monocytes (%) (Auto) % (1.0-10.0) Eosinophils (%) (Auto) % (0.0-3.0) Basophils (%) (Auto) % (0.0-2.0) Differential Total Cells Counted 100 Neutrophils % (Manual) 78 % (45-75) H Lymphocytes % (Manual) 13 % (20-45) L Monocytes % (Manual) 9 % (1-10) Eosinophils % (Manual) 0 % (0-3) Basophils % (Manual) 0 % (0-2) Band Neutrophils 0 % (0-8) Platelet Estimate Adequate Platelet Morphology Normal Hypochromasia 2+ Anisocytosis 1+ Sodium Level 143 MMOL/L (136-145) Potassium Level 3.8 MMOL/L (3.5-5.1) Chloride Level 105 MMOL/L (98-107) Carbon Dioxide Level 33 MMOL/L (21-32) H Anion Gap 5 mmol/L (5-15) Blood Urea Nitrogen 16 mg/dL (7-18) Creatinine 0.6 MG/DL (0.55-1.30) Estimat Glomerular Filtration Rate mL/min (>60) Glucose Level 124 MG/DL (74-106) H Hemoglobin A1c 6.1 % (4.3-6.0) H Uric Acid 2.2 MG/DL (2.6-7.2) L Calcium Level 8.4 MG/DL (8.5-10.1) L Phosphorus Level 3.4 MG/DL (2.5-4.9) Magnesium Level 2.0 MG/DL (1.8-2.4) Iron Level 54 ug/dL (50-175) Total Iron Binding Capacity 181 ug/dL (250-450) L Percent Iron Saturation 30 % (15-50) Unsaturated Iron Binding 127 ug/dL (112-346) Ferritin 400 NG/ML (8-388) H Total Bilirubin 0.3 MG/DL (0.2-1.0) Gamma Glutamyl Transpeptidase < 3 U/L (5-85) L Aspartate Amino Transf (AST/SGOT) 8 U/L (15-37) L Alanine Aminotransferase (ALT/SGPT) 9 U/L (12-78) L Alkaline Phosphatase 47 U/L (46-116) Total Creatine Kinase 15 U/L (26-308) L Troponin I -0.062 ng/mL (0.000-0.056) Pro-B-Type Natriuretic Peptide 1159 pg/mL (0-125) H Total Protein 6.0 G/DL (6.4-8.2) L Albumin 1.9 G/DL (3.4-5.0) L Globulin 4.1 g/dL Albumin/Globulin Ratio 0.5 (1.0-2.7) L Vitamin B12 Level 861 PG/ML (193-986) Folate 6.6 NG/ML (8.6-58.9) L Thyroid Stimulating Hormone (TSH) 0.453 uiU/mL (0.358-3.740) Digoxin Level 0.4 NG/ML (0.9-2.0) L Urine Random Sodium < 10 MEQ/L (20-110) L Height (Feet): 5 Height (Inches): 3.00 Weight (Pounds): 194 Medications Current Medications Medications (Trade) Dose Ordered Sig/Taryn Route PRN Reason Start Time Stop Time Status Last Admin Dose Admin Acetaminophen (Tylenol) 650 mg Q4H PRN ORAL fever 07/01/17 06:15 07/31/17 06:14 Albuterol/ Ipratropium (Albuterol/ Ipratropium) 3 ml Q4H PRN HHN Shortness of Breath 07/01/17 06:15 07/06/17 06:14 Amikacin Sulfate 800 mg/Sodium Chloride 113.2 ml @ 113.2 mls/ hr Q36H IV 07/02/17 20:00 07/09/17 19:59 Chlorhexidine Gluconate (Manuela-Hex 2%) 1 applic DAILY@2000 TOPIC 07/01/17 20:00 07/31/17 19:59 07/01/17 19:52 Dextrose (Dextrose 50%) No Dose PRN IV hypoglycemia 07/02/17 10:45 08/01/17 10:44 Digoxin (Lanoxin) 0.125 mg DAILY ORAL 07/01/17 09:00 07/31/17 08:59 07/02/17 08:23 Duloxetine HCl (Cymbalta) 60 mg DAILY ORAL 07/01/17 09:00 07/31/17 08:59 07/02/17 08:23 Heparin Sodium (Porcine) (Heparin 5000 units/ml) 5,000 units EVERY 12 HOURS SUBQ 07/01/17 09:00 07/31/17 08:59 07/02/17 08:26 Hydrocortisone (Solu-CORTEF) 100 mg EVERY 8 HOURS IV 07/01/17 14:00 07/31/17 13:59 07/02/17 13:45 Insulin Aspart (NovoLOG) BEFORE MEALS AND HS SUBQ 07/02/17 11:30 08/01/17 11:29 07/02/17 16:11 Lorazepam (Ativan 2mg/ml 1ml) 2 mg Q2H PRN IV For Anxiety 07/01/17 06:15 07/08/17 06:14 07/02/17 13:45 Losartan Potassium (Cozaar) 25 mg DAILY ORAL 07/01/17 09:00 07/31/17 08:59 07/02/17 08:24 Morphine Sulfate (Morphine Sulfate) 4 mg Q4H PRN IVP Severe Pain (Pain Scale 7-10) 07/01/17 06:15 07/08/17 06:14 Norepinephrine Bitartrate 4 mg/ Dextrose 254 ml @ 0 mls/hr Q24H IV 07/01/17 06:15 07/31/17 06:14 Ondansetron HCl (Zofran) 4 mg Q6H PRN IVP Nausea & Vomiting 07/01/17 06:15 07/31/17 06:14 Pantoprazole (Protonix) 40 mg Q12HR IV 07/01/17 21:00 07/31/17 08:59 07/02/17 08:24 Polyethylene Glycol (Miralax) 17 gm DAILYPRN PRN ORAL Constipation 07/01/17 06:15 07/31/17 06:14 Sodium Chloride 1,000 ml @ 75 mls/hr [id number] IVLG 07/01/17 13:00 07/31/17 12:59 07/02/17 14:59 Theophylline (John-Dur) 100 mg EVERY 12 HOURS ORAL 07/01/17 09:00 07/31/17 08:59 07/02/17 08:24 Vancomycin HCl (Vanco rx to dose) 1 ea DAILY PRN MISC Per Rx protocol 07/01/17 08:00 07/31/17 07:59 Vancomycin HCl/ Dextrose 250 ml @ 166.667 mls/hr Q24H IVPB 07/01/17 15:00 07/06/17 14:59 07/02/17 14:59 Assessment/Plan Assessment/Plan Abx: IV Ertapenem x1 07/01 IV Levaquin x1 07/01 IV Vanco 07/01- IV Amikacin 07/01- Assessment: Acute hypoxic/Hypercapneic respiratory failure- likely flare of her underlying pulmonary disease with possible concomitant PNA- r/o atypical -CXR 07/02: Bilateral interstitial and airspace disease, likely fibrotic change persists, unchanged. -sp Cx Normal gerald to date -Influenza neg Afebrile/no leukocytosis COPD on home O2 at 2L pHTN pulmonary fibrosis hypothyroidism GERD HTN mixed connective tissue disorder, s/p R TKR correction resident Plan: -Continue IV Vancomycin #2 and switch Amikacin #2 for Zosyn for possible PNA pending sputum cx -continue levaquin #2 for atypical coverage -f/u cx -Monitor CBC/BMP, temperatures -ETT care -aspiration precautions Thank you for this consultation. Will continue to follow along with you. Discussed with Roseanna Arias M.D. Jul 02, 2017 18:59
[2017-07-02] MEDS ORDERED: Amikacin 800 MG in NS 110 ML IV SCH (20:00)
[2017-07-02] MEDS: Dyna-Hex 2% Top Sol 2oz TOPIC SCH (20:22)
[2017-07-02] MEDS: Piperacillin/Tazobactam 3.375 GM in NS 110 ML IVPB SCH (20:23)
[2017-07-03] VITALS (24 sets, daily range): BP systolic 110–145; BP diastolic 45–91
[2017-07-03] MEDS: LORazepam Inj 2mg/ml 1ml IV PRN ×3 (04:22→21:52)
[2017-07-03 05:10] LABS: HEMATOCRIT 26.1 % (37.0-47.0); HEMOGLOBIN 7.9 G/DL (12.0-16.0); MEAN CORPUSCULAR VOLUME 100 FL (80-99); PLATELET COUNT 169 K/UL (150-450); RED BLOOD COUNT 2.61 M/UL (4.20-5.40); RED CELL DISTRIBUTION WIDTH 14.7 % (11.6-14.8); WHITE BLOOD COUNT 4.4 K/UL (4.8-10.8)
[2017-07-03 05:16] LABS: ALANINE AMINOTRANSFERASE 9 U/L (12-78); ALBUMIN 1.9 G/DL (3.4-5.0); ALBUMIN/GLOBULIN RATIO 0.5 (1.0-2.7); ALKALINE PHOSPHATASE 48 U/L (46-116); ANION GAP 4 mmol/L (5-15); ASPARTATE AMINO TRANSFERASE 8 U/L (15-37); BILIRUBIN,TOTAL 0.2 MG/DL (0.2-1.0); BLOOD UREA NITROGEN 19 mg/dL (7-18); CALCIUM 8.3 MG/DL (8.5-10.1); CARBON DIOXIDE 33 MMOL/L (21-32); CHLORIDE 108 MMOL/L (98-107); CREATININE 0.6 MG/DL (0.55-1.30); PHOSPHORUS 3.4 MG/DL (2.5-4.9); SODIUM 145 MMOL/L (136-145)
[2017-07-03] MEDS: Hydrocortisone 100mg Inj IV SCH ×3 (05:51→21:33)
[2017-07-03] MEDS: Piperacillin/Tazobactam 3.375 GM in NS 110 ML IVPB SCH ×3 (05:51→22:09)
[2017-07-03] MEDS: NovoLOG Insulin Flexpen SUBQ SCH ×4 (06:24→21:16)
[2017-07-03] MEDS: Losartan 25mg tab ORAL SCH (08:54)
[2017-07-03] MEDS: Digoxin 0.125mg tab ORAL SCH (08:54)
[2017-07-03] MEDS: Theophylline ER 100mg ORAL SCH ×2 (08:54→21:14)
[2017-07-03] MEDS: Pantoprazole Inj IV SCH ×2 (08:56→21:14)
[2017-07-03] MEDS: DULoxetine 30mg cap ORAL SCH (08:57)
[2017-07-03] MEDS: Heparin 5000 units/ml inj SUBQ SCH ×2 (08:58→21:15)
--- NOTE | 2017-07-03 09:09 | Pulmonolgy Critical Care Note ---
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 Discussed with: nurses, consultants, case plannermanager of investigations - Objective Last 24 Hour Vital Signs Date Time Temp Pulse Resp B/P (MAP) Pulse Ox O2 Delivery O2 Flow Rate FiO2 07/03/17 08:54 116/91 07/03/17 08:54 78 07/03/17 07:28 73 20 30 07/03/17 06:00 61 16 124/56 100 Mechanical Ventilator 30 07/03/17 05:52 130/52 07/03/17 05:14 66 17 30 07/03/17 05:00 61 16 124/53 100 Mechanical Ventilator 30 07/03/17 04:00 98.8 69 16 130/52 100 Mechanical Ventilator 30 07/03/17 04:00 30 07/03/17 04:00 79 07/03/17 03:10 72 16 30 07/03/17 03:00 68 16 122/45 100 Mechanical Ventilator 30 07/03/17 02:00 71 16 132/59 100 Mechanical Ventilator 30 07/03/17 01:02 61 16 30 07/03/17 01:00 70 16 128/59 100 Mechanical Ventilator 30 07/03/17 00:00 71 07/03/17 00:00 98.3 69 22 131/59 100 Mechanical Ventilator 30 07/03/17 00:00 30 07/02/17 23:01 64 16 30 07/02/17 23:00 66 18 134/66 100 Mechanical Ventilator 30 07/02/17 22:00 72 18 134/66 100 Mechanical Ventilator 30 07/02/17 21:04 80 16 30 07/02/17 21:00 83 18 129/61 100 Mechanical Ventilator 30 07/02/17 20:00 83 07/02/17 20:00 30 1/29/18 20:00 99.0 83 21 133/71 95 Mechanical Ventilator 30 07/02/17 19:19 77 21 30 07/02/17 18:00 77 21 133/94 95 Mechanical Ventilator 30 07/02/17 17:00 68 18 30 07/02/17 17:00 65 16 108/60 97 Mechanical Ventilator 30 07/02/17 16:00 30 07/02/17 16:00 99.0 77 16 119/55 95 Mechanical Ventilator 30 07/02/17 16:00 76 07/02/17 15:05 71 20 30 07/02/17 15:00 77 17 119/55 96 Mechanical Ventilator 30 07/02/17 14:00 78 14 118/56 95 Mechanical Ventilator 30 07/02/17 13:29 90 27 30 07/02/17 13:00 79 18 116/57 95 Mechanical Ventilator 30 07/02/17 12:00 30 07/02/17 12:00 79 24 116/57 97 Mechanical Ventilator 30 07/02/17 12:00 67 07/02/17 11:09 99 17 30 07/02/17 11:00 98.8 95 20 122/61 94 Mechanical Ventilator 30 07/02/17 10:00 95 21 101/53 94 Mechanical Ventilator 30 Status: awake Condition: critical HEENT: atraumatic Neck: full ROM Lungs: rales, rhonchi Heart: HR/BP stable Abdomen: soft, active bowel sounds Extremities: no C/C/E Decubiti: stage Micro: Microbiology Date/Time Source Procedure Growth Status 06/30/17 23:00 Blood Blood Culture - Preliminary NO GROWTH AFTER 48 HOURS Resulted 06/30/17 22:50 Blood Blood Culture - Preliminary NO GROWTH AFTER 48 HOURS Resulted 07/01/17 03:10 Sputum Induced Gram Stain - Final Complete 07/01/17 03:10 Sputum Culture - Final Tish Albicans Usual Upper Respiratory Kelsy Complete 07/01/17 02:28 Nasal Nares Influenza Types A,B Antigen (BEBE) - Final Complete 07/01/17 04:15 Rectum VRE Culture - Final NO VANCOMYCIN RESISTANT ENTEROCOCCUS ... Complete Accucheck: 113 Critical Care - Subjective ROS Limited/Unobtainable: No ICU Day: 3 Intubation Day: 3 Interval Events: still lots of secretions Condition: critical EKG Rhythm: Sinus Rhythm FI02: 30 Vent Support Breath Rate: 16 Vent Support Mode: AC Vent Tidal Volume: 500 Sputum Amount: Moderate PEEP: 5.0 PIP: 32 I&O: Intake and Output 07/02/17 07/03/17 19:00 07:00 Intake Total 1083.334 ml 900 ml Output Total 295 ml 270 ml Balance 788.334 ml 630 ml IV Total 1083.334 ml 900 ml Output Urine Total 295 ml 270 ml CXR: ET in good position, no chages ET-Tube: 7.5 ET Position: 22 Labs: Laboratory Tests Test 07/03/17 03:15 White Blood Count 4.4 K/UL (4.8-10.8) L Red Blood Count 2.61 M/UL (4.20-5.40) L Hemoglobin 7.9 G/DL (12.0-16.0) L Hematocrit 26.1 % (37.0-47.0) L Mean Corpuscular Volume 100 FL (80-99) H Mean Corpuscular Hemoglobin 30.4 PG (27.0-31.0) Mean Corpuscular Hemoglobin Concent 30.4 G/DL (32.0-36.0) L Red Cell Distribution Width 14.7 % (11.6-14.8) Platelet Count 169 K/UL (150-450) Mean Platelet Volume 6.8 FL (6.5-10.1) Neutrophils (%) (Auto) % (45.0-75.0) Lymphocytes (%) (Auto) % (20.0-45.0) Monocytes (%) (Auto) % (1.0-10.0) Eosinophils (%) (Auto) % (0.0-3.0) Basophils (%) (Auto) % (0.0-2.0) Neutrophils % (Manual) Pending Lymphocytes % (Manual) Pending Platelet Estimate Pending Platelet Morphology Pending Sodium Level 145 MMOL/L (136-145) Potassium Level 4.0 MMOL/L (3.5-5.1) Chloride Level 108 MMOL/L (98-107) H Carbon Dioxide Level 33 MMOL/L (21-32) H Anion Gap 4 mmol/L (5-15) L Blood Urea Nitrogen 19 mg/dL (7-18) H Creatinine 0.6 MG/DL (0.55-1.30) Estimat Glomerular Filtration Rate mL/min (>60) Glucose Level 106 MG/DL (74-106) Calcium Level 8.3 MG/DL (8.5-10.1) L Phosphorus Level 3.4 MG/DL (2.5-4.9) Magnesium Level 1.7 MG/DL (1.8-2.4) L Total Bilirubin 0.2 MG/DL (0.2-1.0) Aspartate Amino Transf (AST/SGOT) 8 U/L (15-37) L Alanine Aminotransferase (ALT/SGPT) 9 U/L (12-78) L Alkaline Phosphatase 48 U/L (46-116) Total Protein 5.8 G/DL (6.4-8.2) L Albumin 1.9 G/DL (3.4-5.0) L Globulin 3.9 g/dL Albumin/Globulin Ratio 0.5 (1.0-2.7) L MARIZA CHANEL Jul 03, 2017 09:09
--- NOTE | 2017-07-03 09:14 | Infectious Diseases Prog Note ---
Assessment/Plan Assessment/Plan Assessment: Acute hypoxic/Hypercapneic respiratory failure- likely flare of her underlying pulmonary disease with possible concomitant PNA- r/o atypical -CXR 07/02: Bilateral interstitial and airspace disease, likely fibrotic change persists, unchanged. -sp Cx Normal gerald -Influenza neg Afebrile/no leukocytosis COPD on home O2 at 2L pHTN pulmonary fibrosis hypothyroidism GERD HTN mixed connective tissue disorder, s/p R TKR residential resident Plan: -D/c IV Vancomycin #3 and continue Zosyn abx d #3 for possible PNA -continue levaquin #3/5 for atypical coverage -07/02 SP Amikacin #2 -07/01 SP Ertapenem x1 -f/u cx -Monitor CBC/BMP, temperatures -ETT care -aspiration precautions Thank you for this consultation. Will continue to follow along with you. Discussed with RN Subjective Allergies: Coded Allergies: No Known Allergies (Unverified , 01/11/17) Subjective afebrile no leukocytosis remains on MV, Fio2 30% Objective Vital Signs Last 24 Hour Vital Signs Date Time Temp Pulse Resp B/P (MAP) Pulse Ox O2 Delivery O2 Flow Rate FiO2 07/03/17 08:54 116/91 07/03/17 08:54 78 07/03/17 07:28 73 20 30 07/03/17 06:00 61 16 124/56 100 Mechanical Ventilator 30 07/03/17 05:52 130/52 07/03/17 05:14 66 17 30 07/03/17 05:00 61 16 124/53 100 Mechanical Ventilator 30 07/03/17 04:00 98.8 69 16 130/52 100 Mechanical Ventilator 30 07/03/17 04:00 30 07/03/17 04:00 79 07/03/17 03:10 72 16 30 07/03/17 03:00 68 16 122/45 100 Mechanical Ventilator 30 07/03/17 02:00 71 16 132/59 100 Mechanical Ventilator 30 07/03/17 01:02 61 16 30 07/03/17 01:00 70 16 128/59 100 Mechanical Ventilator 30 07/03/17 00:00 71 07/03/17 00:00 98.3 69 22 131/59 100 Mechanical Ventilator 30 07/03/17 00:00 30 07/02/17 23:01 64 16 30 07/02/17 23:00 66 18 134/66 100 Mechanical Ventilator 30 07/02/17 22:00 72 18 134/66 100 Mechanical Ventilator 30 07/02/17 21:04 80 16 30 07/02/17 21:00 83 18 129/61 100 Mechanical Ventilator 30 07/02/17 20:00 83 07/02/17 20:00 30 07/02/17 20:00 99.0 83 21 133/71 95 Mechanical Ventilator 30 07/02/17 19:19 77 21 30 07/02/17 18:00 77 21 133/94 95 Mechanical Ventilator 30 07/02/17 17:00 68 18 30 07/02/17 17:00 65 16 108/60 97 Mechanical Ventilator 30 07/02/17 16:00 30 07/02/17 16:00 99.0 77 16 119/55 95 Mechanical Ventilator 30 07/02/17 16:00 76 07/02/17 15:05 71 20 30 07/02/17 15:00 77 17 119/55 96 Mechanical Ventilator 30 07/02/17 14:00 78 14 118/56 95 Mechanical Ventilator 30 07/02/17 13:29 90 27 30 07/02/17 13:00 79 18 116/57 95 Mechanical Ventilator 30 07/02/17 12:00 30 07/02/17 12:00 79 24 116/57 97 Mechanical Ventilator 30 07/02/17 12:00 67 07/02/17 11:09 99 17 30 07/02/17 11:00 98.8 95 20 122/61 94 Mechanical Ventilator 30 07/02/17 10:00 95 21 101/53 94 Mechanical Ventilator 30 Height (Feet): 5 Height (Inches): 3.00 Weight (Pounds): 194 Objective GENERAL: The patient is well developed and well nourished female, who is intubated and sedated. HEENT: Eyes, pupils equal and responsive to light and accommodation. Extraocular movements are intact. NECK: Supple. No lymphadenopathy. CHEST: Few diffuse wheezes bilaterally with few rales at bilateral bases, otherwise clear to auscultation. CARDIOVASCULAR: Regular rhythm and rate. S1 and S2 normal without murmurs, rubs, or gallops. ABDOMEN: Soft, nontender, and nondistended. Positive bowel sounds. No evidence of hepatosplenomegaly. Currently, no rebound or guarding noted. EXTREMITIES: Negative for clubbing, cyanosis, or edema. NEUROLOGICAL: Unable to assess secondary to the patient's mental status. Microbiology Date/Time Source Procedure Growth Status 06/30/17 23:00 Blood Blood Culture - Preliminary NO GROWTH AFTER 48 HOURS Resulted 06/30/17 22:50 Blood Blood Culture - Preliminary NO GROWTH AFTER 48 HOURS Resulted 07/01/17 03:10 Sputum Induced Gram Stain - Final Complete 07/01/17 03:10 Sputum Culture - Final Tish Albicans Usual Upper Respiratory Gerald Complete 07/01/17 02:28 Nasal Nares Influenza Types A,B Antigen (BEBE) - Final Complete 07/01/17 04:15 Rectum VRE Culture - Final NO VANCOMYCIN RESISTANT ENTEROCOCCUS ... Complete Laboratory Tests Test 07/03/17 03:15 White Blood Count 4.4 K/UL (4.8-10.8) L Red Blood Count 2.61 M/UL (4.20-5.40) L Hemoglobin 7.9 G/DL (12.0-16.0) L Hematocrit 26.1 % (37.0-47.0) L Mean Corpuscular Volume 100 FL (80-99) H Mean Corpuscular Hemoglobin 30.4 PG (27.0-31.0) Mean Corpuscular Hemoglobin Concent 30.4 G/DL (32.0-36.0) L Red Cell Distribution Width 14.7 % (11.6-14.8) Platelet Count 169 K/UL (150-450) Mean Platelet Volume 6.8 FL (6.5-10.1) Neutrophils (%) (Auto) % (45.0-75.0) Lymphocytes (%) (Auto) % (20.0-45.0) Monocytes (%) (Auto) % (1.0-10.0) Eosinophils (%) (Auto) % (0.0-3.0) Basophils (%) (Auto) % (0.0-2.0) Neutrophils % (Manual) Pending Lymphocytes % (Manual) Pending Platelet Estimate Pending Platelet Morphology Pending Sodium Level 145 MMOL/L (136-145) Potassium Level 4.0 MMOL/L (3.5-5.1) Chloride Level 108 MMOL/L (98-107) H Carbon Dioxide Level 33 MMOL/L (21-32) H Anion Gap 4 mmol/L (5-15) L Blood Urea Nitrogen 19 mg/dL (7-18) H Creatinine 0.6 MG/DL (0.55-1.30) Estimat Glomerular Filtration Rate mL/min (>60) Glucose Level 106 MG/DL (74-106) Calcium Level 8.3 MG/DL (8.5-10.1) L Phosphorus Level 3.4 MG/DL (2.5-4.9) Magnesium Level 1.7 MG/DL (1.8-2.4) L Total Bilirubin 0.2 MG/DL (0.2-1.0) Aspartate Amino Transf (AST/SGOT) 8 U/L (15-37) L Alanine Aminotransferase (ALT/SGPT) 9 U/L (12-78) L Alkaline Phosphatase 48 U/L (46-116) Total Protein 5.8 G/DL (6.4-8.2) L Albumin 1.9 G/DL (3.4-5.0) L Globulin 3.9 g/dL Albumin/Globulin Ratio 0.5 (1.0-2.7) L Current Medications Medications (Trade) Dose Ordered Sig/Taryn Route PRN Reason Start Time Stop Time Status Last Admin Dose Admin Acetaminophen (Tylenol) 650 mg Q4H PRN ORAL fever 07/01/17 06:15 07/31/17 06:14 Albuterol/ Ipratropium (Albuterol/ Ipratropium) 3 ml Q4H PRN HHN Shortness of Breath 07/01/17 06:15 07/06/17 06:14 Chlorhexidine Gluconate (Manuela-Hex 2%) 1 applic DAILY@2000 TOPIC 07/01/17 20:00 07/31/17 19:59 07/02/17 20:22 Dextrose (Dextrose 50%) No Dose PRN IV hypoglycemia 07/02/17 10:45 08/01/17 10:44 Digoxin (Lanoxin) 0.125 mg DAILY ORAL 07/01/17 09:00 07/31/17 08:59 07/03/17 08:54 Duloxetine HCl (Cymbalta) 60 mg DAILY ORAL 07/01/17 09:00 07/31/17 08:59 07/03/17 08:57 Heparin Sodium (Porcine) (Heparin 5000 units/ml) 5,000 units EVERY 12 HOURS SUBQ 07/01/17 09:00 07/31/17 08:59 07/03/17 08:58 Hydrocortisone (Solu-CORTEF) 100 mg EVERY 8 HOURS IV 07/01/17 14:00 07/31/17 13:59 07/03/17 05:51 Insulin Aspart (NovoLOG) BEFORE MEALS AND HS SUBQ 07/02/17 11:30 08/01/17 11:29 07/03/17 06:24 Levofloxacin (Levaquin) 750 mg QHS NG 07/02/17 20:00 07/09/17 19:59 07/02/17 21:15 Lorazepam (Ativan 2mg/ml 1ml) 2 mg Q2H PRN IV For Anxiety 07/01/17 06:15 07/08/17 06:14 07/03/17 04:22 Losartan Potassium (Cozaar) 25 mg DAILY ORAL 07/01/17 09:00 07/31/17 08:59 07/03/17 08:54 Magnesium Sulfate 100 ml @ 100 mls/hr Q1H IV 07/03/17 12:45 07/03/17 14:44 UNV Magnesium Sulfate 100 ml @ 100 mls/hr Q1H ONCE IVPB 07/03/17 08:30 07/03/17 09:29 07/03/17 08:55 Morphine Sulfate (Morphine Sulfate) 4 mg Q4H PRN IVP Severe Pain (Pain Scale 7-10) 07/01/17 06:15 07/08/17 06:14 Norepinephrine Bitartrate 4 mg/ Dextrose 254 ml @ 0 mls/hr Q24H IV 07/01/17 06:15 07/31/17 06:14 Ondansetron HCl (Zofran) 4 mg Q6H PRN IVP Nausea & Vomiting 07/01/17 06:15 07/31/17 06:14 Pantoprazole (Protonix) 40 mg Q12HR IV 07/01/17 21:00 07/31/17 08:59 07/03/17 08:56 Piperacillin Sod/ Tazobactam Sod 3.375 gm/Sodium Chloride 110 ml @ 27.5 mls/hr EVERY 8 HOURS IVPB 07/02/17 20:30 07/07/17 20:29 07/03/17 05:51 Polyethylene Glycol (Miralax) 17 gm DAILYPRN PRN ORAL Constipation 07/01/17 06:15 07/31/17 06:14 Sodium Chloride 1,000 ml @ 75 mls/hr [id number] IVLG 07/01/17 13:00 07/31/17 12:59 07/03/17 04:36 Theophylline (John-Dur) 100 mg EVERY 12 HOURS ORAL 07/01/17 09:00 07/31/17 08:59 07/03/17 08:54 Vancomycin HCl (Vanco rx to dose) 1 ea DAILY PRN MISC Per Rx protocol 07/01/17 08:00 07/31/17 07:59 Vancomycin HCl/ Dextrose 250 ml @ 166.667 mls/hr Q24H IVPB 07/01/17 15:00 07/06/17 14:59 07/02/17 14:59 Roseanna Penn M.D. Jul 03, 2017 09:13
[2017-07-03] MEDS: Morphine Sulfate 4mg/ml Inj IVP PRN ×2 (09:20→22:14)
--- NOTE | 2017-07-03 09:49 | Diagnostic Imaging Report ---
Indication: Dyspnea Technique: One view of the chest Comparison: 07/02/2017 Findings: Is satisfactory position of endotracheal tube. Nasogastric tube makes a hairpin loop in the gastric antrum. Right upper lobe and left mid and lower lung as well as more generalized interstitial disease persists. The heart remains enlarged. Pleural spaces are grossly clear Impression: Unchanged, over one day, findings as above.
[2017-07-03] MEDS ORDERED: D5 1/2NS 1000ml IV ONE (14:39)
--- NOTE | 2017-07-03 16:13 | Nephrology Progress Note ---
Assessment/Plan Problem List: (1) Respiratory failure, acute (2) Proteinuria (3) Hypoalbuminemia Assessment Worsenning Anemia Dyspnea, acute respiratory failure , requiring intubation and mechanichal vent Mixed connective tissue disease Anemia likely due to chronic disease HypoAlbuminemia Pulmonary fibrosis Pulmonary hypertension COPD exacerbation Respiratory failure, acute Plan Plan: Monitor renal parameters and urine out put Keep BP in check Optimize pulmonary status UA, 24 h urine for protein Mag supplement stress dose of steroids as patient was on prednisone per orders Subjective ROS Limited/Unobtainable: Yes Objective Objective Last 24 Hour Vital Signs Date Time Temp Pulse Resp B/P (MAP) Pulse Ox O2 Delivery O2 Flow Rate FiO2 07/03/17 16:00 77 18 114/55 96 Mechanical Ventilator 30 07/03/17 16:00 30 07/03/17 15:17 73 18 30 07/03/17 15:00 74 17 133/61 94 Mechanical Ventilator 30 07/03/17 14:00 60 16 122/52 96 Mechanical Ventilator 30 07/03/17 13:13 65 16 30 07/03/17 13:00 67 16 114/50 95 Mechanical Ventilator 30 07/03/17 12:00 98.5 75 17 114/50 94 Mechanical Ventilator 30 07/03/17 12:00 30 07/03/17 12:00 70 07/03/17 11:14 72 18 30 07/03/17 11:00 74 16 129/68 96 Mechanical Ventilator 30 07/03/17 10:00 62 19 120/48 96 Mechanical Ventilator 30 07/03/17 09:28 71 16 30 07/03/17 09:00 73 20 123/53 96 Mechanical Ventilator 30 07/03/17 08:54 116/91 07/03/17 08:54 78 07/03/17 08:00 30 07/03/17 08:00 98.9 75 20 116/91 94 Mechanical Ventilator 30 07/03/17 08:00 69 07/03/17 07:28 73 20 30 07/03/17 07:00 70 21 127/55 96 Mechanical Ventilator 30 07/03/17 06:00 61 16 124/56 100 Mechanical Ventilator 30 07/03/17 05:52 130/52 07/03/17 05:14 66 17 30 07/03/17 05:00 61 16 124/53 100 Mechanical Ventilator 30 07/03/17 04:00 98.8 69 16 130/52 100 Mechanical Ventilator 30 07/03/17 04:00 30 07/03/17 04:00 79 07/03/17 03:10 72 16 30 07/03/17 03:00 68 16 122/45 100 Mechanical Ventilator 30 07/03/17 02:00 71 16 132/59 100 Mechanical Ventilator 30 07/03/17 01:02 61 16 30 07/03/17 01:00 70 16 128/59 100 Mechanical Ventilator 30 07/03/17 00:00 71 07/03/17 00:00 98.3 69 22 131/59 100 Mechanical Ventilator 30 07/03/17 00:00 30 07/02/17 23:01 64 16 30 07/02/17 23:00 66 18 134/66 100 Mechanical Ventilator 30 07/02/17 22:00 72 18 134/66 100 Mechanical Ventilator 30 07/02/17 21:04 80 16 30 07/02/17 21:00 83 18 129/61 100 Mechanical Ventilator 30 07/02/17 20:00 83 07/02/17 20:00 30 07/02/17 20:00 99.0 83 21 133/71 95 Mechanical Ventilator 30 07/02/17 19:19 77 21 30 07/02/17 18:00 77 21 133/94 95 Mechanical Ventilator 30 07/02/17 17:00 68 18 30 07/02/17 17:00 65 16 108/60 97 Mechanical Ventilator 30 Intake and Output 07/02/17 07/03/17 19:00 07:00 Intake Total 1083.334 ml 900 ml Output Total 295 ml 270 ml Balance 788.334 ml 630 ml IV Total 1083.334 ml 900 ml Output Urine Total 295 ml 270 ml Laboratory Tests 07/03/17 03:15: White Blood Count 4.4L, Red Blood Count 2.61L, Hemoglobin 7.9L, Hematocrit 26.1L , Mean Corpuscular Volume 100H, Mean Corpuscular Hemoglobin 30.4, Mean Corpuscular Hemoglobin Concent 30.4L, Red Cell Distribution Width 14.7, Platelet Count 169, Mean Platelet Volume 6.8, Neutrophils (%) (Auto) , Lymphocytes (%) (Auto) , Monocytes (%) (Auto) , Eosinophils (%) (Auto) , Basophils (%) (Auto) , Differential Total Cells Counted 100, Neutrophils % ( Manual) 87H, Lymphocytes % (Manual) 4L, Monocytes % (Manual) 6, Eosinophils % ( Manual) 0, Basophils % (Manual) 0, Band Neutrophils 3, Platelet Estimate Adequate, Platelet Morphology Normal, Hypochromasia 1+, Macrocytosis 1+, Sodium Level 145, Potassium Level 4.0, Chloride Level 108H, Carbon Dioxide Level 33H, Anion Gap 4L, Blood Urea Nitrogen 19H, Creatinine 0.6, Estimat Glomerular Filtration Rate , Glucose Level 106, Calcium Level 8.3L, Phosphorus Level 3.4, Magnesium Level 1.7L, Total Bilirubin 0.2, Aspartate Amino Transf (AST/SGOT) 8L , Alanine Aminotransferase (ALT/SGPT) 9L, Alkaline Phosphatase 48, Total Protein 5.8L, Albumin 1.9L, Globulin 3.9, Albumin/Globulin Ratio 0.5L 07/03/17 09:30: Arterial Blood pH 7.410, Arterial Blood Partial Pressure CO2 50.8H, Arterial Blood Partial Pressure O2 128.9H, Arterial Blood HCO3 31.5H, Arterial Blood Oxygen Saturation 98.3H, Arterial Blood Base Excess 6.0, Kunal Test Positive Height (Feet): 5 Height (Inches): 3.00 Weight (Pounds): 194 EENT: other - on vent Cardiovascular: normal rate Respiratory/Chest: decreased breath sounds Abdomen: soft DARRYL ISSA Jul 03, 2017 16:13
--- NOTE | 2017-07-03 18:15 | Internal Med Progress Note ---
Subjective Date of Service: Jul 03, 2017 Physician Name Roberta Butler Attending Physician Ten Bourne MD Current Medications Medications (Trade) Dose Ordered Sig/Taryn Route PRN Reason Start Time Stop Time Status Last Admin Dose Admin Acetaminophen (Tylenol) 650 mg Q4H PRN ORAL fever 07/01/17 06:15 07/31/17 06:14 Albuterol/ Ipratropium (Albuterol/ Ipratropium) 3 ml Q4H PRN HHN Shortness of Breath 07/01/17 06:15 07/06/17 06:14 Chlorhexidine Gluconate (Manuela-Hex 2%) 1 applic DAILY@2000 TOPIC 07/01/17 20:00 07/31/17 19:59 07/02/17 20:22 Dextrose (Dextrose 50%) No Dose PRN IV hypoglycemia 07/02/17 10:45 08/01/17 10:44 Digoxin (Lanoxin) 0.125 mg DAILY ORAL 07/01/17 09:00 07/31/17 08:59 07/03/17 08:54 Duloxetine HCl (Cymbalta) 60 mg DAILY ORAL 07/01/17 09:00 07/31/17 08:59 07/03/17 08:57 Heparin Sodium (Porcine) (Heparin 5000 units/ml) 5,000 units EVERY 12 HOURS SUBQ 07/01/17 09:00 07/31/17 08:59 07/03/17 08:58 Hydrocortisone (Solu-CORTEF) 100 mg EVERY 8 HOURS IV 07/01/17 14:00 07/31/17 13:59 07/03/17 14:17 Insulin Aspart (NovoLOG) BEFORE MEALS AND HS SUBQ 07/02/17 11:30 08/01/17 11:29 07/03/17 16:40 Levofloxacin (Levaquin) 750 mg QHS NG 07/02/17 20:00 07/09/17 19:59 07/02/17 21:15 Lorazepam (Ativan 2mg/ml 1ml) 2 mg Q2H PRN IV For Anxiety 07/01/17 06:15 07/08/17 06:14 07/03/17 11:28 Losartan Potassium (Cozaar) 25 mg DAILY ORAL 07/01/17 09:00 07/31/17 08:59 07/03/17 08:54 Morphine Sulfate (Morphine Sulfate) 4 mg Q4H PRN IVP Severe Pain (Pain Scale 7-10) 07/01/17 06:15 07/08/17 06:14 07/03/17 09:20 Norepinephrine Bitartrate 4 mg/ Dextrose 254 ml @ 0 mls/hr Q24H IV 07/01/17 06:15 07/31/17 06:14 Ondansetron HCl (Zofran) 4 mg Q6H PRN IVP Nausea & Vomiting 07/01/17 06:15 07/31/17 06:14 Pantoprazole (Protonix) 40 mg Q12HR IV 07/01/17 21:00 07/31/17 08:59 07/03/17 08:56 Piperacillin Sod/ Tazobactam Sod 3.375 gm/Sodium Chloride 110 ml @ 27.5 mls/hr EVERY 8 HOURS IVPB 07/02/17 20:30 07/07/17 20:29 07/03/17 14:17 Polyethylene Glycol (Miralax) 17 gm DAILYPRN PRN ORAL Constipation 07/01/17 06:15 07/31/17 06:14 Sodium Chloride 1,000 ml @ 75 mls/hr [id number] IVLG 07/01/17 13:00 07/31/17 12:59 07/03/17 04:36 Theophylline (John-Dur) 100 mg EVERY 12 HOURS ORAL 07/01/17 09:00 07/31/17 08:59 07/03/17 08:54 Allergies: Coded Allergies: No Known Allergies (Unverified , 01/11/17) ROS Limited/Unobtainable: Yes Subjective 82 YO F admitted with respiratory failure. Intubated and sedated. Cover for Int Kg-Dr Bourne. ICU. Objective Last Vital Signs Date Time Temp Pulse Resp B/P (MAP) Pulse Ox O2 Delivery O2 Flow Rate FiO2 07/03/17 17:13 76 17 30 07/03/17 17:00 98.8 136/69 95 Mechanical Ventilator 07/01/17 05:36 3.0 Laboratory Tests Test 07/03/17 03:15 07/03/17 09:30 White Blood Count 4.4 K/UL (4.8-10.8) L Red Blood Count 2.61 M/UL (4.20-5.40) L Hemoglobin 7.9 G/DL (12.0-16.0) L Hematocrit 26.1 % (37.0-47.0) L Mean Corpuscular Volume 100 FL (80-99) H Mean Corpuscular Hemoglobin 30.4 PG (27.0-31.0) Mean Corpuscular Hemoglobin Concent 30.4 G/DL (32.0-36.0) L Red Cell Distribution Width 14.7 % (11.6-14.8) Platelet Count 169 K/UL (150-450) Mean Platelet Volume 6.8 FL (6.5-10.1) Neutrophils (%) (Auto) % (45.0-75.0) Lymphocytes (%) (Auto) % (20.0-45.0) Monocytes (%) (Auto) % (1.0-10.0) Eosinophils (%) (Auto) % (0.0-3.0) Basophils (%) (Auto) % (0.0-2.0) Differential Total Cells Counted 100 Neutrophils % (Manual) 87 % (45-75) H Lymphocytes % (Manual) 4 % (20-45) L Monocytes % (Manual) 6 % (1-10) Eosinophils % (Manual) 0 % (0-3) Basophils % (Manual) 0 % (0-2) Band Neutrophils 3 % (0-8) Platelet Estimate Adequate Platelet Morphology Normal Hypochromasia 1+ Macrocytosis 1+ Sodium Level 145 MMOL/L (136-145) Potassium Level 4.0 MMOL/L (3.5-5.1) Chloride Level 108 MMOL/L (98-107) H Carbon Dioxide Level 33 MMOL/L (21-32) H Anion Gap 4 mmol/L (5-15) L Blood Urea Nitrogen 19 mg/dL (7-18) H Creatinine 0.6 MG/DL (0.55-1.30) Estimat Glomerular Filtration Rate mL/min (>60) Glucose Level 106 MG/DL (74-106) Calcium Level 8.3 MG/DL (8.5-10.1) L Phosphorus Level 3.4 MG/DL (2.5-4.9) Magnesium Level 1.7 MG/DL (1.8-2.4) L Total Bilirubin 0.2 MG/DL (0.2-1.0) Aspartate Amino Transf (AST/SGOT) 8 U/L (15-37) L Alanine Aminotransferase (ALT/SGPT) 9 U/L (12-78) L Alkaline Phosphatase 48 U/L (46-116) Total Protein 5.8 G/DL (6.4-8.2) L Albumin 1.9 G/DL (3.4-5.0) L Globulin 3.9 g/dL Albumin/Globulin Ratio 0.5 (1.0-2.7) L Arterial Blood pH 7.410 (7.350-7.450) Arterial Blood Partial Pressure CO2 50.8 mmHg (35.0-45.0) H Arterial Blood Partial Pressure O2 128.9 mmHg (75.0-100.0) H Arterial Blood HCO3 31.5 mmol/L (22.0-26.0) H Arterial Blood Oxygen Saturation 98.3 % (92.0-98.0) H Arterial Blood Base Excess 6.0 Kunal Test Positive Microbiology Date/Time Source Procedure Growth Status 06/30/17 23:00 Blood Blood Culture - Preliminary NO GROWTH AFTER 48 HOURS Resulted 06/30/17 22:50 Blood Blood Culture - Preliminary NO GROWTH AFTER 48 HOURS Resulted 07/01/17 04:15 Nasal Nares MRSA Culture - Final Staphylococcus Aureus - Mrsa Complete 07/01/17 03:10 Sputum Induced Gram Stain - Final Complete 07/01/17 03:10 Sputum Culture - Final Tish Albicans Usual Upper Respiratory Kelsy Complete 07/01/17 02:28 Nasal Nares Influenza Types A,B Antigen (BEBE) - Final Complete 07/01/17 04:15 Rectum VRE Culture - Final NO VANCOMYCIN RESISTANT ENTEROCOCCUS ... Complete Intake and Output 07/02/17 07/03/17 19:00 07:00 Intake Total 1083.334 ml 900 ml Output Total 295 ml 270 ml Balance 788.334 ml 630 ml IV Total 1083.334 ml 900 ml Output Urine Total 295 ml 270 ml Objective General Appearance: WD/WN, lethargic EENT: normal ENT inspection Neck: non-tender, normal alignment, supple, normal inspection Cardiovascular: normal peripheral pulses, normal rate, regular rhythm, no gallop/murmur, no JVD Respiratory/Chest: Mechanical vent; respiratory distress, crackles/rales, rhonchi - bilaterally, expiratory wheezing Abdomen: non tender, soft, no organomegaly, no mass, decreased bowel sounds Edema: trace edema Skin: normal pigmentation, warm/dry Assessment/Plan Problem List: (1) HTN (hypertension) Assessment & Plan: Continue cozaar (2) Respiratory failure, acute Assessment & Plan: Intubated. See pulm note. Cont theophylline, vanco, levaquin and zosyn (3) Hypercapnia (4) Pulmonary hypertension (5) Pulmonary fibrosis (6) Hypothyroidism Status: not improved ROBERTA BUTLER Jul 03, 2017 18:15
[2017-07-03] MEDS: Dyna-Hex 2% Top Sol 2oz TOPIC SCH (20:00)
[2017-07-04] VITALS (24 sets, daily range): BP systolic 117–151; BP diastolic 44–72
[2017-07-04] MEDS: LORazepam Inj 2mg/ml 1ml IV PRN ×4 (04:14→21:07)
[2017-07-04] MEDS: Hydrocortisone 100mg Inj IV SCH ×2 (06:03→20:41)
[2017-07-04] MEDS: Piperacillin/Tazobactam 3.375 GM in NS 110 ML IVPB SCH (06:05)
[2017-07-04] MEDS: NovoLOG Insulin Flexpen SUBQ SCH ×4 (06:10→20:43)
[2017-07-04 06:26] LABS: HEMATOCRIT 31.2 % (37.0-47.0); HEMOGLOBIN 9.7 G/DL (12.0-16.0); MEAN CORPUSCULAR VOLUME 99 FL (80-99); PLATELET COUNT 181 K/UL (150-450); RED BLOOD COUNT 3.15 M/UL (4.20-5.40); RED CELL DISTRIBUTION WIDTH 14.8 % (11.6-14.8); WHITE BLOOD COUNT 5.5 K/UL (4.8-10.8)
[2017-07-04] MEDS: Morphine Sulfate 4mg/ml Inj IVP PRN ×3 (07:25→23:43)
[2017-07-04 07:57] LABS: ALANINE AMINOTRANSFERASE 12 U/L (12-78); ALBUMIN 2.1 G/DL (3.4-5.0); ALBUMIN/GLOBULIN RATIO 0.5 (1.0-2.7); ALKALINE PHOSPHATASE 51 U/L (46-116); AMYLASE 22 U/L (25-115); ANION GAP 6 mmol/L (5-15); ASPARTATE AMINO TRANSFERASE 12 U/L (15-37); BILIRUBIN,TOTAL 0.3 MG/DL (0.2-1.0); BLOOD UREA NITROGEN 20 mg/dL (7-18); CALCIUM 8.5 MG/DL (8.5-10.1); CARBON DIOXIDE 30 MMOL/L (21-32); CHLORIDE 109 MMOL/L (98-107); CREATININE 0.6 MG/DL (0.55-1.30); PHOSPHORUS 3.6 MG/DL (2.5-4.9); POTASSIUM 4.1 MMOL/L (3.5-5.1); SODIUM 145 MMOL/L (136-145)
[2017-07-04] MEDS: Pantoprazole Inj IV SCH ×2 (08:40→20:40)
[2017-07-04] MEDS: Digoxin 0.125mg tab ORAL SCH (08:41)
[2017-07-04] MEDS: Theophylline ER 100mg ORAL SCH ×2 (08:42→20:41)
[2017-07-04] MEDS: Losartan 25mg tab ORAL SCH (08:42)
[2017-07-04] MEDS: DULoxetine 30mg cap ORAL SCH (08:42)
[2017-07-04] MEDS: Heparin 5000 units/ml inj SUBQ SCH ×2 (08:45→20:43)
--- NOTE | 2017-07-04 10:14 | Pulmonolgy Critical Care Note ---
Critical Care - Asmt/Plan Problems: (1) Respiratory failure, acute (2) Hypercapnia (3) Pulmonary hypertension (4) Pulmonary fibrosis (5) Hypothyroidism Respiratory: monitor respiratory rate, adjust FIO2, CXR Cardiac: continue to monitor HR/BP Renal: F/U I&O, keep IV fluid, check electrolytes Infectious Disease: check cultures, continue antibiotics, other - only ashok insputum Gastrointestinal: continue feedings/current rate Endocrine: other - taper steroids Hematologic: transfuse if hgb<8.5 Neurologic: PRN Ativan, PRN Morphine, keep patient comfortable Affect: PRN ativan Prophylaxis: Protonix Notes Reviewed: chemist organic Discussed with: nurses, consultants, 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 training - Objective Last 24 Hour Vital Signs Date Time Temp Pulse Resp B/P (MAP) Pulse Ox O2 Delivery O2 Flow Rate FiO2 07/04/17 09:05 50 16 30 07/04/17 09:00 52 17 120/55 98 Mechanical Ventilator 30 07/04/17 08:42 120/54 07/04/17 08:41 66 07/04/17 08:00 30 07/04/17 08:00 54 16 120/54 99 Mechanical Ventilator 30 07/04/17 08:00 50 07/04/17 07:00 97.5 65 14 135/68 95 Mechanical Ventilator 30 07/04/17 06:45 63 18 30 07/04/17 06:13 147/65 07/04/17 06:00 50 16 147/65 99 Mechanical Ventilator 30 07/04/17 05:30 57 16 50 07/04/17 05:00 64 16 131/57 99 Mechanical Ventilator 30 07/04/17 04:00 30 07/04/17 04:00 98.2 64 17 148/59 98 Mechanical Ventilator 30 07/04/17 04:00 64 07/04/17 03:30 58 16 50 07/04/17 03:00 54 16 128/55 98 Mechanical Ventilator 30 07/04/17 02:00 64 16 130/65 98 Mechanical Ventilator 30 07/04/17 01:57 52 16 Mechanical Ventilator 50 07/04/17 01:30 54 16 50 07/04/17 01:16 30 07/04/17 01:00 53 16 141/57 98 Mechanical Ventilator 30 07/04/17 00:00 99.2 52 16 128/55 98 Mechanical Ventilator 30 07/04/17 00:00 52 1/30/18 23:00 54 16 128/55 98 Mechanical Ventilator 30 07/03/17 22:55 59 16 30 07/03/17 22:00 63 16 124/53 97 Mechanical Ventilator 30 07/03/17 21:00 69 20 133/70 95 Mechanical Ventilator 30 07/03/17 20:41 61 16 30 07/03/17 20:00 99.0 63 16 110/45 95 Mechanical Ventilator 30 07/03/17 20:00 63 07/03/17 19:30 60 16 30 07/03/17 19:00 80 17 135/66 96 Mechanical Ventilator 30 07/03/17 18:00 81 18 145/65 96 Mechanical Ventilator 30 07/03/17 17:13 76 17 30 07/03/17 17:00 98.8 78 17 136/69 95 Mechanical Ventilator 30 07/03/17 16:00 76 07/03/17 16:00 77 18 114/55 96 Mechanical Ventilator 30 07/03/17 16:00 30 07/03/17 15:17 73 18 30 07/03/17 15:00 74 17 133/61 94 Mechanical Ventilator 30 07/03/17 14:00 60 16 122/52 96 Mechanical Ventilator 30 07/03/17 13:13 65 16 30 07/03/17 13:00 67 16 114/50 95 Mechanical Ventilator 30 07/03/17 12:00 98.5 75 17 114/50 94 Mechanical Ventilator 30 07/03/17 12:00 30 07/03/17 12:00 70 07/03/17 11:14 72 18 30 07/03/17 11:00 74 16 129/68 96 Mechanical Ventilator 30 Status: sedated Condition: critical HEENT: atraumatic Neck: full ROM Lungs: clear Heart: HR/BP stable, HR/BP unstable Abdomen: non-tender, active bowel sounds, feeding tube Extremities: no C/C/E, edema Decubiti: stage Accucheck: 137 Critical Care - Subjective ROS Limited/Unobtainable: Yes ICU Day: 5 Intubation Day: 5 Condition: critical FI02: 30 Vent Support Breath Rate: 16 Vent Support Mode: AC Vent Tidal Volume: 500 Sputum Amount: Small PEEP: 5.0 PIP: 35 Drips: none Tube Feeding Amount: 30 I&O: Intake and Output 07/03/17 07/04/17 19:00 07:00 Intake Total 1135.0 ml 1452.5 ml Output Total 245 ml 380 ml Balance 890.0 ml 1072.5 ml Free Water 90 ml IV Total 935.0 ml 1002.5 ml Tube Feeding 200 ml 360 ml Output Urine Total 245 ml 380 ml # Bowel Movements 3 CXR: pending ET-Tube: 7.5 ET Position: 22 Labs: Laboratory Tests Test 07/03/17 18:30 07/04/17 05:00 Urine Random Sodium 41 MEQ/L (20-110) Urine Legionella Antigen Pending White Blood Count 5.5 K/UL (4.8-10.8) Red Blood Count 3.15 M/UL (4.20-5.40) L Hemoglobin 9.7 G/DL (12.0-16.0) L Hematocrit 31.2 % (37.0-47.0) L Mean Corpuscular Volume 99 FL (80-99) Mean Corpuscular Hemoglobin 30.9 PG (27.0-31.0) Mean Corpuscular Hemoglobin Concent 31.2 G/DL (32.0-36.0) L Red Cell Distribution Width 14.8 % (11.6-14.8) Platelet Count 181 K/UL (150-450) Mean Platelet Volume 6.6 FL (6.5-10.1) Neutrophils (%) (Auto) % (45.0-75.0) Lymphocytes (%) (Auto) % (20.0-45.0) Monocytes (%) (Auto) % (1.0-10.0) Eosinophils (%) (Auto) % (0.0-3.0) Basophils (%) (Auto) % (0.0-2.0) Differential Total Cells Counted 100 Neutrophils % (Manual) 80 % (45-75) H Lymphocytes % (Manual) 9 % (20-45) L Monocytes % (Manual) 1 % (1-10) Eosinophils % (Manual) 0 % (0-3) Basophils % (Manual) 0 % (0-2) Metamyelocytes % 3 % (0-0) H Myelocytes % 2 % (0-0) H Band Neutrophils 5 % (0-8) Platelet Estimate Adequate Platelet Morphology Normal Erythrocyte Sedimentation Rate 115 MM/HR (0-30) H Sodium Level 145 MMOL/L (136-145) Potassium Level 4.1 MMOL/L (3.5-5.1) Chloride Level 109 MMOL/L (98-107) H Carbon Dioxide Level 30 MMOL/L (21-32) Anion Gap 6 mmol/L (5-15) Blood Urea Nitrogen 20 mg/dL (7-18) H Creatinine 0.6 MG/DL (0.55-1.30) Estimat Glomerular Filtration Rate mL/min (>60) Glucose Level 136 MG/DL (74-106) H Calcium Level 8.5 MG/DL (8.5-10.1) Phosphorus Level 3.6 MG/DL (2.5-4.9) Magnesium Level 2.1 MG/DL (1.8-2.4) Total Bilirubin 0.3 MG/DL (0.2-1.0) Aspartate Amino Transf (AST/SGOT) 12 U/L (15-37) L Alanine Aminotransferase (ALT/SGPT) 12 U/L (12-78) Alkaline Phosphatase 51 U/L (46-116) C-Reactive Protein, Quantitative 7.1 mg/dL (0.00-0.90) H Total Protein 6.4 G/DL (6.4-8.2) Albumin 2.1 G/DL (3.4-5.0) L Globulin 4.3 g/dL Albumin/Globulin Ratio 0.5 (1.0-2.7) L Amylase Level 22 U/L (25-115) L Lipase 97 U/L (73-393) MARIZA CHANEL Jul 04, 2017 10:14
--- NOTE | 2017-07-04 10:21 | Infectious Diseases Prog Note ---
Assessment/Plan Assessment/Plan Assessment: Acute hypoxic/Hypercapneic respiratory failure- likely flare of her underlying pulmonary disease with possible concomitant PNA- r/o atypical -CXR 07/02: Bilateral interstitial and airspace disease, likely fibrotic change persists, unchanged. -sp Cx Normal gerald -Influenza neg Afebrile/no leukocytosis COPD on home O2 at 2L pHTN pulmonary fibrosis hypothyroidism GERD HTN mixed connective tissue disorder, s/p R TKR shelter resident Plan: -Switch Zosyn abx d #4/ for Ceftriaxone for PNA given no isolation of resistant organisms -continue levaquin #4/5 for atypical coverage -07/03 SP IV Vancomycin #3 -07/02 SP Amikacin #2 -07/01 SP Ertapenem x1 -f/u cx -Monitor CBC/BMP, temperatures -ETT care -aspiration precautions Thank you for this consultation. Will continue to follow along with you. Discussed with RN Subjective Allergies: Coded Allergies: No Known Allergies (Unverified , 01/11/17) Subjective afebrile no leukocytosis remains on MV, still copious amounts fo secretions Objective Vital Signs Last 24 Hour Vital Signs Date Time Temp Pulse Resp B/P (MAP) Pulse Ox O2 Delivery O2 Flow Rate FiO2 07/04/17 09:05 50 16 30 07/04/17 09:00 52 17 120/55 98 Mechanical Ventilator 30 07/04/17 08:42 120/54 07/04/17 08:41 66 07/04/17 08:00 30 07/04/17 08:00 54 16 120/54 99 Mechanical Ventilator 30 07/04/17 08:00 50 07/04/17 07:00 97.5 65 14 135/68 95 Mechanical Ventilator 30 07/04/17 06:45 63 18 30 07/04/17 06:13 147/65 07/04/17 06:00 50 16 147/65 99 Mechanical Ventilator 30 07/04/17 05:30 57 16 50 07/04/17 05:00 64 16 131/57 99 Mechanical Ventilator 30 07/04/17 04:00 30 07/04/17 04:00 98.2 64 17 148/59 98 Mechanical Ventilator 30 07/04/17 04:00 64 07/04/17 03:30 58 16 50 07/04/17 03:00 54 16 128/55 98 Mechanical Ventilator 30 07/04/17 02:00 64 16 130/65 98 Mechanical Ventilator 30 07/04/17 01:57 52 16 Mechanical Ventilator 50 07/04/17 01:30 54 16 50 07/04/17 01:16 30 07/04/17 01:00 53 16 141/57 98 Mechanical Ventilator 30 07/04/17 00:00 99.2 52 16 128/55 98 Mechanical Ventilator 30 07/04/17 00:00 52 07/03/17 23:00 54 16 128/55 98 Mechanical Ventilator 30 07/03/17 22:55 59 16 30 07/03/17 22:00 63 16 124/53 97 Mechanical Ventilator 30 07/03/17 21:00 69 20 133/70 95 Mechanical Ventilator 30 07/03/17 20:41 61 16 30 07/03/17 20:00 99.0 63 16 110/45 95 Mechanical Ventilator 30 07/03/17 20:00 63 07/03/17 19:30 60 16 30 07/03/17 19:00 80 17 135/66 96 Mechanical Ventilator 30 07/03/17 18:00 81 18 145/65 96 Mechanical Ventilator 30 07/03/17 17:13 76 17 30 07/03/17 17:00 98.8 78 17 136/69 95 Mechanical Ventilator 30 07/03/17 16:00 76 07/03/17 16:00 77 18 114/55 96 Mechanical Ventilator 30 07/03/17 16:00 30 07/03/17 15:17 73 18 30 07/03/17 15:00 74 17 133/61 94 Mechanical Ventilator 30 07/03/17 14:00 60 16 122/52 96 Mechanical Ventilator 30 07/03/17 13:13 65 16 30 07/03/17 13:00 67 16 114/50 95 Mechanical Ventilator 30 07/03/17 12:00 98.5 75 17 114/50 94 Mechanical Ventilator 30 07/03/17 12:00 30 07/03/17 12:00 70 07/03/17 11:14 72 18 30 07/03/17 11:00 74 16 129/68 96 Mechanical Ventilator 30 Height (Feet): 5 Height (Inches): 3.00 Weight (Pounds): 195 Objective GENERAL: The patient is well developed and well nourished female, who is intubated and sedated. HEENT: Eyes, pupils equal and responsive to light and accommodation. Extraocular movements are intact. NECK: Supple. No lymphadenopathy. CHEST: Few diffuse wheezes bilaterally with few rales at bilateral bases, otherwise clear to auscultation. CARDIOVASCULAR: Regular rhythm and rate. S1 and S2 normal without murmurs, rubs, or gallops. ABDOMEN: Soft, nontender, and nondistended. Positive bowel sounds. No evidence of hepatosplenomegaly. Currently, no rebound or guarding noted. EXTREMITIES: Negative for clubbing, cyanosis, or edema. NEUROLOGICAL: Unable to assess secondary to the patient's mental status. Laboratory Tests Test 07/03/17 18:30 07/04/17 05:00 Urine Random Sodium 41 MEQ/L (20-110) Urine Legionella Antigen Pending White Blood Count 5.5 K/UL (4.8-10.8) Red Blood Count 3.15 M/UL (4.20-5.40) L Hemoglobin 9.7 G/DL (12.0-16.0) L Hematocrit 31.2 % (37.0-47.0) L Mean Corpuscular Volume 99 FL (80-99) Mean Corpuscular Hemoglobin 30.9 PG (27.0-31.0) Mean Corpuscular Hemoglobin Concent 31.2 G/DL (32.0-36.0) L Red Cell Distribution Width 14.8 % (11.6-14.8) Platelet Count 181 K/UL (150-450) Mean Platelet Volume 6.6 FL (6.5-10.1) Neutrophils (%) (Auto) % (45.0-75.0) Lymphocytes (%) (Auto) % (20.0-45.0) Monocytes (%) (Auto) % (1.0-10.0) Eosinophils (%) (Auto) % (0.0-3.0) Basophils (%) (Auto) % (0.0-2.0) Differential Total Cells Counted 100 Neutrophils % (Manual) 80 % (45-75) H Lymphocytes % (Manual) 9 % (20-45) L Monocytes % (Manual) 1 % (1-10) Eosinophils % (Manual) 0 % (0-3) Basophils % (Manual) 0 % (0-2) Metamyelocytes % 3 % (0-0) H Myelocytes % 2 % (0-0) H Band Neutrophils 5 % (0-8) Platelet Estimate Adequate Platelet Morphology Normal Erythrocyte Sedimentation Rate 115 MM/HR (0-30) H Sodium Level 145 MMOL/L (136-145) Potassium Level 4.1 MMOL/L (3.5-5.1) Chloride Level 109 MMOL/L (98-107) H Carbon Dioxide Level 30 MMOL/L (21-32) Anion Gap 6 mmol/L (5-15) Blood Urea Nitrogen 20 mg/dL (7-18) H Creatinine 0.6 MG/DL (0.55-1.30) Estimat Glomerular Filtration Rate mL/min (>60) Glucose Level 136 MG/DL (74-106) H Calcium Level 8.5 MG/DL (8.5-10.1) Phosphorus Level 3.6 MG/DL (2.5-4.9) Magnesium Level 2.1 MG/DL (1.8-2.4) Total Bilirubin 0.3 MG/DL (0.2-1.0) Aspartate Amino Transf (AST/SGOT) 12 U/L (15-37) L Alanine Aminotransferase (ALT/SGPT) 12 U/L (12-78) Alkaline Phosphatase 51 U/L (46-116) C-Reactive Protein, Quantitative 7.1 mg/dL (0.00-0.90) H Total Protein 6.4 G/DL (6.4-8.2) Albumin 2.1 G/DL (3.4-5.0) L Globulin 4.3 g/dL Albumin/Globulin Ratio 0.5 (1.0-2.7) L Amylase Level 22 U/L (25-115) L Lipase 97 U/L (73-393) Current Medications Medications (Trade) Dose Ordered Sig/Taryn Route PRN Reason Start Time Stop Time Status Last Admin Dose Admin Acetaminophen (Tylenol) 650 mg Q4H PRN ORAL fever 07/01/17 06:15 07/31/17 06:14 Albuterol/ Ipratropium (Albuterol/ Ipratropium) 3 ml Q4H PRN HHN Shortness of Breath 07/01/17 06:15 07/06/17 06:14 Dextrose (Dextrose 50%) No Dose PRN IV hypoglycemia 07/02/17 10:45 08/01/17 10:44 Digoxin (Lanoxin) 0.125 mg DAILY ORAL 07/01/17 09:00 07/31/17 08:59 07/04/17 08:41 Duloxetine HCl (Cymbalta) 60 mg DAILY ORAL 07/01/17 09:00 07/31/17 08:59 07/04/17 08:42 Heparin Sodium (Porcine) (Heparin 5000 units/ml) 5,000 units EVERY 12 HOURS SUBQ 07/01/17 09:00 07/31/17 08:59 07/04/17 08:45 Hydrocortisone (Solu-CORTEF) 100 mg EVERY 12 HOURS IV 07/04/17 21:00 07/31/17 13:59 UNV Insulin Aspart (NovoLOG) BEFORE MEALS AND HS SUBQ 07/02/17 11:30 08/01/17 11:29 07/04/17 06:10 Levofloxacin (Levaquin) 750 mg QHS NG 07/02/17 20:00 07/09/17 19:59 07/03/17 21:27 Lorazepam (Ativan 2mg/ml 1ml) 2 mg Q2H PRN IV For Anxiety 07/01/17 06:15 07/08/17 06:14 07/04/17 07:27 Losartan Potassium (Cozaar) 25 mg DAILY ORAL 07/01/17 09:00 07/31/17 08:59 07/04/17 08:42 Morphine Sulfate (Morphine Sulfate) 4 mg Q4H PRN IVP Severe Pain (Pain Scale 7-10) 07/01/17 06:15 07/08/17 06:14 07/04/17 07:25 Norepinephrine Bitartrate 4 mg/ Dextrose 254 ml @ 0 mls/hr Q24H IV 07/01/17 06:15 07/31/17 06:14 Ondansetron HCl (Zofran) 4 mg Q6H PRN IVP Nausea & Vomiting 07/01/17 06:15 07/31/17 06:14 Pantoprazole (Protonix) 40 mg Q12HR IV 07/01/17 21:00 07/31/17 08:59 07/04/17 08:40 Piperacillin Sod/ Tazobactam Sod 3.375 gm/Sodium Chloride 110 ml @ 27.5 mls/hr EVERY 8 HOURS IVPB 07/02/17 20:30 07/07/17 20:29 07/04/17 06:05 Polyethylene Glycol (Miralax) 17 gm DAILYPRN PRN ORAL Constipation 07/01/17 06:15 07/31/17 06:14 Sodium Chloride 1,000 ml @ 75 mls/hr [id number] IVLG 07/01/17 13:00 07/31/17 12:59 07/03/17 23:44 Theophylline (John-Dur) 100 mg EVERY 12 HOURS ORAL 07/01/17 09:00 07/31/17 08:59 07/04/17 08:42 Roseanna Penn M.D. Jul 04, 2017 10:21
--- NOTE | 2017-07-04 11:44 | Diagnostic Imaging Report ---
Indication: Dyspnea Technique: One view of the chest Comparison: 07/03/2017 Findings: Stable satisfactory position of endotracheal and nasogastric tubes. Bilateral mostly interstitial disease with some airspace disease is again demonstrated, probably unchanged. The heart is enlarged. Impression: Unchanged, over one day, findings as above.
--- NOTE | 2017-07-04 12:28 | Nephrology Progress Note ---
Assessment/Plan Problem List: (1) Respiratory failure, acute (2) Proteinuria (3) Hypoalbuminemia Assessment Worsenning Anemia Dyspnea, acute respiratory failure , requiring intubation and mechanichal vent Mixed connective tissue disease Anemia likely due to chronic disease HypoAlbuminemia Pulmonary fibrosis Pulmonary hypertension COPD exacerbation Respiratory failure, acute Plan Plan: stable from renal stand Monitor renal parameters and urine out put Keep BP in check Optimize pulmonary status UA, 24 h urine for protein Mag supplement stress dose of steroids as patient was on prednisone per orders Subjective ROS Limited/Unobtainable: Yes Objective Objective Last 24 Hour Vital Signs Date Time Temp Pulse Resp B/P (MAP) Pulse Ox O2 Delivery O2 Flow Rate FiO2 07/04/17 12:00 97.5 68 14 143/68 94 Mechanical Ventilator 30 07/04/17 12:00 30 07/04/17 11:09 76 19 30 07/04/17 11:00 71 20 144/54 93 Mechanical Ventilator 30 07/04/17 10:00 65 19 146/56 95 Mechanical Ventilator 30 07/04/17 09:05 50 16 30 07/04/17 09:00 52 17 120/55 98 Mechanical Ventilator 30 07/04/17 08:42 120/54 07/04/17 08:41 66 07/04/17 08:00 30 07/04/17 08:00 54 16 120/54 99 Mechanical Ventilator 30 07/04/17 08:00 50 07/04/17 07:00 97.5 65 14 135/68 95 Mechanical Ventilator 30 07/04/17 06:45 63 18 30 07/04/17 06:13 147/65 07/04/17 06:00 50 16 147/65 99 Mechanical Ventilator 30 07/04/17 05:30 57 16 50 07/04/17 05:00 64 16 131/57 99 Mechanical Ventilator 30 07/04/17 04:00 30 07/04/17 04:00 98.2 64 17 148/59 98 Mechanical Ventilator 30 07/04/17 04:00 64 07/04/17 03:30 58 16 50 07/04/17 03:00 54 16 128/55 98 Mechanical Ventilator 30 07/04/17 02:00 64 16 130/65 98 Mechanical Ventilator 30 07/04/17 01:57 52 16 Mechanical Ventilator 50 07/04/17 01:30 54 16 50 07/04/17 01:16 30 07/04/17 01:00 53 16 141/57 98 Mechanical Ventilator 30 07/04/17 00:00 99.2 52 16 128/55 98 Mechanical Ventilator 30 07/04/17 00:00 52 07/03/17 23:00 54 16 128/55 98 Mechanical Ventilator 30 07/03/17 22:55 59 16 30 07/03/17 22:00 63 16 124/53 97 Mechanical Ventilator 30 07/03/17 21:00 69 20 133/70 95 Mechanical Ventilator 30 07/03/17 20:41 61 16 30 07/03/17 20:00 99.0 63 16 110/45 95 Mechanical Ventilator 30 07/03/17 20:00 63 07/03/17 19:30 60 16 30 07/03/17 19:00 80 17 135/66 96 Mechanical Ventilator 30 07/03/17 18:00 81 18 145/65 96 Mechanical Ventilator 30 07/03/17 17:13 76 17 30 07/03/17 17:00 98.8 78 17 136/69 95 Mechanical Ventilator 30 07/03/17 16:00 76 07/03/17 16:00 77 18 114/55 96 Mechanical Ventilator 30 07/03/17 16:00 30 07/03/17 15:17 73 18 30 07/03/17 15:00 74 17 133/61 94 Mechanical Ventilator 30 07/03/17 14:00 60 16 122/52 96 Mechanical Ventilator 30 07/03/17 13:13 65 16 30 07/03/17 13:00 67 16 114/50 95 Mechanical Ventilator 30 Intake and Output 07/03/17 07/04/17 19:00 07:00 Intake Total 1135.0 ml 1452.5 ml Output Total 245 ml 380 ml Balance 890.0 ml 1072.5 ml Free Water 90 ml IV Total 935.0 ml 1002.5 ml Tube Feeding 200 ml 360 ml Output Urine Total 245 ml 380 ml # Bowel Movements 3 Laboratory Tests 07/03/17 18:30: Urine Random Sodium 41, Urine Legionella Antigen [Pending] 07/04/17 05:00: White Blood Count 5.5, Red Blood Count 3.15L, Hemoglobin 9.7L, Hematocrit 31.2L , Mean Corpuscular Volume 99, Mean Corpuscular Hemoglobin 30.9, Mean Corpuscular Hemoglobin Concent 31.2L, Red Cell Distribution Width 14.8, Platelet Count 181, Mean Platelet Volume 6.6, Neutrophils (%) (Auto) , Lymphocytes (%) (Auto) , Monocytes (%) (Auto) , Eosinophils (%) (Auto) , Basophils (%) (Auto) , Differential Total Cells Counted 100, Neutrophils % ( Manual) 80H, Lymphocytes % (Manual) 9L, Monocytes % (Manual) 1, Eosinophils % ( Manual) 0, Basophils % (Manual) 0, Metamyelocytes % 3H, Myelocytes % 2H, Band Neutrophils 5, Platelet Estimate Adequate, Platelet Morphology Normal, Erythrocyte Sedimentation Rate 115H, Sodium Level 145, Potassium Level 4.1, Chloride Level 109H, Carbon Dioxide Level 30, Anion Gap 6, Blood Urea Nitrogen 20H, Creatinine 0.6, Estimat Glomerular Filtration Rate , Glucose Level 136H, Calcium Level 8.5, Phosphorus Level 3.6, Magnesium Level 2.1, Total Bilirubin 0.3, Aspartate Amino Transf (AST/SGOT) 12L, Alanine Aminotransferase (ALT/SGPT) 12, Alkaline Phosphatase 51, C-Reactive Protein, Quantitative 7.1H, Total Protein 6.4, Albumin 2.1L, Globulin 4.3, Albumin/Globulin Ratio 0.5L, Amylase Level 22L, Lipase 97 Height (Feet): 5 Height (Inches): 3.00 Weight (Pounds): 195 General Appearance: no apparent distress Cardiovascular: regular rhythm Respiratory/Chest: decreased breath sounds Abdomen: soft DARRYL ISSA Jul 04, 2017 12:28
--- NOTE | 2017-07-04 12:43 | Internal Med Progress Note ---
Subjective Date of Service: Jul 04, 2017 Physician Name Roberta Stephen Attending Physician Ten Bourne MD Current Medications Medications (Trade) Dose Ordered Sig/Taryn Route PRN Reason Start Time Stop Time Status Last Admin Dose Admin Acetaminophen (Tylenol) 650 mg Q4H PRN ORAL fever 07/01/17 06:15 07/31/17 06:14 Albuterol/ Ipratropium (Albuterol/ Ipratropium) 3 ml Q4H PRN HHN Shortness of Breath 07/01/17 06:15 07/06/17 06:14 Ceftriaxone Sodium 1 gm/ Sodium Chloride 55 ml @ 110 mls/hr Q24H IVPB 07/04/17 14:00 07/11/17 13:59 Dextrose (Dextrose 50%) No Dose PRN IV hypoglycemia 07/02/17 10:45 08/01/17 10:44 Digoxin (Lanoxin) 0.125 mg DAILY ORAL 07/01/17 09:00 07/31/17 08:59 07/04/17 08:41 Duloxetine HCl (Cymbalta) 60 mg DAILY ORAL 07/01/17 09:00 07/31/17 08:59 07/04/17 08:42 Heparin Sodium (Porcine) (Heparin 5000 units/ml) 5,000 units EVERY 12 HOURS SUBQ 07/01/17 09:00 07/31/17 08:59 07/04/17 08:45 Hydrocortisone (Solu-CORTEF) 100 mg EVERY 12 HOURS IV 07/04/17 21:00 07/31/17 13:59 Insulin Aspart (NovoLOG) BEFORE MEALS AND HS SUBQ 07/02/17 11:30 08/01/17 11:29 07/04/17 11:41 Levofloxacin (Levaquin) 750 mg QHS NG 07/02/17 20:00 07/09/17 19:59 07/03/17 21:27 Lorazepam (Ativan 2mg/ml 1ml) 2 mg Q2H PRN IV For Anxiety 07/01/17 06:15 07/08/17 06:14 07/04/17 12:32 Losartan Potassium (Cozaar) 25 mg DAILY ORAL 07/01/17 09:00 07/31/17 08:59 07/04/17 08:42 Morphine Sulfate (Morphine Sulfate) 4 mg Q4H PRN IVP Severe Pain (Pain Scale 7-10) 07/01/17 06:15 07/08/17 06:14 07/04/17 12:32 Norepinephrine Bitartrate 4 mg/ Dextrose 254 ml @ 0 mls/hr Q24H IV 07/01/17 06:15 07/31/17 06:14 Ondansetron HCl (Zofran) 4 mg Q6H PRN IVP Nausea & Vomiting 07/01/17 06:15 07/31/17 06:14 Pantoprazole (Protonix) 40 mg Q12HR IV 07/01/17 21:00 07/31/17 08:59 07/04/17 08:40 Polyethylene Glycol (Miralax) 17 gm DAILYPRN PRN ORAL Constipation 07/01/17 06:15 07/31/17 06:14 Sodium Chloride 1,000 ml @ 75 mls/hr [id number] IVLG 07/01/17 13:00 07/31/17 12:59 07/03/17 23:44 Theophylline (John-Dur) 100 mg EVERY 12 HOURS ORAL 07/01/17 09:00 07/31/17 08:59 07/04/17 08:42 Allergies: Coded Allergies: No Known Allergies (Unverified , 01/11/17) ROS Limited/Unobtainable: Yes Subjective 82 YO F admitted with respiratory failure. Intubated and sedated. Cover for Int Kg-Dr Bourne. ICU. Objective Last Vital Signs Date Time Temp Pulse Resp B/P (MAP) Pulse Ox O2 Delivery O2 Flow Rate FiO2 07/04/17 12:00 97.5 68 14 143/68 94 Mechanical Ventilator 30 07/01/17 05:36 3.0 Laboratory Tests Test 07/03/17 18:30 07/04/17 05:00 Urine Random Sodium 41 MEQ/L (20-110) Urine Legionella Antigen Pending White Blood Count 5.5 K/UL (4.8-10.8) Red Blood Count 3.15 M/UL (4.20-5.40) L Hemoglobin 9.7 G/DL (12.0-16.0) L Hematocrit 31.2 % (37.0-47.0) L Mean Corpuscular Volume 99 FL (80-99) Mean Corpuscular Hemoglobin 30.9 PG (27.0-31.0) Mean Corpuscular Hemoglobin Concent 31.2 G/DL (32.0-36.0) L Red Cell Distribution Width 14.8 % (11.6-14.8) Platelet Count 181 K/UL (150-450) Mean Platelet Volume 6.6 FL (6.5-10.1) Neutrophils (%) (Auto) % (45.0-75.0) Lymphocytes (%) (Auto) % (20.0-45.0) Monocytes (%) (Auto) % (1.0-10.0) Eosinophils (%) (Auto) % (0.0-3.0) Basophils (%) (Auto) % (0.0-2.0) Differential Total Cells Counted 100 Neutrophils % (Manual) 80 % (45-75) H Lymphocytes % (Manual) 9 % (20-45) L Monocytes % (Manual) 1 % (1-10) Eosinophils % (Manual) 0 % (0-3) Basophils % (Manual) 0 % (0-2) Metamyelocytes % 3 % (0-0) H Myelocytes % 2 % (0-0) H Band Neutrophils 5 % (0-8) Platelet Estimate Adequate Platelet Morphology Normal Erythrocyte Sedimentation Rate 115 MM/HR (0-30) H Sodium Level 145 MMOL/L (136-145) Potassium Level 4.1 MMOL/L (3.5-5.1) Chloride Level 109 MMOL/L (98-107) H Carbon Dioxide Level 30 MMOL/L (21-32) Anion Gap 6 mmol/L (5-15) Blood Urea Nitrogen 20 mg/dL (7-18) H Creatinine 0.6 MG/DL (0.55-1.30) Estimat Glomerular Filtration Rate mL/min (>60) Glucose Level 136 MG/DL (74-106) H Calcium Level 8.5 MG/DL (8.5-10.1) Phosphorus Level 3.6 MG/DL (2.5-4.9) Magnesium Level 2.1 MG/DL (1.8-2.4) Total Bilirubin 0.3 MG/DL (0.2-1.0) Aspartate Amino Transf (AST/SGOT) 12 U/L (15-37) L Alanine Aminotransferase (ALT/SGPT) 12 U/L (12-78) Alkaline Phosphatase 51 U/L (46-116) C-Reactive Protein, Quantitative 7.1 mg/dL (0.00-0.90) H Total Protein 6.4 G/DL (6.4-8.2) Albumin 2.1 G/DL (3.4-5.0) L Globulin 4.3 g/dL Albumin/Globulin Ratio 0.5 (1.0-2.7) L Amylase Level 22 U/L (25-115) L Lipase 97 U/L (73-393) Intake and Output 07/03/17 07/04/17 19:00 07:00 Intake Total 1135.0 ml 1452.5 ml Output Total 245 ml 380 ml Balance 890.0 ml 1072.5 ml Free Water 90 ml IV Total 935.0 ml 1002.5 ml Tube Feeding 200 ml 360 ml Output Urine Total 245 ml 380 ml # Bowel Movements 3 Objective General Appearance: WD/WN, lethargic EENT: normal ENT inspection Neck: non-tender, normal alignment, supple, normal inspection Cardiovascular: normal peripheral pulses, normal rate, regular rhythm, no gallop/murmur, no JVD Respiratory/Chest: Mechanical vent; respiratory distress, crackles/rales, rhonchi - bilaterally, expiratory wheezing Abdomen: non tender, soft, no organomegaly, no mass, decreased bowel sounds Edema: trace edema Skin: normal pigmentation, warm/dry Assessment/Plan Problem List: (1) HTN (hypertension) Assessment & Plan: Currently on levophed. (2) Respiratory failure, acute Assessment & Plan: Intubated. See pulm note. Cont theophylline, vanco, levaquin and zosyn (3) Hypercapnia (4) Pulmonary hypertension (5) Pulmonary fibrosis (6) Hypothyroidism Status: unchanged LUKEROBERTA Jul 04, 2017 12:43
[2017-07-04] MEDS: cefTRIAXone 1 GM in NS 55 ML IVPB SCH (14:37)
[2017-07-04] MEDS ORDERED: Tubing Blood Filter IV ONE (17:34)
[2017-07-04] MEDS ORDERED: Tubing IV Secondary IV ONE (17:34)
--- NOTE | 2017-07-04 19:05 | Cardiology Report ---
APPROVED REPORT EKG Measurement Heart [id number] Sinus rhythm with frequent premature ventricular complexes Nonspecific T wave abnormality Abnormal ECG
[2017-07-05] VITALS (24 sets, daily range): BP systolic 113–158; BP diastolic 45–99
[2017-07-05] MEDS: LORazepam Inj 2mg/ml 1ml IV PRN ×3 (03:09→16:24)
[2017-07-05 04:28] LABS: HEMATOCRIT 32.3 % (37.0-47.0); HEMOGLOBIN 10.6 G/DL (12.0-16.0); MEAN CORPUSCULAR VOLUME 99 FL (80-99); PLATELET COUNT 171 K/UL (150-450); RED BLOOD COUNT 3.25 M/UL (4.20-5.40); RED CELL DISTRIBUTION WIDTH 14.8 % (11.6-14.8)
[2017-07-05 05:00] LABS: ALANINE AMINOTRANSFERASE 13 U/L (12-78); ALBUMIN/GLOBULIN RATIO 0.5 (1.0-2.7); ALKALINE PHOSPHATASE 48 U/L (46-116); ANION GAP 5 mmol/L (5-15); ASPARTATE AMINO TRANSFERASE 23 U/L (15-37); BILIRUBIN,TOTAL 0.4 MG/DL (0.2-1.0); BLOOD UREA NITROGEN 19 mg/dL (7-18); CALCIUM 8.5 MG/DL (8.5-10.1); CARBON DIOXIDE 32 MMOL/L (21-32); CHLORIDE 109 MMOL/L (98-107); CREATININE 0.5 MG/DL (0.55-1.30); POTASSIUM 4.5 MMOL/L (3.5-5.1); SODIUM 146 MMOL/L (136-145)
[2017-07-05] MEDS: NovoLOG Insulin Flexpen SUBQ SCH ×3 (06:18→18:00)
[2017-07-05] MEDS: Hydrocortisone 100mg Inj IV SCH ×2 (08:24→20:20)
[2017-07-05] MEDS: Digoxin 0.125mg tab ORAL SCH (08:24)
[2017-07-05] MEDS: DULoxetine 30mg cap ORAL SCH (08:24)
[2017-07-05] MEDS: Pantoprazole Inj IV SCH ×2 (08:24→20:20)
[2017-07-05] MEDS: Losartan 25mg tab ORAL SCH (08:27)
[2017-07-05] MEDS: Theophylline ER 100mg ORAL SCH ×2 (08:28→20:20)
[2017-07-05] MEDS: Heparin 5000 units/ml inj SUBQ SCH ×2 (08:29→20:26)
--- NOTE | 2017-07-05 10:10 | Pulmonolgy Critical Care Note ---
Critical Care - Asmt/Plan Problems: (1) Respiratory failure, acute (2) Hypercapnia (3) Pulmonary hypertension (4) Pulmonary fibrosis (5) Hypothyroidism Respiratory: monitor respiratory rate, adjust FIO2, CXR, other - still lots of secretions Cardiac: continue to monitor HR/BP Renal: F/U I&O, keep IV fluid, check electrolytes Infectious Disease: check cultures, continue antibiotics Gastrointestinal: continue feedings/current rate Endocrine: monitor blood sugar, continue sliding scale insulin Hematologic: transfuse if hgb<8.5 Neurologic: PRN Ativan, keep patient comfortable Affect: PRN ativan Prophylaxis: Protonix Notes Reviewed: shower maid, cardio, renal Discussed with: nurses, consultants, case assistantweb site project manager - Objective Last 24 Hour Vital Signs Date Time Temp Pulse Resp B/P (MAP) Pulse Ox O2 Delivery O2 Flow Rate FiO2 07/05/17 09:00 63 25 139/66 97 Mechanical Ventilator 30 07/05/17 08:40 54 17 30 07/05/17 08:27 148/68 07/05/17 08:24 65 07/05/17 08:00 65 07/05/17 08:00 98.2 73 19 152/66 98 Mechanical Ventilator 30 07/05/17 08:00 30 07/05/17 07:21 63 16 30 07/05/17 07:00 58 16 152/56 97 Mechanical Ventilator 30 07/05/17 06:15 146/63 07/05/17 06:00 61 20 148/65 98 Mechanical Ventilator 30 07/05/17 05:08 62 16 30 07/05/17 05:00 50 16 146/63 97 Mechanical Ventilator 30 07/05/17 04:00 30 07/05/17 04:00 61 07/05/17 04:00 98.0 66 20 143/65 97 Mechanical Ventilator 30 07/05/17 03:38 57 16 30 07/05/17 03:00 63 18 141/68 97 Mechanical Ventilator 30 07/05/17 02:00 48 16 149/59 98 Mechanical Ventilator 30 07/05/17 01:15 51 16 30 07/05/17 01:00 49 16 135/58 99 Mechanical Ventilator 30 07/05/17 00:13 98.9 07/05/17 00:00 30 07/05/17 00:00 65 07/05/17 00:00 98.9 57 16 133/59 97 Mechanical Ventilator 30 07/04/17 23:24 59 18 30 07/04/17 23:00 60 16 151/64 96 Mechanical Ventilator 30 07/04/17 22:00 52 16 140/65 97 Mechanical Ventilator 30 07/04/17 21:29 59 16 30 07/04/17 21:00 66 17 137/72 97 Mechanical Ventilator 30 07/04/17 20:00 30 07/04/17 20:00 98.0 58 16 117/51 95 Mechanical Ventilator 30 07/04/17 20:00 62 07/04/17 19:10 65 16 30 07/04/17 19:00 63 17 120/44 95 Mechanical Ventilator 30 07/04/17 18:00 98.9 63 18 143/68 99 Mechanical Ventilator 30 07/04/17 17:00 58 17 135/57 95 Mechanical Ventilator 30 07/04/17 16:50 53 16 30 07/04/17 16:00 54 17 126/63 95 Mechanical Ventilator 30 07/04/17 16:00 55 07/04/17 16:00 30 07/04/17 15:00 57 15 130/57 95 Mechanical Ventilator 30 07/04/17 14:55 54 16 30 07/04/17 14:00 58 15 132/57 93 Mechanical Ventilator 30 07/04/17 13:00 59 15 127/56 95 Mechanical Ventilator 30 07/04/17 12:55 59 16 30 07/04/17 12:00 59 07/04/17 12:00 97.5 68 14 143/68 94 Mechanical Ventilator 30 07/04/17 12:00 30 07/04/17 11:09 76 19 30 07/04/17 11:00 71 20 144/54 93 Mechanical Ventilator 30 Status: awake Condition: critical HEENT: atraumatic Lungs: clear, rales, rhonchi Heart: HR/BP stable Abdomen: soft, non-tender Extremities: no C/C/E, edema Decubiti: stage Accucheck: 141 Critical Care - Subjective ROS Limited/Unobtainable: No ICU Day: 5 Condition: critical EKG Rhythm: Sinus Rhythm FI02: 30 Vent Support Breath Rate: 16 Vent Support Mode: AC Vent Tidal Volume: 500 Sputum Amount: Moderate PEEP: 5.0 PIP: 29 Fluids: NS 75 cc.hour Tube Feeding Amount: 30 I&O: Intake and Output 07/04/17 07/05/17 19:00 07:00 Intake Total 920 ml 1370 ml Output Total 330 ml 685 ml Balance 590 ml 685 ml Free Water 30 ml 50 ml IV Total 560 ml 900 ml Tube Feeding 330 ml 360 ml Other 60 ml Output Urine Total 330 ml 685 ml # Bowel Movements 9 CXR: ET tube in place, no change in bilateral infiltrate ET-Tube: 7.5 ET Position: 22 Labs: Laboratory Tests Test 07/05/17 03:20 White Blood Count 6.0 K/UL (4.8-10.8) Red Blood Count 3.25 M/UL (4.20-5.40) L Hemoglobin 10.6 G/DL (12.0-16.0) L Hematocrit 32.3 % (37.0-47.0) L Mean Corpuscular Volume 99 FL (80-99) Mean Corpuscular Hemoglobin 32.6 PG (27.0-31.0) H Mean Corpuscular Hemoglobin Concent 32.9 G/DL (32.0-36.0) Red Cell Distribution Width 14.8 % (11.6-14.8) Platelet Count 171 K/UL (150-450) Mean Platelet Volume 6.0 FL (6.5-10.1) L Neutrophils (%) (Auto) % (45.0-75.0) Lymphocytes (%) (Auto) % (20.0-45.0) Monocytes (%) (Auto) % (1.0-10.0) Eosinophils (%) (Auto) % (0.0-3.0) Basophils (%) (Auto) % (0.0-2.0) Differential Total Cells Counted 100 Neutrophils % (Manual) 83 % (45-75) H Lymphocytes % (Manual) 5 % (20-45) L Monocytes % (Manual) 4 % (1-10) Eosinophils % (Manual) 0 % (0-3) Basophils % (Manual) 0 % (0-2) Band Neutrophils 8 % (0-8) Platelet Estimate Adequate Platelet Morphology Normal Hypochromasia 1+ Anisocytosis 1+ Sodium Level 146 MMOL/L (136-145) H Potassium Level 4.5 MMOL/L (3.5-5.1) Chloride Level 109 MMOL/L (98-107) H Carbon Dioxide Level 32 MMOL/L (21-32) Anion Gap 5 mmol/L (5-15) Blood Urea Nitrogen 19 mg/dL (7-18) H Creatinine 0.5 MG/DL (0.55-1.30) L Estimat Glomerular Filtration Rate mL/min (>60) Glucose Level 129 MG/DL (74-106) H Calcium Level 8.5 MG/DL (8.5-10.1) Phosphorus Level 3.0 MG/DL (2.5-4.9) Magnesium Level 1.9 MG/DL (1.8-2.4) Total Bilirubin 0.4 MG/DL (0.2-1.0) Aspartate Amino Transf (AST/SGOT) 23 U/L (15-37) Alanine Aminotransferase (ALT/SGPT) 13 U/L (12-78) Alkaline Phosphatase 48 U/L (46-116) Total Protein 6.2 G/DL (6.4-8.2) L Albumin 2.0 G/DL (3.4-5.0) L Globulin 4.2 g/dL Albumin/Globulin Ratio 0.5 (1.0-2.7) L MARIZA CHANEL Jul 05, 2017 10:09
--- NOTE | 2017-07-05 10:34 | Diagnostic Imaging Report ---
Indication: Dyspnea Technique: XRAY Chest 1v Comparison: 07/04/2017 Findings: Heart size and mediastinal contours are stable. Endotracheal tube and NG tube unchanged in position. Bilateral interstitial opacification again noted with suggestion of slight increased airspace disease on the left. No definite pneumothorax. Impression: Slight interval worsening of aeration with increased airspace disease on the left compared to one day prior.
--- NOTE | 2017-07-05 10:37 | Infectious Diseases Prog Note ---
Assessment/Plan Assessment/Plan Assessment: Acute hypoxic/Hypercapneic respiratory failure- likely flare of her underlying pulmonary disease with possible concomitant PNA- r/o atypical -CXR 07/05: Bilateral interstitial opacification again noted with suggestion of slight increased airspace disease on the left. -CXR 07/02: Bilateral interstitial and airspace disease, likely fibrotic change persists, unchanged. -sp Cx Normal gerald -Influenza neg Afebrile/no leukocytosis COPD on home O2 at 2L pHTN pulmonary fibrosis hypothyroidism GERD HTN mixed connective tissue disorder, s/p R TKR shelter resident Plan: -Continue Ceftriaxone abx d#5/ for PNA given no isolation of resistant organisms -continue levaquin #5/5 for atypical coverage -07/04 SP Zosyn #4 -07/03 SP IV Vancomycin #3 -07/02 SP Amikacin #2 -07/01 SP Ertapenem x1 -f/u cx -Monitor CBC/BMP, temperatures -ETT care -aspiration precautions Thank you for this consultation. Will continue to follow along with you. Discussed with RN Subjective Allergies: Coded Allergies: No Known Allergies (Unverified , 01/11/17) Subjective afebrile no leukocytosis remains on MV, fio2 30% Objective Vital Signs Last 24 Hour Vital Signs Date Time Temp Pulse Resp B/P (MAP) Pulse Ox O2 Delivery O2 Flow Rate FiO2 07/05/17 10:00 61 16 113/99 95 Mechanical Ventilator 30 07/05/17 09:00 63 25 139/66 97 Mechanical Ventilator 30 07/05/17 08:40 54 17 30 07/05/17 08:27 148/68 07/05/17 08:24 65 07/05/17 08:00 65 07/05/17 08:00 98.2 73 19 152/66 98 Mechanical Ventilator 30 07/05/17 08:00 30 07/05/17 07:21 63 16 30 07/05/17 07:00 58 16 152/56 97 Mechanical Ventilator 30 07/05/17 06:15 146/63 07/05/17 06:00 61 20 148/65 98 Mechanical Ventilator 30 07/05/17 05:08 62 16 30 07/05/17 05:00 50 16 146/63 97 Mechanical Ventilator 30 07/05/17 04:00 30 07/05/17 04:00 61 07/05/17 04:00 98.0 66 20 143/65 97 Mechanical Ventilator 30 07/05/17 03:38 57 16 30 07/05/17 03:00 63 18 141/68 97 Mechanical Ventilator 30 07/05/17 02:00 48 16 149/59 98 Mechanical Ventilator 30 07/05/17 01:15 51 16 30 07/05/17 01:00 49 16 135/58 99 Mechanical Ventilator 30 07/05/17 00:13 98.9 07/05/17 00:00 30 07/05/17 00:00 65 07/05/17 00:00 98.9 57 16 133/59 97 Mechanical Ventilator 30 07/04/17 23:24 59 18 30 07/04/17 23:00 60 16 151/64 96 Mechanical Ventilator 30 07/04/17 22:00 52 16 140/65 97 Mechanical Ventilator 30 07/04/17 21:29 59 16 30 07/04/17 21:00 66 17 137/72 97 Mechanical Ventilator 30 07/04/17 20:00 30 07/04/17 20:00 98.0 58 16 117/51 95 Mechanical Ventilator 30 07/04/17 20:00 62 07/04/17 19:10 65 16 30 07/04/17 19:00 63 17 120/44 95 Mechanical Ventilator 30 07/04/17 18:00 98.9 63 18 143/68 99 Mechanical Ventilator 30 07/04/17 17:00 58 17 135/57 95 Mechanical Ventilator 30 07/04/17 16:50 53 16 30 07/04/17 16:00 54 17 126/63 95 Mechanical Ventilator 30 07/04/17 16:00 55 07/04/17 16:00 30 07/04/17 15:00 57 15 130/57 95 Mechanical Ventilator 30 07/04/17 14:55 54 16 30 07/04/17 14:00 58 15 132/57 93 Mechanical Ventilator 30 07/04/17 13:00 59 15 127/56 95 Mechanical Ventilator 30 07/04/17 12:55 59 16 30 07/04/17 12:00 59 07/04/17 12:00 97.5 68 14 143/68 94 Mechanical Ventilator 30 07/04/17 12:00 30 07/04/17 11:09 76 19 30 07/04/17 11:00 71 20 144/54 93 Mechanical Ventilator 30 Height (Feet): 5 Height (Inches): 3.00 Weight (Pounds): 187 Objective GENERAL: The patient is well developed and well nourished female, who is intubated and sedated. HEENT: Eyes, pupils equal and responsive to light and accommodation. Extraocular movements are intact. NECK: Supple. No lymphadenopathy. CHEST: Few diffuse wheezes bilaterally with few rales at bilateral bases, otherwise clear to auscultation. CARDIOVASCULAR: Regular rhythm and rate. S1 and S2 normal without murmurs, rubs, or gallops. ABDOMEN: Soft, nontender, and nondistended. Positive bowel sounds. No evidence of hepatosplenomegaly. Currently, no rebound or guarding noted. EXTREMITIES: Negative for clubbing, cyanosis, or edema. NEUROLOGICAL: Unable to assess secondary to the patient's mental status. Laboratory Tests Test 07/05/17 03:20 07/05/17 10:12 White Blood Count 6.0 K/UL (4.8-10.8) Red Blood Count 3.25 M/UL (4.20-5.40) L Hemoglobin 10.6 G/DL (12.0-16.0) L Hematocrit 32.3 % (37.0-47.0) L Mean Corpuscular Volume 99 FL (80-99) Mean Corpuscular Hemoglobin 32.6 PG (27.0-31.0) H Mean Corpuscular Hemoglobin Concent 32.9 G/DL (32.0-36.0) Red Cell Distribution Width 14.8 % (11.6-14.8) Platelet Count 171 K/UL (150-450) Mean Platelet Volume 6.0 FL (6.5-10.1) L Neutrophils (%) (Auto) % (45.0-75.0) Lymphocytes (%) (Auto) % (20.0-45.0) Monocytes (%) (Auto) % (1.0-10.0) Eosinophils (%) (Auto) % (0.0-3.0) Basophils (%) (Auto) % (0.0-2.0) Differential Total Cells Counted 100 Neutrophils % (Manual) 83 % (45-75) H Lymphocytes % (Manual) 5 % (20-45) L Monocytes % (Manual) 4 % (1-10) Eosinophils % (Manual) 0 % (0-3) Basophils % (Manual) 0 % (0-2) Band Neutrophils 8 % (0-8) Platelet Estimate Adequate Platelet Morphology Normal Hypochromasia 1+ Anisocytosis 1+ Sodium Level 146 MMOL/L (136-145) H Potassium Level 4.5 MMOL/L (3.5-5.1) Chloride Level 109 MMOL/L (98-107) H Carbon Dioxide Level 32 MMOL/L (21-32) Anion Gap 5 mmol/L (5-15) Blood Urea Nitrogen 19 mg/dL (7-18) H Creatinine 0.5 MG/DL (0.55-1.30) L Estimat Glomerular Filtration Rate mL/min (>60) Glucose Level 129 MG/DL (74-106) H Calcium Level 8.5 MG/DL (8.5-10.1) Phosphorus Level 3.0 MG/DL (2.5-4.9) Magnesium Level 1.9 MG/DL (1.8-2.4) Total Bilirubin 0.4 MG/DL (0.2-1.0) Aspartate Amino Transf (AST/SGOT) 23 U/L (15-37) Alanine Aminotransferase (ALT/SGPT) 13 U/L (12-78) Alkaline Phosphatase 48 U/L (46-116) Total Protein 6.2 G/DL (6.4-8.2) L Albumin 2.0 G/DL (3.4-5.0) L Globulin 4.2 g/dL Albumin/Globulin Ratio 0.5 (1.0-2.7) L Arterial Blood pH 7.390 (7.350-7.450) Arterial Blood Partial Pressure CO2 57.6 mmHg (35.0-45.0) *H Arterial Blood Partial Pressure O2 91.6 mmHg (75.0-100.0) Arterial Blood HCO3 34.6 mmol/L (22.0-26.0) H Arterial Blood Oxygen Saturation 96.6 % (92.0-98.0) Arterial Blood Base Excess 8.3 Kunal Test Positive Current Medications Medications (Trade) Dose Ordered Sig/Taryn Route PRN Reason Start Time Stop Time Status Last Admin Dose Admin Acetaminophen (Tylenol) 650 mg Q4H PRN ORAL fever 07/01/17 06:15 07/31/17 06:14 Albuterol/ Ipratropium (Albuterol/ Ipratropium) 3 ml Q4H PRN HHN Shortness of Breath 07/01/17 06:15 07/06/17 06:14 Ceftriaxone Sodium 1 gm/ Sodium Chloride 55 ml @ 110 mls/hr Q24H IVPB 07/04/17 14:00 07/11/17 13:59 07/04/17 14:37 Dextrose (Dextrose 50%) No Dose PRN IV hypoglycemia 07/02/17 10:45 08/01/17 10:44 Digoxin (Lanoxin) 0.125 mg DAILY ORAL 07/01/17 09:00 07/31/17 08:59 07/05/17 08:24 Duloxetine HCl (Cymbalta) 60 mg DAILY ORAL 07/01/17 09:00 07/31/17 08:59 07/05/17 08:24 Heparin Sodium (Porcine) (Heparin 5000 units/ml) 5,000 units EVERY 12 HOURS SUBQ 07/01/17 09:00 07/31/17 08:59 07/05/17 08:29 Hydrocortisone (Solu-CORTEF) 100 mg EVERY 12 HOURS IV 07/04/17 21:00 07/31/17 13:59 07/05/17 08:24 Insulin Aspart (NovoLOG) EVERY 6 HOURS SUBQ 07/05/17 12:00 08/01/17 11:29 Levofloxacin (Levaquin) 750 mg QHS NG 07/02/17 20:00 07/09/17 19:59 07/04/17 20:41 Lorazepam (Ativan 2mg/ml 1ml) 2 mg Q2H PRN IV For Anxiety 07/01/17 06:15 07/08/17 06:14 07/05/17 03:09 Losartan Potassium (Cozaar) 25 mg DAILY ORAL 07/01/17 09:00 07/31/17 08:59 07/05/17 08:27 Morphine Sulfate (Morphine Sulfate) 4 mg Q4H PRN IVP Severe Pain (Pain Scale 7-10) 07/01/17 06:15 07/08/17 06:14 07/04/17 23:43 Norepinephrine Bitartrate 4 mg/ Dextrose 254 ml @ 0 mls/hr Q24H IV 07/01/17 06:15 07/31/17 06:14 Ondansetron HCl (Zofran) 4 mg Q6H PRN IVP Nausea & Vomiting 07/01/17 06:15 07/31/17 06:14 Pantoprazole (Protonix) 40 mg Q12HR IV 07/01/17 21:00 07/31/17 08:59 07/05/17 08:24 Polyethylene Glycol (Miralax) 17 gm DAILYPRN PRN ORAL Constipation 07/01/17 06:15 07/31/17 06:14 Theophylline (John-Dur) 100 mg EVERY 12 HOURS ORAL 07/01/17 09:00 07/31/17 08:59 07/05/17 08:28 Roseanna Penn M.D. Jul 05, 2017 10:37
[2017-07-05] MEDS: cefTRIAXone 1 GM in NS 55 ML IVPB SCH (14:22)
--- NOTE | 2017-07-05 16:10 | Nephrology Progress Note ---
Assessment/Plan Problem List: (1) Respiratory failure, acute (2) Proteinuria (3) Hypoalbuminemia Assessment Worsenning Anemia Dyspnea, acute respiratory failure , requiring intubation and mechanichal vent Mixed connective tissue disease Anemia likely due to chronic disease HypoAlbuminemia Pulmonary fibrosis Pulmonary hypertension COPD exacerbation Respiratory failure, acute Plan Plan: stable from renal stand Monitor renal parameters and urine out put Keep BP in check Optimize pulmonary status UA, 24 h urine for protein Mag supplement stress dose of steroids as patient was on prednisone per orders Subjective ROS Limited/Unobtainable: Yes Objective Objective Last 24 Hour Vital Signs Date Time Temp Pulse Resp B/P (MAP) Pulse Ox O2 Delivery O2 Flow Rate FiO2 07/05/17 16:00 30 07/05/17 16:00 70 07/05/17 15:00 55 18 153/65 97 Mechanical Ventilator 30 07/05/17 14:00 59 18 140/60 97 Mechanical Ventilator 30 07/05/17 13:00 63 18 147/59 95 Mechanical Ventilator 30 07/05/17 12:32 68 17 30 07/05/17 12:00 98.5 71 18 142/83 95 Mechanical Ventilator 30 07/05/17 12:00 72 07/05/17 12:00 30 07/05/17 11:06 71 16 30 07/05/17 11:00 73 18 153/62 94 Mechanical Ventilator 30 07/05/17 10:00 61 16 113/99 95 Mechanical Ventilator 30 07/05/17 09:00 63 25 139/66 97 Mechanical Ventilator 30 07/05/17 08:40 54 17 30 07/05/17 08:27 148/68 07/05/17 08:24 65 07/05/17 08:00 65 07/05/17 08:00 98.2 73 19 152/66 98 Mechanical Ventilator 30 07/05/17 08:00 30 07/05/17 07:21 63 16 30 07/05/17 07:00 58 16 152/56 97 Mechanical Ventilator 30 07/05/17 06:15 146/63 07/05/17 06:00 61 20 148/65 98 Mechanical Ventilator 30 07/05/17 05:08 62 16 30 07/05/17 05:00 50 16 146/63 97 Mechanical Ventilator 30 07/05/17 04:00 30 07/05/17 04:00 61 07/05/17 04:00 98.0 66 20 143/65 97 Mechanical Ventilator 30 07/05/17 03:38 57 16 30 07/05/17 03:00 63 18 141/68 97 Mechanical Ventilator 30 07/05/17 02:00 48 16 149/59 98 Mechanical Ventilator 30 07/05/17 01:15 51 16 30 07/05/17 01:00 49 16 135/58 99 Mechanical Ventilator 30 07/05/17 00:13 98.9 07/05/17 00:00 30 07/05/17 00:00 65 07/05/17 00:00 98.9 57 16 133/59 97 Mechanical Ventilator 30 07/04/17 23:24 59 18 30 07/04/17 23:00 60 16 151/64 96 Mechanical Ventilator 30 07/04/17 22:00 52 16 140/65 97 Mechanical Ventilator 30 07/04/17 21:29 59 16 30 07/04/17 21:00 66 17 137/72 97 Mechanical Ventilator 30 07/04/17 20:00 30 07/04/17 20:00 98.0 58 16 117/51 95 Mechanical Ventilator 30 07/04/17 20:00 62 07/04/17 19:10 65 16 30 07/04/17 19:00 63 17 120/44 95 Mechanical Ventilator 30 07/04/17 18:00 98.9 63 18 143/68 99 Mechanical Ventilator 30 07/04/17 17:00 58 17 135/57 95 Mechanical Ventilator 30 07/04/17 16:50 53 16 30 Intake and Output 07/04/17 07/05/17 19:00 07:00 Intake Total 920 ml 1370 ml Output Total 330 ml 685 ml Balance 590 ml 685 ml Free Water 30 ml 50 ml IV Total 560 ml 900 ml Tube Feeding 330 ml 360 ml Other 60 ml Output Urine Total 330 ml 685 ml # Bowel Movements 9 Laboratory Tests 07/05/17 03:20: White Blood Count 6.0, Red Blood Count 3.25L, Hemoglobin 10.6L, Hematocrit 32.3L , Mean Corpuscular Volume 99, Mean Corpuscular Hemoglobin 32.6H, Mean Corpuscular Hemoglobin Concent 32.9, Red Cell Distribution Width 14.8, Platelet Count 171, Mean Platelet Volume 6.0L, Neutrophils (%) (Auto) , Lymphocytes (%) ( Auto) , Monocytes (%) (Auto) , Eosinophils (%) (Auto) , Basophils (%) (Auto) , Differential Total Cells Counted 100, Neutrophils % (Manual) 83H, Lymphocytes % (Manual) 5L, Monocytes % (Manual) 4, Eosinophils % (Manual) 0, Basophils % ( Manual) 0, Band Neutrophils 8, Platelet Estimate Adequate, Platelet Morphology Normal, Hypochromasia 1+, Anisocytosis 1+, Sodium Level 146H, Potassium Level 4.5, Chloride Level 109H, Carbon Dioxide Level 32, Anion Gap 5, Blood Urea Nitrogen 19H, Creatinine 0.5L, Estimat Glomerular Filtration Rate , Glucose Level 129H, Calcium Level 8.5, Phosphorus Level 3.0, Magnesium Level 1.9, Total Bilirubin 0.4, Aspartate Amino Transf (AST/SGOT) 23, Alanine Aminotransferase ( ALT/SGPT) 13, Alkaline Phosphatase 48, Total Protein 6.2L, Albumin 2.0L, Globulin 4.2, Albumin/Globulin Ratio 0.5L 07/05/17 10:12: Arterial Blood pH 7.390, Arterial Blood Partial Pressure CO2 57.6*H, Arterial Blood Partial Pressure O2 91.6, Arterial Blood HCO3 34.6H, Arterial Blood Oxygen Saturation 96.6, Arterial Blood Base Excess 8.3, Kunal Test Positive Height (Feet): 5 Height (Inches): 3.00 Weight (Pounds): 187 General Appearance: no apparent distress Respiratory/Chest: decreased breath sounds Abdomen: soft DARRYL ISSA Jul 05, 2017 16:10
--- NOTE | 2017-07-05 18:47 | Internal Med Progress Note ---
Subjective Date of Service: Jul 05, 2017 Physician Name Roberta Butler Attending Physician Ten Bourne MD Current Medications Medications (Trade) Dose Ordered Sig/Taryn Route PRN Reason Start Time Stop Time Status Last Admin Dose Admin Acetaminophen (Tylenol) 650 mg Q4H PRN ORAL fever 07/01/17 06:15 07/31/17 06:14 Albuterol/ Ipratropium (Albuterol/ Ipratropium) 3 ml Q4H PRN HHN Shortness of Breath 07/01/17 06:15 07/06/17 06:14 Ceftriaxone Sodium 1 gm/ Sodium Chloride 55 ml @ 110 mls/hr Q24H IVPB 07/04/17 14:00 07/11/17 13:59 07/05/17 14:22 Dextrose (Dextrose 50%) No Dose PRN IV hypoglycemia 07/02/17 10:45 08/01/17 10:44 Digoxin (Lanoxin) 0.125 mg DAILY ORAL 07/01/17 09:00 07/31/17 08:59 07/05/17 08:24 Duloxetine HCl (Cymbalta) 60 mg DAILY ORAL 07/01/17 09:00 07/31/17 08:59 07/05/17 08:24 Heparin Sodium (Porcine) (Heparin 5000 units/ml) 5,000 units EVERY 12 HOURS SUBQ 07/01/17 09:00 07/31/17 08:59 07/05/17 08:29 Hydrocortisone (Solu-CORTEF) 100 mg EVERY 12 HOURS IV 07/04/17 21:00 07/31/17 13:59 07/05/17 08:24 Insulin Aspart (NovoLOG) EVERY 6 HOURS SUBQ 07/05/17 12:00 08/01/17 11:29 07/05/17 12:05 Levofloxacin (Levaquin) 750 mg QHS NG 07/02/17 20:00 07/09/17 19:59 07/04/17 20:41 Lorazepam (Ativan 2mg/ml 1ml) 2 mg Q2H PRN IV For Anxiety 07/01/17 06:15 07/08/17 06:14 07/05/17 16:24 Losartan Potassium (Cozaar) 25 mg DAILY ORAL 07/01/17 09:00 07/31/17 08:59 07/05/17 08:27 Morphine Sulfate (Morphine Sulfate) 4 mg Q4H PRN IVP Severe Pain (Pain Scale 7-10) 07/01/17 06:15 07/08/17 06:14 07/04/17 23:43 Norepinephrine Bitartrate 4 mg/ Dextrose 254 ml @ 0 mls/hr Q24H IV 07/01/17 06:15 07/31/17 06:14 Ondansetron HCl (Zofran) 4 mg Q6H PRN IVP Nausea & Vomiting 07/01/17 06:15 07/31/17 06:14 Pantoprazole (Protonix) 40 mg Q12HR IV 07/01/17 21:00 07/31/17 08:59 07/05/17 08:24 Polyethylene Glycol (Miralax) 17 gm DAILYPRN PRN ORAL Constipation 07/01/17 06:15 07/31/17 06:14 Theophylline (John-Dur) 100 mg EVERY 12 HOURS ORAL 07/01/17 09:00 07/31/17 08:59 07/05/17 08:28 Allergies: Coded Allergies: No Known Allergies (Unverified , 01/11/17) ROS Limited/Unobtainable: Yes Subjective 82 YO F admitted with respiratory failure. Intubated and sedated. Cover for Int Kg-Dr Bourne. ICU. Objective Last Vital Signs Date Time Temp Pulse Resp B/P (MAP) Pulse Ox O2 Delivery O2 Flow Rate FiO2 07/05/17 18:00 58 18 152/76 94 Mechanical Ventilator 30 07/05/17 16:00 98.3 07/01/17 05:36 3.0 Laboratory Tests Test 07/05/17 03:20 07/05/17 10:12 White Blood Count 6.0 K/UL (4.8-10.8) Red Blood Count 3.25 M/UL (4.20-5.40) L Hemoglobin 10.6 G/DL (12.0-16.0) L Hematocrit 32.3 % (37.0-47.0) L Mean Corpuscular Volume 99 FL (80-99) Mean Corpuscular Hemoglobin 32.6 PG (27.0-31.0) H Mean Corpuscular Hemoglobin Concent 32.9 G/DL (32.0-36.0) Red Cell Distribution Width 14.8 % (11.6-14.8) Platelet Count 171 K/UL (150-450) Mean Platelet Volume 6.0 FL (6.5-10.1) L Neutrophils (%) (Auto) % (45.0-75.0) Lymphocytes (%) (Auto) % (20.0-45.0) Monocytes (%) (Auto) % (1.0-10.0) Eosinophils (%) (Auto) % (0.0-3.0) Basophils (%) (Auto) % (0.0-2.0) Differential Total Cells Counted 100 Neutrophils % (Manual) 83 % (45-75) H Lymphocytes % (Manual) 5 % (20-45) L Monocytes % (Manual) 4 % (1-10) Eosinophils % (Manual) 0 % (0-3) Basophils % (Manual) 0 % (0-2) Band Neutrophils 8 % (0-8) Platelet Estimate Adequate Platelet Morphology Normal Hypochromasia 1+ Anisocytosis 1+ Sodium Level 146 MMOL/L (136-145) H Potassium Level 4.5 MMOL/L (3.5-5.1) Chloride Level 109 MMOL/L (98-107) H Carbon Dioxide Level 32 MMOL/L (21-32) Anion Gap 5 mmol/L (5-15) Blood Urea Nitrogen 19 mg/dL (7-18) H Creatinine 0.5 MG/DL (0.55-1.30) L Estimat Glomerular Filtration Rate mL/min (>60) Glucose Level 129 MG/DL (74-106) H Calcium Level 8.5 MG/DL (8.5-10.1) Phosphorus Level 3.0 MG/DL (2.5-4.9) Magnesium Level 1.9 MG/DL (1.8-2.4) Total Bilirubin 0.4 MG/DL (0.2-1.0) Aspartate Amino Transf (AST/SGOT) 23 U/L (15-37) Alanine Aminotransferase (ALT/SGPT) 13 U/L (12-78) Alkaline Phosphatase 48 U/L (46-116) Total Protein 6.2 G/DL (6.4-8.2) L Albumin 2.0 G/DL (3.4-5.0) L Globulin 4.2 g/dL Albumin/Globulin Ratio 0.5 (1.0-2.7) L Arterial Blood pH 7.390 (7.350-7.450) Arterial Blood Partial Pressure CO2 57.6 mmHg (35.0-45.0) *H Arterial Blood Partial Pressure O2 91.6 mmHg (75.0-100.0) Arterial Blood HCO3 34.6 mmol/L (22.0-26.0) H Arterial Blood Oxygen Saturation 96.6 % (92.0-98.0) Arterial Blood Base Excess 8.3 Kunal Test Positive Intake and Output 07/04/17 07/05/17 19:00 07:00 Intake Total 920 ml 1370 ml Output Total 330 ml 685 ml Balance 590 ml 685 ml Free Water 30 ml 50 ml IV Total 560 ml 900 ml Tube Feeding 330 ml 360 ml Other 60 ml Output Urine Total 330 ml 685 ml # Bowel Movements 9 Objective General Appearance: WD/WN, lethargic EENT: normal ENT inspection Neck: non-tender, normal alignment, supple, normal inspection Cardiovascular: normal peripheral pulses, normal rate, regular rhythm, no gallop/murmur, no JVD Respiratory/Chest: Mechanical vent; respiratory distress, crackles/rales, rhonchi - bilaterally, expiratory wheezing Abdomen: non tender, soft, no organomegaly, no mass, decreased bowel sounds Edema: trace edema Skin: normal pigmentation, warm/dry Assessment/Plan Problem List: (1) HTN (hypertension) Assessment & Plan: Currently on levophed. (2) Respiratory failure, acute Assessment & Plan: Intubated. See pulm note. Cont theophylline, levaquin and ceftriaxone (3) Hypercapnia (4) Pulmonary hypertension (5) Pulmonary fibrosis (6) Hypothyroidism (7) Renal failure Assessment & Plan: See nephrology note. Status: not improved ROBERTA BUTLER Jul 05, 2017 18:47
[2017-07-06] VITALS (24 sets, daily range): BP systolic 101–169; BP diastolic 52–96
[2017-07-06 04:26] LABS: HEMATOCRIT 30.4 % (37.0-47.0); HEMOGLOBIN 9.9 G/DL (12.0-16.0); MEAN CORPUSCULAR VOLUME 98 FL (80-99); PLATELET COUNT 193 K/UL (150-450); RED BLOOD COUNT 3.12 M/UL (4.20-5.40); RED CELL DISTRIBUTION WIDTH 14.3 % (11.6-14.8); WHITE BLOOD COUNT 5.8 K/UL (4.8-10.8)
[2017-07-06] MEDS: Morphine Sulfate 4mg/ml Inj IVP PRN (04:28)
[2017-07-06 04:43] LABS: ALANINE AMINOTRANSFERASE 15 U/L (12-78); ALBUMIN 2.1 G/DL (3.4-5.0); ALBUMIN/GLOBULIN RATIO 0.6 (1.0-2.7); ALKALINE PHOSPHATASE 45 U/L (46-116); ANION GAP 1 mmol/L (5-15); ASPARTATE AMINO TRANSFERASE 18 U/L (15-37); BILIRUBIN,TOTAL 0.3 MG/DL (0.2-1.0); BLOOD UREA NITROGEN 11 mg/dL (7-18); CARBON DIOXIDE 38 MMOL/L (21-32); CHLORIDE 103 MMOL/L (98-107); CREATININE 0.5 MG/DL (0.55-1.30); PHOSPHORUS 2.4 MG/DL (2.5-4.9); POTASSIUM 3.1 MMOL/L (3.5-5.1); SODIUM 142 MMOL/L (136-145)
[2017-07-06] MEDS: NovoLOG Insulin Flexpen SUBQ SCH ×5 (05:58→23:22)
[2017-07-06] MEDS: Hydrocortisone 100mg Inj IV SCH ×2 (08:08→20:34)
[2017-07-06] MEDS: Pantoprazole Inj IV SCH ×2 (08:08→20:34)
[2017-07-06] MEDS: Digoxin 0.125mg tab ORAL SCH (08:09)
[2017-07-06] MEDS: Theophylline ER 100mg ORAL SCH ×2 (08:09→20:35)
[2017-07-06] MEDS: Losartan 25mg tab ORAL SCH (08:09)
[2017-07-06] MEDS: DULoxetine 30mg cap ORAL SCH (08:10)
[2017-07-06] MEDS: Heparin 5000 units/ml inj SUBQ SCH ×2 (08:11→20:35)
[2017-07-06] MEDS ORDERED: Potassium Phosphate 30 MM in NS 275 ML IV ONE (09:45)
--- NOTE | 2017-07-06 11:00 | Pulmonolgy Critical Care Note ---
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, 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 Discussed with: nurses, consultants, 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 - Objective Last 24 Hour Vital Signs Date Time Temp Pulse Resp B/P (MAP) Pulse Ox O2 Delivery O2 Flow Rate FiO2 07/06/17 10:00 72 17 118/56 95 Mechanical Ventilator 30 07/06/17 09:30 68 23 30 07/06/17 09:25 100 07/06/17 09:00 72 18 138/62 98 Mechanical Ventilator 30 07/06/17 08:09 116/52 07/06/17 08:09 70 07/06/17 08:00 99.0 70 16 116/52 98 Mechanical Ventilator 30 07/06/17 08:00 70 07/06/17 08:00 30 07/06/17 07:30 70 17 30 07/06/17 07:00 71 18 133/59 98 Mechanical Ventilator 30 07/06/17 06:15 111/67 07/06/17 06:00 74 18 111/67 98 Mechanical Ventilator 30 07/06/17 05:41 64 18 30 07/06/17 05:00 71 18 136/56 95 Mechanical Ventilator 30 07/06/17 04:00 62 07/06/17 04:00 30 07/06/17 04:00 98.9 62 14 136/56 96 Mechanical Ventilator 30 07/06/17 03:42 60 16 30 07/06/17 03:00 63 18 138/83 95 Mechanical Ventilator 30 07/06/17 02:00 66 18 152/69 95 Mechanical Ventilator 30 07/06/17 01:04 52 16 30 07/06/17 01:00 65 20 151/88 96 Mechanical Ventilator 30 07/06/17 00:00 30 07/06/17 00:00 68 07/06/17 00:00 99.1 55 18 150/69 95 Mechanical Ventilator 30 07/05/17 23:00 63 18 144/62 95 Mechanical Ventilator 30 07/05/17 22:56 61 22 30 07/05/17 22:00 70 18 158/75 95 Mechanical Ventilator 30 07/05/17 21:00 70 18 158/75 95 Mechanical Ventilator 30 07/05/17 21:00 59 16 30 07/05/17 20:00 30 07/05/17 20:00 98.4 61 18 119/45 97 Mechanical Ventilator 30 07/05/17 20:00 65 07/05/17 19:25 78 16 30 07/05/17 19:08 62 23 30 07/05/17 19:00 58 18 154/68 95 Mechanical Ventilator 30 07/05/17 18:00 58 18 152/76 94 Mechanical Ventilator 30 07/05/17 17:00 71 18 146/61 95 Mechanical Ventilator 30 07/05/17 16:50 66 17 30 07/05/17 16:00 98.3 77 18 153/86 97 Mechanical Ventilator 30 07/05/17 16:00 30 07/05/17 16:00 70 07/05/17 15:00 55 18 153/65 97 Mechanical Ventilator 30 07/05/17 14:40 71 21 30 07/05/17 14:00 59 18 140/60 97 Mechanical Ventilator 30 07/05/17 13:00 63 18 147/59 95 Mechanical Ventilator 30 07/05/17 12:32 68 17 30 07/05/17 12:00 98.5 71 18 142/83 95 Mechanical Ventilator 30 07/05/17 12:00 72 07/05/17 12:00 30 07/05/17 11:06 71 16 30 07/05/17 11:00 73 18 153/62 94 Mechanical Ventilator 30 Status: awake Condition: critical HEENT: atraumatic Neck: full ROM Lungs: chest wall tender Heart: regular Abdomen: soft, non-tender, feeding tube Extremities: no C/C/E, edema Decubiti: location Accucheck: 114 Critical Care - Subjective ROS Limited/Unobtainable: Yes - 6 ICU Day: 6 Intubation Day: 6 Interval Events: not tolerating weaning Condition: critical FI02: 30 Vent Support Breath Rate: 16 Vent Support Mode: AC Vent Tidal Volume: 500 Sputum Amount: Small PEEP: 5.0 PIP: 33 Tube Feeding Amount: 55 I&O: Intake and Output 07/05/17 07/06/17 19:00 07:00 Intake Total 895 ml 760 ml Output Total 1350 ml 1680 ml Balance -455 ml -920 ml Free Water 100 ml IV Total 260 ml Tube Feeding 585 ml 660 ml Other 50 ml Output Urine Total 1350 ml 1680 ml CXR: no change, ET in good position ET-Tube: 7.5 ET Position: 22 Labs: Laboratory Tests Test 07/06/17 03:40 07/06/17 10:00 White Blood Count 5.8 K/UL (4.8-10.8) Red Blood Count 3.12 M/UL (4.20-5.40) L Hemoglobin 9.9 G/DL (12.0-16.0) L Hematocrit 30.4 % (37.0-47.0) L Mean Corpuscular Volume 98 FL (80-99) Mean Corpuscular Hemoglobin 31.8 PG (27.0-31.0) H Mean Corpuscular Hemoglobin Concent 32.6 G/DL (32.0-36.0) Red Cell Distribution Width 14.3 % (11.6-14.8) Platelet Count 193 K/UL (150-450) Mean Platelet Volume 6.6 FL (6.5-10.1) Neutrophils (%) (Auto) % (45.0-75.0) Lymphocytes (%) (Auto) % (20.0-45.0) Monocytes (%) (Auto) % (1.0-10.0) Eosinophils (%) (Auto) % (0.0-3.0) Basophils (%) (Auto) % (0.0-2.0) Sodium Level 142 MMOL/L (136-145) Potassium Level 3.1 MMOL/L (3.5-5.1) L Chloride Level 103 MMOL/L (98-107) Carbon Dioxide Level 38 MMOL/L (21-32) H Anion Gap 1 mmol/L (5-15) L Blood Urea Nitrogen 11 mg/dL (7-18) Creatinine 0.5 MG/DL (0.55-1.30) L Estimat Glomerular Filtration Rate mL/min (>60) Glucose Level 112 MG/DL (74-106) H Calcium Level 8.0 MG/DL (8.5-10.1) L Phosphorus Level 2.4 MG/DL (2.5-4.9) L Magnesium Level 1.7 MG/DL (1.8-2.4) L Total Bilirubin 0.3 MG/DL (0.2-1.0) Aspartate Amino Transf (AST/SGOT) 18 U/L (15-37) Alanine Aminotransferase (ALT/SGPT) 15 U/L (12-78) Alkaline Phosphatase 45 U/L (46-116) L Total Protein 5.9 G/DL (6.4-8.2) L Albumin 2.1 G/DL (3.4-5.0) L Globulin 3.8 g/dL Albumin/Globulin Ratio 0.6 (1.0-2.7) L Arterial Blood pH 7.442 (7.350-7.450) Arterial Blood Partial Pressure CO2 52.6 mmHg (35.0-45.0) H Arterial Blood Partial Pressure O2 96.0 mmHg (75.0-100.0) Arterial Blood HCO3 35.7 mmol/L (22.0-26.0) H Arterial Blood Oxygen Saturation 97.0 % (92.0-98.0) Arterial Blood Base Excess 9.5 Kunal Test Positive MARIZA CHANEL Jul 06, 2017 11:00
[2017-07-06] MEDS: cefTRIAXone 1 GM in NS 55 ML IVPB SCH (13:24)
--- NOTE | 2017-07-06 14:17 | Diagnostic Imaging Report ---
Indication: Dyspnea Comparison: July 05, 2017 A single view chest radiograph was obtained. Findings: Interstitial opacities prominent bilaterally. Fibrosis suspected. Superimposed acute interstitial pneumonitis or edema is not excluded. There is a hiatal hernia. NG tube is in good position. Surgical clips right upper quadrant abdomen noted. 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
--- NOTE | 2017-07-06 14:53 | Infectious Diseases Prog Note ---
Assessment/Plan Assessment/Plan Assessment: Acute hypoxic/Hypercapneic respiratory failure- likely flare of her underlying pulmonary disease with possible concomitant PNA- r/o atypical -CXR 07/05: Bilateral interstitial opacification again noted with suggestion of slight increased airspace disease on the left. -CXR 07/02: Bilateral interstitial and airspace disease, likely fibrotic change persists, unchanged. -sp Cx Normal gerald -Influenza neg -legionella ag urine neg Afebrile/no leukocytosis COPD on home O2 at 2L pHTN pulmonary fibrosis hypothyroidism GERD HTN mixed connective tissue disorder, s/p R TKR [facility] resident Plan: -Continue Ceftriaxone abx d#11/08 for PNA given no isolation of resistant organisms -07/05 SP Levaquin #5 -07/04 SP Zosyn #4 -07/03 SP IV Vancomycin #3 -07/02 SP Amikacin #2 -07/01 SP Ertapenem x1 -f/u cx -Monitor CBC/BMP, temperatures -ETT care -aspiration precautions Thank you for this consultation. Will continue to follow along with you. Discussed with RN Subjective Allergies: Coded Allergies: No Known Allergies (Unverified , 01/11/17) Subjective afebrile no leukocytosis remains on MV, fio2 30% Objective Vital Signs Last 24 Hour Vital Signs Date Time Temp Pulse Resp B/P (MAP) Pulse Ox O2 Delivery O2 Flow Rate FiO2 07/06/17 14:00 99 17 126/65 97 Mechanical Ventilator 30 07/06/17 13:01 93 35 07/06/17 13:00 94 17 122/90 100 Mechanical Ventilator 30 07/06/17 12:00 72 07/06/17 12:00 30 07/06/17 12:00 98.9 72 17 122/90 95 Mechanical Ventilator 30 07/06/17 11:00 79 17 101/78 98 Mechanical Ventilator 30 07/06/17 10:57 75 19 30 07/06/17 10:00 72 17 118/56 95 Mechanical Ventilator 30 07/06/17 09:30 68 23 30 07/06/17 09:25 100 07/06/17 09:00 72 18 138/62 98 Mechanical Ventilator 30 07/06/17 08:09 116/52 07/06/17 08:09 70 07/06/17 08:00 99.0 70 16 116/52 98 Mechanical Ventilator 30 07/06/17 08:00 70 2/2/18 08:00 30 07/06/17 07:30 70 17 30 07/06/17 07:00 71 18 133/59 98 Mechanical Ventilator 30 07/06/17 06:15 111/67 07/06/17 06:00 74 18 111/67 98 Mechanical Ventilator 30 07/06/17 05:41 64 18 30 07/06/17 05:00 71 18 136/56 95 Mechanical Ventilator 30 07/06/17 04:00 62 07/06/17 04:00 30 07/06/17 04:00 98.9 62 14 136/56 96 Mechanical Ventilator 30 07/06/17 03:42 60 16 30 07/06/17 03:00 63 18 138/83 95 Mechanical Ventilator 30 07/06/17 02:00 66 18 152/69 95 Mechanical Ventilator 30 07/06/17 01:04 52 16 30 07/06/17 01:00 65 20 151/88 96 Mechanical Ventilator 30 07/06/17 00:00 30 07/06/17 00:00 68 07/06/17 00:00 99.1 55 18 150/69 95 Mechanical Ventilator 30 07/05/17 23:00 63 18 144/62 95 Mechanical Ventilator 30 07/05/17 22:56 61 22 30 07/05/17 22:00 70 18 158/75 95 Mechanical Ventilator 30 07/05/17 21:00 70 18 158/75 95 Mechanical Ventilator 30 07/05/17 21:00 59 16 30 07/05/17 20:00 30 07/05/17 20:00 98.4 61 18 119/45 97 Mechanical Ventilator 30 07/05/17 20:00 65 07/05/17 19:25 78 16 30 07/05/17 19:08 62 23 30 07/05/17 19:00 58 18 154/68 95 Mechanical Ventilator 30 07/05/17 18:00 58 18 152/76 94 Mechanical Ventilator 30 07/05/17 17:00 71 18 146/61 95 Mechanical Ventilator 30 07/05/17 16:50 66 17 30 07/05/17 16:00 98.3 77 18 153/86 97 Mechanical Ventilator 30 07/05/17 16:00 30 07/05/17 16:00 70 07/05/17 15:00 55 18 153/65 97 Mechanical Ventilator 30 Height (Feet): 5 Height (Inches): 3.00 Weight (Pounds): 194 Objective GENERAL: The patient is well developed and well nourished female, who is intubated and sedated. HEENT: Eyes, pupils equal and responsive to light and accommodation. Extraocular movements are intact. NECK: Supple. No lymphadenopathy. CHEST: Few diffuse wheezes bilaterally with few rales at bilateral bases, otherwise clear to auscultation. CARDIOVASCULAR: Regular rhythm and rate. S1 and S2 normal without murmurs, rubs, or gallops. ABDOMEN: Soft, nontender, and nondistended. Positive bowel sounds. No evidence of hepatosplenomegaly. Currently, no rebound or guarding noted. EXTREMITIES: Negative for clubbing, cyanosis, or edema. NEUROLOGICAL: Unable to assess secondary to the patient's mental status. Microbiology Date/Time Source Procedure Growth Status 07/05/17 18:00 Sputum Gram Stain - Final Resulted 07/05/17 18:00 Sputum Sputum Culture Pending Resulted Laboratory Tests Test 07/06/17 03:40 07/06/17 10:00 07/06/17 13:55 White Blood Count 5.8 K/UL (4.8-10.8) Red Blood Count 3.12 M/UL (4.20-5.40) L Hemoglobin 9.9 G/DL (12.0-16.0) L Hematocrit 30.4 % (37.0-47.0) L Mean Corpuscular Volume 98 FL (80-99) Mean Corpuscular Hemoglobin 31.8 PG (27.0-31.0) H Mean Corpuscular Hemoglobin Concent 32.6 G/DL (32.0-36.0) Red Cell Distribution Width 14.3 % (11.6-14.8) Platelet Count 193 K/UL (150-450) Mean Platelet Volume 6.6 FL (6.5-10.1) Neutrophils (%) (Auto) % (45.0-75.0) Lymphocytes (%) (Auto) % (20.0-45.0) Monocytes (%) (Auto) % (1.0-10.0) Eosinophils (%) (Auto) % (0.0-3.0) Basophils (%) (Auto) % (0.0-2.0) Sodium Level 142 MMOL/L (136-145) Potassium Level 3.1 MMOL/L (3.5-5.1) L Chloride Level 103 MMOL/L (98-107) Carbon Dioxide Level 38 MMOL/L (21-32) H Anion Gap 1 mmol/L (5-15) L Blood Urea Nitrogen 11 mg/dL (7-18) Creatinine 0.5 MG/DL (0.55-1.30) L Estimat Glomerular Filtration Rate mL/min (>60) Glucose Level 112 MG/DL (74-106) H Calcium Level 8.0 MG/DL (8.5-10.1) L Phosphorus Level 2.4 MG/DL (2.5-4.9) L Magnesium Level 1.7 MG/DL (1.8-2.4) L Total Bilirubin 0.3 MG/DL (0.2-1.0) Aspartate Amino Transf (AST/SGOT) 18 U/L (15-37) Alanine Aminotransferase (ALT/SGPT) 15 U/L (12-78) Alkaline Phosphatase 45 U/L (46-116) L Total Protein 5.9 G/DL (6.4-8.2) L Albumin 2.1 G/DL (3.4-5.0) L Globulin 3.8 g/dL Albumin/Globulin Ratio 0.6 (1.0-2.7) L Arterial Blood pH 7.442 (7.350-7.450) 7.333 (7.350-7.450) Arterial Blood Partial Pressure CO2 52.6 mmHg (35.0-45.0) H 78.7 mmHg (35.0-45.0) *H Arterial Blood Partial Pressure O2 96.0 mmHg (75.0-100.0) 478.3 mmHg (75.0-100.0) H Arterial Blood HCO3 35.7 mmol/L (22.0-26.0) H 40.8 mmol/L (22.0-26.0) H Arterial Blood Oxygen Saturation 97.0 % (92.0-98.0) 99.2 % (92.0-98.0) H Arterial Blood Base Excess 9.5 12 Kunal Test Positive Positive Current Medications Medications (Trade) Dose Ordered Sig/Taryn Route PRN Reason Start Time Stop Time Status Last Admin Dose Admin Acetaminophen (Tylenol) 650 mg Q4H PRN ORAL fever 07/01/17 06:15 07/31/17 06:14 Ceftriaxone Sodium 1 gm/ Sodium Chloride 55 ml @ 110 mls/hr Q24H IVPB 07/04/17 14:00 07/11/17 13:59 07/06/17 13:24 Dextrose (Dextrose 50%) No Dose PRN IV hypoglycemia 07/02/17 10:45 08/01/17 10:44 Digoxin (Lanoxin) 0.125 mg DAILY ORAL 07/01/17 09:00 07/31/17 08:59 07/06/17 08:09 Duloxetine HCl (Cymbalta) 60 mg DAILY ORAL 07/01/17 09:00 07/31/17 08:59 07/06/17 08:10 Heparin Sodium (Porcine) (Heparin 5000 units/ml) 5,000 units EVERY 12 HOURS SUBQ 07/01/17 09:00 07/31/17 08:59 07/06/17 08:11 Hydrocortisone (Solu-CORTEF) 100 mg EVERY 12 HOURS IV 07/04/17 21:00 07/31/17 13:59 07/06/17 08:08 Insulin Aspart (NovoLOG) EVERY 6 HOURS SUBQ 07/05/17 12:00 08/01/17 11:29 07/06/17 11:47 Levofloxacin (Levaquin) 750 mg QHS NG 07/02/17 20:00 07/09/17 19:59 07/05/17 20:20 Lorazepam (Ativan 2mg/ml 1ml) 2 mg Q2H PRN IV For Anxiety 07/01/17 06:15 07/08/17 06:14 07/05/17 16:24 Losartan Potassium (Cozaar) 25 mg DAILY ORAL 07/01/17 09:00 07/31/17 08:59 07/06/17 08:09 Morphine Sulfate (Morphine Sulfate) 4 mg Q4H PRN IVP Severe Pain (Pain Scale 7-10) 07/01/17 06:15 07/08/17 06:14 07/06/17 04:28 Norepinephrine Bitartrate 4 mg/ Dextrose 254 ml @ 0 mls/hr Q24H IV 07/01/17 06:15 07/31/17 06:14 Ondansetron HCl (Zofran) 4 mg Q6H PRN IVP Nausea & Vomiting 07/01/17 06:15 07/31/17 06:14 Pantoprazole (Protonix) 40 mg Q12HR IV 07/01/17 21:00 07/31/17 08:59 07/06/17 08:08 Polyethylene Glycol (Miralax) 17 gm DAILYPRN PRN ORAL Constipation 07/01/17 06:15 07/31/17 06:14 Potassium Phosphate 30 mm/ Sodium Chloride 285 ml @ 47.5 mls/hr ONCE ONCE IV 07/06/17 09:45 07/06/17 15:44 07/06/17 10:03 Theophylline (John-Dur) 100 mg EVERY 12 HOURS ORAL 07/01/17 09:00 07/31/17 08:59 07/06/17 08:09 Roseanna Penn M.D. Jul 06, 2017 14:53
--- NOTE | 2017-07-06 15:43 | Emergency Room Report ---
History of Present Illness General Chief Complaint: Dyspnea/Respdistress Source: Patient, Medical Record Present Illness Allergies: Coded Allergies: No Known Allergies (Unverified , 01/11/17) Patient History Last Menstrual Period: NA Now: No Nursing Documentation-PMH Hx Cancer: No Hx Gastrointestinal Problems: Yes - GERD Hx Neurological Problems: No Physical Exam Vital Signs Date Time Temp Pulse Resp B/P (MAP) Pulse Ox O2 Delivery O2 Flow Rate FiO2 06/30/17 22:46 97.9 110 28 133/68 99 Non-Rebreather 15.0 07/01/17 00:10 50 Procedures Intubation Intubation : Consent: Emergent Intubation Method: orotracheal Tube Size (cm): 7.0 Medications: Etomidate, Rocuronium Breath Sounds after Intubation: equal Intubation Complications: no complications Post Intubation Xray: Yes Attempts: One Patient Tolerated: Well Complications: None Medical Decision Making Diagnostic Impression: Primary Impression: Dyspnea Qualified Codes: R06.00 - Dyspnea, unspecified Additional Impressions: Mixed connective tissue disease Pulmonary fibrosis Pulmonary hypertension COPD exacerbation Respiratory failure, acute Qualified Codes: J96.02 - Acute respiratory failure with hypercapnia ER Course I was called to ICU, patient self extubated, intubated with complications Last Vital Signs Date Time Temp Pulse Resp B/P (MAP) Pulse Ox O2 Delivery O2 Flow Rate FiO2 07/06/17 15:33 111 18 30 07/06/17 14:00 126/65 97 Mechanical Ventilator 07/06/17 12:00 98.9 07/01/17 05:36 3.0 Disposition: ADMITTED INPATIENT Condition: Critical Referrals: NON PHYSICIAN (PCP) Jossue Maxwell M.D. Jul 06, 2017 15:43
--- NOTE | 2017-07-06 17:04 | Diagnostic Imaging Report ---
Indication: Intubation Comparison: 7:17 AM A single view chest radiograph was obtained. Findings: Bilateral infiltrates are present. The heart is enlarged. There is a hernia. Nasogastric tube is in good position. Bones are osteopenic. IMPRESSION: No change compared to last study earlier today. Endotracheal tube in good position
--- NOTE | 2017-07-06 18:49 | Internal Med Progress Note ---
Subjective Date of Service: Jul 06, 2017 Physician Name Roberta Butler Attending Physician Ten Bourne MD Current Medications Medications (Trade) Dose Ordered Sig/Taryn Route PRN Reason Start Time Stop Time Status Last Admin Dose Admin Acetaminophen (Tylenol) 650 mg Q4H PRN ORAL fever 07/01/17 06:15 07/31/17 06:14 Albuterol/ Ipratropium (Albuterol/ Ipratropium) 3 ml Q4HRT HHN 07/06/17 19:00 07/11/17 18:59 Ceftriaxone Sodium 1 gm/ Sodium Chloride 55 ml @ 110 mls/hr Q24H IVPB 07/04/17 14:00 07/11/17 13:59 07/06/17 13:24 Dextrose (Dextrose 50%) No Dose PRN IV hypoglycemia 07/02/17 10:45 08/01/17 10:44 Digoxin (Lanoxin) 0.125 mg DAILY ORAL 07/01/17 09:00 07/31/17 08:59 07/06/17 08:09 Duloxetine HCl (Cymbalta) 60 mg DAILY ORAL 07/01/17 09:00 07/31/17 08:59 07/06/17 08:10 Heparin Sodium (Porcine) (Heparin 5000 units/ml) 5,000 units EVERY 12 HOURS SUBQ 07/01/17 09:00 07/31/17 08:59 07/06/17 08:11 Hydrocortisone (Solu-CORTEF) 100 mg EVERY 12 HOURS IV 07/04/17 21:00 07/31/17 13:59 07/06/17 08:08 Insulin Aspart (NovoLOG) EVERY 6 HOURS SUBQ 07/05/17 12:00 08/01/17 11:29 07/06/17 18:30 Lorazepam (Ativan 2mg/ml 1ml) 2 mg Q2H PRN IV For Anxiety 07/01/17 06:15 07/08/17 06:14 07/05/17 16:24 Losartan Potassium (Cozaar) 25 mg DAILY ORAL 07/01/17 09:00 07/31/17 08:59 07/06/17 08:09 Morphine Sulfate (Morphine Sulfate) 4 mg Q4H PRN IVP Severe Pain (Pain Scale 7-10) 07/01/17 06:15 07/08/17 06:14 07/06/17 04:28 Norepinephrine Bitartrate 4 mg/ Dextrose 254 ml @ 0 mls/hr Q24H IV 07/01/17 06:15 07/31/17 06:14 Ondansetron HCl (Zofran) 4 mg Q6H PRN IVP Nausea & Vomiting 07/01/17 06:15 07/31/17 06:14 Pantoprazole (Protonix) 40 mg Q12HR IV 07/01/17 21:00 07/31/17 08:59 07/06/17 08:08 Polyethylene Glycol (Miralax) 17 gm DAILYPRN PRN ORAL Constipation 07/01/17 06:15 07/31/17 06:14 Theophylline (John-Dur) 100 mg EVERY 12 HOURS ORAL 07/01/17 09:00 07/31/17 08:59 07/06/17 08:09 Allergies: Coded Allergies: No Known Allergies (Unverified , 01/11/17) ROS Limited/Unobtainable: Yes Subjective 82 YO F admitted with respiratory failure. Intubated and sedated. Cover for Int Med-Dr Bourne. ICU. Objective Last Vital Signs Date Time Temp Pulse Resp B/P (MAP) Pulse Ox O2 Delivery O2 Flow Rate FiO2 07/06/17 18:00 71 17 125/58 95 Mechanical Ventilator 30 07/06/17 16:00 98.4 07/01/17 05:36 3.0 Laboratory Tests Test 07/06/17 03:40 07/06/17 10:00 07/06/17 13:55 07/06/17 16:50 White Blood Count 5.8 K/UL (4.8-10.8) Red Blood Count 3.12 M/UL (4.20-5.40) L Hemoglobin 9.9 G/DL (12.0-16.0) L Hematocrit 30.4 % (37.0-47.0) L Mean Corpuscular Volume 98 FL (80-99) Mean Corpuscular Hemoglobin 31.8 PG (27.0-31.0) H Mean Corpuscular Hemoglobin Concent 32.6 G/DL (32.0-36.0) Red Cell Distribution Width 14.3 % (11.6-14.8) Platelet Count 193 K/UL (150-450) Mean Platelet Volume 6.6 FL (6.5-10.1) Neutrophils (%) (Auto) % (45.0-75.0) Lymphocytes (%) (Auto) % (20.0-45.0) Monocytes (%) (Auto) % (1.0-10.0) Eosinophils (%) (Auto) % (0.0-3.0) Basophils (%) (Auto) % (0.0-2.0) Sodium Level 142 MMOL/L (136-145) Potassium Level 3.1 MMOL/L (3.5-5.1) L Chloride Level 103 MMOL/L (98-107) Carbon Dioxide Level 38 MMOL/L (21-32) H Anion Gap 1 mmol/L (5-15) L Blood Urea Nitrogen 11 mg/dL (7-18) Creatinine 0.5 MG/DL (0.55-1.30) L Estimat Glomerular Filtration Rate mL/min (>60) Glucose Level 112 MG/DL (74-106) H Calcium Level 8.0 MG/DL (8.5-10.1) L Phosphorus Level 2.4 MG/DL (2.5-4.9) L Magnesium Level 1.7 MG/DL (1.8-2.4) L Total Bilirubin 0.3 MG/DL (0.2-1.0) Aspartate Amino Transf (AST/SGOT) 18 U/L (15-37) Alanine Aminotransferase (ALT/SGPT) 15 U/L (12-78) Alkaline Phosphatase 45 U/L (46-116) L Total Protein 5.9 G/DL (6.4-8.2) L Albumin 2.1 G/DL (3.4-5.0) L Globulin 3.8 g/dL Albumin/Globulin Ratio 0.6 (1.0-2.7) L Arterial Blood pH 7.442 (7.350-7.450) 7.333 (7.350-7.450) 7.410 (7.350-7.450) Arterial Blood Partial Pressure CO2 52.6 mmHg (35.0-45.0) H 78.7 mmHg (35.0-45.0) *H 57.3 mmHg (35.0-45.0) *H Arterial Blood Partial Pressure O2 96.0 mmHg (75.0-100.0) 478.3 mmHg (75.0-100.0) H 113.9 mmHg (75.0-100.0) H Arterial Blood HCO3 35.7 mmol/L (22.0-26.0) H 40.8 mmol/L (22.0-26.0) H 35.5 mmol/L (22.0-26.0) H Arterial Blood Oxygen Saturation 97.0 % (92.0-98.0) 99.2 % (92.0-98.0) H 97.5 % (92.0-98.0) Arterial Blood Base Excess 9.5 12 9.1 Kunal Test Positive Positive Positive Microbiology Date/Time Source Procedure Growth Status 07/05/17 18:00 Sputum Gram Stain - Final Resulted 07/05/17 18:00 Sputum Sputum Culture Pending Resulted Intake and Output 07/05/17 07/06/17 19:00 07:00 Intake Total 895 ml 760 ml Output Total 1350 ml 1680 ml Balance -455 ml -920 ml Free Water 100 ml IV Total 260 ml Tube Feeding 585 ml 660 ml Other 50 ml Output Urine Total 1350 ml 1680 ml Objective General Appearance: WD/WN, lethargic EENT: normal ENT inspection Neck: non-tender, normal alignment, supple, normal inspection Cardiovascular: normal peripheral pulses, normal rate, regular rhythm, no gallop/murmur, no JVD Respiratory/Chest: Mechanical vent; respiratory distress, crackles/rales, rhonchi - bilaterally, expiratory wheezing Abdomen: non tender, soft, no organomegaly, no mass, decreased bowel sounds Edema: trace edema Skin: normal pigmentation, warm/dry Assessment/Plan Problem List: (1) HTN (hypertension) Assessment & Plan: Currently on levophed. (2) Respiratory failure, acute Assessment & Plan: Intubated. See pulm note. Cont theophylline, levaquin and ceftriaxone (3) Hypercapnia (4) Pulmonary hypertension (5) Pulmonary fibrosis (6) Hypothyroidism (7) Renal failure Assessment & Plan: See nephrology note. Status: not improved ROBERTA BUTLER Jul 06, 2017 18:49
[2017-07-06] MEDS: Albuterol/Ipratropium 3ml neb HHN SCH ×2 (19:16→22:52)
[2017-07-07] VITALS (24 sets, daily range): BP systolic 109–161; BP diastolic 44–95
[2017-07-07] MEDS: Morphine Sulfate 4mg/ml Inj IVP PRN ×3 (01:08→21:04)
[2017-07-07] MEDS: LORazepam Inj 2mg/ml 1ml IV PRN (02:17)
[2017-07-07] MEDS: Albuterol/Ipratropium 3ml neb HHN SCH ×6 (03:06→23:07)
[2017-07-07] MEDS: NovoLOG Insulin Flexpen SUBQ SCH ×4 (05:37→23:43)
[2017-07-07 05:41] LABS: HEMATOCRIT 31.8 % (37.0-47.0); HEMOGLOBIN 10.4 G/DL (12.0-16.0); MEAN CORPUSCULAR VOLUME 97 FL (80-99); PLATELET COUNT 223 K/UL (150-450); RED BLOOD COUNT 3.27 M/UL (4.20-5.40); RED CELL DISTRIBUTION WIDTH 14.3 % (11.6-14.8); WHITE BLOOD COUNT 6.6 K/UL (4.8-10.8)
[2017-07-07 06:13] LABS: ALANINE AMINOTRANSFERASE 22 U/L (12-78); ALBUMIN 2.2 G/DL (3.4-5.0); ALBUMIN/GLOBULIN RATIO 0.6 (1.0-2.7); ALKALINE PHOSPHATASE 45 U/L (46-116); ANION GAP -1 mmol/L (5-15); ASPARTATE AMINO TRANSFERASE 24 U/L (15-37); BILIRUBIN,TOTAL 0.3 MG/DL (0.2-1.0); BLOOD UREA NITROGEN 11 mg/dL (7-18); CALCIUM 8.1 MG/DL (8.5-10.1); CARBON DIOXIDE 39 MMOL/L (21-32); CHLORIDE 103 MMOL/L (98-107); CREATININE 0.5 MG/DL (0.55-1.30); PHOSPHORUS 3.5 MG/DL (2.5-4.9); POTASSIUM 3.4 MMOL/L (3.5-5.1); SODIUM 141 MMOL/L (136-145)
--- NOTE | 2017-07-07 08:15 | Pulmonolgy Critical Care Note ---
Critical Care - Asmt/Plan Assessment/Plan: ASSESSMENT Acute hypoxemic hypercapnic RF requiring intubation ( 2 to underlying pulmonary disese and PNA) s/p self extubation s/p reintubation PNA pulmonary fibrosis pulmonary HTN COPD exacerbation HTN [id number] mixed connective tissue disorder anemia DM proteinuria Hypoalbuminemia electrolyte imbalance ( hypo K, hypo Mg) PLAN OF CARE ICU Vent support pulmonary toilet Daily CXR and ABG wean when ready Trial of theophylline stress dose of steroids ( patient was on steroids) Abx ID follows sputum cx negative, blood cx, influenza screen negative, prior sputum cx + ashok aspiration precautions, NGT feeding, Nephro follows monitor renal parameters, lytes, correct as needed ECHO with pEF 60-65% and evidence of mild pulmonary HTN ( prior severe pulmonary HTN) BP management with ARB and optimize as needed BS management with SS of insulin, MnD7m-6.1, likely steroids induced DVT GI prophylaxis Bowel regimen case discussed and evaluated by supervising physician Critical Care - Objective Last 24 Hour Vital Signs Date Time Temp Pulse Resp B/P (MAP) Pulse Ox O2 Delivery O2 Flow Rate FiO2 07/07/17 05:00 78 17 124/50 97 Mechanical Ventilator 30 07/07/17 05:00 68 19 30 07/07/17 04:00 30 07/07/17 04:00 72 07/07/17 04:00 97.8 80 17 124/50 98 Mechanical Ventilator 30 07/07/17 03:16 60 16 100 Mechanical Ventilator 30 07/07/17 03:06 60 17 30 07/07/17 03:06 60 17 98 Mechanical Ventilator 30 07/07/17 03:00 61 17 117/83 98 Mechanical Ventilator 30 07/07/17 02:00 65 17 161/83 97 Mechanical Ventilator 30 07/07/17 01:00 71 17 156/73 97 Mechanical Ventilator 30 07/07/17 00:56 78 24 30 07/07/17 00:00 72 07/07/17 00:00 30 07/07/17 00:00 98.9 70 18 130/62 97 Mechanical Ventilator 30 07/06/17 23:04 64 16 98 Mechanical Ventilator 30 07/06/17 23:00 74 17 149/62 96 Mechanical Ventilator 30 07/06/17 22:52 61 16 30 07/06/17 22:52 61 16 97 Mechanical Ventilator 30 07/06/17 22:00 62 17 147/63 97 Mechanical Ventilator 30 07/06/17 21:00 68 17 128/55 97 Mechanical Ventilator 30 07/06/17 20:55 72 19 30 07/06/17 20:00 98.7 73 18 119/56 97 Mechanical Ventilator 30 07/06/17 20:00 30 07/06/17 20:00 77 07/06/17 19:24 79 19 100 Mechanical Ventilator 30 07/06/17 19:14 77 17 98 Mechanical Ventilator 30 07/06/17 19:12 77 17 30 07/06/17 19:00 77 17 128/58 95 Mechanical Ventilator 30 07/06/17 18:00 71 17 125/58 95 Mechanical Ventilator 30 07/06/17 17:04 80 18 30 07/06/17 17:00 72 17 118/58 95 Mechanical Ventilator 30 07/06/17 16:47 89 21 50 07/06/17 16:00 98 07/06/17 16:00 98.4 114 17 153/96 91 Mechanical Ventilator 30 07/06/17 16:00 30 07/06/17 15:33 111 18 30 07/06/17 15:32 30 07/06/17 15:00 99 17 169/96 91 Mechanical Ventilator 30 07/06/17 14:00 99 17 126/65 97 Mechanical Ventilator 30 07/06/17 13:01 93 35 07/06/17 13:00 94 17 122/90 100 Mechanical Ventilator 30 07/06/17 12:00 72 07/06/17 12:00 30 07/06/17 12:00 98.9 72 17 122/90 95 Mechanical Ventilator 30 07/06/17 11:00 79 17 101/78 98 Mechanical Ventilator 30 07/06/17 10:57 75 19 30 07/06/17 10:00 72 17 118/56 95 Mechanical Ventilator 30 07/06/17 09:30 68 23 30 07/06/17 09:25 100 07/06/17 09:00 72 18 138/62 98 Mechanical Ventilator 30 Status: awake Condition: critical HEENT: atraumatic, normocephalic, other - OP with ET in place, intact, OP tube with TF Lungs: clear Heart: HR/BP stable Abdomen: soft, non-tender - obese, active bowel sounds Extremities: no C/C/E Micro: Microbiology Date/Time Source Procedure Growth Status 07/05/17 18:00 Sputum Gram Stain - Final Resulted 07/05/17 18:00 Sputum Sputum Culture Pending Resulted Accucheck: 158 Critical Care - Subjective ROS Limited/Unobtainable: Yes Interval Events: remains intubated afebrile, no leukocytosis s/p self extubation and reintubation 2/2 ABG better but still wit mild hypercapnia Condition: critical IV Access: central - L femoral EKG Rhythm: Sinus Rhythm FI02: 30 Vent Support Breath Rate: 16 Vent Support Mode: AC Vent Tidal Volume: 500 Sputum Amount: Moderate PEEP: 5.0 PIP: 30 Tube Feeding Amount: 55 I&O: Intake and Output 07/06/17 07/07/17 19:00 07:00 Intake Total 1262.5 ml 580 ml Output Total 1150 ml 1275 ml Balance 112.5 ml -695 ml Free Water 100 ml IV Total 392.5 ml Tube Feeding 770 ml 550 ml Other 30 ml Output Urine Total 1150 ml 1275 ml CXR: Stable satisfactory positions of endotracheal and nasogastric tubes. Bilateral interstitial and airspace opacities, cardiomegaly are unchanged ET-Tube: 7.0 ET Position: 21 Arriaga ([facility]),Kisha DUNBAR Jul 07, 2017 08:15
--- NOTE | 2017-07-07 09:09 | Infectious Diseases Prog Note ---
Assessment/Plan Assessment/Plan Assessment: Acute hypoxic/Hypercapneic respiratory failure- likely flare of her underlying pulmonary disease with possible concomitant PNA- r/o atypical -CXR 07/05: Bilateral interstitial opacification again noted with suggestion of slight increased airspace disease on the left. -CXR 07/02: Bilateral interstitial and airspace disease, likely fibrotic change persists, unchanged. -sp Cx Normal gerald -Influenza neg -legionella ag urine neg Afebrile/no leukocytosis COPD on home O2 at 2L pHTN pulmonary fibrosis hypothyroidism GERD HTN mixed connective tissue disorder, s/p R TKR detention resident Plan: -Continue Ceftriaxone abx d#12/08 for PNA given no isolation of resistant organisms -07/05 SP Levaquin #5 -07/04 SP Zosyn #4 -07/03 SP IV Vancomycin #3 -07/02 SP Amikacin #2 -07/01 SP Ertapenem x1 -f/u cx -Monitor CBC/BMP, temperatures -ETT care -aspiration precautions Thank you for this consultation. Will continue to follow along with you. Discussed with RN Subjective Allergies: Coded Allergies: No Known Allergies (Unverified , 01/11/17) Subjective afebrile no leukocytosis remains on MV, fio2 30% Objective Vital Signs Last 24 Hour Vital Signs Date Time Temp Pulse Resp B/P (MAP) Pulse Ox O2 Delivery O2 Flow Rate FiO2 07/07/17 08:27 71 22 98 Mechanical Ventilator 30 07/07/17 08:17 70 18 99 Mechanical Ventilator 30 07/07/17 08:00 30 07/07/17 08:00 98.4 72 17 128/53 97 Mechanical Ventilator 30 07/07/17 08:00 67 07/07/17 07:30 109/44 218 07:00 97.8 07/07/17 07:00 74 19 109/44 98 Mechanical Ventilator 30 07/07/17 06:00 76 17 129/74 98 Mechanical Ventilator 30 07/07/17 05:00 78 17 124/50 97 Mechanical Ventilator 30 07/07/17 05:00 68 19 30 07/07/17 04:00 30 07/07/17 04:00 72 07/07/17 04:00 97.8 80 17 124/50 98 Mechanical Ventilator 30 07/07/17 03:16 60 16 100 Mechanical Ventilator 30 2/3/18 03:06 60 17 30 2/3/18 03:06 60 17 98 Mechanical Ventilator 30 2/3/18 03:00 61 17 117/83 98 Mechanical Ventilator 30 2/3/18 02:00 65 17 161/83 97 Mechanical Ventilator 30 2/3/18 01:00 71 17 156/73 97 Mechanical Ventilator 30 2/3/18 00:56 78 24 30 2/3/18 00:00 72 2/3/18 00:00 30 2/3/18 00:00 98.9 70 18 130/62 97 Mechanical Ventilator 30 2/2/18 23:04 64 16 98 Mechanical Ventilator 30 2/2/18 23:00 74 17 149/62 96 Mechanical Ventilator 30 2/2/18 22:52 61 16 30 2/2/18 22:52 61 16 97 Mechanical Ventilator 30 2/2/18 22:00 62 17 147/63 97 Mechanical Ventilator 30 2/2/18 21:00 68 17 128/55 97 Mechanical Ventilator 30 2/2/18 20:55 72 19 30 2/2/18 20:00 98.7 73 18 119/56 97 Mechanical Ventilator 30 2/2/18 20:00 30 2/2/18 20:00 77 2/2/18 19:24 79 19 100 Mechanical Ventilator 30 2/2/18 19:14 77 17 98 Mechanical Ventilator 30 2/2/18 19:12 77 17 30 2/2/18 19:00 77 17 128/58 95 Mechanical Ventilator 30 2/2/18 18:00 71 17 125/58 95 Mechanical Ventilator 30 2/2/18 17:04 80 18 30 2/2/18 17:00 72 17 118/58 95 Mechanical Ventilator 30 2/2/18 16:47 89 21 50 2/2/18 16:00 98 2/2/18 16:00 98.4 114 17 153/96 91 Mechanical Ventilator 30 2/2/18 16:00 30 2/2/18 15:33 111 18 30 2/2/18 15:32 30 2/2/18 15:00 99 17 169/96 91 Mechanical Ventilator 30 2/2/18 14:25 30 2/2/18 14:00 99 17 126/65 97 Mechanical Ventilator 30 2/2/18 13:01 93 35 2/2/18 13:00 94 17 122/90 100 Mechanical Ventilator 30 2/2/18 12:00 72 07/06/17 12:00 30 07/06/17 12:00 98.9 72 17 122/90 95 Mechanical Ventilator 30 07/06/17 11:00 79 17 101/78 98 Mechanical Ventilator 30 07/06/17 10:57 75 19 30 07/06/17 10:00 72 17 118/56 95 Mechanical Ventilator 30 07/06/17 09:30 68 23 30 07/06/17 09:25 100 Height (Feet): 5 Height (Inches): 3.00 Weight (Pounds): 190 Objective GENERAL: The patient is well developed and well nourished female, who is intubated and sedated. HEENT: Eyes, pupils equal and responsive to light and accommodation. Extraocular movements are intact. NECK: Supple. No lymphadenopathy. CHEST: Few diffuse wheezes bilaterally with few rales at bilateral bases, otherwise clear to auscultation. CARDIOVASCULAR: Regular rhythm and rate. S1 and S2 normal without murmurs, rubs, or gallops. ABDOMEN: Soft, nontender, and nondistended. Positive bowel sounds. No evidence of hepatosplenomegaly. Currently, no rebound or guarding noted. EXTREMITIES: Negative for clubbing, cyanosis, or edema. NEUROLOGICAL: Unable to assess secondary to the patient's mental status. Microbiology Date/Time Source Procedure Growth Status 07/05/17 18:00 Sputum Gram Stain - Final Resulted 07/05/17 18:00 Sputum Sputum Culture Pending Resulted Laboratory Tests Test 07/06/17 10:00 07/06/17 13:55 07/06/17 16:50 07/07/17 05:15 Arterial Blood pH 7.442 (7.350-7.450) 7.333 (7.350-7.450) 7.410 (7.350-7.450) Arterial Blood Partial Pressure CO2 52.6 mmHg (35.0-45.0) H 78.7 mmHg (35.0-45.0) *H 57.3 mmHg (35.0-45.0) *H Arterial Blood Partial Pressure O2 96.0 mmHg (75.0-100.0) 478.3 mmHg (75.0-100.0) H 113.9 mmHg (75.0-100.0) H Arterial Blood HCO3 35.7 mmol/L (22.0-26.0) H 40.8 mmol/L (22.0-26.0) H 35.5 mmol/L (22.0-26.0) H Arterial Blood Oxygen Saturation 97.0 % (92.0-98.0) 99.2 % (92.0-98.0) H 97.5 % (92.0-98.0) Arterial Blood Base Excess 9.5 12 9.1 Kunal Test Positive Positive Positive White Blood Count 6.6 K/UL (4.8-10.8) Red Blood Count 3.27 M/UL (4.20-5.40) L Hemoglobin 10.4 G/DL (12.0-16.0) L Hematocrit 31.8 % (37.0-47.0) L Mean Corpuscular Volume 97 FL (80-99) Mean Corpuscular Hemoglobin 31.8 PG (27.0-31.0) H Mean Corpuscular Hemoglobin Concent 32.7 G/DL (32.0-36.0) Red Cell Distribution Width 14.3 % (11.6-14.8) Platelet Count 223 K/UL (150-450) Mean Platelet Volume 6.7 FL (6.5-10.1) Neutrophils (%) (Auto) % (45.0-75.0) Lymphocytes (%) (Auto) % (20.0-45.0) Monocytes (%) (Auto) % (1.0-10.0) Eosinophils (%) (Auto) % (0.0-3.0) Basophils (%) (Auto) % (0.0-2.0) Neutrophils % (Manual) Pending Lymphocytes % (Manual) Pending Platelet Estimate Pending Platelet Morphology Pending Sodium Level 141 MMOL/L (136-145) Potassium Level 3.4 MMOL/L (3.5-5.1) L Chloride Level 103 MMOL/L (98-107) Carbon Dioxide Level 39 MMOL/L (21-32) H Anion Gap -1 mmol/L (5-15) L Blood Urea Nitrogen 11 mg/dL (7-18) Creatinine 0.5 MG/DL (0.55-1.30) L Estimat Glomerular Filtration Rate mL/min (>60) Glucose Level 151 MG/DL (74-106) H Calcium Level 8.1 MG/DL (8.5-10.1) L Phosphorus Level 3.5 MG/DL (2.5-4.9) Magnesium Level 2.0 MG/DL (1.8-2.4) Total Bilirubin 0.3 MG/DL (0.2-1.0) Aspartate Amino Transf (AST/SGOT) 24 U/L (15-37) Alanine Aminotransferase (ALT/SGPT) 22 U/L (12-78) Alkaline Phosphatase 45 U/L (46-116) L Total Protein 5.9 G/DL (6.4-8.2) L Albumin 2.2 G/DL (3.4-5.0) L Globulin 3.7 g/dL Albumin/Globulin Ratio 0.6 (1.0-2.7) L Test 07/07/17 08:11 Arterial Blood pH Pending Arterial Blood Partial Pressure CO2 Pending Arterial Blood Partial Pressure O2 Pending Arterial Blood HCO3 Pending Arterial Blood Oxygen Saturation Pending Arterial Blood Base Excess Pending Kunal Test Pending Current Medications Medications (Trade) Dose Ordered Sig/Taryn Route PRN Reason Start Time Stop Time Status Last Admin Dose Admin Acetaminophen (Tylenol) 650 mg Q4H PRN ORAL fever 07/01/17 06:15 07/31/17 06:14 Albuterol/ Ipratropium (Albuterol/ Ipratropium) 3 ml Q4HRT HHN 07/06/17 19:00 07/11/17 18:59 07/07/17 08:17 Ceftriaxone Sodium 1 gm/ Sodium Chloride 55 ml @ 110 mls/hr Q24H IVPB 07/04/17 14:00 07/11/17 13:59 07/06/17 13:24 Dextrose (Dextrose 50%) No Dose PRN IV hypoglycemia 07/02/17 10:45 08/01/17 10:44 Digoxin (Lanoxin) 0.125 mg DAILY ORAL 07/01/17 09:00 07/31/17 08:59 07/06/17 08:09 Duloxetine HCl (Cymbalta) 60 mg DAILY ORAL 07/01/17 09:00 07/31/17 08:59 07/06/17 08:10 Heparin Sodium (Porcine) (Heparin 5000 units/ml) 5,000 units EVERY 12 HOURS SUBQ 07/01/17 09:00 07/31/17 08:59 2/2/18 20:35 Hydrocortisone (Solu-CORTEF) 100 mg EVERY 12 HOURS IV 07/04/17 21:00 07/31/17 13:59 07/06/17 20:34 Insulin Aspart (NovoLOG) EVERY 6 HOURS SUBQ 07/05/17 12:00 08/01/17 11:29 07/07/17 05:37 Lorazepam (Ativan 2mg/ml 1ml) 2 mg Q2H PRN IV For Anxiety 07/01/17 06:15 07/08/17 06:14 07/07/17 02:17 Losartan Potassium (Cozaar) 25 mg DAILY ORAL 07/01/17 09:00 07/31/17 08:59 07/06/17 08:09 Morphine Sulfate (Morphine Sulfate) 4 mg Q4H PRN IVP Severe Pain (Pain Scale 7-10) 07/01/17 06:15 07/08/17 06:14 07/07/17 05:31 Norepinephrine Bitartrate 4 mg/ Dextrose 254 ml @ 0 mls/hr Q24H IV 07/01/17 06:15 07/31/17 06:14 Ondansetron HCl (Zofran) 4 mg Q6H PRN IVP Nausea & Vomiting 07/01/17 06:15 07/31/17 06:14 Pantoprazole (Protonix) 40 mg Q12HR IV 07/01/17 21:00 07/31/17 08:59 07/06/17 20:34 Polyethylene Glycol (Miralax) 17 gm DAILYPRN PRN ORAL Constipation 07/01/17 06:15 07/31/17 06:14 Theophylline (John-Dur) 100 mg EVERY 12 HOURS ORAL 07/01/17 09:00 07/31/17 08:59 07/06/17 20:35 Roseanna Penn M.D. Jul 07, 2017 09:09
[2017-07-07] MEDS: DULoxetine 30mg cap ORAL SCH (09:37)
[2017-07-07] MEDS: Digoxin 0.125mg tab ORAL SCH (09:38)
[2017-07-07] MEDS: Pantoprazole Inj IV SCH ×2 (09:38→20:54)
[2017-07-07] MEDS: Losartan 25mg tab ORAL SCH (09:39)
[2017-07-07] MEDS: Theophylline ER 100mg ORAL SCH ×2 (09:39→20:54)
[2017-07-07] MEDS: Hydrocortisone 100mg Inj IV SCH ×2 (09:39→20:54)
[2017-07-07] MEDS: Heparin 5000 units/ml inj SUBQ SCH ×2 (09:43→21:00)
--- NOTE | 2017-07-07 12:00 | Diagnostic Imaging Report ---
Indication: Shortness of breath Technique: One view of the chest Comparison: 07/06/2017 Findings: Stable satisfactory positions of endotracheal and nasogastric tubes. Bilateral interstitial and airspace opacities, cardiomegaly are unchanged Impression: Unchanged, over one day, findings as above.
--- NOTE | 2017-07-07 14:08 | Internal Med Progress Note ---
Subjective Date of Service: Jul 07, 2017 Physician Name Roberta Butler Attending Physician Ten Bourne MD Current Medications Medications (Trade) Dose Ordered Sig/Taryn Route PRN Reason Start Time Stop Time Status Last Admin Dose Admin Acetaminophen (Tylenol) 650 mg Q4H PRN ORAL fever 07/01/17 06:15 07/31/17 06:14 Albuterol/ Ipratropium (Albuterol/ Ipratropium) 3 ml Q4HRT HHN 07/06/17 19:00 07/11/17 18:59 07/07/17 12:27 Ceftriaxone Sodium 1 gm/ Sodium Chloride 55 ml @ 110 mls/hr Q24H IVPB 07/04/17 14:00 07/11/17 13:59 07/06/17 13:24 Dextrose (Dextrose 50%) No Dose PRN IV hypoglycemia 07/02/17 10:45 08/01/17 10:44 Digoxin (Lanoxin) 0.125 mg DAILY ORAL 07/01/17 09:00 07/31/17 08:59 07/07/17 09:38 Duloxetine HCl (Cymbalta) 60 mg DAILY ORAL 07/01/17 09:00 07/31/17 08:59 07/07/17 09:37 Heparin Sodium (Porcine) (Heparin 5000 units/ml) 5,000 units EVERY 12 HOURS SUBQ 07/01/17 09:00 07/31/17 08:59 07/07/17 09:43 Hydrocortisone (Solu-CORTEF) 100 mg EVERY 12 HOURS IV 07/04/17 21:00 07/31/17 13:59 07/07/17 09:39 Insulin Aspart (NovoLOG) EVERY 6 HOURS SUBQ 07/05/17 12:00 08/01/17 11:29 07/07/17 12:10 Lorazepam (Ativan 2mg/ml 1ml) 2 mg Q2H PRN IV For Anxiety 07/07/17 13:30 07/14/17 13:29 Losartan Potassium (Cozaar) 25 mg DAILY ORAL 07/01/17 09:00 07/31/17 08:59 07/07/17 09:39 Morphine Sulfate (Morphine Sulfate) 4 mg Q4H PRN IVP Severe Pain (Pain Scale 7-10) 07/07/17 13:00 07/14/17 12:59 Norepinephrine Bitartrate 4 mg/ Dextrose 254 ml @ 0 mls/hr Q24H IV 07/01/17 06:15 07/31/17 06:14 Ondansetron HCl (Zofran) 4 mg Q6H PRN IVP Nausea & Vomiting 07/01/17 06:15 07/31/17 06:14 Pantoprazole (Protonix) 40 mg Q12HR IV 07/01/17 21:00 07/31/17 08:59 07/07/17 09:38 Polyethylene Glycol (Miralax) 17 gm DAILYPRN PRN ORAL Constipation 07/01/17 06:15 07/31/17 06:14 Theophylline (John-Dur) 100 mg EVERY 12 HOURS ORAL 07/01/17 09:00 07/31/17 08:59 07/07/17 09:39 Allergies: Coded Allergies: No Known Allergies (Unverified , 01/11/17) ROS Limited/Unobtainable: Yes Subjective 82 YO F admitted with respiratory failure. Intubated and sedated. Cover for Int Kg-Dr Bourne. ICU. Objective Last Vital Signs Date Time Temp Pulse Resp B/P (MAP) Pulse Ox O2 Delivery O2 Flow Rate FiO2 07/07/17 13:00 75 19 140/59 95 Mechanical Ventilator 30 07/07/17 12:00 99.0 07/01/17 05:36 3.0 Laboratory Tests Test 07/06/17 16:50 07/07/17 05:15 07/07/17 08:11 Arterial Blood pH 7.410 (7.350-7.450) 7.450 (7.350-7.450) Arterial Blood Partial Pressure CO2 57.3 mmHg (35.0-45.0) *H 54.6 mmHg (35.0-45.0) H Arterial Blood Partial Pressure O2 113.9 mmHg (75.0-100.0) H 103.3 mmHg (75.0-100.0) H Arterial Blood HCO3 35.5 mmol/L (22.0-26.0) H 37.5 mmol/L (22.0-26.0) H Arterial Blood Oxygen Saturation 97.5 % (92.0-98.0) 97.4 % (92.0-98.0) Arterial Blood Base Excess 9.1 11.9 Kunal Test Positive Positive White Blood Count 6.6 K/UL (4.8-10.8) Red Blood Count 3.27 M/UL (4.20-5.40) L Hemoglobin 10.4 G/DL (12.0-16.0) L Hematocrit 31.8 % (37.0-47.0) L Mean Corpuscular Volume 97 FL (80-99) Mean Corpuscular Hemoglobin 31.8 PG (27.0-31.0) H Mean Corpuscular Hemoglobin Concent 32.7 G/DL (32.0-36.0) Red Cell Distribution Width 14.3 % (11.6-14.8) Platelet Count 223 K/UL (150-450) Mean Platelet Volume 6.7 FL (6.5-10.1) Neutrophils (%) (Auto) % (45.0-75.0) Lymphocytes (%) (Auto) % (20.0-45.0) Monocytes (%) (Auto) % (1.0-10.0) Eosinophils (%) (Auto) % (0.0-3.0) Basophils (%) (Auto) % (0.0-2.0) Differential Total Cells Counted 100 Neutrophils % (Manual) 86 % (45-75) H Lymphocytes % (Manual) 10 % (20-45) L Monocytes % (Manual) 4 % (1-10) Eosinophils % (Manual) 0 % (0-3) Basophils % (Manual) 0 % (0-2) Band Neutrophils 0 % (0-8) Platelet Estimate Adequate Platelet Morphology Normal Anisocytosis 1+ Sodium Level 141 MMOL/L (136-145) Potassium Level 3.4 MMOL/L (3.5-5.1) L Chloride Level 103 MMOL/L (98-107) Carbon Dioxide Level 39 MMOL/L (21-32) H Anion Gap -1 mmol/L (5-15) L Blood Urea Nitrogen 11 mg/dL (7-18) Creatinine 0.5 MG/DL (0.55-1.30) L Estimat Glomerular Filtration Rate mL/min (>60) Glucose Level 151 MG/DL (74-106) H Calcium Level 8.1 MG/DL (8.5-10.1) L Phosphorus Level 3.5 MG/DL (2.5-4.9) Magnesium Level 2.0 MG/DL (1.8-2.4) Total Bilirubin 0.3 MG/DL (0.2-1.0) Aspartate Amino Transf (AST/SGOT) 24 U/L (15-37) Alanine Aminotransferase (ALT/SGPT) 22 U/L (12-78) Alkaline Phosphatase 45 U/L (46-116) L Total Protein 5.9 G/DL (6.4-8.2) L Albumin 2.2 G/DL (3.4-5.0) L Globulin 3.7 g/dL Albumin/Globulin Ratio 0.6 (1.0-2.7) L Microbiology Date/Time Source Procedure Growth Status 07/05/17 18:00 Sputum Gram Stain - Final Complete 07/05/17 18:00 Sputum Sputum Culture - Final NO GROWTH Complete Intake and Output 07/06/17 07/07/17 19:00 07:00 Intake Total 1262.5 ml 635 ml Output Total 1150 ml 1325 ml Balance 112.5 ml -690 ml Free Water 100 ml IV Total 392.5 ml Tube Feeding 770 ml 605 ml Other 30 ml Output Urine Total 1150 ml 1325 ml Objective General Appearance: WD/WN, lethargic EENT: normal ENT inspection Neck: non-tender, normal alignment, supple, normal inspection Cardiovascular: normal peripheral pulses, normal rate, regular rhythm, no gallop/murmur, no JVD Respiratory/Chest: Mechanical vent; respiratory distress, crackles/rales, rhonchi - bilaterally, expiratory wheezing Abdomen: non tender, soft, no organomegaly, no mass, decreased bowel sounds Edema: trace edema Skin: normal pigmentation, warm/dry Assessment/Plan Problem List: (1) HTN (hypertension) Assessment & Plan: Currently on levophed. (2) Respiratory failure, acute Assessment & Plan: Intubated. See pulm note. Cont theophylline, levaquin and ceftriaxone (3) Hypercapnia (4) Pulmonary hypertension (5) Pulmonary fibrosis (6) Hypothyroidism (7) Renal failure Assessment & Plan: See nephrology note. Status: not improved ROBERTA BUTLER Jul 07, 2017 14:07
[2017-07-07] MEDS: cefTRIAXone 1 GM in NS 55 ML IVPB SCH (14:49)
[2017-07-07] MEDS ORDERED: Tubing IV Secondary IV ONE (16:37)
[2017-07-07] MEDS ORDERED: NS 500ML ONE (16:37)
[2017-07-08] VITALS (23 sets, daily range): BP systolic 103–158; BP diastolic 45–110
[2017-07-08] MEDS: Albuterol/Ipratropium 3ml neb HHN SCH ×6 (02:53→22:51)
[2017-07-08] MEDS: NovoLOG Insulin Flexpen SUBQ SCH ×4 (06:02→17:42)
[2017-07-08 06:13] LABS: HEMATOCRIT 33.1 % (37.0-47.0); HEMOGLOBIN 10.8 G/DL (12.0-16.0); MEAN CORPUSCULAR VOLUME 98 FL (80-99); PLATELET COUNT 240 K/UL (150-450); RED BLOOD COUNT 3.39 M/UL (4.20-5.40); RED CELL DISTRIBUTION WIDTH 15.1 % (11.6-14.8); WHITE BLOOD COUNT 9.1 K/UL (4.8-10.8)
[2017-07-08 06:30] LABS: ANION GAP 2 mmol/L (5-15); BLOOD UREA NITROGEN 14 mg/dL (7-18); CALCIUM 8.3 MG/DL (8.5-10.1); CARBON DIOXIDE 36 MMOL/L (21-32); CHLORIDE 105 MMOL/L (98-107); CREATININE 0.6 MG/DL (0.55-1.30); POTASSIUM 3.5 MMOL/L (3.5-5.1); SODIUM 143 MMOL/L (136-145)
[2017-07-08] MEDS: Hydrocortisone 100mg Inj IV SCH ×2 (08:21→20:59)
[2017-07-08] MEDS: Pantoprazole Inj IV SCH ×2 (08:21→20:59)
[2017-07-08] MEDS: Digoxin 0.125mg tab ORAL SCH (08:22)
[2017-07-08] MEDS: DULoxetine 30mg cap ORAL SCH (08:22)
[2017-07-08] MEDS: Theophylline ER 100mg ORAL SCH ×2 (08:22→20:58)
[2017-07-08] MEDS: Losartan 25mg tab ORAL SCH (08:22)
[2017-07-08] MEDS: Heparin 5000 units/ml inj SUBQ SCH ×2 (08:23→21:00)
--- NOTE | 2017-07-08 09:49 | Pulmonolgy Critical Care Note ---
Critical Care - Asmt/Plan Assessment/Plan: ASSESSMENT Acute hypoxemic hypercapnic RF requiring intubation ( 2 to underlying pulmonary disese and PNA) s/p self extubation s/p reintubation PNA pulmonary fibrosis pulmonary HTN COPD exacerbation HTN hypothyroidism mixed connective tissue disorder anemia DM proteinuria Hypoalbuminemia electrolyte imbalance ( hypo K, hypo Mg) PLAN OF CARE ICU Vent support pulmonary toilet Daily CXR and ABG weaning protocol Trial of theophylline stress dose of steroids ( patient was on steroids) Abx ID follows sputum cx negative, blood cx, influenza screen negative, prior sputum cx + ashok aspiration precautions, NGT feeding, Nephro follows monitor renal parameters, lytes, correct as needed ECHO with pEF 60-65% and evidence of mild pulmonary HTN ( prior severe pulmonary HTN) BP management with ARB and optimize as needed BS management with SS of insulin, [id number], likely steroids induced DVT GI prophylaxis Bowel regimen case discussed and evaluated by supervising physician Critical Care - Objective Last 24 Hour Vital Signs Date Time Temp Pulse Resp B/P (MAP) Pulse Ox O2 Delivery O2 Flow Rate FiO2 07/08/17 09:29 74 23 30 07/08/17 09:00 77 16 158/75 97 Mechanical Ventilator 30 07/08/17 08:22 140/84 07/08/17 08:22 75 07/08/17 08:00 79 07/08/17 08:00 30 07/08/17 08:00 99.2 75 17 140/84 97 Mechanical Ventilator 30 07/08/17 07:41 80 22 97 Mechanical Ventilator 30 07/08/17 07:31 82 22 96 Mechanical Ventilator 30 07/08/17 07:25 82 22 30 07/08/17 07:00 77 24 122/56 97 Mechanical Ventilator 30 07/08/17 06:15 127/55 07/08/17 06:00 79 17 127/55 97 Mechanical Ventilator 30 07/08/17 05:12 90 22 30 07/08/17 05:00 79 17 115/70 97 Mechanical Ventilator 30 07/08/17 04:00 98.3 75 20 137/62 97 Mechanical Ventilator 30 07/08/17 04:00 30 07/08/17 04:00 78 07/08/17 03:03 68 16 98 Mechanical Ventilator 30 07/08/17 03:00 79 17 120/53 97 Mechanical Ventilator 30 07/08/17 02:52 57 17 97 Mechanical Ventilator 30 2/4/18 02:50 57 16 30 2/4/18 02:00 67 17 120/53 97 Mechanical Ventilator 30 2/4/18 01:30 64 19 30 2/4/18 01:00 63 17 126/59 97 Mechanical Ventilator 30 2/4/18 00:00 71 2/4/18 00:00 98.1 66 19 132/61 95 Mechanical Ventilator 30 2/3/18 23:10 68 24 99 Mechanical Ventilator 30 2/3/18 23:10 30 2/3/18 23:10 69 16 97 Mechanical Ventilator 30 2/3/18 23:06 78 26 30 2/3/18 23:00 68 19 135/95 97 Mechanical Ventilator 30 2/3/18 22:00 82 19 126/58 97 Mechanical Ventilator 30 2/3/18 21:53 82 18 30 2/3/18 21:00 82 19 129/74 98 Mechanical Ventilator 30 2/3/18 20:00 98.3 82 19 126/58 96 Mechanical Ventilator 30 2/3/18 20:00 91 2/3/18 20:00 30 2/3/18 19:39 66 26 99 Mechanical Ventilator 30 2/3/18 19:28 66 26 30 2/3/18 19:28 30 2/3/18 19:28 72 18 97 Mechanical Ventilator 30 2/3/18 19:00 64 19 140/58 97 Mechanical Ventilator 30 2/3/18 18:00 74 19 125/55 95 Mechanical Ventilator 30 2/3/18 17:00 87 20 112/71 95 Mechanical Ventilator 30 2/3/18 16:50 85 28 30 2/3/18 16:00 91 2/3/18 16:00 30 2/3/18 16:00 98.4 85 25 128/64 97 Mechanical Ventilator 30 2/3/18 15:00 81 19 127/80 95 Mechanical Ventilator 30 2/3/18 14:44 83 27 30 2/3/18 14:00 76 19 127/80 95 Mechanical Ventilator 30 2/3/18 13:00 75 19 140/59 95 Mechanical Ventilator 30 2/3/18 12:35 70 24 95 Mechanical Ventilator 30 2/3/18 12:32 67 17 30 2/3/18 12:27 73 28 96 Mechanical Ventilator 30 2/3/18 12:00 71 2/3/18 12:00 99.0 75 17 153/67 95 Mechanical Ventilator 30 07/07/17 12:00 30 07/07/17 11:13 70 27 30 07/07/17 11:00 77 19 133/66 96 Mechanical Ventilator 30 07/07/17 10:00 72 19 128/56 96 Mechanical Ventilator 30 07/07/17 09:57 95 07/07/17 09:50 30 Status: awake - responsive , other - on Vent Condition: critical HEENT: atraumatic, normocephalic, other - OP with ET in place, intact, OP tube with TF Lungs: clear Heart: HR/BP stable, other - CL L femnroal TL intact Abdomen: soft, non-tender, active bowel sounds Micro: Microbiology Date/Time Source Procedure Growth Status 07/05/17 18:00 Sputum Gram Stain - Final Complete 07/05/17 18:00 Sputum Sputum Culture - Final NO GROWTH Complete Accucheck: 147 Critical Care - Subjective ROS Limited/Unobtainable: Yes Interval Events: remains intubated afebrile, no leukocytosis CO2 trending down no signs of distress denies chest pain Condition: critical IV Access: central - L femoral triple lumen, intact EKG Rhythm: Sinus Rhythm FI02: 30 Vent Support Breath Rate: 16 Vent Support Mode: AC Vent Tidal Volume: 500 Sputum Amount: Moderate PEEP: 5.0 PIP: 41 Tube Feeding Amount: 55 I&O: Intake and Output 07/07/17 07/08/17 19:00 07:00 Intake Total 595 ml 710 ml Output Total 1400 ml 1285 ml Balance -805 ml -575 ml Free Water 100 ml 100 ml IV Total 55 ml Tube Feeding 440 ml 550 ml Other 60 ml Output Urine Total 1400 ml 1285 ml CXR: Stable satisfactory positions of endotracheal and nasogastric tubes. Bilateral interstitial and airspace disease persists. As previously, the presence of honeycombing and bronchiectasis suggests a significant chronic component. The heart remains enlarged. There is a retrocardiac hiatal hernia again demonstrated. Findings are overall unchanged ET-Tube: 7.0 ET Position: Cony Bart (Kisha Arce NP Jul 08, 2017 09:49
[2017-07-08] MEDS: Morphine Sulfate 4mg/ml Inj IVP PRN (09:54)
--- NOTE | 2017-07-08 10:05 | Diagnostic Imaging Report ---
Indication: Post nasogastric tube placement Technique: Supine view of the upper abdomen Comparison: none Findings: Nasogastric tube makes a loop in the expected region of the distal esophagus, with the tip pointed retrograde cephalad and extending into the more proximal esophagus beyond the edge of the image. The bowel gas pattern is grossly unremarkable. There is degenerative spondylosis and scoliotic deformity Impression: Malposition of nasogastric tube This agrees with the preliminary interpretation provided overnight by [facility] teleradiology service.
[2017-07-08] MEDS ORDERED: Tubing IV Secondary IV ONE (10:22)
[2017-07-08] MEDS ORDERED: NS 275ml ONE (10:22)
--- NOTE | 2017-07-08 10:46 | Diagnostic Imaging Report ---
Indication: Nasogastric tube placement Technique: One view of the upper abdomen Comparison: 6 hours earlier Findings: Improved and now satisfactory position of nasogastric tube, tip projecting at the level of the gastric antrum. Satisfactory position of endotracheal tube. Bilateral interstitial pulmonary parenchymal opacities are noted. Bowel gas pattern is unremarkable. Cholecystectomy clips are noted Impression: Satisfactory position of nasogastric tube Other findings as noted
--- NOTE | 2017-07-08 11:25 | Diagnostic Imaging Report ---
Indication: Shortness of breath Technique: One view of the chest Comparison: 07/07/2017 Findings: Stable satisfactory positions of endotracheal and nasogastric tubes. Bilateral interstitial and airspace disease persists. As previously, the presence of honeycombing and bronchiectasis suggests a significant chronic component. The heart remains enlarged. There is a retrocardiac hiatal hernia again demonstrated. Findings are overall unchanged Impression: Unchanged, over one day, findings as above.
[2017-07-08] MEDS: cefTRIAXone 1 GM in NS 55 ML IVPB SCH (14:10)
--- NOTE | 2017-07-08 15:28 | Internal Med Progress Note ---
Subjective Date of Service: Jul 08, 2017 Physician Name Roberta Butler Attending Physician Ten Bourne MD Current Medications Medications (Trade) Dose Ordered Sig/Taryn Route PRN Reason Start Time Stop Time Status Last Admin Dose Admin Acetaminophen (Tylenol) 650 mg Q4H PRN ORAL fever 07/01/17 06:15 07/31/17 06:14 Albuterol/ Ipratropium (Albuterol/ Ipratropium) 3 ml Q4HRT HHN 07/06/17 19:00 07/11/17 18:59 07/08/17 13:11 Ceftriaxone Sodium 1 gm/ Sodium Chloride 55 ml @ 110 mls/hr Q24H IVPB 07/04/17 14:00 07/11/17 13:59 07/08/17 14:10 Dextrose (Dextrose 50%) No Dose PRN IV hypoglycemia 07/02/17 10:45 08/01/17 10:44 Digoxin (Lanoxin) 0.125 mg DAILY ORAL 07/01/17 09:00 07/31/17 08:59 07/08/17 08:22 Duloxetine HCl (Cymbalta) 60 mg DAILY ORAL 07/01/17 09:00 07/31/17 08:59 07/08/17 08:22 Heparin Sodium (Porcine) (Heparin 5000 units/ml) 5,000 units EVERY 12 HOURS SUBQ 07/01/17 09:00 07/31/17 08:59 07/08/17 08:23 Hydrocortisone (Solu-CORTEF) 100 mg EVERY 12 HOURS IV 07/04/17 21:00 07/31/17 13:59 07/08/17 08:21 Insulin Aspart (NovoLOG) EVERY 6 HOURS SUBQ 07/05/17 12:00 08/01/17 11:29 07/08/17 11:47 Lorazepam (Ativan 2mg/ml 1ml) 2 mg Q2H PRN IV For Anxiety 07/07/17 13:30 07/14/17 13:29 Losartan Potassium (Cozaar) 25 mg DAILY ORAL 07/01/17 09:00 07/31/17 08:59 07/08/17 08:22 Magnesium Hydroxide (Mom) 30 ml ONCE ONCE NG 07/08/17 15:30 07/08/17 15:31 Morphine Sulfate (Morphine Sulfate) 4 mg Q4H PRN IVP Severe Pain (Pain Scale 7-10) 07/07/17 13:00 07/14/17 12:59 07/08/17 09:54 Norepinephrine Bitartrate 4 mg/ Dextrose 254 ml @ 0 mls/hr Q24H IV 07/01/17 06:15 07/31/17 06:14 Ondansetron HCl (Zofran) 4 mg Q6H PRN IVP Nausea & Vomiting 07/01/17 06:15 07/31/17 06:14 Pantoprazole (Protonix) 40 mg Q12HR IV 07/01/17 21:00 07/31/17 08:59 07/08/17 08:21 Polyethylene Glycol (Miralax) 17 gm DAILYPRN PRN ORAL Constipation 07/01/17 06:15 07/31/17 06:14 Theophylline (John-Dur) 100 mg EVERY 12 HOURS ORAL 07/01/17 09:00 07/31/17 08:59 07/08/17 08:22 Allergies: Coded Allergies: No Known Allergies (Unverified , 01/11/17) ROS Limited/Unobtainable: Yes Subjective 82 YO F admitted with respiratory failure. Intubated and sedated. Cover for Int Kg-Dr Bourne. ICU. Objective Last Vital Signs Date Time Temp Pulse Resp B/P (MAP) Pulse Ox O2 Delivery O2 Flow Rate FiO2 07/08/17 14:00 97 23 150/76 94 Mechanical Ventilator 30 07/08/17 12:00 99.2 07/01/17 05:36 3.0 Laboratory Tests Test 07/08/17 05:30 07/08/17 10:12 White Blood Count 9.1 K/UL (4.8-10.8) Red Blood Count 3.39 M/UL (4.20-5.40) L Hemoglobin 10.8 G/DL (12.0-16.0) L Hematocrit 33.1 % (37.0-47.0) L Mean Corpuscular Volume 98 FL (80-99) Mean Corpuscular Hemoglobin 31.9 PG (27.0-31.0) H Mean Corpuscular Hemoglobin Concent 32.6 G/DL (32.0-36.0) Red Cell Distribution Width 15.1 % (11.6-14.8) H Platelet Count 240 K/UL (150-450) Mean Platelet Volume 7.5 FL (6.5-10.1) Neutrophils (%) (Auto) % (45.0-75.0) Lymphocytes (%) (Auto) % (20.0-45.0) Monocytes (%) (Auto) % (1.0-10.0) Eosinophils (%) (Auto) % (0.0-3.0) Basophils (%) (Auto) % (0.0-2.0) Differential Total Cells Counted 100 Neutrophils % (Manual) 93 % (45-75) H Lymphocytes % (Manual) 3 % (20-45) L Monocytes % (Manual) 4 % (1-10) Eosinophils % (Manual) 0 % (0-3) Basophils % (Manual) 0 % (0-2) Band Neutrophils 0 % (0-8) Platelet Estimate Adequate Platelet Morphology Normal Hypochromasia 1+ Anisocytosis 1+ Sodium Level 143 MMOL/L (136-145) Potassium Level 3.5 MMOL/L (3.5-5.1) Chloride Level 105 MMOL/L (98-107) Carbon Dioxide Level 36 MMOL/L (21-32) H Anion Gap 2 mmol/L (5-15) L Blood Urea Nitrogen 14 mg/dL (7-18) Creatinine 0.6 MG/DL (0.55-1.30) Estimat Glomerular Filtration Rate mL/min (>60) Glucose Level 157 MG/DL (74-106) H Calcium Level 8.3 MG/DL (8.5-10.1) L Arterial Blood pH 7.450 (7.350-7.450) Arterial Blood Partial Pressure CO2 50.8 mmHg (35.0-45.0) H Arterial Blood Partial Pressure O2 100.2 mmHg (75.0-100.0) H Arterial Blood HCO3 34.7 mmol/L (22.0-26.0) H Arterial Blood Oxygen Saturation 97.2 % (92.0-98.0) Arterial Blood Base Excess 9.3 Kunal Test Positive Microbiology Date/Time Source Procedure Growth Status 07/05/17 18:00 Sputum Gram Stain - Final Complete 07/05/17 18:00 Sputum Sputum Culture - Final NO GROWTH Complete Intake and Output 07/07/17 07/08/17 19:00 07:00 Intake Total 595 ml 710 ml Output Total 1400 ml 1285 ml Balance -805 ml -575 ml Free Water 100 ml 100 ml IV Total 55 ml Tube Feeding 440 ml 550 ml Other 60 ml Output Urine Total 1400 ml 1285 ml Objective General Appearance: WD/WN, lethargic EENT: normal ENT inspection Neck: non-tender, normal alignment, supple, normal inspection Cardiovascular: normal peripheral pulses, normal rate, regular rhythm, no gallop/murmur, no JVD Respiratory/Chest: Mechanical vent; respiratory distress, crackles/rales, rhonchi - bilaterally, expiratory wheezing Abdomen: non tender, soft, no organomegaly, no mass, decreased bowel sounds Edema: trace edema Skin: normal pigmentation, warm/dry Assessment/Plan Problem List: (1) HTN (hypertension) Assessment & Plan: Currently on levophed. (2) Respiratory failure, acute Assessment & Plan: Intubated. See pulm note. Cont theophylline, levaquin and ceftriaxone (3) Hypercapnia (4) Pulmonary hypertension (5) Pulmonary fibrosis (6) Hypothyroidism (7) Renal failure Assessment & Plan: See nephrology note. Status: not improved ROBERTA BUTLER Jul 08, 2017 15:28
[2017-07-08] MEDS ORDERED: Milk of Magnesia 30ml Ud NG ONE (15:30)
[2017-07-08] MEDS: LORazepam Inj 2mg/ml 1ml IV PRN (15:34)
[2017-07-09] VITALS (24 sets, daily range): BP systolic 94–159; BP diastolic 47–97
[2017-07-09] MEDS: NovoLOG Insulin Flexpen SUBQ SCH ×5 (00:42→23:28)
[2017-07-09] MEDS: Albuterol/Ipratropium 3ml neb HHN SCH ×6 (03:06→23:23)
[2017-07-09 06:16] LABS: HEMATOCRIT 30.9 % (37.0-47.0); HEMOGLOBIN 10.1 G/DL (12.0-16.0); MEAN CORPUSCULAR VOLUME 98 FL (80-99); PLATELET COUNT 208 K/UL (150-450); RED BLOOD COUNT 3.15 M/UL (4.20-5.40); RED CELL DISTRIBUTION WIDTH 15.5 % (11.6-14.8); WHITE BLOOD COUNT 5.9 K/UL (4.8-10.8)
[2017-07-09 06:22] LABS: ANION GAP 1 mmol/L (5-15); BLOOD UREA NITROGEN 13 mg/dL (7-18); CALCIUM 8.4 MG/DL (8.5-10.1); CARBON DIOXIDE 38 MMOL/L (21-32); CHLORIDE 106 MMOL/L (98-107); CREATININE 0.6 MG/DL (0.55-1.30); POTASSIUM 3.3 MMOL/L (3.5-5.1); SODIUM 145 MMOL/L (136-145)
--- NOTE | 2017-07-09 09:50 | Diagnostic Imaging Report ---
Indication: Post nasogastric tube placement Technique: Supine view of the abdomen Comparison: July 07, 2017 Findings: Nasogastric tube projects at the level of the gastric body, proximal port within the fundus. Bowel gas pattern is unremarkable. Impression: Satisfactory position of nasogastric tube ICU nurse noted of these critical test findings at the time of interpretation
[2017-07-09] MEDS: Heparin 5000 units/ml inj SUBQ SCH ×2 (10:13→20:24)
[2017-07-09] MEDS: DULoxetine 30mg cap ORAL SCH (10:15)
[2017-07-09] MEDS: Theophylline ER 100mg ORAL SCH ×2 (10:15→20:18)
[2017-07-09] MEDS: Digoxin 0.125mg tab ORAL SCH (10:16)
--- NOTE | 2017-07-09 10:16 | Diagnostic Imaging Report ---
Indication: Shortness of breath Technique: One view of the chest Comparison: To 09/21/2017 Findings: Nasogastric tube has retracted, has its tip in the upper esophagus. Stable satisfactory position of endotracheal tube bilateral diffuse interstitial disease is unchanged allowing for differences in exposure Impression: Malposition of nasogastric tube. Subsequent images demonstrate that this has been corrected. Otherwise stable findings as described
[2017-07-09] MEDS: Hydrocortisone 100mg Inj IV SCH (10:17)
[2017-07-09] MEDS: Pantoprazole Inj IV SCH ×2 (10:17→20:18)
[2017-07-09] MEDS: Losartan 25mg tab ORAL SCH (10:17)
[2017-07-09] MEDS: LORazepam Inj 2mg/ml 1ml IV PRN (10:34)
[2017-07-09] MEDS: Morphine Sulfate 4mg/ml Inj IVP PRN (10:35)
--- NOTE | 2017-07-09 10:50 | Infectious Diseases Prog Note ---
Assessment/Plan Assessment/Plan Assessment: Acute hypoxic/Hypercapneic respiratory failure- likely flare of her underlying pulmonary disease with possible concomitant PNA- r/o atypical -CXR 07/05: Bilateral interstitial opacification again noted with suggestion of slight increased airspace disease on the left. -CXR 07/02: Bilateral interstitial and airspace disease, likely fibrotic change persists, unchanged. -sp Cx Normal gerald -Influenza neg -legionella ag urine neg Afebrile/no leukocytosis COPD on home O2 at 2L pHTN pulmonary fibrosis hypothyroidism GERD HTN mixed connective tissue disorder, s/p R TKR senior care resident Plan: -Continue Ceftriaxone abx d#02/11 for PNA given no isolation of resistant organisms -07/05 SP Levaquin #5 -07/04 SP Zosyn #4 -07/03 SP IV Vancomycin #3 -07/02 SP Amikacin #2 -07/01 SP Ertapenem x1 -f/u cx -Monitor CBC/BMP, temperatures -ETT care -aspiration precautions Thank you for this consultation. Will continue to follow along with you. Discussed with RN Subjective Allergies: Coded Allergies: No Known Allergies (Unverified , 01/11/17) Subjective afebrile no leukocytosis remains on MV, fio2 30% unable to wean; mod tick secretions Objective Vital Signs Last 24 Hour Vital Signs Date Time Temp Pulse Resp B/P (MAP) Pulse Ox O2 Delivery O2 Flow Rate FiO2 07/09/17 10:17 130/97 07/09/17 10:16 81 07/09/17 10:00 100 30 130/97 92 07/09/17 09:15 95 07/09/17 09:08 72 23 30 07/09/17 09:00 72 17 96/71 97 Mechanical Ventilator 30 07/09/17 09:00 77 23 96/71 97 07/09/17 08:00 82 07/09/17 08:00 72 25 125/55 97 07/09/17 08:00 30 07/09/17 07:08 72 24 Mechanical Ventilator 30 07/09/17 07:07 74 26 98 Mechanical Ventilator 30 07/09/17 07:02 30 07/09/17 07:01 76 23 30 07/09/17 07:01 72 24 97 Mechanical Ventilator 30 07/09/17 07:00 97 23 125/55 97 07/09/17 06:00 71 17 111/95 97 Mechanical Ventilator 30 2/18 05:55 94/75 2//18 05:38 54 16 30 2/18 05:00 97.8 63 16 142/71 97 Mechanical Ventilator 30 2/10/19 04:00 52 2//18 04:00 30 2/18 04:00 52 16 124/47 98 Mechanical Ventilator 30 2 03:32 52 16 98 Mechanical Ventilator 30 2 03:08 52 16 30 2 03:06 30 218 03:05 52 16 98 Mechanical Ventilator 30 218 03:00 55 16 126/51 98 Mechanical Ventilator 30 07/09/17 02:00 64 20 94/75 97 Mechanical Ventilator 30 07/09/17 01:29 56 17 30 2 01:00 98.1 53 16 124/50 98 Mechanical Ventilator 30 07/09/17 00:00 66 17 117/62 97 Mechanical Ventilator 30 07/09/17 00:00 55 2 00:00 30 07/08/17 23:05 54 16 97 Mechanical Ventilator 30 07/08/17 22:52 54 16 30 218 22:51 30 218 22:50 53 16 97 Mechanical Ventilator 30 07/08/17 22:00 70 12 118/51 98 Mechanical Ventilator 30 218 21:51 66 18 30 2//18 21:00 67 17 121/53 97 Mechanical Ventilator 30 218 20:00 97.7 80 17 130/110 95 Mechanical Ventilator 30 218 20:00 60 2/18 20:00 30 2//18 19:00 58 16 130/51 97 Mechanical Ventilator 30 2/18 19:00 58 16 97 Mechanical Ventilator 30 2//18 18:48 63 16 30 2//18 18:46 30 2//18 18:45 69 19 97 Mechanical Ventilator 30 2//18 18:00 64 16 105/45 97 Mechanical Ventilator 30 2//18 17:24 96 16 30 2//18 17:00 99.0 65 16 103/49 95 Mechanical Ventilator 30 2//18 16:09 86 2//18 16:00 89 18 99 Mechanical Ventilator 30 2//18 16:00 87 16 116/61 94 Mechanical Ventilator 30 07/08/17 16:00 30 07/08/17 15:51 98 18 95 Mechanical Ventilator 30 07/08/17 15:06 98 18 30 07/08/17 15:00 101 21 105/87 96 Mechanical Ventilator 30 07/08/17 14:00 97 23 150/76 94 Mechanical Ventilator 30 07/08/17 13:22 95 19 97 Mechanical Ventilator 30 07/08/17 13:13 101 19 30 07/08/17 13:12 95 19 97 Mechanical Ventilator 30 07/08/17 13:00 81 24 148/91 98 Mechanical Ventilator 30 07/08/17 12:22 90 07/08/17 12:00 99.2 95 20 142/81 96 Mechanical Ventilator 30 07/08/17 12:00 30 07/08/17 11:00 85 24 156/84 96 Mechanical Ventilator 30 Height (Feet): 5 Height (Inches): 3.00 Weight (Pounds): 184 Objective GENERAL: The patient is well developed and well nourished female, who is intubated and sedated. HEENT: Eyes, pupils equal and responsive to light and accommodation. Extraocular movements are intact. NECK: Supple. No lymphadenopathy. CHEST: Few diffuse wheezes bilaterally with few rales at bilateral bases, otherwise clear to auscultation. CARDIOVASCULAR: Regular rhythm and rate. S1 and S2 normal without murmurs, rubs, or gallops. ABDOMEN: Soft, nontender, and nondistended. Positive bowel sounds. No evidence of hepatosplenomegaly. Currently, no rebound or guarding noted. EXTREMITIES: Negative for clubbing, cyanosis, or edema. NEUROLOGICAL: Unable to assess secondary to the patient's mental status. Laboratory Tests Test 07/09/17 04:50 07/09/17 09:14 White Blood Count 5.9 K/UL (4.8-10.8) Red Blood Count 3.15 M/UL (4.20-5.40) L Hemoglobin 10.1 G/DL (12.0-16.0) L Hematocrit 30.9 % (37.0-47.0) L Mean Corpuscular Volume 98 FL (80-99) Mean Corpuscular Hemoglobin 32.0 PG (27.0-31.0) H Mean Corpuscular Hemoglobin Concent 32.6 G/DL (32.0-36.0) Red Cell Distribution Width 15.5 % (11.6-14.8) H Platelet Count 208 K/UL (150-450) Mean Platelet Volume 7.2 FL (6.5-10.1) Neutrophils (%) (Auto) % (45.0-75.0) Lymphocytes (%) (Auto) % (20.0-45.0) Monocytes (%) (Auto) % (1.0-10.0) Eosinophils (%) (Auto) % (0.0-3.0) Basophils (%) (Auto) % (0.0-2.0) Sodium Level 145 MMOL/L (136-145) Potassium Level 3.3 MMOL/L (3.5-5.1) L Chloride Level 106 MMOL/L (98-107) Carbon Dioxide Level 38 MMOL/L (21-32) H Anion Gap 1 mmol/L (5-15) L Blood Urea Nitrogen 13 mg/dL (7-18) Creatinine 0.6 MG/DL (0.55-1.30) Estimat Glomerular Filtration Rate mL/min (>60) Glucose Level 120 MG/DL (74-106) H Calcium Level 8.4 MG/DL (8.5-10.1) L Arterial Blood pH 7.467 (7.350-7.450) Arterial Blood Partial Pressure CO2 57.2 mmHg (35.0-45.0) *H Arterial Blood Partial Pressure O2 84.4 mmHg (75.0-100.0) Arterial Blood HCO3 40.3 mmol/L (22.0-26.0) H Arterial Blood Oxygen Saturation 96.0 % (92.0-98.0) Arterial Blood Base Excess 14.5 Kunal Test Positive Current Medications Medications (Trade) Dose Ordered Sig/Taryn Route PRN Reason Start Time Stop Time Status Last Admin Dose Admin Acetaminophen (Tylenol) 650 mg Q4H PRN ORAL fever 07/01/17 06:15 07/31/17 06:14 Albuterol/ Ipratropium (Albuterol/ Ipratropium) 3 ml Q4HRT HHN 07/06/17 19:00 07/11/17 18:59 07/09/17 07:03 Ceftriaxone Sodium 1 gm/ Sodium Chloride 55 ml @ 110 mls/hr Q24H IVPB 07/04/17 14:00 07/11/17 13:59 07/08/17 14:10 Dextrose (Dextrose 50%) No Dose PRN IV hypoglycemia 07/02/17 10:45 08/01/17 10:44 Digoxin (Lanoxin) 0.125 mg DAILY ORAL 07/01/17 09:00 07/31/17 08:59 07/09/17 10:16 Duloxetine HCl (Cymbalta) 60 mg DAILY ORAL 07/01/17 09:00 07/31/17 08:59 07/09/17 10:15 Heparin Sodium (Porcine) (Heparin 5000 units/ml) 5,000 units EVERY 12 HOURS SUBQ 07/01/17 09:00 07/31/17 08:59 07/09/17 10:13 Hydrocortisone (Solu-CORTEF) 100 mg EVERY 12 HOURS IV 07/04/17 21:00 07/31/17 13:59 07/09/17 10:17 Insulin Aspart (NovoLOG) EVERY 6 HOURS SUBQ 07/05/17 12:00 08/01/17 11:29 07/09/17 05:52 Lorazepam (Ativan 2mg/ml 1ml) 2 mg Q2H PRN IV For Anxiety 07/07/17 13:30 07/14/17 13:29 07/09/17 10:34 Losartan Potassium (Cozaar) 25 mg DAILY ORAL 07/01/17 09:00 07/31/17 08:59 07/09/17 10:17 Morphine Sulfate (Morphine Sulfate) 4 mg Q4H PRN IVP Severe Pain (Pain Scale 7-10) 07/07/17 13:00 07/14/17 12:59 07/09/17 10:35 Norepinephrine Bitartrate 4 mg/ Dextrose 254 ml @ 0 mls/hr Q24H IV 07/01/17 06:15 07/31/17 06:14 Ondansetron HCl (Zofran) 4 mg Q6H PRN IVP Nausea & Vomiting 07/01/17 06:15 07/31/17 06:14 Pantoprazole (Protonix) 40 mg Q12HR IV 07/01/17 21:00 07/31/17 08:59 07/09/17 10:17 Polyethylene Glycol (Miralax) 17 gm DAILYPRN PRN ORAL Constipation 07/01/17 06:15 07/31/17 06:14 Theophylline (John-Dur) 100 mg EVERY 12 HOURS ORAL 07/01/17 09:00 07/31/17 08:59 07/09/17 10:15 Roseanna Penn M.D. Jul 09, 2017 10:50
--- NOTE | 2017-07-09 11:05 | Pulmonolgy Critical Care Note ---
Critical Care - Asmt/Plan Problems: (1) Respiratory failure, acute (2) Hypercapnia (3) Pulmonary hypertension (4) Pulmonary fibrosis (5) Hypothyroidism Respiratory: monitor respiratory rate, adjust FIO2, CXR Cardiac: continue to monitor HR/BP Renal: F/U I&O, keep IV fluid Infectious Disease: check cultures Gastrointestinal: hold feedings Endocrine: monitor blood sugar, check HgA1C Hematologic: monitor H/H, transfuse if hgb<8.5 Neurologic: PRN Morphine, keep patient comfortable Affect: PRN ativan Prophylaxis: Protonix Notes Reviewed: assignment manager, cardio Discussed with: nurses, consultants, gearcase assemblermanager clinical pharmacy - Objective Last 24 Hour Vital Signs Date Time Temp Pulse Resp B/P (MAP) Pulse Ox O2 Delivery O2 Flow Rate FiO2 07/09/17 10:54 79 20 97 Mechanical Ventilator 30 07/09/17 10:54 30 07/09/17 10:54 79 19 97 Mechanical Ventilator 30 07/09/17 10:52 81 20 30 07/09/17 10:17 130/97 07/09/17 10:16 81 07/09/17 10:00 100 30 130/97 92 07/09/17 09:15 95 07/09/17 09:08 72 23 30 07/09/17 09:00 72 17 96/71 97 Mechanical Ventilator 30 07/09/17 09:00 77 23 96/71 97 07/09/17 08:00 82 07/09/17 08:00 72 25 125/55 97 07/09/17 08:00 30 07/09/17 07:08 72 24 Mechanical Ventilator 30 07/09/17 07:07 74 26 98 Mechanical Ventilator 30 07/09/17 07:02 30 07/09/17 07:01 76 23 30 07/09/17 07:01 72 24 97 Mechanical Ventilator 30 07/09/17 07:00 97 23 125/55 97 07/09/17 06:00 71 17 111/95 97 Mechanical Ventilator 30 07/09/17 05:55 94/75 07/09/17 05:38 54 16 30 07/09/17 05:00 97.8 63 16 142/71 97 Mechanical Ventilator 30 07/09/17 04:00 52 07/09/17 04:00 30 07/09/17 04:00 52 16 124/47 98 Mechanical Ventilator 30 07/09/17 03:32 52 16 98 Mechanical Ventilator 30 2 03:08 52 16 30 2/18 03:06 30 2 03:05 52 16 98 Mechanical Ventilator 30 2 03:00 55 16 126/51 98 Mechanical Ventilator 30 2 02:00 64 20 94/75 97 Mechanical Ventilator 30 07/09/17 01:29 56 17 30 2 01:00 98.1 53 16 124/50 98 Mechanical Ventilator 30 07/09/17 00:00 66 17 117/62 97 Mechanical Ventilator 30 07/09/17 00:00 55 2 00:00 30 07/08/17 23:05 54 16 97 Mechanical Ventilator 30 07/08/17 22:52 54 16 30 07/08/17 22:51 30 07/08/17 22:50 53 16 97 Mechanical Ventilator 30 07/08/17 22:00 70 12 118/51 98 Mechanical Ventilator 30 07/08/17 21:51 66 18 30 07/08/17 21:00 67 17 121/53 97 Mechanical Ventilator 30 07/08/17 20:00 97.7 80 17 130/110 95 Mechanical Ventilator 30 07/08/17 20:00 60 2 20:00 30 07/08/17 19:00 58 16 130/51 97 Mechanical Ventilator 30 07/08/17 19:00 58 16 97 Mechanical Ventilator 30 07/08/17 18:48 63 16 30 18 18:46 30 218 18:45 69 19 97 Mechanical Ventilator 30 07/08/17 18:00 64 16 105/45 97 Mechanical Ventilator 30 07/08/17 17:24 96 16 30 218 17:00 99.0 65 16 103/49 95 Mechanical Ventilator 30 218 16:09 86 2/18 16:00 89 18 99 Mechanical Ventilator 30 18 16:00 87 16 116/61 94 Mechanical Ventilator 30 18 16:00 30 2/18 15:51 98 18 95 Mechanical Ventilator 30 2/18 15:06 98 18 30 2/18 15:00 101 21 105/87 96 Mechanical Ventilator 30 218 14:00 97 23 150/76 94 Mechanical Ventilator 30 218 13:22 95 19 97 Mechanical Ventilator 30 07/08/17 13:13 101 19 30 07/08/17 13:12 95 19 97 Mechanical Ventilator 30 07/08/17 13:00 81 24 148/91 98 Mechanical Ventilator 30 07/08/17 12:22 90 07/08/17 12:00 99.2 95 20 142/81 96 Mechanical Ventilator 30 07/08/17 12:00 30 Status: awake Condition: critical HEENT: atraumatic Lungs: chest wall tender Heart: HR/BP stable, HR/BP unstable Abdomen: soft, active bowel sounds Extremities: no C/C/E, edema Accucheck: 123 Critical Care - Subjective ROS Limited/Unobtainable: No Interval Events: 9 Condition: critical EKG Rhythm: Sinus Rhythm FI02: 30 Vent Support Breath Rate: 16 Vent Support Mode: AC Vent Tidal Volume: 500 Sputum Amount: Moderate PEEP: 5.0 PIP: 39 Tube Feeding Amount: 55 I&O: Intake and Output 07/08/17 07/09/17 19:00 07:00 Intake Total 760 ml 760 ml Output Total 585 ml 810 ml Balance 175 ml -50 ml Free Water 50 ml 100 ml IV Total 55 ml Tube Feeding 605 ml 660 ml Other 50 ml Output Urine Total 585 ml 810 ml CXR: no change ET-Tube: 7.0 ET Position: 21 Labs: Laboratory Tests Test 07/09/17 04:50 07/09/17 09:14 White Blood Count 5.9 K/UL (4.8-10.8) Red Blood Count 3.15 M/UL (4.20-5.40) L Hemoglobin 10.1 G/DL (12.0-16.0) L Hematocrit 30.9 % (37.0-47.0) L Mean Corpuscular Volume 98 FL (80-99) Mean Corpuscular Hemoglobin 32.0 PG (27.0-31.0) H Mean Corpuscular Hemoglobin Concent 32.6 G/DL (32.0-36.0) Red Cell Distribution Width 15.5 % (11.6-14.8) H Platelet Count 208 K/UL (150-450) Mean Platelet Volume 7.2 FL (6.5-10.1) Neutrophils (%) (Auto) % (45.0-75.0) Lymphocytes (%) (Auto) % (20.0-45.0) Monocytes (%) (Auto) % (1.0-10.0) Eosinophils (%) (Auto) % (0.0-3.0) Basophils (%) (Auto) % (0.0-2.0) Sodium Level 145 MMOL/L (136-145) Potassium Level 3.3 MMOL/L (3.5-5.1) L Chloride Level 106 MMOL/L (98-107) Carbon Dioxide Level 38 MMOL/L (21-32) H Anion Gap 1 mmol/L (5-15) L Blood Urea Nitrogen 13 mg/dL (7-18) Creatinine 0.6 MG/DL (0.55-1.30) Estimat Glomerular Filtration Rate mL/min (>60) Glucose Level 120 MG/DL (74-106) H Calcium Level 8.4 MG/DL (8.5-10.1) L Arterial Blood pH 7.467 (7.350-7.450) Arterial Blood Partial Pressure CO2 57.2 mmHg (35.0-45.0) *H Arterial Blood Partial Pressure O2 84.4 mmHg (75.0-100.0) Arterial Blood HCO3 40.3 mmol/L (22.0-26.0) H Arterial Blood Oxygen Saturation 96.0 % (92.0-98.0) Arterial Blood Base Excess 14.5 Kunal Test Positive MARIZA CHANEL Jul 09, 2017 11:05
--- NOTE | 2017-07-09 12:44 | Internal Med Progress Note ---
Subjective Date of Service: Jul 09, 2017 Physician Name Roberta Butler Attending Physician Ten Bourne MD Current Medications Medications (Trade) Dose Ordered Sig/Taryn Route PRN Reason Start Time Stop Time Status Last Admin Dose Admin Acetaminophen (Tylenol) 650 mg Q4H PRN ORAL fever 07/01/17 06:15 07/31/17 06:14 Albuterol/ Ipratropium (Albuterol/ Ipratropium) 3 ml Q4HRT HHN 07/06/17 19:00 07/11/17 18:59 07/09/17 10:51 Ceftriaxone Sodium 1 gm/ Sodium Chloride 55 ml @ 110 mls/hr Q24H IVPB 07/04/17 14:00 07/11/17 13:59 07/08/17 14:10 Dextrose (Dextrose 50%) No Dose PRN IV hypoglycemia 07/02/17 10:45 08/01/17 10:44 Digoxin (Lanoxin) 0.125 mg DAILY ORAL 07/01/17 09:00 07/31/17 08:59 07/09/17 10:16 Duloxetine HCl (Cymbalta) 60 mg DAILY ORAL 07/01/17 09:00 07/31/17 08:59 07/09/17 10:15 Heparin Sodium (Porcine) (Heparin 5000 units/ml) 5,000 units EVERY 12 HOURS SUBQ 07/01/17 09:00 07/31/17 08:59 07/09/17 10:13 Hydrocortisone (Solu-CORTEF) 100 mg EVERY 12 HOURS IV 07/04/17 21:00 07/31/17 13:59 07/09/17 10:17 Insulin Aspart (NovoLOG) EVERY 6 HOURS SUBQ 07/05/17 12:00 08/01/17 11:29 07/09/17 11:26 Lorazepam (Ativan 2mg/ml 1ml) 2 mg Q2H PRN IV For Anxiety 07/07/17 13:30 07/14/17 13:29 07/09/17 10:34 Losartan Potassium (Cozaar) 25 mg DAILY ORAL 07/01/17 09:00 07/31/17 08:59 07/09/17 10:17 Morphine Sulfate (Morphine Sulfate) 4 mg Q4H PRN IVP Severe Pain (Pain Scale 7-10) 07/07/17 13:00 07/14/17 12:59 07/09/17 10:35 Norepinephrine Bitartrate 4 mg/ Dextrose 254 ml @ 0 mls/hr Q24H IV 07/01/17 06:15 07/31/17 06:14 Ondansetron HCl (Zofran) 4 mg Q6H PRN IVP Nausea & Vomiting 07/01/17 06:15 07/31/17 06:14 Pantoprazole (Protonix) 40 mg Q12HR IV 07/01/17 21:00 07/31/17 08:59 07/09/17 10:17 Polyethylene Glycol (Miralax) 17 gm DAILYPRN PRN ORAL Constipation 07/01/17 06:15 07/31/17 06:14 Theophylline (John-Dur) 100 mg EVERY 12 HOURS ORAL 07/01/17 09:00 07/31/17 08:59 07/09/17 10:15 Allergies: Coded Allergies: No Known Allergies (Unverified , 01/11/17) ROS Limited/Unobtainable: Yes Subjective 82 YO F admitted with respiratory failure. Intubated and sedated. Back on levophed. Cover for Int Med-Dr Bourne. ICU. Objective Last Vital Signs Date Time Temp Pulse Resp B/P (MAP) Pulse Ox O2 Delivery O2 Flow Rate FiO2 07/09/17 12:00 81 22 150/75 96 07/09/17 11:00 98.6 07/09/17 10:54 Mechanical Ventilator 30 07/01/17 05:36 3.0 Laboratory Tests Test 07/09/17 04:50 07/09/17 09:14 White Blood Count 5.9 K/UL (4.8-10.8) Red Blood Count 3.15 M/UL (4.20-5.40) L Hemoglobin 10.1 G/DL (12.0-16.0) L Hematocrit 30.9 % (37.0-47.0) L Mean Corpuscular Volume 98 FL (80-99) Mean Corpuscular Hemoglobin 32.0 PG (27.0-31.0) H Mean Corpuscular Hemoglobin Concent 32.6 G/DL (32.0-36.0) Red Cell Distribution Width 15.5 % (11.6-14.8) H Platelet Count 208 K/UL (150-450) Mean Platelet Volume 7.2 FL (6.5-10.1) Neutrophils (%) (Auto) % (45.0-75.0) Lymphocytes (%) (Auto) % (20.0-45.0) Monocytes (%) (Auto) % (1.0-10.0) Eosinophils (%) (Auto) % (0.0-3.0) Basophils (%) (Auto) % (0.0-2.0) Sodium Level 145 MMOL/L (136-145) Potassium Level 3.3 MMOL/L (3.5-5.1) L Chloride Level 106 MMOL/L (98-107) Carbon Dioxide Level 38 MMOL/L (21-32) H Anion Gap 1 mmol/L (5-15) L Blood Urea Nitrogen 13 mg/dL (7-18) Creatinine 0.6 MG/DL (0.55-1.30) Estimat Glomerular Filtration Rate mL/min (>60) Glucose Level 120 MG/DL (74-106) H Calcium Level 8.4 MG/DL (8.5-10.1) L Arterial Blood pH 7.467 (7.350-7.450) Arterial Blood Partial Pressure CO2 57.2 mmHg (35.0-45.0) *H Arterial Blood Partial Pressure O2 84.4 mmHg (75.0-100.0) Arterial Blood HCO3 40.3 mmol/L (22.0-26.0) H Arterial Blood Oxygen Saturation 96.0 % (92.0-98.0) Arterial Blood Base Excess 14.5 Kunal Test Positive Intake and Output 07/08/17 07/09/17 19:00 07:00 Intake Total 760 ml 760 ml Output Total 585 ml 810 ml Balance 175 ml -50 ml Free Water 50 ml 100 ml IV Total 55 ml Tube Feeding 605 ml 660 ml Other 50 ml Output Urine Total 585 ml 810 ml Objective General Appearance: WD/WN, lethargic EENT: normal ENT inspection Neck: non-tender, normal alignment, supple, normal inspection Cardiovascular: normal peripheral pulses, normal rate, regular rhythm, no gallop/murmur, no JVD Respiratory/Chest: Mechanical vent; respiratory distress, crackles/rales, rhonchi - bilaterally, expiratory wheezing Abdomen: non tender, soft, no organomegaly, no mass, decreased bowel sounds Edema: trace edema Skin: normal pigmentation, warm/dry Assessment/Plan Problem List: (1) HTN (hypertension) Assessment & Plan: Currently on levophed. (2) Respiratory failure, acute Assessment & Plan: Intubated. See pulm note. Cont theophylline and ceftriaxone (3) Hypercapnia (4) Pulmonary hypertension (5) Pulmonary fibrosis (6) Hypothyroidism (7) Renal failure Assessment & Plan: See nephrology note. Status: not improved ROBERTA BUTLER Jul 09, 2017 12:44
--- NOTE | 2017-07-09 13:45 | Nephrology Progress Note ---
Assessment/Plan Problem List: (1) Respiratory failure, acute (2) Proteinuria (3) Hypoalbuminemia Assessment Worsenning Anemia Dyspnea, acute respiratory failure , requiring intubation and mechanichal vent Mixed connective tissue disease Anemia likely due to chronic disease HypoAlbuminemia Pulmonary fibrosis Pulmonary hypertension COPD exacerbation Respiratory failure, acute Plan Plan: stable from renal stand Monitor renal parameters and urine out put Keep BP in check Optimize pulmonary status UA, 24 h urine for protein Mag supplement, K supplement stress dose of steroids as patient was on prednisone per orders Subjective ROS Limited/Unobtainable: Yes Objective Objective Last 24 Hour Vital Signs Date Time Temp Pulse Resp B/P (MAP) Pulse Ox O2 Delivery O2 Flow Rate FiO2 07/09/17 13:00 75 18 135/77 98 Mechanical Ventilator 30 07/09/17 12:35 79 16 30 07/09/17 12:00 85 07/09/17 12:00 30 07/09/17 12:00 81 22 150/75 96 07/09/17 11:00 98.6 79 17 109/75 96 07/09/17 10:54 79 20 97 Mechanical Ventilator 30 07/09/17 10:54 30 07/09/17 10:54 79 19 97 Mechanical Ventilator 30 07/09/17 10:52 81 20 30 07/09/17 10:17 130/97 07/09/17 10:16 81 07/09/17 10:00 100 30 130/97 92 07/09/17 09:15 95 07/09/17 09:08 72 23 30 07/09/17 09:00 72 17 96/71 97 Mechanical Ventilator 30 07/09/17 09:00 77 23 96/71 97 07/09/17 08:00 82 07/09/17 08:00 72 25 125/55 97 07/09/17 08:00 30 07/09/17 07:08 72 24 Mechanical Ventilator 30 07/09/17 07:07 74 26 98 Mechanical Ventilator 30 07/09/17 07:02 30 07/09/17 07:01 76 23 30 07/09/17 07:01 72 24 97 Mechanical Ventilator 30 07/09/17 07:00 97 23 125/55 97 07/09/17 06:00 71 17 111/95 97 Mechanical Ventilator 30 07/09/17 05:55 94/75 07/09/17 05:38 54 16 30 07/09/17 05:00 97.8 63 16 142/71 97 Mechanical Ventilator 30 2 04:00 52 2 04:00 30 2 04:00 52 16 124/47 98 Mechanical Ventilator 30 2 03:32 52 16 98 Mechanical Ventilator 30 2 03:08 52 16 30 2 03:06 30 2 03:05 52 16 98 Mechanical Ventilator 30 07/09/17 03:00 55 16 126/51 98 Mechanical Ventilator 30 07/09/17 02:00 64 20 94/75 97 Mechanical Ventilator 30 07/09/17 01:29 56 17 30 2 01:00 98.1 53 16 124/50 98 Mechanical Ventilator 30 07/09/17 00:00 66 17 117/62 97 Mechanical Ventilator 30 07/09/17 00:00 55 07/09/17 00:00 30 07/08/17 23:05 54 16 97 Mechanical Ventilator 30 07/08/17 22:52 54 16 30 07/08/17 22:51 30 07/08/17 22:50 53 16 97 Mechanical Ventilator 30 07/08/17 22:00 70 12 118/51 98 Mechanical Ventilator 30 07/08/17 21:51 66 18 30 07/08/17 21:00 67 17 121/53 97 Mechanical Ventilator 30 07/08/17 20:00 97.7 80 17 130/110 95 Mechanical Ventilator 30 07/08/17 20:00 60 2 20:00 30 07/08/17 19:00 58 16 130/51 97 Mechanical Ventilator 30 07/08/17 19:00 58 16 97 Mechanical Ventilator 30 18 18:48 63 16 30 2/18 18:46 30 2/18 18:45 69 19 97 Mechanical Ventilator 30 218 18:00 64 16 105/45 97 Mechanical Ventilator 30 218 17:24 96 16 30 2/18 17:00 99.0 65 16 103/49 95 Mechanical Ventilator 30 2//18 16:09 86 2/09/19 16:00 89 18 99 Mechanical Ventilator 30 218 16:00 87 16 116/61 94 Mechanical Ventilator 30 218 16:00 30 2/4/18 15:51 98 18 95 Mechanical Ventilator 30 07/08/17 15:06 98 18 30 07/08/17 15:00 101 21 105/87 96 Mechanical Ventilator 30 07/08/17 14:00 97 23 150/76 94 Mechanical Ventilator 30 Intake and Output 07/08/17 07/09/17 19:00 07:00 Intake Total 760 ml 760 ml Output Total 585 ml 810 ml Balance 175 ml -50 ml Free Water 50 ml 100 ml IV Total 55 ml Tube Feeding 605 ml 660 ml Other 50 ml Output Urine Total 585 ml 810 ml Laboratory Tests 07/09/17 04:50: White Blood Count 5.9, Red Blood Count 3.15L, Hemoglobin 10.1L, Hematocrit 30.9L , Mean Corpuscular Volume 98, Mean Corpuscular Hemoglobin 32.0H, Mean Corpuscular Hemoglobin Concent 32.6, Red Cell Distribution Width 15.5H, Platelet Count 208, Mean Platelet Volume 7.2, Neutrophils (%) (Auto) , Lymphocytes (%) (Auto) , Monocytes (%) (Auto) , Eosinophils (%) (Auto) , Basophils (%) (Auto) , Sodium Level 145, Potassium Level 3.3L, Chloride Level 106, Carbon Dioxide Level 38H, Anion Gap 1L, Blood Urea Nitrogen 13, Creatinine 0.6, Estimat Glomerular Filtration Rate , Glucose Level 120H, Calcium Level 8.4L 07/09/17 06:50: C-Reactive Protein, Quantitative [Pending] 07/09/17 09:14: Arterial Blood pH 7.467H, Arterial Blood Partial Pressure CO2 57.2*H, Arterial Blood Partial Pressure O2 84.4, Arterial Blood HCO3 40.3H, Arterial Blood Oxygen Saturation 96.0, Arterial Blood Base Excess 14.5, Kunal Test Positive Height (Feet): 5 Height (Inches): 3.00 Weight (Pounds): 184 General Appearance: no apparent distress EENT: other - intubated Cardiovascular: normal rate Respiratory/Chest: decreased breath sounds Abdomen: soft DARRYL ISSA Jul 09, 2017 13:45
[2017-07-09] MEDS: cefTRIAXone 1 GM in NS 55 ML IVPB SCH (13:47)
--- NOTE | 2017-07-09 13:52 | Cardiology Report ---
APPROVED REPORT EKG Measurement Heart [id number] Sinus tachycardia Minimal voltage criteria for LVH, may be normal variant Nonspecific ST abnormality Abnormal ECG
--- NOTE | 2017-07-09 15:12 | Consultation ---
History of Present Illness General Date patient seen: Jul 09, 2017 Chief Complaint: Dyspnea/Respdistress Reason for Consultation: trach eval / respiratory failure Present Illness HPI 82 year old female with history of pulmonary fibrosis and pulmonary hypertension. The patient has a history of mixed connective tissue disorder. The patient was last admitted to [facility] in 01/2017. Please see History and Physical and discharge summary dictated at that time. The patient is a resident of [facility]. The patient is chronic oxygen-dependent. According to staff at [facility], the patient became short of breath on 06/30/2017. The patient was transferred to [facility] for evaluation. The patient was initially placed on BiPAP. The patient then required intubation in the intensive care unit. Self extubated 3-4 days ago. Unfortunately respiratory insufficiency and required reintubation. Currently with difficulty weaning from vent and given history will likely need prolonged ventilatory support. surgery called to evaluate for trach. Allergies: Coded Allergies: No Known Allergies (Unverified , 01/11/17) Medication History Scheduled Azathioprine* (Imuran*), 50 MG PO DAILY, (Reported) Digoxin* (Digoxin*), 125 MCG ORAL DAILY, (Reported) Duloxetine Hcl* (Cymbalta*), 60 MG ORAL DAILY, (Reported) Furosemide* (Lasix*), 20 MG ORAL TWICE A DAY, (Reported) Ibuprofen* (Motrin*), 600 MG ORAL TWICE A DAY, (Reported) Levofloxacin* (Levaquin*), 500 MG ORAL DAILY, (Reported) Levothyroxine Sodium* (Levothyroxine Sodium*), 125 MCG ORAL DAILY, (Reported) Losartan Potassium* (Losartan Potassium*), 25 MG ORAL DAILY, (Reported) Mag Hydrox/Al Hydrox/Simeth (Heather-Lanta Liquid), 30 ML PO Q6HR, (Reported) Metoprolol Tartrate* (Metoprolol Tartrate*), 25 MG ORAL EVERY 12 HOURS, ( Reported) Mycophenolate Mofetil (Cellcept), 1,000 MG ORAL BEDTIME, (Reported) Omeprazole Magnesium (Prilosec Otc), 20 MG ORAL DAILY, (Reported) Prednisone* (Prednisone*), 10 MG ORAL DAILY, (Reported) Prednisone* (Prednisone*), 20 MG ORAL DAILY, (Reported) Pregabalin* (Lyrica*), 100 MG ORAL TWICE A DAY, (Reported) Spironolactone* (Aldactone*), 25 MG ORAL DAILY, (Reported) Tadalafil (Tadalafil), 5 MG PO TWICE A DAY, (Reported) Theophylline (Theodur*), 100 MG ORAL EVERY 12 HOURS Scheduled PRN Acetaminophen* (Acetaminophen 325MG Tablet*), 325 MG ORAL Q6H PRN for For Pain, (Reported) Alprazolam* (Xanax*), 0.25 MG ORAL THREE TIMES A DAY PRN for For Anxiety, ( Reported) D-Methorphan Hb/Prometh Hcl* (Promethazine-Dm Syrup*), 5 ML ORAL Q4H PRN for For Cough, (Reported) Ipratropium/Albuterol Sulfate (DuoNeb 0.5-3(2.5)mg/3ml), 3 ML HHN Q4HR PRN for Shortness of Breath, (Reported) Nitroglycerin (Nitroglycerin), 0.4 MG SL for For Pain, (Reported) Miscellaneous Medications Calcium Carbonate (Tums), 200 MG PO, (Reported) Patient History Limited by: medical condition History Provided By: Medical Record, PMD Healthcare decision maker Resuscitation status Advanced Directive on File Past Medical/Surgical History Past Medical/Surgical History: (1) Major depression (2) GERD (gastroesophageal reflux disease) (3) Hypercapnia (4) Hypothyroidism (5) HTN (hypertension) (6) Proteinuria (7) Hypoalbuminemia (8) Renal failure (9) Mixed connective tissue disease (10) Pulmonary fibrosis (11) Pulmonary hypertension (12) Dyspnea (13) Respiratory failure, acute (14) COPD exacerbation Review of Systems ROS Narrative cannot obtain given patients medical condition Physical Exam General Appearance: no apparent distress, alert Lines, tubes and drains: central line HEENT: mucous membranes moist, PERRL Neck: normal inspection Respiratory/Chest: on vent Cardiovascular/Chest: regularly irregular, tachycardia Abdomen: non tender, soft, no organomegaly, no mass Extremities: normal inspection, trace edema Skin Exam: normal pigmentation, warm/dry Neurologic: alert, responsive - on vent can follow commands Last 24 Hour Vital Signs Date Time Temp Pulse Resp B/P (MAP) Pulse Ox O2 Delivery O2 Flow Rate FiO2 07/09/17 14:45 76 19 94 Mechanical Ventilator 30 07/09/17 14:43 30 2 14:41 76 20 93 Mechanical Ventilator 30 07/09/17 14:38 74 16 30 2 14:00 81 20 159/65 98 Mechanical Ventilator 30 07/09/17 13:00 75 18 135/77 98 Mechanical Ventilator 30 07/09/17 12:35 79 16 30 07/09/17 12:00 85 07/09/17 12:00 30 07/09/17 12:00 81 22 150/75 96 07/09/17 11:00 98.6 79 17 109/75 96 07/09/17 10:54 79 20 97 Mechanical Ventilator 30 07/09/17 10:54 30 07/09/17 10:54 79 19 97 Mechanical Ventilator 30 07/09/17 10:52 81 20 30 07/09/17 10:17 130/97 07/09/17 10:16 81 07/09/17 10:00 100 30 130/97 92 07/09/17 09:15 95 07/09/17 09:08 72 23 30 07/09/17 09:00 72 17 96/71 97 Mechanical Ventilator 30 07/09/17 09:00 77 23 96/71 97 07/09/17 08:00 82 07/09/17 08:00 72 25 125/55 97 07/09/17 08:00 30 07/09/17 07:08 72 24 Mechanical Ventilator 30 07/09/17 07:07 74 26 98 Mechanical Ventilator 30 07/09/17 07:02 30 07/09/17 07:01 76 23 30 07/09/17 07:01 72 24 97 Mechanical Ventilator 30 07/09/17 07:00 97 23 125/55 97 07/09/17 06:00 71 17 111/95 97 Mechanical Ventilator 30 07/09/17 05:55 94/75 2 05:38 54 16 30 07/09/17 05:00 97.8 63 16 142/71 97 Mechanical Ventilator 30 07/09/17 04:00 52 07/09/17 04:00 30 07/09/17 04:00 52 16 124/47 98 Mechanical Ventilator 30 07/09/17 03:32 52 16 98 Mechanical Ventilator 30 07/09/17 03:08 52 16 30 07/09/17 03:06 30 07/09/17 03:05 52 16 98 Mechanical Ventilator 30 07/09/17 03:00 55 16 126/51 98 Mechanical Ventilator 30 07/09/17 02:00 64 20 94/75 97 Mechanical Ventilator 30 07/09/17 01:29 56 17 30 07/09/17 01:00 98.1 53 16 124/50 98 Mechanical Ventilator 30 07/09/17 00:00 66 17 117/62 97 Mechanical Ventilator 30 07/09/17 00:00 55 07/09/17 00:00 30 07/08/17 23:05 54 16 97 Mechanical Ventilator 30 07/08/17 22:52 54 16 30 07/08/17 22:51 30 07/08/17 22:50 53 16 97 Mechanical Ventilator 30 07/08/17 22:00 70 12 118/51 98 Mechanical Ventilator 30 07/08/17 21:51 66 18 30 07/08/17 21:00 67 17 121/53 97 Mechanical Ventilator 30 07/08/17 20:00 97.7 80 17 130/110 95 Mechanical Ventilator 30 07/08/17 20:00 60 07/08/17 20:00 30 07/08/17 19:00 58 16 130/51 97 Mechanical Ventilator 30 07/08/17 19:00 58 16 97 Mechanical Ventilator 30 07/08/17 18:48 63 16 30 07/08/17 18:46 30 07/08/17 18:45 69 19 97 Mechanical Ventilator 30 07/08/17 18:00 64 16 105/45 97 Mechanical Ventilator 30 07/08/17 17:24 96 16 30 07/08/17 17:00 99.0 65 16 103/49 95 Mechanical Ventilator 30 07/08/17 16:09 86 07/08/17 16:00 89 18 99 Mechanical Ventilator 30 07/08/17 16:00 87 16 116/61 94 Mechanical Ventilator 30 07/08/17 16:00 30 07/08/17 15:51 98 18 95 Mechanical Ventilator 30 Intake and Output 07/08/17 07/09/17 19:00 07:00 Intake Total 760 ml 760 ml Output Total 585 ml 810 ml Balance 175 ml -50 ml Free Water 50 ml 100 ml IV Total 55 ml Tube Feeding 605 ml 660 ml Other 50 ml Output Urine Total 585 ml 810 ml Laboratory Tests Test 07/09/17 04:50 07/09/17 06:50 07/09/17 09:14 White Blood Count 5.9 K/UL (4.8-10.8) Red Blood Count 3.15 M/UL (4.20-5.40) L Hemoglobin 10.1 G/DL (12.0-16.0) L Hematocrit 30.9 % (37.0-47.0) L Mean Corpuscular Volume 98 FL (80-99) Mean Corpuscular Hemoglobin 32.0 PG (27.0-31.0) H Mean Corpuscular Hemoglobin Concent 32.6 G/DL (32.0-36.0) Red Cell Distribution Width 15.5 % (11.6-14.8) H Platelet Count 208 K/UL (150-450) Mean Platelet Volume 7.2 FL (6.5-10.1) Neutrophils (%) (Auto) % (45.0-75.0) Lymphocytes (%) (Auto) % (20.0-45.0) Monocytes (%) (Auto) % (1.0-10.0) Eosinophils (%) (Auto) % (0.0-3.0) Basophils (%) (Auto) % (0.0-2.0) Sodium Level 145 MMOL/L (136-145) Potassium Level 3.3 MMOL/L (3.5-5.1) L Chloride Level 106 MMOL/L (98-107) Carbon Dioxide Level 38 MMOL/L (21-32) H Anion Gap 1 mmol/L (5-15) L Blood Urea Nitrogen 13 mg/dL (7-18) Creatinine 0.6 MG/DL (0.55-1.30) Estimat Glomerular Filtration Rate mL/min (>60) Glucose Level 120 MG/DL (74-106) H Calcium Level 8.4 MG/DL (8.5-10.1) L C-Reactive Protein, Quantitative 5.1 mg/dL (0.00-0.90) H Arterial Blood pH 7.467 (7.350-7.450) Arterial Blood Partial Pressure CO2 57.2 mmHg (35.0-45.0) *H Arterial Blood Partial Pressure O2 84.4 mmHg (75.0-100.0) Arterial Blood HCO3 40.3 mmol/L (22.0-26.0) H Arterial Blood Oxygen Saturation 96.0 % (92.0-98.0) Arterial Blood Base Excess 14.5 Kunal Test Positive Height (Feet): 5 Height (Inches): 3.00 Weight (Pounds): 184 Medications Current Medications Medications (Trade) Dose Ordered Sig/Taryn Route PRN Reason Start Time Stop Time Status Last Admin Dose Admin Acetaminophen (Tylenol) 650 mg Q4H PRN ORAL fever 07/01/17 06:15 07/31/17 06:14 Albuterol/ Ipratropium (Albuterol/ Ipratropium) 3 ml Q4HRT HHN 07/06/17 19:00 07/11/17 18:59 07/09/17 14:40 Ceftriaxone Sodium 1 gm/ Sodium Chloride 55 ml @ 110 mls/hr Q24H IVPB 07/04/17 14:00 07/11/17 13:59 07/09/17 13:47 Dextrose (Dextrose 50%) No Dose PRN IV hypoglycemia 07/02/17 10:45 08/01/17 10:44 Digoxin (Lanoxin) 0.125 mg DAILY ORAL 07/01/17 09:00 07/31/17 08:59 07/09/17 10:16 Duloxetine HCl (Cymbalta) 60 mg DAILY ORAL 07/01/17 09:00 07/31/17 08:59 07/09/17 10:15 Heparin Sodium (Porcine) (Heparin 5000 units/ml) 5,000 units EVERY 12 HOURS SUBQ 07/01/17 09:00 07/31/17 08:59 07/09/17 10:13 Insulin Aspart (NovoLOG) EVERY 6 HOURS SUBQ 07/05/17 12:00 08/01/17 11:29 07/09/17 11:26 Lorazepam (Ativan 2mg/ml 1ml) 2 mg Q2H PRN IV For Anxiety 07/07/17 13:30 07/14/17 13:29 07/09/17 10:34 Losartan Potassium (Cozaar) 25 mg DAILY ORAL 07/01/17 09:00 07/31/17 08:59 07/09/17 10:17 Methylprednisolone Sodium Succinate (Solu-MEDROL) 20 mg EVERY 12 HOURS IVP 07/09/17 21:00 08/08/17 20:59 Morphine Sulfate (Morphine Sulfate) 4 mg Q4H PRN IVP Severe Pain (Pain Scale 7-10) 07/07/17 13:00 07/14/17 12:59 07/09/17 10:35 Norepinephrine Bitartrate 4 mg/ Dextrose 254 ml @ 0 mls/hr Q24H IV 07/01/17 06:15 07/31/17 06:14 Ondansetron HCl (Zofran) 4 mg Q6H PRN IVP Nausea & Vomiting 07/01/17 06:15 07/31/17 06:14 Pantoprazole (Protonix) 40 mg Q12HR IV 07/01/17 21:00 07/31/17 08:59 07/09/17 10:17 Polyethylene Glycol (Miralax) 17 gm DAILYPRN PRN ORAL Constipation 07/01/17 06:15 07/31/17 06:14 Theophylline (John-Dur) 100 mg EVERY 12 HOURS ORAL 07/01/17 09:00 07/31/17 08:59 07/09/17 10:15 Assessment/Plan Problem List: (1) Respiratory failure, acute Assessment & Plan: 82F with significant pulmonary history and acute on chronic respiratory failure. recently self extubation failed and required reintubation. difficulty weaning from vent and still requiring vent support and will likely do so for some time. she is awake, alert and responsive. follows commands while intubated on vent. ABG's reviewed. patient examined. vent requirements reviewed. would benefit from trach given history and hospital course. this way she would have protected airway, ability to have vent support and weaning easily, and could eat and recover rather than be intubated in ICU or [facility]US[facility] setting. recommend trach. family currently deciding on care plan for patient. will discuss with them. possibility they may make her DNR/DNI? or comfort? will follow with recs thank you for this consultation. ICD Codes: J96.00 - Acute respiratory failure, unspecified whether with hypoxia or hypercapnia SNOMED: [id number] Qualifiers: Qualified Codes: J96.02 - Acute respiratory failure with hypercapnia Status: stable Ildefonso Ward Jul 09, 2017 15:12
[2017-07-09] MEDS ORDERED: NS 275ml ONE (19:37)
[2017-07-09] MEDS: Solu-MEDROL 40mg Inj IVP SCH (20:18)
[2017-07-10] VITALS (24 sets, daily range): BP systolic 105–151; BP diastolic 42–79
[2017-07-10] MEDS: Albuterol/Ipratropium 3ml neb HHN SCH ×6 (03:36→22:48)
[2017-07-10] MEDS: NovoLOG Insulin Flexpen SUBQ SCH ×3 (05:42→18:00)
[2017-07-10 05:44] LABS: HEMATOCRIT 30.6 % (37.0-47.0); HEMOGLOBIN 9.8 G/DL (12.0-16.0); MEAN CORPUSCULAR VOLUME 100 FL (80-99); PLATELET COUNT 206 K/UL (150-450); RED BLOOD COUNT 3.06 M/UL (4.20-5.40); RED CELL DISTRIBUTION WIDTH 15.6 % (11.6-14.8); WHITE BLOOD COUNT 5.2 K/UL (4.8-10.8)
[2017-07-10 06:12] LABS: ALANINE AMINOTRANSFERASE 41 U/L (12-78); ALBUMIN 2.3 G/DL (3.4-5.0); ALBUMIN/GLOBULIN RATIO 0.6 (1.0-2.7); ALKALINE PHOSPHATASE 45 U/L (46-116); ANION GAP 1 mmol/L (5-15); ASPARTATE AMINO TRANSFERASE 23 U/L (15-37); BILIRUBIN,TOTAL 0.3 MG/DL (0.2-1.0); BLOOD UREA NITROGEN 18 mg/dL (7-18); CALCIUM 8.4 MG/DL (8.5-10.1); CARBON DIOXIDE 36 MMOL/L (21-32); CHLORIDE 109 MMOL/L (98-107); CREATININE 0.6 MG/DL (0.55-1.30); PHOSPHORUS 3.1 MG/DL (2.5-4.9); POTASSIUM 3.9 MMOL/L (3.5-5.1); SODIUM 146 MMOL/L (136-145)
[2017-07-10] MEDS: Solu-MEDROL 40mg Inj IVP SCH ×2 (08:50→20:44)
[2017-07-10] MEDS: Pantoprazole Inj IV SCH ×2 (08:50→20:44)
[2017-07-10] MEDS: Theophylline ER 100mg ORAL SCH ×2 (08:51→20:44)
[2017-07-10] MEDS: Losartan 25mg tab ORAL SCH (08:51)
[2017-07-10] MEDS: DULoxetine 30mg cap ORAL SCH (08:51)
[2017-07-10] MEDS: Digoxin 0.125mg tab ORAL SCH (08:51)
[2017-07-10] MEDS: Heparin 5000 units/ml inj SUBQ SCH ×2 (08:54→20:45)
--- NOTE | 2017-07-10 09:19 | Pulmonolgy Critical Care Note ---
Critical Care - Asmt/Plan Problems: (1) Respiratory failure, acute (2) Hypercapnia (3) Pulmonary hypertension (4) Pulmonary fibrosis (5) Hypothyroidism Respiratory: monitor respiratory rate, adjust FIO2, CXR Cardiac: continue to monitor HR/BP Renal: F/U I&O Infectious Disease: check cultures Gastrointestinal: continue feedings/current rate Endocrine: monitor blood sugar, continue sliding scale insulin Hematologic: monitor H/H, transfuse if hgb<8.5 Neurologic: PRN Morphine, keep patient comfortable Affect: PRN ativan Prophylaxis: Protonix, Heparin Notes Reviewed: spanish medical interpreter, cardio Discussed with: nurses, consultants, telephonic case managersales product manager - Objective Last 24 Hour Vital Signs Date Time Temp Pulse Resp B/P (MAP) Pulse Ox O2 Delivery O2 Flow Rate FiO2 07/10/17 09:09 68 23 30 07/10/17 09:08 94 07/10/17 09:00 62 18 116/47 94 Mechanical Ventilator 30 07/10/17 08:51 144/60 07/10/17 08:51 65 07/10/17 08:00 30 07/10/17 08:00 98.0 67 18 144/60 96 Mechanical Ventilator 30 07/10/17 07:53 57 07/10/17 07:32 54 16 97 Mechanical Ventilator 30 07/10/17 07:29 58 17 30 07/10/17 07:19 59 17 96 Mechanical Ventilator 30 07/10/17 07:00 58 18 134/61 96 Mechanical Ventilator 30 07/10/17 06:15 121/53 07/10/17 06:00 67 18 142/42 97 Mechanical Ventilator 30 07/10/17 05:05 57 17 30 07/10/17 05:00 64 18 128/64 96 Mechanical Ventilator 30 07/10/17 04:00 30 07/10/17 04:00 98.5 62 20 121/53 95 Mechanical Ventilator 30 07/10/17 04:00 60 07/10/17 03:54 56 16 98 Mechanical Ventilator 30 07/10/17 03:39 30 07/10/17 03:38 59 17 97 Mechanical Ventilator 30 07/10/17 03:36 59 18 30 07/10/17 03:00 59 18 121/62 96 Mechanical Ventilator 30 07/10/17 02:00 66 18 133/55 95 Mechanical Ventilator 30 07/10/17 01:20 58 16 30 218 01:00 60 18 127/57 97 Mechanical Ventilator 30 07/10/17 00:00 98.4 57 20 122/54 95 Mechanical Ventilator 30 07/10/17 00:00 57 07/09/17 23:30 57 16 97 Mechanical Ventilator 30 18 23:25 30 07/09/17 23:24 63 17 30 2//18 23:24 64 16 95 Mechanical Ventilator 30 07/09/17 23:00 52 18 128/60 97 Mechanical Ventilator 30 07/09/17 22:00 65 18 122/56 97 Mechanical Ventilator 30 07/09/17 21:22 68 15 30 07/09/17 21:00 79 18 110/59 95 Mechanical Ventilator 30 07/09/17 20:00 73 07/09/17 20:00 98.4 83 20 131/65 95 Mechanical Ventilator 30 07/09/17 20:00 30 07/09/17 19:30 72 22 97 Mechanical Ventilator 30 07/09/17 19:11 30 07/09/17 19:10 83 20 94 Mechanical Ventilator 30 07/09/17 19:09 83 20 30 07/09/17 19:00 89 18 134/77 98 Mechanical Ventilator 30 07/09/17 18:00 95 20 140/92 96 Mechanical Ventilator 30 07/09/17 17:00 103 20 149/77 94 Mechanical Ventilator 30 07/09/17 16:54 96 24 30 07/09/17 16:00 30 07/09/17 16:00 105 07/09/17 16:00 98.9 99 22 140/78 99 Mechanical Ventilator 30 07/09/17 15:00 82 20 135/76 98 Mechanical Ventilator 30 07/09/17 14:45 76 19 94 Mechanical Ventilator 30 07/09/17 14:43 30 07/09/17 14:41 76 20 93 Mechanical Ventilator 30 07/09/17 14:38 74 16 30 07/09/17 14:00 81 20 159/65 98 Mechanical Ventilator 30 07/09/17 13:00 75 18 135/77 98 Mechanical Ventilator 30 07/09/17 12:35 79 16 30 07/09/17 12:00 85 07/09/17 12:00 30 07/09/17 12:00 81 22 150/75 96 07/09/17 11:00 98.6 79 17 109/75 96 07/09/17 10:54 79 20 97 Mechanical Ventilator 30 07/09/17 10:54 30 07/09/17 10:54 79 19 97 Mechanical Ventilator 30 07/09/17 10:52 81 20 30 07/09/17 10:17 130/97 07/09/17 10:16 81 07/09/17 10:00 100 30 130/97 92 Status: awake Condition: critical Lungs: clear Heart: HR/BP unstable, regular Abdomen: active bowel sounds Extremities: no C/C/E, edema Decubiti: location Accucheck: 139 Critical Care - Subjective ROS Limited/Unobtainable: Yes ICU Day: 10 Intubation Day: 10 Condition: critical EKG Rhythm: Sinus Rhythm FI02: 30 Vent Support Breath Rate: 10 Vent Support Mode: IMV/SIMV Vent Tidal Volume: 500 Sputum Amount: Moderate PEEP: 5.0 PIP: 37 Tube Feeding Amount: 55 I&O: Intake and Output 07/09/17 07/10/17 19:00 07:00 Intake Total 550 ml 815 ml Output Total 470 ml 1340 ml Balance 80 ml -525 ml Free Water 100 ml Tube Feeding 550 ml 715 ml Output Urine Total 470 ml 1340 ml CXR: ET in good position, no change in interstitial infiltrate ET-Tube: 7.0 ET Position: 21 Labs: Laboratory Tests Test 07/10/17 05:10 White Blood Count 5.2 K/UL (4.8-10.8) Red Blood Count 3.06 M/UL (4.20-5.40) L Hemoglobin 9.8 G/DL (12.0-16.0) L Hematocrit 30.6 % (37.0-47.0) L Mean Corpuscular Volume 100 FL (80-99) H Mean Corpuscular Hemoglobin 32.1 PG (27.0-31.0) H Mean Corpuscular Hemoglobin Concent 32.1 G/DL (32.0-36.0) Red Cell Distribution Width 15.6 % (11.6-14.8) H Platelet Count 206 K/UL (150-450) Mean Platelet Volume 7.1 FL (6.5-10.1) Neutrophils (%) (Auto) % (45.0-75.0) Lymphocytes (%) (Auto) % (20.0-45.0) Monocytes (%) (Auto) % (1.0-10.0) Eosinophils (%) (Auto) % (0.0-3.0) Basophils (%) (Auto) % (0.0-2.0) Sodium Level 146 MMOL/L (136-145) H Potassium Level 3.9 MMOL/L (3.5-5.1) Chloride Level 109 MMOL/L (98-107) H Carbon Dioxide Level 36 MMOL/L (21-32) H Anion Gap 1 mmol/L (5-15) L Blood Urea Nitrogen 18 mg/dL (7-18) Creatinine 0.6 MG/DL (0.55-1.30) Estimat Glomerular Filtration Rate mL/min (>60) Glucose Level 144 MG/DL (74-106) H Uric Acid 2.0 MG/DL (2.6-7.2) L Calcium Level 8.4 MG/DL (8.5-10.1) L Phosphorus Level 3.1 MG/DL (2.5-4.9) Magnesium Level 2.2 MG/DL (1.8-2.4) Total Bilirubin 0.3 MG/DL (0.2-1.0) Aspartate Amino Transf (AST/SGOT) 23 U/L (15-37) Alanine Aminotransferase (ALT/SGPT) 41 U/L (12-78) Alkaline Phosphatase 45 U/L (46-116) L Pro-B-Type Natriuretic Peptide 381 pg/mL (0-125) H Total Protein 6.3 G/DL (6.4-8.2) L Albumin 2.3 G/DL (3.4-5.0) L Globulin 4.0 g/dL Albumin/Globulin Ratio 0.6 (1.0-2.7) L MARIZA CHANEL Jul 10, 2017 09:19
--- NOTE | 2017-07-10 10:29 | Infectious Diseases Prog Note ---
Assessment/Plan Assessment/Plan Assessment: Acute hypoxic/Hypercapneic respiratory failure- likely flare of her underlying pulmonary disease with possible concomitant PNA- r/o atypical -CXR 07/05: Bilateral interstitial opacification again noted with suggestion of slight increased airspace disease on the left. -CXR 07/02: Bilateral interstitial and airspace disease, likely fibrotic change persists, unchanged. -sp Cx Normal gerald -Influenza neg -legionella ag urine neg Afebrile/no leukocytosis COPD on home O2 at 2L pHTN pulmonary fibrosis hypothyroidism GERD HTN mixed connective tissue disorder, s/p R TKR [facility] resident Plan: -Continue Ceftriaxone abx d#03/13 for PNA given no isolation of resistant organisms -07/05 SP Levaquin #5 -07/04 SP Zosyn #4 -07/03 SP IV Vancomycin #3 -07/02 SP Amikacin #2 -07/01 SP Ertapenem x1 -Monitor CBC/BMP, temperatures -ETT care -aspiration precautions -possible trach Thank you for this consultation. Will continue to follow along with you. Discussed with RN Subjective Allergies: Coded Allergies: No Known Allergies (Unverified , 01/11/17) Subjective afebrile no leukocytosis remains on MV, fio2 30% unable to wean;consideration for trach Objective Vital Signs Last 24 Hour Vital Signs Date Time Temp Pulse Resp B/P (MAP) Pulse Ox O2 Delivery O2 Flow Rate FiO2 07/10/17 10:00 81 30 126/50 93 Mechanical Ventilator 30 07/10/17 09:09 68 23 30 07/10/17 09:08 94 07/10/17 09:00 62 18 116/47 94 Mechanical Ventilator 30 07/10/17 08:51 144/60 07/10/17 08:51 65 07/10/17 08:00 30 07/10/17 08:00 98.0 67 18 144/60 96 Mechanical Ventilator 30 07/10/17 07:53 57 07/10/17 07:32 54 16 97 Mechanical Ventilator 30 07/10/17 07:29 58 17 30 07/10/17 07:19 59 17 96 Mechanical Ventilator 30 07/10/17 07:00 58 18 134/61 96 Mechanical Ventilator 30 07/10/17 06:15 121/53 07/10/17 06:00 67 18 142/42 97 Mechanical Ventilator 30 07/10/17 05:05 57 17 30 18 05:00 64 18 128/64 96 Mechanical Ventilator 30 07/10/17 04:00 30 07/10/17 04:00 98.5 62 20 121/53 95 Mechanical Ventilator 30 07/10/17 04:00 60 2/11/19 03:54 56 16 98 Mechanical Ventilator 30 07/10/17 03:39 30 2 03:38 59 17 97 Mechanical Ventilator 30 07/10/17 03:36 59 18 30 07/10/17 03:00 59 18 121/62 96 Mechanical Ventilator 30 07/10/17 02:00 66 18 133/55 95 Mechanical Ventilator 30 07/10/17 01:20 58 16 30 07/10/17 01:00 60 18 127/57 97 Mechanical Ventilator 30 07/10/17 00:00 98.4 57 20 122/54 95 Mechanical Ventilator 30 07/10/17 00:00 57 07/09/17 23:30 57 16 97 Mechanical Ventilator 30 07/09/17 23:25 30 07/09/17 23:24 63 17 30 07/09/17 23:24 64 16 95 Mechanical Ventilator 30 07/09/17 23:00 52 18 128/60 97 Mechanical Ventilator 30 07/09/17 22:00 65 18 122/56 97 Mechanical Ventilator 30 07/09/17 21:22 68 15 30 07/09/17 21:00 79 18 110/59 95 Mechanical Ventilator 30 07/09/17 20:00 73 07/09/17 20:00 98.4 83 20 131/65 95 Mechanical Ventilator 30 07/09/17 20:00 30 07/09/17 19:30 72 22 97 Mechanical Ventilator 30 07/09/17 19:11 30 18 19:10 83 20 94 Mechanical Ventilator 30 18 19:09 83 20 30 18 19:00 89 18 134/77 98 Mechanical Ventilator 30 07/09/17 18:00 95 20 140/92 96 Mechanical Ventilator 30 07/09/17 17:00 103 20 149/77 94 Mechanical Ventilator 30 07/09/17 16:54 96 24 30 07/09/17 16:00 30 07/09/17 16:00 105 07/09/17 16:00 98.9 99 22 140/78 99 Mechanical Ventilator 30 07/09/17 15:00 82 20 135/76 98 Mechanical Ventilator 30 07/09/17 14:45 76 19 94 Mechanical Ventilator 30 07/09/17 14:43 30 07/09/17 14:41 76 20 93 Mechanical Ventilator 30 07/09/17 14:38 74 16 30 07/09/17 14:00 81 20 159/65 98 Mechanical Ventilator 30 07/09/17 13:00 75 18 135/77 98 Mechanical Ventilator 30 07/09/17 12:35 79 16 30 07/09/17 12:00 85 07/09/17 12:00 30 07/09/17 12:00 81 22 150/75 96 07/09/17 11:00 98.6 79 17 109/75 96 07/09/17 10:54 79 20 97 Mechanical Ventilator 30 07/09/17 10:54 30 07/09/17 10:54 79 19 97 Mechanical Ventilator 30 07/09/17 10:52 81 20 30 Height (Feet): 5 Height (Inches): 3.00 Weight (Pounds): 181 Objective GENERAL: The patient is well developed and well nourished female, who is intubated and sedated. HEENT: Eyes, pupils equal and responsive to light and accommodation. Extraocular movements are intact. NECK: Supple. No lymphadenopathy. CHEST: Few diffuse wheezes bilaterally with few rales at bilateral bases, otherwise clear to auscultation. CARDIOVASCULAR: Regular rhythm and rate. S1 and S2 normal without murmurs, rubs, or gallops. ABDOMEN: Soft, nontender, and nondistended. Positive bowel sounds. No evidence of hepatosplenomegaly. Currently, no rebound or guarding noted. EXTREMITIES: Negative for clubbing, cyanosis, or edema. NEUROLOGICAL: Unable to assess secondary to the patient's mental status. Laboratory Tests Test 07/10/17 05:10 White Blood Count 5.2 K/UL (4.8-10.8) Red Blood Count 3.06 M/UL (4.20-5.40) L Hemoglobin 9.8 G/DL (12.0-16.0) L Hematocrit 30.6 % (37.0-47.0) L Mean Corpuscular Volume 100 FL (80-99) H Mean Corpuscular Hemoglobin 32.1 PG (27.0-31.0) H Mean Corpuscular Hemoglobin Concent 32.1 G/DL (32.0-36.0) Red Cell Distribution Width 15.6 % (11.6-14.8) H Platelet Count 206 K/UL (150-450) Mean Platelet Volume 7.1 FL (6.5-10.1) Neutrophils (%) (Auto) % (45.0-75.0) Lymphocytes (%) (Auto) % (20.0-45.0) Monocytes (%) (Auto) % (1.0-10.0) Eosinophils (%) (Auto) % (0.0-3.0) Basophils (%) (Auto) % (0.0-2.0) Sodium Level 146 MMOL/L (136-145) H Potassium Level 3.9 MMOL/L (3.5-5.1) Chloride Level 109 MMOL/L (98-107) H Carbon Dioxide Level 36 MMOL/L (21-32) H Anion Gap 1 mmol/L (5-15) L Blood Urea Nitrogen 18 mg/dL (7-18) Creatinine 0.6 MG/DL (0.55-1.30) Estimat Glomerular Filtration Rate mL/min (>60) Glucose Level 144 MG/DL (74-106) H Uric Acid 2.0 MG/DL (2.6-7.2) L Calcium Level 8.4 MG/DL (8.5-10.1) L Phosphorus Level 3.1 MG/DL (2.5-4.9) Magnesium Level 2.2 MG/DL (1.8-2.4) Total Bilirubin 0.3 MG/DL (0.2-1.0) Aspartate Amino Transf (AST/SGOT) 23 U/L (15-37) Alanine Aminotransferase (ALT/SGPT) 41 U/L (12-78) Alkaline Phosphatase 45 U/L (46-116) L Pro-B-Type Natriuretic Peptide 381 pg/mL (0-125) H Total Protein 6.3 G/DL (6.4-8.2) L Albumin 2.3 G/DL (3.4-5.0) L Globulin 4.0 g/dL Albumin/Globulin Ratio 0.6 (1.0-2.7) L Current Medications Medications (Trade) Dose Ordered Sig/Taryn Route PRN Reason Start Time Stop Time Status Last Admin Dose Admin Acetaminophen (Tylenol) 650 mg Q4H PRN ORAL fever 07/01/17 06:15 07/31/17 06:14 Albuterol/ Ipratropium (Albuterol/ Ipratropium) 3 ml Q4HRT HHN 07/06/17 19:00 07/11/17 18:59 07/10/17 07:29 Ceftriaxone Sodium 1 gm/ Sodium Chloride 55 ml @ 110 mls/hr Q24H IVPB 07/04/17 14:00 07/11/17 13:59 07/09/17 13:47 Dextrose (Dextrose 50%) No Dose PRN IV hypoglycemia 07/02/17 10:45 08/01/17 10:44 Digoxin (Lanoxin) 0.125 mg DAILY ORAL 07/01/17 09:00 07/31/17 08:59 07/10/17 08:51 Duloxetine HCl (Cymbalta) 60 mg DAILY ORAL 07/01/17 09:00 07/31/17 08:59 07/10/17 08:51 Heparin Sodium (Porcine) (Heparin 5000 units/ml) 5,000 units EVERY 12 HOURS SUBQ 07/01/17 09:00 07/31/17 08:59 07/10/17 08:54 Insulin Aspart (NovoLOG) EVERY 6 HOURS SUBQ 07/05/17 12:00 08/01/17 11:29 07/10/17 05:42 Lorazepam (Ativan 2mg/ml 1ml) 2 mg Q2H PRN IV For Anxiety 07/07/17 13:30 07/14/17 13:29 07/09/17 10:34 Losartan Potassium (Cozaar) 25 mg DAILY ORAL 07/01/17 09:00 07/31/17 08:59 07/10/17 08:51 Methylprednisolone Sodium Succinate (Solu-MEDROL) 20 mg EVERY 12 HOURS IVP 07/09/17 21:00 08/08/17 20:59 07/10/17 08:50 Morphine Sulfate (Morphine Sulfate) 4 mg Q4H PRN IVP Severe Pain (Pain Scale 7-10) 07/07/17 13:00 07/14/17 12:59 07/09/17 10:35 Norepinephrine Bitartrate 4 mg/ Dextrose 254 ml @ 0 mls/hr Q24H IV 07/01/17 06:15 07/31/17 06:14 Ondansetron HCl (Zofran) 4 mg Q6H PRN IVP Nausea & Vomiting 07/01/17 06:15 07/31/17 06:14 Pantoprazole (Protonix) 40 mg Q12HR IV 07/01/17 21:00 07/31/17 08:59 07/10/17 08:50 Polyethylene Glycol (Miralax) 17 gm DAILYPRN PRN ORAL Constipation 07/01/17 06:15 07/31/17 06:14 Theophylline (John-Dur) 100 mg EVERY 12 HOURS ORAL 07/01/17 09:00 07/31/17 08:59 07/10/17 08:51 Roseanna Penn M.D. Jul 10, 2017 10:29
--- NOTE | 2017-07-10 10:51 | Diagnostic Imaging Report ---
Indication: Dyspnea Technique: One view of the chest Comparison: 07/09/2017 Findings: Stable bilateral interstitial disease. Interim advancement of nasogastric tube, position satisfactory. Stable satisfactory position of endotracheal tube Impression: Improved nasogastric intubation. Otherwise unchanged over one day
--- NOTE | 2017-07-10 11:15 | Nephrology Progress Note ---
Assessment/Plan Problem List: (1) Respiratory failure, acute (2) Proteinuria (3) Hypoalbuminemia Assessment stable from renal stand Dyspnea, acute respiratory failure , requiring intubation and mechanichal vent Mixed connective tissue disease Anemia likely due to chronic disease HypoAlbuminemia Pulmonary fibrosis Pulmonary hypertension COPD exacerbation Respiratory failure, acute Plan Plan: Family considering terminal extubation stable from renal stand BP stable On vent. Cant be weaned on steroids per orders Subjective ROS Limited/Unobtainable: Yes Objective Objective Last 24 Hour Vital Signs Date Time Temp Pulse Resp B/P (MAP) Pulse Ox O2 Delivery O2 Flow Rate FiO2 07/10/17 11:00 62 17 126/60 96 Mechanical Ventilator 30 07/10/17 10:00 81 30 126/50 93 Mechanical Ventilator 30 07/10/17 09:09 68 23 30 07/10/17 09:08 94 07/10/17 09:00 62 18 116/47 94 Mechanical Ventilator 30 07/10/17 08:51 144/60 07/10/17 08:51 65 07/10/17 08:00 30 07/10/17 08:00 98.0 67 18 144/60 96 Mechanical Ventilator 30 07/10/17 07:53 57 07/10/17 07:32 54 16 97 Mechanical Ventilator 30 07/10/17 07:29 58 17 30 07/10/17 07:19 59 17 96 Mechanical Ventilator 30 07/10/17 07:00 58 18 134/61 96 Mechanical Ventilator 30 07/10/17 06:15 121/53 07/10/17 06:00 67 18 142/42 97 Mechanical Ventilator 30 07/10/17 05:05 57 17 30 07/10/17 05:00 64 18 128/64 96 Mechanical Ventilator 30 07/10/17 04:00 30 07/10/17 04:00 98.5 62 20 121/53 95 Mechanical Ventilator 30 07/10/17 04:00 60 07/10/17 03:54 56 16 98 Mechanical Ventilator 30 07/10/17 03:39 30 07/10/17 03:38 59 17 97 Mechanical Ventilator 30 07/10/17 03:36 59 18 30 07/10/17 03:00 59 18 121/62 96 Mechanical Ventilator 30 07/10/17 02:00 66 18 133/55 95 Mechanical Ventilator 30 07/10/17 01:20 58 16 30 2/6/18 01:00 60 18 127/57 97 Mechanical Ventilator 30 07/10/17 00:00 98.4 57 20 122/54 95 Mechanical Ventilator 30 07/10/17 00:00 57 07/09/17 23:30 57 16 97 Mechanical Ventilator 30 07/09/17 23:25 30 07/09/17 23:24 63 17 30 07/09/17 23:24 64 16 95 Mechanical Ventilator 30 07/09/17 23:00 52 18 128/60 97 Mechanical Ventilator 30 07/09/17 22:00 65 18 122/56 97 Mechanical Ventilator 30 07/09/17 21:22 68 15 30 07/09/17 21:00 79 18 110/59 95 Mechanical Ventilator 30 07/09/17 20:00 73 07/09/17 20:00 98.4 83 20 131/65 95 Mechanical Ventilator 30 07/09/17 20:00 30 07/09/17 19:30 72 22 97 Mechanical Ventilator 30 07/09/17 19:11 30 07/09/17 19:10 83 20 94 Mechanical Ventilator 30 07/09/17 19:09 83 20 30 07/09/17 19:00 89 18 134/77 98 Mechanical Ventilator 30 07/09/17 18:00 95 20 140/92 96 Mechanical Ventilator 30 07/09/17 17:00 103 20 149/77 94 Mechanical Ventilator 30 07/09/17 16:54 96 24 30 07/09/17 16:00 30 07/09/17 16:00 105 07/09/17 16:00 98.9 99 22 140/78 99 Mechanical Ventilator 30 07/09/17 15:00 82 20 135/76 98 Mechanical Ventilator 30 07/09/17 14:45 76 19 94 Mechanical Ventilator 30 07/09/17 14:43 30 07/09/17 14:41 76 20 93 Mechanical Ventilator 30 07/09/17 14:38 74 16 30 07/09/17 14:00 81 20 159/65 98 Mechanical Ventilator 30 07/09/17 13:00 75 18 135/77 98 Mechanical Ventilator 30 07/09/17 12:35 79 16 30 07/09/17 12:00 85 07/09/17 12:00 30 07/09/17 12:00 81 22 150/75 96 Intake and Output 18 07/10/17 19:00 07:00 Intake Total 550 ml 815 ml Output Total 470 ml 1340 ml Balance 80 ml -525 ml Free Water 100 ml Tube Feeding 550 ml 715 ml Output Urine Total 470 ml 1340 ml Laboratory Tests 07/10/17 05:10: White Blood Count 5.2, Red Blood Count 3.06L, Hemoglobin 9.8L, Hematocrit 30.6L , Mean Corpuscular Volume 100H, Mean Corpuscular Hemoglobin 32.1H, Mean Corpuscular Hemoglobin Concent 32.1, Red Cell Distribution Width 15.6H, Platelet Count 206, Mean Platelet Volume 7.1, Neutrophils (%) (Auto) , Lymphocytes (%) (Auto) , Monocytes (%) (Auto) , Eosinophils (%) (Auto) , Basophils (%) (Auto) , Sodium Level 146H, Potassium Level 3.9, Chloride Level 109H, Carbon Dioxide Level 36H, Anion Gap 1L, Blood Urea Nitrogen 18, Creatinine 0.6, Estimat Glomerular Filtration Rate , Glucose Level 144H, Uric Acid 2.0L, Calcium Level 8.4L, Phosphorus Level 3.1, Magnesium Level 2.2, Total Bilirubin 0.3, Aspartate Amino Transf (AST/SGOT) 23, Alanine Aminotransferase ( ALT/SGPT) 41, Alkaline Phosphatase 45L, Pro-B-Type Natriuretic Peptide 381H, Total Protein 6.3L, Albumin 2.3L, Globulin 4.0, Albumin/Globulin Ratio 0.6L Height (Feet): 5 Height (Inches): 3.00 Weight (Pounds): 181 EENT: other - on vent Cardiovascular: normal rate Respiratory/Chest: decreased breath sounds Abdomen: soft DARRYL ISSA Jul 10, 2017 11:14
[2017-07-10] MEDS: cefTRIAXone 1 GM in NS 55 ML IVPB SCH (14:04)
--- NOTE | 2017-07-10 18:03 | General Surgery Progress Note ---
General Surgery-Progress Note Subjective Additional Comments no acute events. unchanged. Objective Last 24 Hour Vital Signs Date Time Temp Pulse Resp B/P (MAP) Pulse Ox O2 Delivery O2 Flow Rate FiO2 07/10/17 16:00 91 07/10/17 16:00 45 07/10/17 16:00 99.0 96 23 136/55 98 Venturi Mask 45 07/10/17 15:50 89 24 99 Venturi Mask 10.0 45 07/10/17 15:40 87 28 99 Venturi Mask 10.0 45 07/10/17 15:00 97 25 147/79 97 Venturi Mask 45 07/10/17 14:00 90 24 147/74 99 Venturi Mask 45 07/10/17 13:00 99.2 91 26 145/79 97 Venturi Mask 45 07/10/17 12:01 99 Venturi Mask 10.0 45 07/10/17 12:00 83 07/10/17 12:00 Venturi Mask 10.0 45 07/10/17 12:00 96 28 151/69 95 Venturi Mask 45 07/10/17 12:00 45 07/10/17 11:55 88 28 99 Venturi Mask 10.0 45 07/10/17 11:40 81 26 99 Venturi Mask 10.0 45 07/10/17 11:35 Venturi Mask 10.0 45 07/10/17 11:00 62 17 126/60 96 Mechanical Ventilator 30 07/10/17 10:00 81 30 126/50 93 Mechanical Ventilator 30 07/10/17 09:09 68 23 30 07/10/17 09:08 94 07/10/17 09:00 62 18 116/47 94 Mechanical Ventilator 30 07/10/17 08:51 144/60 07/10/17 08:51 65 07/10/17 08:00 30 07/10/17 08:00 98.0 67 18 144/60 96 Mechanical Ventilator 30 07/10/17 07:53 57 07/10/17 07:32 54 16 97 Mechanical Ventilator 30 07/10/17 07:29 58 17 30 07/10/17 07:19 59 17 96 Mechanical Ventilator 30 07/10/17 07:00 58 18 134/61 96 Mechanical Ventilator 30 07/10/17 06:15 121/53 07/10/17 06:00 67 18 142/42 97 Mechanical Ventilator 30 07/10/17 05:05 57 17 30 07/10/17 05:00 64 18 128/64 96 Mechanical Ventilator 30 07/10/17 04:00 30 07/10/17 04:00 98.5 62 20 121/53 95 Mechanical Ventilator 30 07/10/17 04:00 60 07/10/17 03:54 56 16 98 Mechanical Ventilator 30 07/10/17 03:39 30 07/10/17 03:38 59 17 97 Mechanical Ventilator 30 07/10/17 03:36 59 18 30 07/10/17 03:00 59 18 121/62 96 Mechanical Ventilator 30 07/10/17 02:00 66 18 133/55 95 Mechanical Ventilator 30 07/10/17 01:20 58 16 30 07/10/17 01:00 60 18 127/57 97 Mechanical Ventilator 30 07/10/17 00:00 98.4 57 20 122/54 95 Mechanical Ventilator 30 07/10/17 00:00 57 07/09/17 23:30 57 16 97 Mechanical Ventilator 30 07/09/17 23:25 30 07/09/17 23:24 63 17 30 07/09/17 23:24 64 16 95 Mechanical Ventilator 30 07/09/17 23:00 52 18 128/60 97 Mechanical Ventilator 30 07/09/17 22:00 65 18 122/56 97 Mechanical Ventilator 30 07/09/17 21:22 68 15 30 07/09/17 21:00 79 18 110/59 95 Mechanical Ventilator 30 07/09/17 20:00 73 07/09/17 20:00 98.4 83 20 131/65 95 Mechanical Ventilator 30 07/09/17 20:00 30 07/09/17 19:30 72 22 97 Mechanical Ventilator 30 07/09/17 19:11 30 07/09/17 19:10 83 20 94 Mechanical Ventilator 30 07/09/17 19:09 83 20 30 07/09/17 19:00 89 18 134/77 98 Mechanical Ventilator 30 I&O Intake and Output 07/09/17 07/10/17 19:00 07:00 Intake Total 550 ml 815 ml Output Total 470 ml 1340 ml Balance 80 ml -525 ml Free Water 100 ml Tube Feeding 550 ml 715 ml Output Urine Total 470 ml 1340 ml Drains: other - intubated on vent Cardiovascular: RSR Respiratory: clear Abdomen: soft Extremities: no cyanosis Laboratory Tests Test 07/10/17 05:10 White Blood Count 5.2 K/UL (4.8-10.8) Red Blood Count 3.06 M/UL (4.20-5.40) L Hemoglobin 9.8 G/DL (12.0-16.0) L Hematocrit 30.6 % (37.0-47.0) L Mean Corpuscular Volume 100 FL (80-99) H Mean Corpuscular Hemoglobin 32.1 PG (27.0-31.0) H Mean Corpuscular Hemoglobin Concent 32.1 G/DL (32.0-36.0) Red Cell Distribution Width 15.6 % (11.6-14.8) H Platelet Count 206 K/UL (150-450) Mean Platelet Volume 7.1 FL (6.5-10.1) Neutrophils (%) (Auto) % (45.0-75.0) Lymphocytes (%) (Auto) % (20.0-45.0) Monocytes (%) (Auto) % (1.0-10.0) Eosinophils (%) (Auto) % (0.0-3.0) Basophils (%) (Auto) % (0.0-2.0) Sodium Level 146 MMOL/L (136-145) H Potassium Level 3.9 MMOL/L (3.5-5.1) Chloride Level 109 MMOL/L (98-107) H Carbon Dioxide Level 36 MMOL/L (21-32) H Anion Gap 1 mmol/L (5-15) L Blood Urea Nitrogen 18 mg/dL (7-18) Creatinine 0.6 MG/DL (0.55-1.30) Estimat Glomerular Filtration Rate mL/min (>60) Glucose Level 144 MG/DL (74-106) H Uric Acid 2.0 MG/DL (2.6-7.2) L Calcium Level 8.4 MG/DL (8.5-10.1) L Phosphorus Level 3.1 MG/DL (2.5-4.9) Magnesium Level 2.2 MG/DL (1.8-2.4) Total Bilirubin 0.3 MG/DL (0.2-1.0) Aspartate Amino Transf (AST/SGOT) 23 U/L (15-37) Alanine Aminotransferase (ALT/SGPT) 41 U/L (12-78) Alkaline Phosphatase 45 U/L (46-116) L Pro-B-Type Natriuretic Peptide 381 pg/mL (0-125) H Total Protein 6.3 G/DL (6.4-8.2) L Albumin 2.3 G/DL (3.4-5.0) L Globulin 4.0 g/dL Albumin/Globulin Ratio 0.6 (1.0-2.7) L Plan Problems: (1) Respiratory failure, acute Assessment & Plan: 82F with significant pulmonary history and acute on chronic respiratory failure. recently self extubation failed and required reintubation. difficulty weaning from vent and still requiring vent support and will likely do so for some time. she is awake, alert and responsive. follows commands while intubated on vent. ABG's reviewed. patient examined. vent requirements reviewed. would benefit from trach given history and hospital course. this way she would have protected airway, ability to have vent support and weaning easily, and could eat and recover rather than be intubated in ICU or [facility] setting. recommend trach. family currently deciding on care plan for patient. will discuss with them. possibility they may make her DNR/DNI? or comfort? will follow with recs thank you for this consultation. Ildefonso Ward Jul 10, 2017 18:03
--- NOTE | 2017-07-10 18:45 | Internal Med Progress Note ---
Subjective Date of Service: Jul 10, 2017 Physician Name Roberta Butler Attending Physician Ten Bourne MD Current Medications Medications (Trade) Dose Ordered Sig/Taryn Route PRN Reason Start Time Stop Time Status Last Admin Dose Admin Acetaminophen (Tylenol) 650 mg Q4H PRN ORAL fever 07/01/17 06:15 07/31/17 06:14 Albuterol/ Ipratropium (Albuterol/ Ipratropium) 3 ml Q4HRT HHN 07/06/17 19:00 07/11/17 18:59 07/10/17 15:49 Ceftriaxone Sodium 1 gm/ Sodium Chloride 55 ml @ 110 mls/hr Q24H IVPB 07/04/17 14:00 07/11/17 13:59 07/10/17 14:04 Dextrose (Dextrose 50%) No Dose PRN IV hypoglycemia 07/02/17 10:45 08/01/17 10:44 Digoxin (Lanoxin) 0.125 mg DAILY ORAL 07/01/17 09:00 07/31/17 08:59 07/10/17 08:51 Duloxetine HCl (Cymbalta) 60 mg DAILY ORAL 07/01/17 09:00 07/31/17 08:59 07/10/17 08:51 Heparin Sodium (Porcine) (Heparin 5000 units/ml) 5,000 units EVERY 12 HOURS SUBQ 07/01/17 09:00 07/31/17 08:59 07/10/17 08:54 Insulin Aspart (NovoLOG) EVERY 6 HOURS SUBQ 07/05/17 12:00 08/01/17 11:29 07/10/17 05:42 Lorazepam (Ativan 2mg/ml 1ml) 2 mg Q2H PRN IV For Anxiety 07/07/17 13:30 07/14/17 13:29 07/09/17 10:34 Losartan Potassium (Cozaar) 25 mg DAILY ORAL 07/01/17 09:00 07/31/17 08:59 07/10/17 08:51 Methylprednisolone Sodium Succinate (Solu-MEDROL) 20 mg EVERY 12 HOURS IVP 07/09/17 21:00 08/08/17 20:59 07/10/17 08:50 Morphine Sulfate (Morphine Sulfate) 4 mg Q4H PRN IVP Severe Pain (Pain Scale 7-10) 07/07/17 13:00 07/14/17 12:59 07/09/17 10:35 Norepinephrine Bitartrate 4 mg/ Dextrose 254 ml @ 0 mls/hr Q24H IV 07/01/17 06:15 07/31/17 06:14 Ondansetron HCl (Zofran) 4 mg Q6H PRN IVP Nausea & Vomiting 07/01/17 06:15 07/31/17 06:14 Pantoprazole (Protonix) 40 mg Q12HR IV 07/01/17 21:00 07/31/17 08:59 07/10/17 08:50 Polyethylene Glycol (Miralax) 17 gm DAILYPRN PRN ORAL Constipation 07/01/17 06:15 07/31/17 06:14 Theophylline (John-Dur) 100 mg EVERY 12 HOURS ORAL 07/01/17 09:00 07/31/17 08:59 07/10/17 08:51 Allergies: Coded Allergies: No Known Allergies (Unverified , 01/11/17) ROS Limited/Unobtainable: Yes Subjective 82 YO F admitted with respiratory failure. Extubated earlier today 07/10/17. Tolerating venturi-mask. Cover for Int Med-Dr Bourne. ICU. Objective Last Vital Signs Date Time Temp Pulse Resp B/P (MAP) Pulse Ox O2 Delivery O2 Flow Rate FiO2 07/10/17 18:00 93 20 120/65 98 Venturi Mask 45 07/10/17 16:00 99.0 07/10/17 15:50 10.0 Laboratory Tests Test 07/10/17 05:10 White Blood Count 5.2 K/UL (4.8-10.8) Red Blood Count 3.06 M/UL (4.20-5.40) L Hemoglobin 9.8 G/DL (12.0-16.0) L Hematocrit 30.6 % (37.0-47.0) L Mean Corpuscular Volume 100 FL (80-99) H Mean Corpuscular Hemoglobin 32.1 PG (27.0-31.0) H Mean Corpuscular Hemoglobin Concent 32.1 G/DL (32.0-36.0) Red Cell Distribution Width 15.6 % (11.6-14.8) H Platelet Count 206 K/UL (150-450) Mean Platelet Volume 7.1 FL (6.5-10.1) Neutrophils (%) (Auto) % (45.0-75.0) Lymphocytes (%) (Auto) % (20.0-45.0) Monocytes (%) (Auto) % (1.0-10.0) Eosinophils (%) (Auto) % (0.0-3.0) Basophils (%) (Auto) % (0.0-2.0) Sodium Level 146 MMOL/L (136-145) H Potassium Level 3.9 MMOL/L (3.5-5.1) Chloride Level 109 MMOL/L (98-107) H Carbon Dioxide Level 36 MMOL/L (21-32) H Anion Gap 1 mmol/L (5-15) L Blood Urea Nitrogen 18 mg/dL (7-18) Creatinine 0.6 MG/DL (0.55-1.30) Estimat Glomerular Filtration Rate mL/min (>60) Glucose Level 144 MG/DL (74-106) H Uric Acid 2.0 MG/DL (2.6-7.2) L Calcium Level 8.4 MG/DL (8.5-10.1) L Phosphorus Level 3.1 MG/DL (2.5-4.9) Magnesium Level 2.2 MG/DL (1.8-2.4) Total Bilirubin 0.3 MG/DL (0.2-1.0) Aspartate Amino Transf (AST/SGOT) 23 U/L (15-37) Alanine Aminotransferase (ALT/SGPT) 41 U/L (12-78) Alkaline Phosphatase 45 U/L (46-116) L Pro-B-Type Natriuretic Peptide 381 pg/mL (0-125) H Total Protein 6.3 G/DL (6.4-8.2) L Albumin 2.3 G/DL (3.4-5.0) L Globulin 4.0 g/dL Albumin/Globulin Ratio 0.6 (1.0-2.7) L Intake and Output 07/09/17 07/10/17 19:00 07:00 Intake Total 550 ml 815 ml Output Total 470 ml 1340 ml Balance 80 ml -525 ml Free Water 100 ml Tube Feeding 550 ml 715 ml Output Urine Total 470 ml 1340 ml Objective General Appearance: WD/WN, lethargic EENT: normal ENT inspection Neck: non-tender, normal alignment, supple, normal inspection Cardiovascular: normal peripheral pulses, normal rate, regular rhythm, no gallop/murmur, no JVD Respiratory/Chest: Venturi-mask; respiratory distress, crackles/rales, rhonchi - bilaterally, expiratory wheezing Abdomen: non tender, soft, no organomegaly, no mass, decreased bowel sounds Edema: trace edema Skin: normal pigmentation, warm/dry Assessment/Plan Problem List: (1) HTN (hypertension) Assessment & Plan: Currently off levophed. (2) Respiratory failure, acute Assessment & Plan: Extubated today 07/10/17; tolerating venturi-mask. See pulm note. Cont theophylline and ceftriaxone (3) Hypercapnia (4) Pulmonary hypertension (5) Pulmonary fibrosis (6) Hypothyroidism (7) Renal failure Assessment & Plan: See nephrology note. Status: progressing ROBERTA BUTLER Jul 10, 2017 18:45
[2017-07-11] VITALS (14 sets, daily range): BP systolic 113–159; BP diastolic 58–95
[2017-07-11] MEDS: Albuterol/Ipratropium 3ml neb HHN SCH ×5 (02:56→18:50)
[2017-07-11 05:21] LABS: HEMATOCRIT 32.3 % (37.0-47.0); HEMOGLOBIN 10.3 G/DL (12.0-16.0); MEAN CORPUSCULAR VOLUME 101 FL (80-99); PLATELET COUNT 220 K/UL (150-450); RED BLOOD COUNT 3.21 M/UL (4.20-5.40); RED CELL DISTRIBUTION WIDTH 15.9 % (11.6-14.8)
[2017-07-11 05:48] LABS: ALANINE AMINOTRANSFERASE 45 U/L (12-78); ALBUMIN 2.6 G/DL (3.4-5.0); ALBUMIN/GLOBULIN RATIO 0.6 (1.0-2.7); ALKALINE PHOSPHATASE 49 U/L (46-116); ANION GAP 2 mmol/L (5-15); ASPARTATE AMINO TRANSFERASE 25 U/L (15-37); BILIRUBIN,TOTAL 0.5 MG/DL (0.2-1.0); BLOOD UREA NITROGEN 16 mg/dL (7-18); CARBON DIOXIDE 37 MMOL/L (21-32); CHLORIDE 107 MMOL/L (98-107); CREATININE 0.6 MG/DL (0.55-1.30); PHOSPHORUS 4.1 MG/DL (2.5-4.9); POTASSIUM 4.1 MMOL/L (3.5-5.1); SODIUM 146 MMOL/L (136-145)
[2017-07-11] MEDS: NovoLOG Insulin Flexpen SUBQ SCH ×4 (06:00→17:31)
[2017-07-11] MEDS: Digoxin 0.125mg tab ORAL SCH (08:42)
[2017-07-11] MEDS: DULoxetine 30mg cap ORAL SCH (08:42)
[2017-07-11] MEDS: Losartan 25mg tab ORAL SCH (08:43)
[2017-07-11] MEDS: Solu-MEDROL 40mg Inj IVP SCH ×2 (09:06→21:15)
[2017-07-11] MEDS: Pantoprazole Inj IV SCH ×2 (09:06→21:15)
[2017-07-11] MEDS: Heparin 5000 units/ml inj SUBQ SCH ×2 (09:06→21:31)
--- NOTE | 2017-07-11 09:06 | Pulmonolgy Critical Care Note ---
Critical Care - Asmt/Plan Problems: (1) Respiratory failure, acute (2) Hypercapnia (3) Pulmonary hypertension (4) Pulmonary fibrosis (5) Hypothyroidism Assessment/Plan: pt/ot transfer to med/surg swallow study pending Respiratory: monitor respiratory rate Cardiac: continue pressors, stop pressors, continue to monitor HR/BP Infectious Disease: check cultures, continue antibiotics Gastrointestinal: continue feedings/current rate Endocrine: check TSH, check HgA1C Neurologic: PRN Morphine Affect: PRN ativan Prophylaxis: Protonix Disposition: keep in ICU Notes Reviewed: renal Discussed with: consultants Critical Care - Objective Last 24 Hour Vital Signs Date Time Temp Pulse Resp B/P (MAP) Pulse Ox O2 Delivery O2 Flow Rate FiO2 07/11/17 08:43 134/70 07/11/17 08:42 102 07/11/17 08:00 98.9 98 25 131/58 95 Nasal Cannula 2.0 07/11/17 08:00 81 07/11/17 07:00 75 23 139/70 97 Nasal Cannula 3.0 07/11/17 06:15 139/70 07/11/17 06:00 86 23 139/70 98 Nasal Cannula 3.0 07/11/17 05:00 76 24 142/60 97 Nasal Cannula 3.0 07/11/17 04:00 98.5 71 31 133/60 97 Nasal Cannula 3.0 07/11/17 04:00 77 07/11/17 03:10 80 22 98 Nasal Cannula 3.0 32 07/11/17 03:00 89 29 135/66 96 Nasal Cannula 3.0 07/11/17 02:54 74 26 97 Nasal Cannula 3.0 07/11/17 02:00 91 25 135/66 94 Nasal Cannula 3.0 07/11/17 01:00 79 24 159/70 97 Nasal Cannula 3.0 07/11/17 00:00 98.7 80 24 151/68 98 Nasal Cannula 3.0 07/11/17 00:00 84 07/10/17 23:00 87 21 119/56 97 Nasal Cannula 3.0 07/10/17 22:57 89 21 98 Nasal Cannula 3.0 32 07/10/17 22:47 91 23 97 Nasal Cannula 3.0 07/10/17 22:00 81 25 115/64 97 Nasal Cannula 3.0 2/6/18 21:00 78 32 105/57 99 Nasal Cannula 3.0 2/18 20:00 98.7 98 21 108/59 97 Nasal Cannula 3.0 07/10/18 20:00 98 /6/18 20:00 3.0 2/6/18 19:25 101 20 97 Venturi Mask 3.0 32 218 19:11 92 22 99 Venturi Mask 10.0 45 2/18 19:10 Venturi Mask 10.0 45 2/18 19:10 99 Venturi Mask 10.0 45 2/18 19:00 98 32 121/58 97 Venturi Mask 45 2//18 18:00 93 20 120/65 98 Venturi Mask 45 18 17:00 100 24 127/68 97 Venturi Mask 45 18 16:00 91 18 16:00 45 18 16:00 99.0 96 23 136/55 98 Venturi Mask 45 07/10/17 15:50 89 24 99 Venturi Mask 10.0 45 18 15:40 87 28 99 Venturi Mask 10.0 45 18 15:00 97 25 147/79 97 Venturi Mask 45 18 14:00 90 24 147/74 99 Venturi Mask 45 18 13:00 99.2 91 26 145/79 97 Venturi Mask 45 07/10/18 12:01 99 Venturi Mask 10.0 45 18 12:00 83 18 12:00 Venturi Mask 10.0 45 18 12:00 96 28 151/69 95 Venturi Mask 45 18 12:00 45 18 11:55 88 28 99 Venturi Mask 10.0 45 2/18 11:40 81 26 99 Venturi Mask 10.0 45 18 11:35 Venturi Mask 10.0 45 2//18 11:00 62 17 126/60 96 Mechanical Ventilator 30 18 10:00 81 30 126/50 93 Mechanical Ventilator 30 18 09:09 68 23 30 18 09:08 94 Status: awake Condition: critical HEENT: atraumatic Lungs: chest wall tender Heart: HR/BP unstable Abdomen: soft, active bowel sounds Extremities: edema Decubiti: location Accucheck: 113 Critical Care - Subjective ROS Limited/Unobtainable: No ICU Day: 11 Condition: critical EKG Rhythm: Sinus Rhythm FI02: 32 Vent Support Breath Rate: 10 Vent Support Mode: IMV/SIMV Vent Tidal Volume: 500 Sputum Amount: Moderate PEEP: 5.0 PIP: 37 Tube Feeding Amount: 0 I&O: Intake and Output 07/10/17 07/11/17 19:00 07:00 Intake Total 445 ml Output Total 1105 ml 1275 ml Balance -660 ml -1275 ml Free Water 100 ml IV Total 55 ml Tube Feeding 220 ml Other 70 ml Output Urine Total 1105 ml 1275 ml ET-Tube: 7.0 ET Position: 21 Labs: Laboratory Tests Test 07/11/17 03:15 White Blood Count 6.0 K/UL (4.8-10.8) Red Blood Count 3.21 M/UL (4.20-5.40) L Hemoglobin 10.3 G/DL (12.0-16.0) L Hematocrit 32.3 % (37.0-47.0) L Mean Corpuscular Volume 101 FL (80-99) H Mean Corpuscular Hemoglobin 32.1 PG (27.0-31.0) H Mean Corpuscular Hemoglobin Concent 31.9 G/DL (32.0-36.0) L Red Cell Distribution Width 15.9 % (11.6-14.8) H Platelet Count 220 K/UL (150-450) Mean Platelet Volume 7.0 FL (6.5-10.1) Neutrophils (%) (Auto) % (45.0-75.0) Lymphocytes (%) (Auto) % (20.0-45.0) Monocytes (%) (Auto) % (1.0-10.0) Eosinophils (%) (Auto) % (0.0-3.0) Basophils (%) (Auto) % (0.0-2.0) Sodium Level 146 MMOL/L (136-145) H Potassium Level 4.1 MMOL/L (3.5-5.1) Chloride Level 107 MMOL/L (98-107) Carbon Dioxide Level 37 MMOL/L (21-32) H Anion Gap 2 mmol/L (5-15) L Blood Urea Nitrogen 16 mg/dL (7-18) Creatinine 0.6 MG/DL (0.55-1.30) Estimat Glomerular Filtration Rate mL/min (>60) Glucose Level 129 MG/DL (74-106) H Calcium Level 9.0 MG/DL (8.5-10.1) Phosphorus Level 4.1 MG/DL (2.5-4.9) Magnesium Level 2.3 MG/DL (1.8-2.4) Total Bilirubin 0.5 MG/DL (0.2-1.0) Aspartate Amino Transf (AST/SGOT) 25 U/L (15-37) Alanine Aminotransferase (ALT/SGPT) 45 U/L (12-78) Alkaline Phosphatase 49 U/L (46-116) Total Protein 6.8 G/DL (6.4-8.2) Albumin 2.6 G/DL (3.4-5.0) L Globulin 4.2 g/dL Albumin/Globulin Ratio 0.6 (1.0-2.7) L no change MARIZA CHANEL Jul 11, 2017 09:06
[2017-07-11] MEDS: Theophylline ER 100mg ORAL SCH ×2 (09:40→21:15)
--- NOTE | 2017-07-11 12:21 | Internal Med Progress Note ---
Subjective Date of Service: Jul 11, 2017 Physician Name Roberta Butler Attending Physician Ten Bourne MD Current Medications Medications (Trade) Dose Ordered Sig/Taryn Route PRN Reason Start Time Stop Time Status Last Admin Dose Admin Acetaminophen (Tylenol) 650 mg Q4H PRN ORAL fever 07/01/17 06:15 07/31/17 06:14 Albuterol/ Ipratropium (Albuterol/ Ipratropium) 3 ml Q4HRT HHN 07/06/17 19:00 07/11/17 18:59 07/11/17 07:12 Ceftriaxone Sodium 1 gm/ Sodium Chloride 55 ml @ 110 mls/hr Q24H IVPB 07/04/17 14:00 07/11/17 13:59 07/10/17 14:04 Dextrose (Dextrose 50%) No Dose PRN IV hypoglycemia 07/02/17 10:45 08/01/17 10:44 Digoxin (Lanoxin) 0.125 mg DAILY ORAL 07/01/17 09:00 07/31/17 08:59 07/11/17 08:42 Duloxetine HCl (Cymbalta) 60 mg DAILY ORAL 07/01/17 09:00 07/31/17 08:59 07/11/17 08:42 Heparin Sodium (Porcine) (Heparin 5000 units/ml) 5,000 units EVERY 12 HOURS SUBQ 07/01/17 09:00 07/31/17 08:59 07/11/17 09:06 Insulin Aspart (NovoLOG) EVERY 6 HOURS SUBQ 07/05/17 12:00 08/01/17 11:29 07/10/17 05:42 Lorazepam (Ativan 2mg/ml 1ml) 2 mg Q2H PRN IV For Anxiety 07/07/17 13:30 07/14/17 13:29 07/09/17 10:34 Losartan Potassium (Cozaar) 25 mg DAILY ORAL 07/01/17 09:00 07/31/17 08:59 07/11/17 08:43 Methylprednisolone Sodium Succinate (Solu-MEDROL) 20 mg EVERY 12 HOURS IVP 07/09/17 21:00 08/08/17 20:59 07/11/17 09:06 Morphine Sulfate (Morphine Sulfate) 4 mg Q4H PRN IVP Severe Pain (Pain Scale 7-10) 07/07/17 13:00 07/14/17 12:59 07/09/17 10:35 Norepinephrine Bitartrate 4 mg/ Dextrose 254 ml @ 0 mls/hr Q24H IV 07/01/17 06:15 07/31/17 06:14 Ondansetron HCl (Zofran) 4 mg Q6H PRN IVP Nausea & Vomiting 07/01/17 06:15 07/31/17 06:14 Pantoprazole (Protonix) 40 mg Q12HR IV 07/01/17 21:00 07/31/17 08:59 07/11/17 09:06 Polyethylene Glycol (Miralax) 17 gm DAILYPRN PRN ORAL Constipation 07/01/17 06:15 07/31/17 06:14 Theophylline (John-Dur) 100 mg EVERY 12 HOURS ORAL 07/01/17 09:00 07/31/17 08:59 07/11/17 09:40 Allergies: Coded Allergies: No Known Allergies (Unverified , 01/11/17) Subjective 82 YO F admitted with respiratory failure. Extubated earlier today 07/10/17. Tolerating nasal canula. Cover for Int Med-Dr Bourne. ICU. Objective Last Vital Signs Date Time Temp Pulse Resp B/P (MAP) Pulse Ox O2 Delivery O2 Flow Rate FiO2 07/11/17 11:06 Nasal Cannula 2.0 07/11/17 10:00 97 33 114/71 95 07/11/17 08:00 98.9 07/11/17 03:10 32 Laboratory Tests Test 07/11/17 03:15 White Blood Count 6.0 K/UL (4.8-10.8) Red Blood Count 3.21 M/UL (4.20-5.40) L Hemoglobin 10.3 G/DL (12.0-16.0) L Hematocrit 32.3 % (37.0-47.0) L Mean Corpuscular Volume 101 FL (80-99) H Mean Corpuscular Hemoglobin 32.1 PG (27.0-31.0) H Mean Corpuscular Hemoglobin Concent 31.9 G/DL (32.0-36.0) L Red Cell Distribution Width 15.9 % (11.6-14.8) H Platelet Count 220 K/UL (150-450) Mean Platelet Volume 7.0 FL (6.5-10.1) Neutrophils (%) (Auto) % (45.0-75.0) Lymphocytes (%) (Auto) % (20.0-45.0) Monocytes (%) (Auto) % (1.0-10.0) Eosinophils (%) (Auto) % (0.0-3.0) Basophils (%) (Auto) % (0.0-2.0) Sodium Level 146 MMOL/L (136-145) H Potassium Level 4.1 MMOL/L (3.5-5.1) Chloride Level 107 MMOL/L (98-107) Carbon Dioxide Level 37 MMOL/L (21-32) H Anion Gap 2 mmol/L (5-15) L Blood Urea Nitrogen 16 mg/dL (7-18) Creatinine 0.6 MG/DL (0.55-1.30) Estimat Glomerular Filtration Rate mL/min (>60) Glucose Level 129 MG/DL (74-106) H Calcium Level 9.0 MG/DL (8.5-10.1) Phosphorus Level 4.1 MG/DL (2.5-4.9) Magnesium Level 2.3 MG/DL (1.8-2.4) Total Bilirubin 0.5 MG/DL (0.2-1.0) Aspartate Amino Transf (AST/SGOT) 25 U/L (15-37) Alanine Aminotransferase (ALT/SGPT) 45 U/L (12-78) Alkaline Phosphatase 49 U/L (46-116) Total Protein 6.8 G/DL (6.4-8.2) Albumin 2.6 G/DL (3.4-5.0) L Globulin 4.2 g/dL Albumin/Globulin Ratio 0.6 (1.0-2.7) L Intake and Output 07/10/17 07/11/17 19:00 07:00 Intake Total 445 ml Output Total 1105 ml 1275 ml Balance -660 ml -1275 ml Free Water 100 ml IV Total 55 ml Tube Feeding 220 ml Other 70 ml Output Urine Total 1105 ml 1275 ml Objective General Appearance: WD/WN, lethargic EENT: normal ENT inspection Neck: non-tender, normal alignment, supple, normal inspection Cardiovascular: normal peripheral pulses, normal rate, regular rhythm, no gallop/murmur, no JVD Respiratory/Chest: Nasal canula; respiratory distress, crackles/rales, rhonchi - bilaterally, expiratory wheezing Abdomen: non tender, soft, no organomegaly, no mass, decreased bowel sounds Edema: trace edema Skin: normal pigmentation, warm/dry Assessment/Plan Problem List: (1) HTN (hypertension) Assessment & Plan: Currently off levophed. (2) Respiratory failure, acute Assessment & Plan: Extubated today 07/10/17; tolerating nasal canula. See pulm note. Cont theophylline and ceftriaxone (3) Hypercapnia (4) Pulmonary hypertension (5) Pulmonary fibrosis (6) Hypothyroidism (7) Renal failure Assessment & Plan: See nephrology note. Status: progressing Assessment/Plan Transfer to med/surg today ROBERTA BUTLER Jul 11, 2017 12:21
--- NOTE | 2017-07-11 13:28 | Infectious Diseases Prog Note ---
Assessment/Plan Assessment/Plan Assessment: Acute hypoxic/Hypercapneic respiratory failure- likely flare of her underlying pulmonary disease with possible concomitant PNA- s/p Rx -extubated 07/10 -CXR 07/05: Bilateral interstitial opacification again noted with suggestion of slight increased airspace disease on the left. -CXR 07/02: Bilateral interstitial and airspace disease, likely fibrotic change persists, unchanged. -sp Cx Normal gerald -Influenza neg -legionella ag urine neg Afebrile/no leukocytosis COPD on home O2 at 2L pHTN pulmonary fibrosis hypothyroidism GERD HTN mixed connective tissue disorder, s/p R TKR residential resident Plan: -Continue to monitor off abx -07/10 SP Ceftriaxone #10 -07/05 SP Levaquin #5 -07/04 SP Zosyn #4 -07/03 SP IV Vancomycin #3 -07/02 SP Amikacin #2 -07/01 SP Ertapenem x1 -Monitor CBC/BMP, temperatures -aspiration precautions Thank you for this consultation. Will continue to follow along with you. Discussed with RN Subjective Allergies: Coded Allergies: No Known Allergies (Unverified , 01/11/17) Subjective afebrile no leukocytosis extubated yesterday, now on 2l NC Objective Vital Signs Last 24 Hour Vital Signs Date Time Temp Pulse Resp B/P (MAP) Pulse Ox O2 Delivery O2 Flow Rate FiO2 07/11/17 12:00 98.9 90 31 159/95 95 Nasal Cannula 2.0 07/11/17 12:00 85 07/11/17 11:06 Nasal Cannula 2.0 07/11/17 11:06 Nasal Cannula 2.0 07/11/17 10:00 97 33 114/71 95 Nasal Cannula 2.0 07/11/17 09:00 104 34 114/71 96 Nasal Cannula 2.0 07/11/17 08:43 134/70 07/11/17 08:42 102 07/11/17 08:00 98.9 98 25 131/58 95 Nasal Cannula 2.0 07/11/17 08:00 81 07/11/17 07:23 94 21 98 Nasal Cannula 2.0 07/11/17 07:16 99 Nasal Cannula 2.0 07/11/17 07:16 94 21 99 Nasal Cannula 2.0 07/11/17 07:16 Nasal Cannula 2.0 07/11/17 07:00 75 23 139/70 97 Nasal Cannula 3.0 07/11/17 06:15 139/70 07/11/17 06:00 86 23 139/70 98 Nasal Cannula 3.0 07/11/17 05:00 76 24 142/60 97 Nasal Cannula 3.0 07/11/17 04:00 98.5 71 31 133/60 97 Nasal Cannula 3.0 07/11/17 04:00 77 07/11/17 03:10 80 22 98 Nasal Cannula 3.0 32 07/11/17 03:00 89 29 135/66 96 Nasal Cannula 3.0 07/11/17 02:54 74 26 97 Nasal Cannula 3.0 07/11/17 02:00 91 25 135/66 94 Nasal Cannula 3.0 07/11/17 01:00 79 24 159/70 97 Nasal Cannula 3.0 07/11/17 00:00 98.7 80 24 151/68 98 Nasal Cannula 3.0 07/11/17 00:00 84 07/10/17 23:00 87 21 119/56 97 Nasal Cannula 3.0 07/10/17 22:57 89 21 98 Nasal Cannula 3.0 32 07/10/17 22:47 91 23 97 Nasal Cannula 3.0 07/10/17 22:00 81 25 115/64 97 Nasal Cannula 3.0 07/10/17 21:00 78 32 105/57 99 Nasal Cannula 3.0 07/10/17 20:00 98.7 98 21 108/59 97 Nasal Cannula 3.0 07/10/17 20:00 98 07/10/17 20:00 3.0 07/10/17 19:25 101 20 97 Venturi Mask 3.0 32 07/10/17 19:11 92 22 99 Venturi Mask 10.0 45 07/10/17 19:10 Venturi Mask 10.0 45 07/10/17 19:10 99 Venturi Mask 10.0 45 07/10/17 19:00 98 32 121/58 97 Venturi Mask 45 07/10/17 18:00 93 20 120/65 98 Venturi Mask 45 07/10/17 17:00 100 24 127/68 97 Venturi Mask 45 07/10/17 16:00 91 07/10/17 16:00 45 07/10/17 16:00 99.0 96 23 136/55 98 Venturi Mask 45 07/10/17 15:50 89 24 99 Venturi Mask 10.0 45 07/10/17 15:40 87 28 99 Venturi Mask 10.0 45 07/10/17 15:00 97 25 147/79 97 Venturi Mask 45 07/10/17 14:00 90 24 147/74 99 Venturi Mask 45 Height (Feet): 5 Height (Inches): 3.00 Weight (Pounds): 181 Objective GENERAL: The patient is well developed and well nourished female, HEENT: Eyes, pupils equal and responsive to light and accommodation. Extraocular movements are intact. NECK: Supple. No lymphadenopathy. CHEST: decreased BS at bases CARDIOVASCULAR: Regular rhythm and rate. S1 and S2 normal without murmurs, rubs, or gallops. ABDOMEN: Soft, nontender, and nondistended. Positive bowel sounds. No evidence of hepatosplenomegaly. Currently, no rebound or guarding noted. EXTREMITIES: Negative for clubbing, cyanosis, or edema. Laboratory Tests Test 07/11/17 03:15 White Blood Count 6.0 K/UL (4.8-10.8) Red Blood Count 3.21 M/UL (4.20-5.40) L Hemoglobin 10.3 G/DL (12.0-16.0) L Hematocrit 32.3 % (37.0-47.0) L Mean Corpuscular Volume 101 FL (80-99) H Mean Corpuscular Hemoglobin 32.1 PG (27.0-31.0) H Mean Corpuscular Hemoglobin Concent 31.9 G/DL (32.0-36.0) L Red Cell Distribution Width 15.9 % (11.6-14.8) H Platelet Count 220 K/UL (150-450) Mean Platelet Volume 7.0 FL (6.5-10.1) Neutrophils (%) (Auto) % (45.0-75.0) Lymphocytes (%) (Auto) % (20.0-45.0) Monocytes (%) (Auto) % (1.0-10.0) Eosinophils (%) (Auto) % (0.0-3.0) Basophils (%) (Auto) % (0.0-2.0) Sodium Level 146 MMOL/L (136-145) H Potassium Level 4.1 MMOL/L (3.5-5.1) Chloride Level 107 MMOL/L (98-107) Carbon Dioxide Level 37 MMOL/L (21-32) H Anion Gap 2 mmol/L (5-15) L Blood Urea Nitrogen 16 mg/dL (7-18) Creatinine 0.6 MG/DL (0.55-1.30) Estimat Glomerular Filtration Rate mL/min (>60) Glucose Level 129 MG/DL (74-106) H Calcium Level 9.0 MG/DL (8.5-10.1) Phosphorus Level 4.1 MG/DL (2.5-4.9) Magnesium Level 2.3 MG/DL (1.8-2.4) Total Bilirubin 0.5 MG/DL (0.2-1.0) Aspartate Amino Transf (AST/SGOT) 25 U/L (15-37) Alanine Aminotransferase (ALT/SGPT) 45 U/L (12-78) Alkaline Phosphatase 49 U/L (46-116) Total Protein 6.8 G/DL (6.4-8.2) Albumin 2.6 G/DL (3.4-5.0) L Globulin 4.2 g/dL Albumin/Globulin Ratio 0.6 (1.0-2.7) L Current Medications Medications (Trade) Dose Ordered Sig/Taryn Route PRN Reason Start Time Stop Time Status Last Admin Dose Admin Acetaminophen (Tylenol) 650 mg Q4H PRN ORAL fever 07/01/17 06:15 07/31/17 06:14 Albuterol/ Ipratropium (Albuterol/ Ipratropium) 3 ml Q4HRT HHN 07/06/17 19:00 07/11/17 18:59 07/11/17 07:12 Ceftriaxone Sodium 1 gm/ Sodium Chloride 55 ml @ 110 mls/hr Q24H IVPB 07/04/17 14:00 07/11/17 13:59 07/10/17 14:04 Dextrose (Dextrose 50%) No Dose PRN IV hypoglycemia 07/02/17 10:45 08/01/17 10:44 Digoxin (Lanoxin) 0.125 mg DAILY ORAL 07/01/17 09:00 07/31/17 08:59 07/11/17 08:42 Duloxetine HCl (Cymbalta) 60 mg DAILY ORAL 07/01/17 09:00 07/31/17 08:59 07/11/17 08:42 Heparin Sodium (Porcine) (Heparin 5000 units/ml) 5,000 units EVERY 12 HOURS SUBQ 07/01/17 09:00 07/31/17 08:59 07/11/17 09:06 Insulin Aspart (NovoLOG) EVERY 6 HOURS SUBQ 07/05/17 12:00 08/01/17 11:29 07/10/17 05:42 Lorazepam (Ativan 2mg/ml 1ml) 2 mg Q2H PRN IV For Anxiety 07/07/17 13:30 07/14/17 13:29 07/09/17 10:34 Losartan Potassium (Cozaar) 25 mg DAILY ORAL 07/01/17 09:00 07/31/17 08:59 07/11/17 08:43 Methylprednisolone Sodium Succinate (Solu-MEDROL) 20 mg EVERY 12 HOURS IVP 07/09/17 21:00 08/08/17 20:59 07/11/17 09:06 Morphine Sulfate (Morphine Sulfate) 4 mg Q4H PRN IVP Severe Pain (Pain Scale 7-10) 07/07/17 13:00 07/14/17 12:59 07/09/17 10:35 Norepinephrine Bitartrate 4 mg/ Dextrose 254 ml @ 0 mls/hr Q24H IV 07/01/17 06:15 07/31/17 06:14 Ondansetron HCl (Zofran) 4 mg Q6H PRN IVP Nausea & Vomiting 07/01/17 06:15 07/31/17 06:14 Pantoprazole (Protonix) 40 mg Q12HR IV 07/01/17 21:00 07/31/17 08:59 07/11/17 09:06 Polyethylene Glycol (Miralax) 17 gm DAILYPRN PRN ORAL Constipation 07/01/17 06:15 07/31/17 06:14 Theophylline (John-Dur) 100 mg EVERY 12 HOURS ORAL 07/01/17 09:00 07/31/17 08:59 07/11/17 09:40 Roseanna Penn M.D. Jul 11, 2017 13:28
--- NOTE | 2017-07-11 15:17 | Nephrology Progress Note ---
Assessment/Plan Problem List: (1) Respiratory failure, acute (2) Proteinuria (3) Hypoalbuminemia Assessment stable from renal stand Dyspnea, acute respiratory failure , requiring intubation and mechanichal vent Mixed connective tissue disease Anemia likely due to chronic disease HypoAlbuminemia Pulmonary fibrosis Pulmonary hypertension COPD exacerbation Respiratory failure, acute Plan Plan: Family considering terminal extubation which was done Patient appears to be stable post extubation stable from renal stand BP stable On vent. Cant be weaned on steroids per orders Subjective ROS Limited/Unobtainable: No Constitutional: Reports: other - extubated Objective Objective Last 24 Hour Vital Signs Date Time Temp Pulse Resp B/P (MAP) Pulse Ox O2 Delivery O2 Flow Rate FiO2 07/11/17 12:00 98.9 90 31 159/95 95 Nasal Cannula 2.0 07/11/17 12:00 85 07/11/17 11:06 Nasal Cannula 2.0 07/11/17 11:06 Nasal Cannula 2.0 07/11/17 10:00 97 33 114/71 95 Nasal Cannula 2.0 07/11/17 09:00 104 34 114/71 96 Nasal Cannula 2.0 07/11/17 08:43 134/70 07/11/17 08:42 102 07/11/17 08:00 98.9 98 25 131/58 95 Nasal Cannula 2.0 07/11/17 08:00 81 07/11/17 07:23 94 21 98 Nasal Cannula 2.0 07/11/17 07:16 99 Nasal Cannula 2.0 07/11/17 07:16 94 21 99 Nasal Cannula 2.0 07/11/17 07:16 Nasal Cannula 2.0 07/11/17 07:00 75 23 139/70 97 Nasal Cannula 3.0 07/11/17 06:15 139/70 07/11/17 06:00 86 23 139/70 98 Nasal Cannula 3.0 07/11/17 05:00 76 24 142/60 97 Nasal Cannula 3.0 07/11/17 04:00 98.5 71 31 133/60 97 Nasal Cannula 3.0 07/11/17 04:00 77 07/11/17 03:10 80 22 98 Nasal Cannula 3.0 32 07/11/17 03:00 89 29 135/66 96 Nasal Cannula 3.0 07/11/17 02:54 74 26 97 Nasal Cannula 3.0 07/11/17 02:00 91 25 135/66 94 Nasal Cannula 3.0 07/11/17 01:00 79 24 159/70 97 Nasal Cannula 3.0 07/11/17 00:00 98.7 80 24 151/68 98 Nasal Cannula 3.0 07/11/17 00:00 84 07/10/17 23:00 87 21 119/56 97 Nasal Cannula 3.0 07/10/17 22:57 89 21 98 Nasal Cannula 3.0 32 07/10/17 22:47 91 23 97 Nasal Cannula 3.0 07/10/17 22:00 81 25 115/64 97 Nasal Cannula 3.0 07/10/17 21:00 78 32 105/57 99 Nasal Cannula 3.0 07/10/17 20:00 98.7 98 21 108/59 97 Nasal Cannula 3.0 07/10/17 20:00 98 07/10/17 20:00 3.0 07/10/17 19:25 101 20 97 Venturi Mask 3.0 32 07/10/17 19:11 92 22 99 Venturi Mask 10.0 45 07/10/17 19:10 Venturi Mask 10.0 45 07/10/17 19:10 99 Venturi Mask 10.0 45 07/10/17 19:00 98 32 121/58 97 Venturi Mask 45 07/10/17 18:00 93 20 120/65 98 Venturi Mask 45 07/10/17 17:00 100 24 127/68 97 Venturi Mask 45 07/10/17 16:00 91 07/10/17 16:00 45 07/10/17 16:00 99.0 96 23 136/55 98 Venturi Mask 45 07/10/17 15:50 89 24 99 Venturi Mask 10.0 45 07/10/17 15:40 87 28 99 Venturi Mask 10.0 45 Intake and Output 07/10/17 07/11/17 19:00 07:00 Intake Total 445 ml Output Total 1105 ml 1275 ml Balance -660 ml -1275 ml Free Water 100 ml IV Total 55 ml Tube Feeding 220 ml Other 70 ml Output Urine Total 1105 ml 1275 ml Laboratory Tests 07/11/17 03:15: White Blood Count 6.0, Red Blood Count 3.21L, Hemoglobin 10.3L, Hematocrit 32.3L , Mean Corpuscular Volume 101H, Mean Corpuscular Hemoglobin 32.1H, Mean Corpuscular Hemoglobin Concent 31.9L, Red Cell Distribution Width 15.9H, Platelet Count 220, Mean Platelet Volume 7.0, Neutrophils (%) (Auto) , Lymphocytes (%) (Auto) , Monocytes (%) (Auto) , Eosinophils (%) (Auto) , Basophils (%) (Auto) , Sodium Level 146H, Potassium Level 4.1, Chloride Level 107, Carbon Dioxide Level 37H, Anion Gap 2L, Blood Urea Nitrogen 16, Creatinine 0.6, Estimat Glomerular Filtration Rate , Glucose Level 129H, Calcium Level 9.0 , Phosphorus Level 4.1, Magnesium Level 2.3, Total Bilirubin 0.5, Aspartate Amino Transf (AST/SGOT) 25, Alanine Aminotransferase (ALT/SGPT) 45, Alkaline Phosphatase 49, Total Protein 6.8, Albumin 2.6L, Globulin 4.2, Albumin/Globulin Ratio 0.6L Height (Feet): 5 Height (Inches): 3.00 Weight (Pounds): 181 General Appearance: mild distress Cardiovascular: tachycardia Respiratory/Chest: decreased breath sounds Abdomen: soft DARRYL ISSA Jul 11, 2017 15:17
--- NOTE | 2017-07-11 17:24 | General Surgery Progress Note ---
General Surgery-Progress Note Subjective Symptoms: improved Additional Comments extubated. doing well. no distress at this time. Objective Last 24 Hour Vital Signs Date Time Temp Pulse Resp B/P (MAP) Pulse Ox O2 Delivery O2 Flow Rate FiO2 07/11/17 16:00 99.0 110 25 141/77 95 Nasal Cannula 2.0 07/11/17 16:00 107 07/11/17 12:00 98.9 90 31 159/95 95 Nasal Cannula 2.0 07/11/17 12:00 85 07/11/17 11:06 Nasal Cannula 2.0 07/11/17 11:06 Nasal Cannula 2.0 07/11/17 10:00 97 33 114/71 95 Nasal Cannula 2.0 07/11/17 09:00 104 34 114/71 96 Nasal Cannula 2.0 07/11/17 08:43 134/70 07/11/17 08:42 102 07/11/17 08:00 98.9 98 25 131/58 95 Nasal Cannula 2.0 07/11/17 08:00 81 07/11/17 07:23 94 21 98 Nasal Cannula 2.0 07/11/17 07:16 99 Nasal Cannula 2.0 07/11/17 07:16 94 21 99 Nasal Cannula 2.0 07/11/17 07:16 Nasal Cannula 2.0 07/11/17 07:00 75 23 139/70 97 Nasal Cannula 3.0 07/11/17 06:15 139/70 07/11/17 06:00 86 23 139/70 98 Nasal Cannula 3.0 07/11/17 05:00 76 24 142/60 97 Nasal Cannula 3.0 07/11/17 04:00 98.5 71 31 133/60 97 Nasal Cannula 3.0 07/11/17 04:00 77 07/11/17 03:10 80 22 98 Nasal Cannula 3.0 32 07/11/17 03:00 89 29 135/66 96 Nasal Cannula 3.0 07/11/17 02:54 74 26 97 Nasal Cannula 3.0 07/11/17 02:00 91 25 135/66 94 Nasal Cannula 3.0 07/11/17 01:00 79 24 159/70 97 Nasal Cannula 3.0 07/11/17 00:00 98.7 80 24 151/68 98 Nasal Cannula 3.0 2/7/18 00:00 84 07/10/17 23:00 87 21 119/56 97 Nasal Cannula 3.0 07/10/17 22:57 89 21 98 Nasal Cannula 3.0 32 07/10/17 22:47 91 23 97 Nasal Cannula 3.0 07/10/17 22:00 81 25 115/64 97 Nasal Cannula 3.0 07/10/17 21:00 78 32 105/57 99 Nasal Cannula 3.0 07/10/17 20:00 98.7 98 21 108/59 97 Nasal Cannula 3.0 07/10/17 20:00 98 07/10/17 20:00 3.0 07/10/17 19:25 101 20 97 Venturi Mask 3.0 32 07/10/17 19:11 92 22 99 Venturi Mask 10.0 45 07/10/17 19:10 Venturi Mask 10.0 45 07/10/17 19:10 99 Venturi Mask 10.0 45 07/10/17 19:00 98 32 121/58 97 Venturi Mask 45 07/10/17 18:00 93 20 120/65 98 Venturi Mask 45 I&O Intake and Output 07/10/17 07/11/17 19:00 07:00 Intake Total 445 ml Output Total 1105 ml 1275 ml Balance -660 ml -1275 ml Free Water 100 ml IV Total 55 ml Tube Feeding 220 ml Other 70 ml Output Urine Total 1105 ml 1275 ml Cardiovascular: RSR Respiratory: clear Abdomen: soft, non-tender Extremities: no cyanosis Laboratory Tests Test 07/11/17 03:15 White Blood Count 6.0 K/UL (4.8-10.8) Red Blood Count 3.21 M/UL (4.20-5.40) L Hemoglobin 10.3 G/DL (12.0-16.0) L Hematocrit 32.3 % (37.0-47.0) L Mean Corpuscular Volume 101 FL (80-99) H Mean Corpuscular Hemoglobin 32.1 PG (27.0-31.0) H Mean Corpuscular Hemoglobin Concent 31.9 G/DL (32.0-36.0) L Red Cell Distribution Width 15.9 % (11.6-14.8) H Platelet Count 220 K/UL (150-450) Mean Platelet Volume 7.0 FL (6.5-10.1) Neutrophils (%) (Auto) % (45.0-75.0) Lymphocytes (%) (Auto) % (20.0-45.0) Monocytes (%) (Auto) % (1.0-10.0) Eosinophils (%) (Auto) % (0.0-3.0) Basophils (%) (Auto) % (0.0-2.0) Sodium Level 146 MMOL/L (136-145) H Potassium Level 4.1 MMOL/L (3.5-5.1) Chloride Level 107 MMOL/L (98-107) Carbon Dioxide Level 37 MMOL/L (21-32) H Anion Gap 2 mmol/L (5-15) L Blood Urea Nitrogen 16 mg/dL (7-18) Creatinine 0.6 MG/DL (0.55-1.30) Estimat Glomerular Filtration Rate mL/min (>60) Glucose Level 129 MG/DL (74-106) H Calcium Level 9.0 MG/DL (8.5-10.1) Phosphorus Level 4.1 MG/DL (2.5-4.9) Magnesium Level 2.3 MG/DL (1.8-2.4) Total Bilirubin 0.5 MG/DL (0.2-1.0) Aspartate Amino Transf (AST/SGOT) 25 U/L (15-37) Alanine Aminotransferase (ALT/SGPT) 45 U/L (12-78) Alkaline Phosphatase 49 U/L (46-116) Total Protein 6.8 G/DL (6.4-8.2) Albumin 2.6 G/DL (3.4-5.0) L Globulin 4.2 g/dL Albumin/Globulin Ratio 0.6 (1.0-2.7) L Plan Problems: (1) Respiratory failure, acute Assessment & Plan: 82F with significant pulmonary history and acute on chronic respiratory failure. recently self extubation failed and required reintubation. difficulty weaning from vent and still requiring vent support and will likely do so for some time. she is awake, alert and responsive. follows commands while intubated on vent. ABG's reviewed. patient examined. vent requirements reviewed. would benefit from trach given history and hospital course. this way she would have protected airway, ability to have vent support and weaning easily, and could eat and recover rather than be intubated in ICU or [facility] setting. Improved and made a good turn around. Extubated and doing well since. will continue to follow. thank you for this consultation. Ildefonso Ward Jul 11, 2017 17:24
[2017-07-11] MEDS ORDERED: LORazepam Inj 2mg/ml 1ml IV PRN (23:30)
[2017-07-12 00:31] VITALS: BP 124/78
[2017-07-12] MEDS ORDERED: Morphine Sulfate 4mg/ml Inj IVP PRN (01:00)
[2017-07-12 04:00] VITALS: BP 126/69
[2017-07-12] MEDS: NovoLOG Insulin Flexpen SUBQ SCH ×4 (05:54→18:23)
[2017-07-12] MEDS ORDERED: Miralax 17gm pkt ORAL PRN (06:15)
[2017-07-12 08:00] VITALS: BP 113/63
[2017-07-12 08:02] LABS: HEMATOCRIT 33.4 % (37.0-47.0); MEAN CORPUSCULAR VOLUME 100 FL (80-99); PLATELET COUNT 222 K/UL (150-450); RED BLOOD COUNT 3.33 M/UL (4.20-5.40); RED CELL DISTRIBUTION WIDTH 15.8 % (11.6-14.8); WHITE BLOOD COUNT 6.2 K/UL (4.8-10.8)
[2017-07-12 08:24] LABS: ANION GAP 4 mmol/L (5-15); BLOOD UREA NITROGEN 17 mg/dL (7-18); CALCIUM 8.8 MG/DL (8.5-10.1); CARBON DIOXIDE 35 MMOL/L (21-32); CHLORIDE 104 MMOL/L (98-107); CREATININE 0.6 MG/DL (0.55-1.30); POTASSIUM 4.2 MMOL/L (3.5-5.1); SODIUM 143 MMOL/L (136-145)
[2017-07-12] MEDS: Pantoprazole Inj IV SCH ×3 (09:00→22:44)
[2017-07-12] MEDS: Heparin 5000 units/ml inj SUBQ SCH ×3 (09:00→22:52)
[2017-07-12] MEDS: Losartan 25mg tab ORAL SCH ×2 (09:00→09:11)
[2017-07-12] MEDS: Solu-MEDROL 40mg Inj IVP SCH ×2 (09:11→22:44)
[2017-07-12] MEDS: Theophylline ER 100mg ORAL SCH ×2 (09:12→22:44)
[2017-07-12] MEDS: DULoxetine 30mg cap ORAL SCH (09:12)
[2017-07-12] MEDS: Digoxin 0.125mg tab ORAL SCH (09:13)
--- NOTE | 2017-07-12 11:20 | Nephrology Progress Note ---
Assessment/Plan Problem List: (1) Respiratory failure, acute (2) Proteinuria (3) Hypoalbuminemia Assessment stable from renal stand Dyspnea, acute respiratory failure , requiring intubation and mechanichal vent Mixed connective tissue disease Anemia likely due to chronic disease HypoAlbuminemia Pulmonary fibrosis Pulmonary hypertension COPD exacerbation Respiratory failure, acute Plan Plan: Family considering terminal extubation which was done Patient appears to be stable post extubation stable from renal stand BP stable on steroids per orders Subjective ROS Limited/Unobtainable: No Constitutional: Reports: malaise Objective Objective Last 24 Hour Vital Signs Date Time Temp Pulse Resp B/P (MAP) Pulse Ox O2 Delivery O2 Flow Rate FiO2 07/12/17 09:13 92 07/12/17 09:00 113/63 07/12/17 08:00 97.5 92 22 113/63 96 07/12/17 04:00 98.2 78 19 126/69 97 Nasal Cannula 07/12/17 04:00 Nasal Cannula 2.0 07/12/17 00:31 97.7 80 22 124/78 99 Nasal Cannula 2.0 07/11/17 20:00 109 07/11/17 20:00 97.9 94 25 113/69 95 Nasal Cannula 2.0 07/11/17 19:05 Nasal Cannula 2.0 28 07/11/17 19:05 98 Nasal Cannula 2.0 28 07/11/17 18:54 88 25 98 Nasal Cannula 2.0 07/11/17 18:47 84 25 98 Nasal Cannula 2.0 07/11/17 16:00 99.0 110 25 141/77 95 Nasal Cannula 2.0 07/11/17 16:00 107 07/11/17 12:00 98.9 90 31 159/95 95 Nasal Cannula 2.0 07/11/17 12:00 85 Intake and Output 07/11/17 07/12/17 19:00 07:00 Intake Total 270 ml Output Total 825 ml 700 ml Balance -555 ml -700 ml Intake Oral 220 ml Other 50 ml Output Urine Total 825 ml 700 ml Laboratory Tests 07/12/17 05:35: White Blood Count 6.2, Red Blood Count 3.33L, Hemoglobin 11.0L, Hematocrit 33.4L , Mean Corpuscular Volume 100H, Mean Corpuscular Hemoglobin 33.0H, Mean Corpuscular Hemoglobin Concent 32.9, Red Cell Distribution Width 15.8H, Platelet Count 222, Mean Platelet Volume 7.2, Neutrophils (%) (Auto) , Lymphocytes (%) (Auto) , Monocytes (%) (Auto) , Eosinophils (%) (Auto) , Basophils (%) (Auto) , Differential Total Cells Counted 100, Neutrophils % ( Manual) 89H, Lymphocytes % (Manual) 9L, Monocytes % (Manual) 2, Eosinophils % ( Manual) 0, Basophils % (Manual) 0, Band Neutrophils 0, Platelet Estimate Adequate, Platelet Morphology Normal, Anisocytosis 1+, Macrocytosis 1+, Sodium Level 143, Potassium Level 4.2, Chloride Level 104, Carbon Dioxide Level 35H, Anion Gap 4L, Blood Urea Nitrogen 17, Creatinine 0.6, Estimat Glomerular Filtration Rate , Glucose Level 102, Calcium Level 8.8 Height (Feet): 5 Height (Inches): 3.00 Weight (Pounds): 178 General Appearance: no apparent distress DARRYL ISSA Jul 12, 2017 11:20
[2017-07-12 12:00] VITALS: BP 123/81
--- NOTE | 2017-07-12 13:19 | Internal Med Progress Note ---
Subjective Date of Service: Jul 12, 2017 Physician Name ButlerRoberta Attending Physician Ten Bourne MD Current Medications Medications (Trade) Dose Ordered Sig/Taryn Route PRN Reason Start Time Stop Time Status Last Admin Dose Admin Acetaminophen (Tylenol) 650 mg Q4H PRN ORAL fever 07/12/17 02:15 07/31/17 06:14 Dextrose (Dextrose 50%) No Dose PRN IV hypoglycemia 07/11/17 23:15 08/01/17 10:44 Digoxin (Lanoxin) 0.125 mg DAILY ORAL 07/12/17 09:00 07/31/17 08:59 07/12/17 09:13 Duloxetine HCl (Cymbalta) 60 mg DAILY ORAL 07/12/17 09:00 07/31/17 08:59 07/12/17 09:12 Heparin Sodium (Porcine) (Heparin 5000 units/ml) 5,000 units EVERY 12 HOURS SUBQ 07/12/17 09:00 07/31/17 08:59 Insulin Aspart (NovoLOG) EVERY 6 HOURS SUBQ 07/12/17 00:00 08/01/17 11:29 Lorazepam (Ativan 2mg/ml 1ml) 2 mg Q2H PRN IV For Anxiety 07/11/17 23:30 07/14/17 13:29 Losartan Potassium (Cozaar) 25 mg DAILY ORAL 07/12/17 09:00 07/31/17 08:59 Methylprednisolone Sodium Succinate (Solu-MEDROL) 20 mg EVERY 12 HOURS IVP 07/12/17 09:00 08/08/17 20:59 07/12/17 09:11 Morphine Sulfate (Morphine Sulfate) 4 mg Q4H PRN IVP Severe Pain (Pain Scale 7-10) 07/12/17 01:00 07/14/17 12:59 Ondansetron HCl (Zofran) 4 mg Q6H PRN IVP Nausea & Vomiting 07/12/17 00:15 07/31/17 06:14 Pantoprazole (Protonix) 40 mg Q12HR IV 07/12/17 09:00 07/31/17 08:59 Polyethylene Glycol (Miralax) 17 gm DAILYPRN PRN ORAL Constipation 07/12/17 06:15 07/31/17 06:14 07/12/17 06:12 Theophylline (John-Dur) 100 mg EVERY 12 HOURS ORAL 07/12/17 09:00 07/31/17 08:59 07/12/17 09:12 Allergies: Coded Allergies: No Known Allergies (Unverified , 01/11/17) ROS Limited/Unobtainable: No Constitutional: Reports: no symptoms HEENT: Reports: no symptoms Cardiovascular: Reports: no symptoms Respiratory: Reports: shortness of breath Gastrointestinal/Abdominal: Reports: no symptoms Genitourinary: Reports: no symptoms Neurologic/Psychiatric: Reports: no symptoms Subjective 82 YO F admitted with respiratory failure. Extubated earlier today 07/10/17. Tolerating nasal canula. Cover for Int Kg-Dr Bourne. Objective Last Vital Signs Date Time Temp Pulse Resp B/P (MAP) Pulse Ox O2 Delivery O2 Flow Rate FiO2 07/12/17 12:00 97.7 98 22 123/81 96 07/12/17 04:00 Nasal Cannula 07/12/17 04:00 2.0 07/11/17 19:05 28 Laboratory Tests Test 07/12/17 05:35 White Blood Count 6.2 K/UL (4.8-10.8) Red Blood Count 3.33 M/UL (4.20-5.40) L Hemoglobin 11.0 G/DL (12.0-16.0) L Hematocrit 33.4 % (37.0-47.0) L Mean Corpuscular Volume 100 FL (80-99) H Mean Corpuscular Hemoglobin 33.0 PG (27.0-31.0) H Mean Corpuscular Hemoglobin Concent 32.9 G/DL (32.0-36.0) Red Cell Distribution Width 15.8 % (11.6-14.8) H Platelet Count 222 K/UL (150-450) Mean Platelet Volume 7.2 FL (6.5-10.1) Neutrophils (%) (Auto) % (45.0-75.0) Lymphocytes (%) (Auto) % (20.0-45.0) Monocytes (%) (Auto) % (1.0-10.0) Eosinophils (%) (Auto) % (0.0-3.0) Basophils (%) (Auto) % (0.0-2.0) Differential Total Cells Counted 100 Neutrophils % (Manual) 89 % (45-75) H Lymphocytes % (Manual) 9 % (20-45) L Monocytes % (Manual) 2 % (1-10) Eosinophils % (Manual) 0 % (0-3) Basophils % (Manual) 0 % (0-2) Band Neutrophils 0 % (0-8) Platelet Estimate Adequate Platelet Morphology Normal Anisocytosis 1+ Macrocytosis 1+ Sodium Level 143 MMOL/L (136-145) Potassium Level 4.2 MMOL/L (3.5-5.1) Chloride Level 104 MMOL/L (98-107) Carbon Dioxide Level 35 MMOL/L (21-32) H Anion Gap 4 mmol/L (5-15) L Blood Urea Nitrogen 17 mg/dL (7-18) Creatinine 0.6 MG/DL (0.55-1.30) Estimat Glomerular Filtration Rate mL/min (>60) Glucose Level 102 MG/DL (74-106) Calcium Level 8.8 MG/DL (8.5-10.1) Intake and Output 07/11/17 07/12/17 19:00 07:00 Intake Total 270 ml Output Total 825 ml 700 ml Balance -555 ml -700 ml Intake Oral 220 ml Other 50 ml Output Urine Total 825 ml 700 ml Objective General Appearance: WD/WN, lethargic EENT: normal ENT inspection Neck: non-tender, normal alignment, supple, normal inspection Cardiovascular: normal peripheral pulses, normal rate, regular rhythm, no gallop/murmur, no JVD Respiratory/Chest: Nasal canula; respiratory distress, crackles/rales, rhonchi - bilaterally, expiratory wheezing Abdomen: non tender, soft, no organomegaly, no mass, decreased bowel sounds Edema: trace edema Skin: normal pigmentation, warm/dry Assessment/Plan Problem List: (1) HTN (hypertension) Assessment & Plan: Currently off levophed. (2) Respiratory failure, acute Assessment & Plan: Extubated 07/10/17; tolerating nasal canula. See pulm note. Cont theophylline and ceftriaxone (3) Hypercapnia (4) Pulmonary hypertension (5) Pulmonary fibrosis (6) Hypothyroidism (7) Renal failure Assessment & Plan: See nephrology note. Status: progressing Assessment/Plan Discharge planning: [facility] BUTLERROB[facility] Craft Jul 12, 2017 13:19
[2017-07-12 16:00] VITALS: BP 111/52
--- NOTE | 2017-07-12 18:46 | Pulmonology Progress Note ---
Assessment/Plan Problems: (1) Respiratory failure, acute (2) COPD exacerbation (3) Pulmonary hypertension (4) Pulmonary fibrosis (5) Hypothyroidism (6) Major depression Assessment/Plan titrate fio2 getting better respiratory treatment check cultures chest pt Subjective ROS Limited/Unobtainable: No Allergies: Coded Allergies: No Known Allergies (Unverified , 01/11/17) Objective Last 24 Hour Vital Signs Date Time Temp Pulse Resp B/P (MAP) Pulse Ox O2 Delivery O2 Flow Rate FiO2 07/12/17 16:00 97.7 104 20 111/52 94 07/12/17 14:20 97 Nasal Cannula 2.0 28 07/12/17 14:20 Nasal Cannula 2.0 28 07/12/17 12:01 Nasal Cannula 2.0 07/12/17 12:00 97.7 98 22 123/81 96 07/12/17 09:13 92 07/12/17 09:00 113/63 07/12/17 08:01 Nasal Cannula 2.0 07/12/17 08:00 97.5 92 22 113/63 96 07/12/17 04:00 98.2 78 19 126/69 97 Nasal Cannula 07/12/17 04:00 Nasal Cannula 2.0 07/12/17 00:31 97.7 80 22 124/78 99 Nasal Cannula 2.0 07/11/17 20:00 109 07/11/17 20:00 97.9 94 25 113/69 95 Nasal Cannula 2.0 07/11/17 19:05 Nasal Cannula 2.0 28 07/11/17 19:05 98 Nasal Cannula 2.0 28 07/11/17 18:54 88 25 98 Nasal Cannula 2.0 07/11/17 18:47 84 25 98 Nasal Cannula 2.0 Intake and Output 07/11/17 07/12/17 19:00 07:00 Intake Total 270 ml Output Total 825 ml 700 ml Balance -555 ml -700 ml Intake Oral 220 ml Other 50 ml Output Urine Total 825 ml 700 ml Objective General Appearance: no apparent distress Head: normocephalic, atraumatic Eyes: bilateral eye PERRL, bilateral eye EOMI ENT: normal pharynx, no angioedema Neck: supple, thyroid normal Respiratory: lungs clear, normal breath sounds Cardiovascular #1: regular rate, rhythm Gastrointestinal: non tender, soft Musculoskeletal: other - Patient is chronically debilitated, Neurologic: other - Patient is confused underlying dementia, Laboratory Tests 07/12/17 05:35: White Blood Count 6.2, Red Blood Count 3.33L, Hemoglobin 11.0L, Hematocrit 33.4L , Mean Corpuscular Volume 100H, Mean Corpuscular Hemoglobin 33.0H, Mean Corpuscular Hemoglobin Concent 32.9, Red Cell Distribution Width 15.8H, Platelet Count 222, Mean Platelet Volume 7.2, Neutrophils (%) (Auto) , Lymphocytes (%) (Auto) , Monocytes (%) (Auto) , Eosinophils (%) (Auto) , Basophils (%) (Auto) , Differential Total Cells Counted 100, Neutrophils % ( Manual) 89H, Lymphocytes % (Manual) 9L, Monocytes % (Manual) 2, Eosinophils % ( Manual) 0, Basophils % (Manual) 0, Band Neutrophils 0, Platelet Estimate Adequate, Platelet Morphology Normal, Anisocytosis 1+, Macrocytosis 1+, Sodium Level 143, Potassium Level 4.2, Chloride Level 104, Carbon Dioxide Level 35H, Anion Gap 4L, Blood Urea Nitrogen 17, Creatinine 0.6, Estimat Glomerular Filtration Rate , Glucose Level 102, Calcium Level 8.8 Current Medications Medications (Trade) Dose Ordered Sig/Taryn Route PRN Reason Start Time Stop Time Status Last Admin Dose Admin Acetaminophen (Tylenol) 650 mg Q4H PRN ORAL fever 07/12/17 02:15 07/31/17 06:14 Dextrose (Dextrose 50%) No Dose PRN IV hypoglycemia 07/11/17 23:15 08/01/17 10:44 Digoxin (Lanoxin) 0.125 mg DAILY ORAL 07/12/17 09:00 07/31/17 08:59 07/12/17 09:13 Duloxetine HCl (Cymbalta) 60 mg DAILY ORAL 07/12/17 09:00 07/31/17 08:59 07/12/17 09:12 Heparin Sodium (Porcine) (Heparin 5000 units/ml) 5,000 units EVERY 12 HOURS SUBQ 07/12/17 09:00 07/31/17 08:59 Insulin Aspart (NovoLOG) EVERY 6 HOURS SUBQ 07/12/17 00:00 08/01/17 11:29 07/12/17 18:23 Lorazepam (Ativan 2mg/ml 1ml) 2 mg Q2H PRN IV For Anxiety 2/7/18 23:30 07/14/17 13:29 Losartan Potassium (Cozaar) 25 mg DAILY ORAL 07/12/17 09:00 07/31/17 08:59 Methylprednisolone Sodium Succinate (Solu-MEDROL) 20 mg EVERY 12 HOURS IVP 07/12/17 09:00 08/08/17 20:59 07/12/17 09:11 Morphine Sulfate (Morphine Sulfate) 4 mg Q4H PRN IVP Severe Pain (Pain Scale 7-10) 07/12/17 01:00 07/14/17 12:59 Ondansetron HCl (Zofran) 4 mg Q6H PRN IVP Nausea & Vomiting 07/12/17 00:15 07/31/17 06:14 Pantoprazole (Protonix) 40 mg Q12HR IV 07/12/17 09:00 07/31/17 08:59 Polyethylene Glycol (Miralax) 17 gm DAILYPRN PRN ORAL Constipation 07/12/17 06:15 07/31/17 06:14 07/12/17 06:12 Theophylline (John-Dur) 100 mg EVERY 12 HOURS ORAL 07/12/17 09:00 07/31/17 08:59 07/12/17 09:12 MARIZA CHANEL Jul 12, 2017 18:46
[2017-07-12] MEDS ORDERED: NS 500ML ONE (19:26)
[2017-07-12] MEDS ORDERED: NS 275ml ONE (19:26)
[2017-07-12 20:00] VITALS: BP 122/74
[2017-07-13] VITALS: BP 125/69
[2017-07-13] MEDS: NovoLOG Insulin Flexpen SUBQ SCH ×4 (01:09→17:43)
[2017-07-13 04:00] VITALS: BP 128/7
[2017-07-13 08:00] VITALS: BP 120/69
[2017-07-13] MEDS: Solu-MEDROL 40mg Inj IVP SCH ×2 (09:33→20:51)
[2017-07-13] MEDS: Pantoprazole Inj IV SCH ×2 (09:33→20:51)
[2017-07-13] MEDS: Theophylline ER 100mg ORAL SCH ×2 (09:34→20:51)
[2017-07-13] MEDS: DULoxetine 30mg cap ORAL SCH (09:34)
[2017-07-13] MEDS: Digoxin 0.125mg tab ORAL SCH (09:34)
[2017-07-13] MEDS: Losartan 25mg tab ORAL SCH (09:35)
[2017-07-13] MEDS: Heparin 5000 units/ml inj SUBQ SCH ×2 (09:36→20:52)
--- NOTE | 2017-07-13 09:58 | Infectious Diseases Prog Note ---
Assessment/Plan Assessment/Plan Assessment: Acute hypoxic/Hypercapneic respiratory failure- likely flare of her underlying pulmonary disease with possible concomitant PNA- s/p Rx -extubated 07/10 -CXR 07/05: Bilateral interstitial opacification again noted with suggestion of slight increased airspace disease on the left. -CXR 07/02: Bilateral interstitial and airspace disease, likely fibrotic change persists, unchanged. -sp Cx Normal gerald -Influenza neg -legionella ag urine neg Afebrile/no leukocytosis COPD on home O2 at 2L pHTN pulmonary fibrosis hypothyroidism GERD HTN mixed connective tissue disorder, s/p R TKR [facility] resident Plan: -Continue to monitor off abx -07/10 SP Ceftriaxone #10 -07/05 SP Levaquin #5 -07/04 SP Zosyn #4 -07/03 SP IV Vancomycin #3 -07/02 SP Amikacin #2 -07/01 SP Ertapenem x1 -Monitor CBC/BMP, temperatures -aspiration precautions Subjective Constitutional: Denies: no symptoms, fever, chills, fatigue, anorexia, drenching sweats, other Allergies: Coded Allergies: No Known Allergies (Unverified , 01/11/17) Objective Vital Signs Last 24 Hour Vital Signs Date Time Temp Pulse Resp B/P (MAP) Pulse Ox O2 Delivery O2 Flow Rate FiO2 07/13/17 09:35 120/69 07/13/17 09:34 95 07/13/17 08:00 97.7 95 19 120/69 98 07/13/17 04:00 Nasal Cannula 2.0 07/13/17 04:00 97.7 92 20 128/7 96 Room Air 07/13/17 00:00 97.5 92 18 125/69 97 Room Air 07/13/17 00:00 Nasal Cannula 2.0 07/12/17 20:05 Nasal Cannula 2.0 07/12/17 20:00 98.1 81 19 122/74 99 Room Air 07/12/17 19:11 98 Nasal Cannula 2.0 28 07/12/17 19:11 Nasal Cannula 2.0 28 07/12/17 16:00 97.7 104 20 111/52 94 07/12/17 14:20 97 Nasal Cannula 2.0 28 07/12/17 14:20 Nasal Cannula 2.0 28 07/12/17 12:01 Nasal Cannula 2.0 07/12/17 12:00 97.7 98 22 123/81 96 Height (Feet): 5 Height (Inches): 3.00 Weight (Pounds): 184 HEENT: anicteric Respiratory/Chest: no respiratory distress Cardiovascular: regular rhythm Abdomen: non distended Current Medications Medications (Trade) Dose Ordered Sig/Taryn Route PRN Reason Start Time Stop Time Status Last Admin Dose Admin Acetaminophen (Tylenol) 650 mg Q4H PRN ORAL fever 07/12/17 02:15 07/31/17 06:14 Dextrose (Dextrose 50%) No Dose PRN IV hypoglycemia 07/11/17 23:15 08/01/17 10:44 Digoxin (Lanoxin) 0.125 mg DAILY ORAL 07/12/17 09:00 07/31/17 08:59 07/13/17 09:34 Duloxetine HCl (Cymbalta) 60 mg DAILY ORAL 07/12/17 09:00 07/31/17 08:59 07/13/17 09:34 Heparin Sodium (Porcine) (Heparin 5000 units/ml) 5,000 units EVERY 12 HOURS SUBQ 07/12/17 09:00 07/31/17 08:59 07/13/17 09:36 Insulin Aspart (NovoLOG) EVERY 6 HOURS SUBQ 07/12/17 00:00 08/01/17 11:29 07/13/17 06:42 Lorazepam (Ativan 2mg/ml 1ml) 2 mg Q2H PRN IV For Anxiety 07/11/17 23:30 07/14/17 13:29 Losartan Potassium (Cozaar) 25 mg DAILY ORAL 07/12/17 09:00 07/31/17 08:59 07/13/17 09:35 Methylprednisolone Sodium Succinate (Solu-MEDROL) 20 mg EVERY 12 HOURS IVP 07/12/17 09:00 08/08/17 20:59 07/13/17 09:33 Morphine Sulfate (Morphine Sulfate) 4 mg Q4H PRN IVP Severe Pain (Pain Scale 7-10) 07/12/17 01:00 07/14/17 12:59 Ondansetron HCl (Zofran) 4 mg Q6H PRN IVP Nausea & Vomiting 07/12/17 00:15 07/31/17 06:14 Pantoprazole (Protonix) 40 mg Q12HR IV 07/12/17 09:00 07/31/17 08:59 07/13/17 09:33 Polyethylene Glycol (Miralax) 17 gm DAILYPRN PRN ORAL Constipation 07/12/17 06:15 07/31/17 06:14 07/12/17 06:12 Theophylline (John-Dur) 100 mg EVERY 12 HOURS ORAL 07/12/17 09:00 07/31/17 08:59 07/13/17 09:34 CHAVO GONCALVES M.D. Jul 13, 2017 09:58
[2017-07-13 12:00] VITALS: BP 113/69
--- NOTE | 2017-07-13 15:08 | Nephrology Progress Note ---
Assessment/Plan Problem List: (1) Respiratory failure, acute (2) Proteinuria (3) Hypoalbuminemia Assessment stable from renal stand Dyspnea, acute respiratory failure , requiring intubation and mechanichal vent Mixed connective tissue disease Anemia likely due to chronic disease HypoAlbuminemia Pulmonary fibrosis Pulmonary hypertension COPD exacerbation Respiratory failure, acute Plan Plan: Family considering terminal extubation which was done Patient appears to be stable post extubation stable from renal stand BP stable on steroids per orders Subjective ROS Limited/Unobtainable: No Objective Objective Last 24 Hour Vital Signs Date Time Temp Pulse Resp B/P (MAP) Pulse Ox O2 Delivery O2 Flow Rate FiO2 07/13/17 12:00 98.1 83 19 113/69 97 07/13/17 09:35 120/69 07/13/17 09:34 95 07/13/17 08:00 97.7 95 19 120/69 98 07/13/17 04:00 Nasal Cannula 2.0 07/13/17 04:00 97.7 92 20 128/7 96 Room Air 07/13/17 00:00 97.5 92 18 125/69 97 Room Air 07/13/17 00:00 Nasal Cannula 2.0 07/12/17 20:05 Nasal Cannula 2.0 07/12/17 20:00 98.1 81 19 122/74 99 Room Air 07/12/17 19:11 98 Nasal Cannula 2.0 28 07/12/17 19:11 Nasal Cannula 2.0 28 07/12/17 16:00 97.7 104 20 111/52 94 Intake and Output 07/12/17 07/13/17 19:00 07:00 Intake Total 250 ml Output Total 650 ml 600 ml Balance -400 ml -600 ml Intake Oral 250 ml Output Urine Total 650 ml 600 ml # Bowel Movements 1 Height (Feet): 5 Height (Inches): 3.00 Weight (Pounds): 184 General Appearance: no apparent distress Cardiovascular: regular rhythm, tachycardia Respiratory/Chest: decreased breath sounds Abdomen: soft DARRYL ISSA Jul 13, 2017 15:08
[2017-07-13 15:36] VITALS: BP 114/63
--- NOTE | 2017-07-13 19:20 | Internal Med Progress Note ---
Subjective Date of Service: Jul 13, 2017 Physician Name Roberta Butler Attending Physician Ten Bourne MD Current Medications Medications (Trade) Dose Ordered Sig/Taryn Route PRN Reason Start Time Stop Time Status Last Admin Dose Admin Acetaminophen (Tylenol) 650 mg Q4H PRN ORAL fever 07/12/17 02:15 07/31/17 06:14 Dextrose (Dextrose 50%) No Dose PRN IV hypoglycemia 07/11/17 23:15 08/01/17 10:44 Digoxin (Lanoxin) 0.125 mg DAILY ORAL 07/12/17 09:00 07/31/17 08:59 07/13/17 09:34 Duloxetine HCl (Cymbalta) 60 mg DAILY ORAL 07/12/17 09:00 07/31/17 08:59 07/13/17 09:34 Heparin Sodium (Porcine) (Heparin 5000 units/ml) 5,000 units EVERY 12 HOURS SUBQ 07/12/17 09:00 07/31/17 08:59 07/13/17 09:36 Insulin Aspart (NovoLOG) EVERY 6 HOURS SUBQ 07/12/17 00:00 08/01/17 11:29 07/13/17 06:42 Lorazepam (Ativan 2mg/ml 1ml) 2 mg Q2H PRN IV For Anxiety 07/11/17 23:30 07/14/17 13:29 Losartan Potassium (Cozaar) 25 mg DAILY ORAL 07/12/17 09:00 07/31/17 08:59 07/13/17 09:35 Methylprednisolone Sodium Succinate (Solu-MEDROL) 20 mg EVERY 12 HOURS IVP 07/12/17 09:00 08/08/17 20:59 07/13/17 09:33 Morphine Sulfate (Morphine Sulfate) 4 mg Q4H PRN IVP Severe Pain (Pain Scale 7-10) 07/12/17 01:00 07/14/17 12:59 Ondansetron HCl (Zofran) 4 mg Q6H PRN IVP Nausea & Vomiting 07/12/17 00:15 07/31/17 06:14 Pantoprazole (Protonix) 40 mg Q12HR IV 07/12/17 09:00 07/31/17 08:59 07/13/17 09:33 Polyethylene Glycol (Miralax) 17 gm DAILYPRN PRN ORAL Constipation 07/12/17 06:15 07/31/17 06:14 07/12/17 06:12 Theophylline (John-Dur) 100 mg EVERY 12 HOURS ORAL 07/12/17 09:00 07/31/17 08:59 07/13/17 09:34 Allergies: Coded Allergies: No Known Allergies (Unverified , 01/11/17) ROS Limited/Unobtainable: No Constitutional: Reports: no symptoms HEENT: Reports: no symptoms Cardiovascular: Reports: no symptoms Respiratory: Reports: shortness of breath Gastrointestinal/Abdominal: Reports: no symptoms Genitourinary: Reports: no symptoms Neurologic/Psychiatric: Reports: no symptoms Subjective 82 YO F admitted with respiratory failure. Extubated 07/10/17. Tolerating nasal canula. Cover for [facility] K[facility]-Dr Bourne. Await transfer to [facility] Objective Last Vital Signs Date Time Temp Pulse Resp B/P (MAP) Pulse Ox O2 Delivery O2 Flow Rate FiO2 07/13/17 16:52 Nasal Cannula 2.0 07/13/17 15:36 97.9 106 22 114/63 94 07/12/17 19:11 28 Intake and Output 07/12/17 07/13/17 19:00 07:00 Intake Total 250 ml Output Total 650 ml 600 ml Balance -400 ml -600 ml Intake Oral 250 ml Output Urine Total 650 ml 600 ml # Bowel Movements 1 Objective General Appearance: WD/WN, lethargic EENT: normal ENT inspection Neck: non-tender, normal alignment, supple, normal inspection Cardiovascular: normal peripheral pulses, normal rate, regular rhythm, no gallop/murmur, no JVD Respiratory/Chest: Nasal canula; respiratory distress, crackles/rales, rhonchi - bilaterally, expiratory wheezing Abdomen: non tender, soft, no organomegaly, no mass, decreased bowel sounds Edema: trace edema Skin: normal pigmentation, warm/dry Assessment/Plan Problem List: (1) HTN (hypertension) Assessment & Plan: Currently off levophed. (2) Respiratory failure, acute Assessment & Plan: Extubated 07/10/17; tolerating nasal canula. See pulm note. Cont theophylline and ceftriaxone (3) Hypercapnia (4) Pulmonary hypertension (5) Pulmonary fibrosis (6) Hypothyroidism (7) Renal failure Assessment & Plan: See nephrology note. Assessment/Plan Discharge planning: Transfer to [facility] today ROBERTA BUTLER Jul 13, 2017 19:20
[2017-07-13 20:00] VITALS: BP 99/64
--- NOTE | 2017-07-13 23:24 | Pulmonology Progress Note ---
Assessment/Plan Problems: (1) Respiratory failure, acute (2) COPD exacerbation (3) Pulmonary hypertension (4) Pulmonary fibrosis (5) Hypothyroidism (6) Major depression Assessment/Plan titrate fio2 getting better respiratory treatment check cultures chest pt dc planning in progress Subjective ROS Limited/Unobtainable: No Interval Events: feeling better Allergies: Coded Allergies: No Known Allergies (Unverified , 01/11/17) Objective Last 24 Hour Vital Signs Date Time Temp Pulse Resp B/P (MAP) Pulse Ox O2 Delivery O2 Flow Rate FiO2 07/13/17 20:00 97.7 65 18 99/64 95 Nasal Cannula 07/13/17 19:55 Nasal Cannula 2.0 28 07/13/17 19:55 97 Nasal Cannula 2.0 28 07/13/17 16:52 Nasal Cannula 2.0 07/13/17 15:36 97.9 106 22 114/63 94 07/13/17 12:00 98.1 83 19 113/69 97 07/13/17 09:35 120/69 07/13/17 09:34 95 07/13/17 08:00 97.7 95 19 120/69 98 07/13/17 04:00 Nasal Cannula 2.0 07/13/17 04:00 97.7 92 20 128/7 96 Room Air 07/13/17 00:00 97.5 92 18 125/69 97 Room Air 07/13/17 00:00 Nasal Cannula 2.0 Intake and Output 07/12/17 07/13/17 19:00 07:00 Intake Total 250 ml Output Total 650 ml 600 ml Balance -400 ml -600 ml Intake Oral 250 ml Output Urine Total 650 ml 600 ml # Bowel Movements 1 Objective General Appearance: no apparent distress Head: normocephalic, atraumatic Eyes: bilateral eye PERRL, bilateral eye EOMI ENT: normal pharynx, no angioedema Neck: supple, thyroid normal Respiratory: lungs clear, normal breath sounds Cardiovascular #1: regular rate, rhythm Gastrointestinal: non tender, soft Musculoskeletal: other - Patient is chronically debilitated, Neurologic: other - Patient is confused underlying dementia, Current Medications Medications (Trade) Dose Ordered Sig/Taryn Route PRN Reason Start Time Stop Time Status Last Admin Dose Admin Acetaminophen (Tylenol) 650 mg Q4H PRN ORAL fever 07/12/17 02:15 07/31/17 06:14 Dextrose (Dextrose 50%) No Dose PRN IV hypoglycemia 07/11/17 23:15 08/01/17 10:44 Digoxin (Lanoxin) 0.125 mg DAILY ORAL 07/12/17 09:00 07/31/17 08:59 07/13/17 09:34 Duloxetine HCl (Cymbalta) 60 mg DAILY ORAL 07/12/17 09:00 07/31/17 08:59 07/13/17 09:34 Heparin Sodium (Porcine) (Heparin 5000 units/ml) 5,000 units EVERY 12 HOURS SUBQ 07/12/17 09:00 07/31/17 08:59 07/13/17 20:52 Insulin Aspart (NovoLOG) EVERY 6 HOURS SUBQ 07/12/17 00:00 08/01/17 11:29 07/13/17 06:42 Lorazepam (Ativan 2mg/ml 1ml) 2 mg Q2H PRN IV For Anxiety 07/11/17 23:30 07/14/17 13:29 Losartan Potassium (Cozaar) 25 mg DAILY ORAL 07/12/17 09:00 07/31/17 08:59 07/13/17 09:35 Methylprednisolone Sodium Succinate (Solu-MEDROL) 20 mg EVERY 12 HOURS IVP 07/12/17 09:00 08/08/17 20:59 07/13/17 20:51 Morphine Sulfate (Morphine Sulfate) 4 mg Q4H PRN IVP Severe Pain (Pain Scale 7-10) 07/12/17 01:00 07/14/17 12:59 Ondansetron HCl (Zofran) 4 mg Q6H PRN IVP Nausea & Vomiting 07/12/17 00:15 07/31/17 06:14 Pantoprazole (Protonix) 40 mg Q12HR IV 07/12/17 09:00 07/31/17 08:59 07/13/17 20:51 Polyethylene Glycol (Miralax) 17 gm DAILYPRN PRN ORAL Constipation 07/12/17 06:15 07/31/17 06:14 07/12/17 06:12 Theophylline (John-Dur) 100 mg EVERY 12 HOURS ORAL 07/12/17 09:00 07/31/17 08:59 07/13/17 20:51 MARIZA CHANEL Jul 13, 2017 23:24
--- NOTE | 2017-07-16 11:41 | Discharge Summary ---
Discharge Summary Hospital Course Date of Admission Jun 30, 2017 at 23:55 Date of Discharge Jul 13, 2017 at 22:00 Admitting Diagnosis respiratory failure/hypercapnia HPI Arianna Kwan is a 82 year old female who was admitted on Jun 30, 2017 at 23: 55 for Respiratory Failure, Hypercapnia Hospital Course dc summary #[id number] Discharge Medications Continued Medications: Acetaminophen* (Acetaminophen 325MG Tablet*) 325 Mg Tablet 325 MG ORAL Q6H PRN for For Pain, TAB Alprazolam* (Xanax*) 0.25 Mg Tablet 0.25 MG ORAL THREE TIMES A DAY PRN for For Anxiety, #30 TAB 0 Refills Azathioprine* (Imuran*) 50 Mg Tablet 50 MG PO DAILY, TAB Calcium Carbonate (Tums) 200 Mg Tab.chew 200 MG PO, TAB Digoxin* (Digoxin*) 125 Mcg Tablet 125 MCG ORAL DAILY, TAB Duloxetine Hcl* (Cymbalta*) 60 Mg Capsule.dr 60 MG ORAL DAILY, CAP Levothyroxine Sodium* (Levothyroxine Sodium*) 125 Mcg Tablet 125 MCG ORAL DAILY, TAB Take in the morning on an empty stomach, at least 30 minutes before food. Losartan Potassium* (Losartan Potassium*) 25 Mg Tablet 25 MG ORAL DAILY, TAB Mycophenolate Mofetil (Cellcept) 500 Mg Tablet 1000 MG ORAL BEDTIME, TAB Omeprazole Magnesium (Prilosec Otc) 20 Mg Tablet.dr 20 MG ORAL DAILY, TAB Prednisone* (Prednisone*) 10 Mg Tablet 10 MG ORAL DAILY, #10 TAB 0 Refills Tadalafil (Tadalafil) 5 Mg Tablet 5 MG PO TWICE A DAY, TAB Theophylline (Theodur*) 100 Mg Tab.er.12h 100 MG ORAL EVERY 12 HOURS for 60 Days, TAB Discharge Condition Upon Discharge: stable Discharge Disposition Patient was discharged to SNF Discharge Diagnoses: Bart (Silva),Kisha MEDICAL INSURANCE VERIFIER Jul 16, 2017 11:41
--- NOTE | 2017-07-16 23:45 | Discharge Summary 2 SIG ---
DATE OF ADMISSION: 06/30/2017 DATE OF DISCHARGE: 07/13/2017 REASON FOR ADMISSION: 82-year-old female with past medical history significant for pulmonary fibrosis, severe pulmonary hypertension, mixed connective tissue disorder, and chronic hypoxemia, was brought from the [facility] facility with a chief complaint of shortness of breath. She denied fever, chills, chest pain, abdominal pain, or urinary complaints. She reported being short of breath with episodes of cough. The patient was afebrile, tachypneic, tachycardic, and required initially placement on nonrebreathing mask. In few hours, the patient required emergency intubation. ABG showed severe respiratory acidosis with pH - 7.26, pCO2 - 89.7 and severe hypoxia with O2 saturation of 80 %. (ABG was done on three liters of nasal cannula). The patient with evidence of anemia, hemoglobin -9.8, and hematocrit -33.1) Stable renal parameters and electrolytes. Chest x-ray revealed significant bilateral interstitial airspace disease and underlying pulmonary fibrosis. The patient was admitted to intensive care unit with diagnosis of acute respiratory failure with hypercapnia, pulmonary hypertension, pulmonary fibrosis, history of hypertension with current hypotension, hypothyroidism, and mixed connective tissue disorder. HOSPITAL STAY: The patient was admitted to ICU. Ventilator support provided. Pulmonary toilet provided. The patient was followed up with daily chest x-ray and ABG. The patient was self-extubated and requiring re-intubation. The patient was started on a trial of theophylline and a stress dose of the steroids ( patient was on maintenance dose of prednisone prior). The patient was on antibiotic. ID followed. Sputum culture negative. Blood culture negative. Influenza screen test negative. Prior sputum culture revealed Tish. Strict aspiration precaution were maintained. Nutritional support provided via NG tube. Finance Admin closely followed. Renal parameters and electrolytes were clsoely monitored, and electrolytes were corrected as needed. Echocardiogram revealed preserved ejection fraction of 60% to 65% and evidence of mild pulmonary hypertension (prior with severe pulmonary hypertension, the patient was on Tadalafil prior to admission). Blood pressure was managed with ARB and was stable. Blood sugar was managed with sliding scale of insulin. Hemoglobin A1c -6.1, likely steroid induced. DVT and GI prophylaxis provided. Bowel regimen instituted. TSH was within normal limits. Current dose of levothyroxine was continued. The patient had difficulties with weaning. Surgery consult was requested for possible tracheostomy placement. As per surgeon, the patient would benefit from tracheostomy. Family could not make a decision regarding tracheostomy versus DNR/DNI status with comfort care. Surgeon closely followed. Finally on 07/10/2017, the patient was made DNR/ DNI status, and the family was asking for terminal extubation. The patient was terminally extubated on 07/10/2017. Supplemental oxygen provided as needed to keep pulse oximetry above 92%. The patient was able to maintain pulse oximetry 94% to 97% on 2 Liters of oxygen via nasal cannula. Nebulizing therapy and chest physical therapy were provided. The patient was doing better. The patient status post treatment for possible concomitant pneumonia. Anemia workup was consistent with anemia of chronic disease. Finance Admin closely followed the patient and recommended to avoid nephrotoxics. 24-hour urine collection showed protein 106 mg of protein over 24 hours and urinalysis with +2 protein. The patient was stable for transfer to [facility] facility. FINAL DIAGNOSES: 1. Acute hypoxemic hypercapnic respiratory failure requiring intubation (secondary to underlying pulmonary disease and pneumonia). 2. Status post self-extubation and status post re-intubation. 3. Status post extubation. 4. Pneumonia, status post treatment. 5. Pulmonary fibrosis. 6. Pulmonary hypertension. 7. Chronic obstructive pulmonary disease exacerbation. 8. Hypertension. 9. Hypothyroidism 10. Mixed connective tissue disorder. 11. Anemia. 12. Diabetes. 13. Proteinuria. 14. Hypoalbuminemia. 15. Electrolyte imbalance (hypokalemia and hypomagnesemia). DISCHARGE MEDICATIONS: See medication reconciliation list. DISCHARGE INSTRUCTIONS: The patient was discharged to [facility] facility. Further workup for proteinuria if ok with family as outpatient FOLLOWUP: Follow up with medical doctor at the facility. Ten Bourne M.D. Kisha ContrerasMohawk Valley Health SystemAllyson N.PGabe DR: EVA JOB#: [id number] CC: TARYN
== END 2017-07-13 22:00 | DRG 207 ==
LOC: EDBD 22:54 → EMR 23:30 → ICU 23:55 → EDBEDREQSVC 23:56 → EDBEDREQ 07-01 02:02 → 4W 07-11 22:30
DX: J96.02 Acute respiratory failure with hypercapnia (principal); J18.9 Pneumonia, unspecified organism; I95.9 Hypotension, unspecified; I27.20 Pulmonary hypertension, unspecified; J84.10 Pulmonary fibrosis, unspecified; Z99.81 Dependence on supplemental oxygen; J44.0 Chronic obstructive pulmonary disease with (acute) lower respiratory infection; J44.1 Chronic obstructive pulmonary disease with (acute) exacerbation; J96.01 Acute respiratory failure with hypoxia; E03.9 Hypothyroidism, unspecified; L94.8 Other specified localized connective tissue disorders; I10 Essential (primary) hypertension; D64.9 Anemia, unspecified; E88.09 Other disorders of plasma-protein metabolism, not elsewhere classified; Z96.651 Presence of right artificial knee joint; F32.9 Major depressive disorder, single episode, unspecified; E87.6 Hypokalemia; E83.42 Hypomagnesemia; E11.9 Type 2 diabetes mellitus without complications
CPT/HCPCS: 36415; 36600; 71045; 74018; 80048; 80053; 80061; 80150; 80162; 81001; 81050; 82150; 82164; 82550; 82553; 82607; 82728; 82746; 82803; 82962; 82977; 83036; 83540; 83550; 83690; 83735; 83880; 84100; 84156; 84300; 84443; 84484; 84550; 85007; 85025; 85651; 86140; 86710; 86850; 86900; 86901; 86920; 87040; 87070; 87081; 87205; 93005; 93306; 94002; 94003; 94640; 94664; 94760; 99285; J1815; J2250; J7620; J8499